=== PATIENT | male | born 1965 | race Caucasian/White ===

== ENCOUNTER → 2018-04-24 08:52 | Outpatient (CLI) | payer MEDICARE, MEDICAID, SELFPAY ==
[2018-04-24 09:02] LABS: Basophils % 0.5 % (0.1-2.0); Eosinophils # 0.1 K/mm3 (0.0-0.4); Eosinophils % 2.3 % (0.1-12.0); Hematocrit 51.1 % (42.0-52.0); Hemoglobin 16.5 g/dL (14.1-18.0); Lymphocytes # 1.2 K/mm3 (0.7-4.5); Lymphocytes % 23.4 K/mm3 (10-50); Mean Corpuscular HGB Conc 32.2 g/dL (31.8-35.4); Mean Corpuscular Hemoglobin 28.8 pg (27.0-31.2); Mean Corpuscular Volume 89.5 fl (80-94); Mean Platelet Volume 7.8 fl (7.4-10.4); Monocytes # 0.4 K/mm3 (0.1-1.0); Monocytes % 7.2 % (1.7-9.3); Neutrophils # 3.3 K/mm3 (1.8-7.8); Neutrophils % 66.6 % (37.0-80.0); Platelet Count 194 K/mm3 (142-424); Red Blood Count 5.72 M/mm3 (4.60-6.20)
--- NOTE | 2018-04-24 09:02 | CT_ITS ---
CT cervical spine wo con HISTORY: ITS.REASON: CERVICALGIA ORDERING PHYSICIAN: Wanda Alcantara PATIENT AGE: 53 years COMPARISON: None TECHNIQUE: Axial images obtained without contrast. Sagittal and coronal reformatted images also generated and reviewed. All CT scans at the facility use one or more dose reduction, viz: automated exposure control; ma/kV adjustment per patient size (including targeted exams where dose is matched to indication; i.e. head); or iterative reconstruction technique. FINDINGS: There is normal alignment. There is reversal of the cervical lordosis. The bodies of C5 and C6 are fused. C2-C3: Moderate uncovertebral hypertrophy with bilateral lateral recess and foraminal narrowing slightly greater on the right. C3-C4: Moderate uncovertebral hypertrophy with moderate bilateral lateral recess and foraminal narrowing. C4-C5: Mild uncovertebral hypertrophy with mild bilateral lateral recess and foraminal narrowing slightly greater on the right. C5-C6: Fusion of the vertebral bodies. C6-C7: Degenerative disc disease. Mild bilateral foraminal narrowing C7-T1: Mild degenerative disc disease. There is an intrathecal catheter along the dorsal aspect of the thecal sac superior tip at the C7 area. Scattered small nodes are present within the neck. Lung apices are clear IMPRESSION: 1. Generalized cervical spondylosis with degenerative disc disease and uncovertebral hypertrophy with bilateral areas of foraminal and lateral recess narrowing as detailed above. See above for detailed descriptions at each level. 2. No acute fracture or dislocation. 3. No lytic or blastic change
[2018-04-24 10:07] LABS: Alanine Aminotransferase 28 U/L (12-78); Albumin Level 3.8 gm/dL (3.4-5.0); Alkaline Phosphatase 104 U/L (46-116); Anion Gap 10.7 mEq/L (5-15); Aspartate Amino Transferase 16 U/L (15-37); Bilirubin,Total 0.3 mg/dL (0.2-1.0); Blood Urea Nitrogen 17 mg/dL (7-18); Calcium 9.9 mg/dL (8.5-10.1); Carbon Dioxide 31 mmol/L (21.0-32.0); Chloride 104 mmol/L (98-107); Chol/HDL Ratio 4.7 (1-3.5); Cholesterol 165 mg/dL (140-200); Creatinine,Serum 1.23 mg/dL (0.70-1.30); Estimated Glomerular Filt Rate 61 ml/min (>60); GFR (African American) 74 ML/MIN (>60); Glucose 91 mg/dL (74-106); HDL Cholesterol 35 mg/dL (27-67); LDL Cholesterol 117 mg/dL (0-130); Potassium 4.7 mmoL/L (3.5-5.1); Sodium 141 mmol/L (136-145); Thyroid Stimulating Hormone 2.54 uIU/ml (0.358-3.740); Total Protein,Serum 7.8 gm/dL (6.4-8.2); Triglycerides 67 mg/dL (30-200); VLDL Cholesterol 13 mg/dL (0-40)
[2018-04-24 11:07] LABS: Erythrocyte Sedimentation Rate 6 mm/hr (0-20)
[2018-04-25 18:34] LABS: Vitamin B12 377 pg/mL (232-1245); Vitamin D 25 Hydroxy 32.6 ng/mL (30.0-100.0)
== END ==
PROVIDERS: PCP Internal Medicine Adolescent Medicine; Visit Provider Nurse Practitioner Family
DX: M54.2 Cervicalgia (principal); Z79.899 Other long term (current) drug therapy
CPT/HCPCS: 36415; 72125; 80053; 80061; 82607; 82652; 83735; 84443; 85025; 85651

== ENCOUNTER → 2018-06-25 09:31 | Outpatient (REF) | payer MEDICARE, MEDICAID, SELFPAY ==
[2018-06-28 20:32] LABS: H. pylori Stool Ag, EIA Negative (Negative)
== END ==
LOC: LAB 09:31
PROVIDERS: Visit Provider Nurse Practitioner Family
DX: R11.0 Nausea (principal)
CPT/HCPCS: 87338

== ENCOUNTER → 2019-01-14 08:38 | Outpatient (CLI) | payer MEDICARE, MEDICAID, SELFPAY ==
--- NOTE | 2019-01-14 08:44 | XR_ITS ---
XR foot wt bearing LT 3V HISTORY: ITS.REASON: pain ORDERING PHYSICIAN: Saritha Villela MD PATIENT AGE: 53 years COMPARISON: None FINDINGS: Weightbearing views are performed No fracture or dislocation. No lytic or blastic change. There is normal mineralization.. The joint spaces are well-preserved. No significant degenerative/arthritic changes. No erosive changes evident. IMPRESSION: Negative, no acute finding
--- NOTE | 2019-01-14 08:44 | XR_ITS ---
XR foot wt bearing RT 3V HISTORY: ITS.REASON: pain ORDERING PHYSICIAN: Saritha Villela MD PATIENT AGE: 53 years COMPARISON: None FINDINGS: Weightbearing views are performed No fracture or dislocation. No lytic or blastic change. There is normal mineralization.. The joint spaces are well-preserved. No significant degenerative/arthritic changes. No erosive changes evident. There is slight decreased density involving the distal and medial aspect of the first metatarsal and may be related to developing subarticular cystic change IMPRESSION: 1. No acute finding. 2. Small cystic area in the distal and medial aspect of the first metatarsal
== END ==
PROVIDERS: PCP Internal Medicine Adolescent Medicine; Visit Provider Orthopaedic Surgery
DX: M79.672 Pain in left foot (principal); M79.671 Pain in right foot
CPT/HCPCS: 73630

== ENCOUNTER → 2019-01-18 10:29 | Outpatient (CLI) | payer MEDICARE, MEDICAID, SELFPAY ==
--- NOTE | 2019-01-18 10:39 | XR_ITS ---
XR shoulder RT min 2V HISTORY: ITS.REASON: RT SHOULDER PAIN ORDERING PHYSICIAN: Juarez Polanco MD PATIENT AGE: 53 years Comparison: None FINDINGS: No fracture or dislocation. No lytic or blastic change. There is normal mineralization. The joint spaces are well-preserved. Minimal subcortical lucency is noted at the base of the greater tuberosity and may be seen with rotator cuff disease. IMPRESSION: 1. Faint subcortical lucency at the base of the greater tuberosity which may be seen with rotator cuff disease. 2. Otherwise negative right shoulder
== END ==
PROVIDERS: PCP Internal Medicine Adolescent Medicine; Visit Provider Internal Medicine Adolescent Medicine
DX: M25.511 Pain in right shoulder (principal)
CPT/HCPCS: 73030

== ENCOUNTER → 2019-02-08 09:05 | Outpatient (CLI) | payer MEDICARE, MEDICAID, SELFPAY ==
--- NOTE | 2019-02-08 09:10 | XR_ITS ---
XR shoulder RT min 2V Ordering Physician: Saritha Villela MD Patient Age: 54 years: Male HISTORY: ITS.REASON: Right shoulder pain grashy, axillary and scapular y views TECHNIQUE: 3 view right shoulder Y view, axillary view, AP Grashey view. COMPARISON :January 18, 2019 FINDINGS No acute fracture nor dislocation. The humeral head and neck are intact. The glenohumeral joint is intact. The previous study showed minimal osseous irregularity at the superior base of the greater tuberosity, which may reflect impingement changes & early degenerative change.- However this specific feature is less evident on today views. The subacromial space appears adequate. The humeral head & neck appear satisfactory otherwise the glenohumeral joint appears satisfactory. AC joint satisfactory.] Visualized right lung appears satisfactory, unremarkable. The Y view shows normal glenohumeral relationship. IMPRESSION: Normal glenohumeral joint. Right shoulder intact -note comments in text
--- NOTE | 2019-02-08 09:10 | XR_ITS ---
XR knee RT 4V Comparison: June 2007 History: Chronic Right knee pain. .. stiff person syndrome Technique: Weightbearing AP, lateral and Serrano views were performed as well as oblique. Findings: . slight narrowing at the medial compartment evident on today's weightbearing views. Minor sclerosis about this slightly narrowed medial compartment also observed. Findings suggest some early degenerative changes Mild sharpening along the margins of the joint. Particular note some early sharpening margins of patella particularly lateral and superior margin. Upper normal joint fluid suprapatella bursa. . Impression: Suggestion of minor early degenerative changes right knee.. Subtle narrowing & sclerosis about the medial compartment.
== END ==
PROVIDERS: PCP Internal Medicine Adolescent Medicine; Visit Provider Orthopaedic Surgery
DX: M25.511 Pain in right shoulder (principal); M25.561 Pain in right knee
CPT/HCPCS: 73030; 73564

== ENCOUNTER 2019-02-10 09:00 | Outpatient (RCR) | payer MEDICARE, MEDICAID, SELFPAY ==
--- NOTE | 2019-02-03 09:56 | HMH.PTOPEV ---
PT Outpatient Evaluation Rehab PT Outpatient Evaluation Start: 02/03/19 09:42 Freq: Status: Active Protocol: Document 02/03/19 09:44 MAE (Rec: 02/03/19 09:56 BOYSHANNAN [id number]) Electronically Signed By Luis Romero PT 02/03/19 09:44 Outpatient Therapy Subjective History Subjective History THis is the initial Physical Therapy evaluation for Jimmy Rothman. Pt is a 54 y/o male referred to PT for c/o L foot /arch pain. Pt rpeorts he has had pain in foot for ~ 4 months. Pt reports cotizone injxn in foot ~ 2 months ago w /out relief. Pt reprots he saw DPM ~ 1 month ago and was given HEP w/out relief. 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 Pt reports he has internal baclofen pump Chief Complaint Pain Spasms Symptom Type Burning Numbness Tingling Symptoms Relieved By Nothing Symptoms Aggravated By Standing Physical Activity Walking Prior Functional Limitations Housework Standing Recreation Activity Walking Balance Current Functional Limitations Housework Standing Recreation Activity Walking Balance Symptom Description Constant but Variable Level of pain today (0-10) 4 Pain scale - at its best (0-10) 4 Pain scale - at its worst (0-10) 8 Ankle/Foot Eval Gait Observation General Gait Pattern Observation Antalgic Gait Ataxic Gait Assistive Device Ambulation Assistive Device None Palpation Tenderness left Ankle/Foot Palpation Findings Tenderness Ankle/Foot Palpation Overall Comment TTP 3/4 at plantar fascia origin on anterior calcaneus ATF TTP negative PTF TTP negative CF TTP negative Deltoid ligament TTP negative ROM Ankle/Foot Dorsiflexion w/Knee Extended 0 Ac
== END 2019-02-10 09:05 | disposition home or self-care (01) ==
LOC: PT 09:00
PROVIDERS: Visit Provider Podiatrist
DX: M72.2 Plantar fascial fibromatosis (principal); M79.672 Pain in left foot
CPT/HCPCS: 97110; 97163

== ENCOUNTER 2019-02-10 10:02 | Outpatient (RCR) | payer MEDICARE, MEDICAID, SELFPAY ==
--- NOTE | 2019-02-10 11:55 | HMH.OTOPEV ---
OT Inpatient Evaluation Rehab OT Outpatient Eval Start: 02/10/19 10:53 Freq: Status: Active Protocol: Document 02/10/19 10:54 RMARSHALL (Rec: 02/10/19 11:54 [id number] Electronically Signed By Gale Gray OT 02/10/19 10:54 Outpatient Therapy Subjective History Subjective History Pt is a 54 year old male who reports to therapy for initial evaluation to right shoulder. 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 However, pt reports he had symptoms of this disease 19 years prior to his diagnosis. Pt has a Baclofen pump due to severe muscle spasms. Pt reports his pain in his shoulder began in November of 2018. Pt demonstrates with slight decreased AROM and strength at right shoulder. Pt has pain down into the bicep and tricep areas as well as the anterior aspect of right shoulder. Could be indicitive of LHTB problem. Pt will continue to be seen twice a week in order to address these deficits. Chief Complaint Pain Spasms Stiff Weakness Symptom Type Ache Throb Sharp Dull Stabbing Burning Tingling Shooting Symptoms Relieved By Nothing Symptoms Aggravated By Physical Activity Twisting Lifting Prior Functional Limitations None Current Functional Limitations Reaching Lifting Housework Dressing Desk Work/Reading Driving Sleeping Recreation Activity Symptom Description Constant but Variable Level of pain today (0-10) 4 Pain scale - at its best (0-10) 2
== END 2019-02-10 10:05 | disposition home or self-care (01) ==
LOC: OT 10:02
PROVIDERS: Visit Provider Orthopaedic Surgery
DX: M25.511 Pain in right shoulder (principal)
CPT/HCPCS: 97166

== ENCOUNTER → 2019-08-02 09:19 | Outpatient (CLI) | payer MEDICARE, MEDICAID, SELFPAY ==
--- NOTE | 2019-08-02 09:23 | XR_ITS ---
PROCEDURE: XR CERVICAL SPINE 5V CLINICAL INDICATION: neck pain Neck pain radiating toward the left of the head and neck COMPARISON: SPCERVWO CT cervical spine wo con from 04/24/2018 FINDINGS: There is normal alignment. There is degenerative disc disease at C2-C3 C4-C5, prior fusion at C5-C6 and degenerative disc disease at C6-C7 and C7-T1. No fracture or dislocation. No lytic or blastic change. There is straightening of the cervical lordosis. Foraminal narrowing is present on the right at C3-C4 and C4-C5 and on the left from C3-C6. There are facet arthritic changes at C4-C5 C6 and C7. An epidural catheter is noted with the superior aspect of the catheter at the C7-T1 level. There is slight reversal of the cervical lordosis which could be due to patient positioning or muscle spasm. IMPRESSION: Cervical spondylosis as detailed above with prior fusion of C5-C6 vertebral bodies with multilevel degenerative disc disease and facet arthritic change Dictated by: Fuentes Dove MD 08/02/2019 10:32 Electronically signed by Fuentes Dove MD in [place] 08/02/2019 10:32
--- NOTE | 2019-08-02 09:23 | MR_ITS ---
PROCEDURE: MR SHOULDER RT WO CON CLINICAL INDICATION: evaluate for rotator cuff tear Right shoulder pain, right arm numbness and coldness, limited range of motion COMPARISON: SHOULDCMRT XR shoulder RT min 2V from 02/08/2019 TECHNIQUE: Routine multiplanar multi echo sequences are performed without gadolinium enhancement. FINDINGS: There is mild acromioclavicular arthropathy with edematous changes at the AC joint with a cystic area involving the distal clavicle measuring approximately 1 cm. There is mild subacromial stenosis. There is a full-thickness tear involving the anterior aspect of the supraspinatus tendon with some mild retraction of the musculotendinous fibers. There is diffuse increased T2 signal involving the posterior aspect of the supraspinatus tendon consistent with tendinopathy/tendinosis. A complete tear is not felt to be present. The infraspinatus tendon appears intact. The subscapularis and teres minor tendons also appear intact. There does appear to be a slap tear of the superior glenoid labrum. There is also irregularity of the posterior glenoid labrum inferiorly with increased T2 signal consistent with posterior labral tear. There are osteoarthritic changes of the glenohumeral joint. Edema is noted in the humeral head. The bicipital tendon is in place. There is a small amount of fluid in the subdeltoid region. Fluid is also present inferior to the clavicle and in the subcoracoid area. There is some cortical regularity of the greater tuberosity with edema in the subdeltoid region. IMPRESSION: 1. Full-thickness tear involves the anterior aspect of the supraspinatus tendon with mild retraction of the musculotendinous fibers. There is tendinopathy/tendinosis of the posterior aspect of the supraspinatus tendon but there does appear to be a few fibers intact 2. Slap tear of the glenoid labrum 3. 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 MR arthrography may confirm the labral abnormalities. 4. Mild bone marrow edema of the humeral head with generalized edema of the soft tissues of the shoulder Dictated by: Fuentes Dove MD 08/05/2019 06:38 Electronically signed by Fuentes Dove MD in [place] 08/05/2019 06:38
== END ==
PROVIDERS: PCP Internal Medicine Adolescent Medicine; Visit Provider Orthopaedic Surgery
DX: M54.2 Cervicalgia (principal); M67.919 Unspecified disorder of synovium and tendon, unspecified shoulder
CPT/HCPCS: 72050; 73221

== ENCOUNTER → 2019-08-23 10:55 | Outpatient (POV) | payer MEDICARE, MEDICAID, SELFPAY | PROVIDERS: Visit Provider Specialist | DX: M54.2 Cervicalgia (principal) | CPT/HCPCS: 95886; 95908 ==

== ENCOUNTER → 2019-09-23 08:05 | Outpatient (CLI) | payer MEDICARE, MEDICAID, SELFPAY ==
[2019-09-23 08:40] LABS: Ammonia 13 umol/L (19-54); Basophils % 0.8 % (0.1-2.0); Eosinophils # 0.1 K/mm3 (0.0-0.4); Eosinophils % 1.3 % (0.1-12.0); Hematocrit 50.6 % (42.0-52.0); Hemoglobin 16.6 g/dL (14.1-18.0); Lymphocytes # 1.1 K/mm3 (0.7-4.5); Lymphocytes % 26.4 % (10-50); Mean Corpuscular HGB Conc 32.8 g/dL (31.8-35.4); Mean Corpuscular Hemoglobin 29.8 pg (27.0-31.2); Mean Corpuscular Volume 90.8 fl (80-94); Mean Platelet Volume 8.3 fl (7.4-10.4); Monocytes # 0.4 K/mm3 (0.1-1.0); Monocytes % 8.5 % (1.7-9.3); Neutrophils # 2.6 K/mm3 (1.8-7.8); Platelet Count 199 K/mm3 (142-424); Red Blood Count 5.58 M/mm3 (4.60-6.20); Red Cell Distribution Width 13.7 % (11.5-17.5); White Blood Count 4.2 K/mm3 (4.8-10.8)
[2019-09-23 11:45] LABS: Alanine Aminotransferase 24 U/L (12-78); Albumin Level 3.4 gm/dL (3.4-5.0); Alkaline Phosphatase 82 U/L (46-116); Anion Gap 8.3 mEq/L (5-15); Aspartate Amino Transferase 13 U/L (15-37); Bilirubin,Total 0.3 mg/dL (0.2-1.0); Blood Urea Nitrogen 13 mg/dL (7-18); Calcium 9.4 mg/dL (8.5-10.1); Carbon Dioxide 29 mmol/L (21.0-32.0); Chloride 106 mmol/L (98-107); Creatinine,Serum 1.12 mg/dL (0.70-1.30); Estimated Glomerular Filt Rate 68 ml/min (>60); Free Thyroxine Index 2.7 ug/dL (5.93-13.13); GFR (African American) 82 ML/MIN (>60); Globulin 3.5 gm/dl (1.3-3.2); Glucose 100 mg/dL (74-106); Magnesium 1.9 mg/dL (1.4-2.2); Potassium 4.3 mmoL/L (3.5-5.1); Sodium 139 mmol/L (136-145); T4 (Thyroxine) 8.3 ug/dl (4.7-13.3); Thyroid Stimulating Hormone 2.64 uIU/ml (0.358-3.740); Total Protein,Serum 6.9 gm/dL (6.4-8.2); Triiodothryronine (T3) Uptake 32 % (31-39)
[2019-09-24 08:19] LABS: Vitamin B12 458 pg/mL (232-1245); Vitamin D 25 Hydroxy 27.4 ng/mL (30.0-100.0)
[2019-09-25 18:48] LABS: Lamotrigine (Lamictal) None Detected ug/mL (2.0-20.0)
== END ==
PROVIDERS: Visit Provider Internal Medicine Adolescent Medicine
DX: R51 Headache (principal); R53.83 Other fatigue; G40.909 Epilepsy, unspecified, not intractable, without status epilepticus; E55.9 Vitamin D deficiency, unspecified
CPT/HCPCS: 36415; 80053; 80168; 82140; 82607; 82652; 83735; 84436; 84443; 84479; 85025

== ENCOUNTER → 2019-09-24 09:17 | Outpatient (CLI) | payer MEDICARE, MEDICAID, SELFPAY ==
--- NOTE | 2019-09-24 09:20 | MR_ITS ---
PROCEDURE: MR HEAD/BRAIN WO CON CLINICAL INDICATION: CHRONIC INTRACTABLE HEADACHE, MIGRAINE AURA, SEIZURE DISORDE Headaches for 2 years which are worsening. Pain mostly on left side with facial drooping slurred speech and imbalance with left arm tingling and numbness COMPARISON: HEADWO CT head/brain wo con from 04/28/2019 TECHNIQUE: Routine multiplanar multi echo sequences are performed without gadolinium enhancement. FINDINGS: No midline shift, mass effect, intracranial hemorrhage, or hydrocephalus. No evidence of acute infarction The cerebellopontine angles, cerebellum, and brainstem are unremarkable. There is normal kitchen-white matter differentiation with no abnormal white matter signal intensity evident. The pituitary, optic chiasm, corpus callosum, and craniocervical junction have an unremarkable appearance. No mastoid effusion or sinus air-fluid level. IMPRESSION: NEGATIVE MRI OF THE BRAIN WITHOUT CONTRAST. Dictated by: Fuentes Dove MD 09/25/2019 11:35 Electronically signed by Fuentes Dove MD in [place] 09/25/2019 11:35
--- NOTE | 2019-09-24 09:21 | MR_ITS ---
PROCEDURE: MR ANGIO HEAD WO CON CLINICAL INDICATION: CHRONIC INTRACTABLE HEADACHE, MIGRAINE AURA, SEIZURE DISORDE COMPARISON: HEADWO CT head/brain wo con from 04/28/2019 MR HEAD/BRAIN WO CON from 09/24/2019 TECHNIQUE: 3D [id number] images obtained without contrast FINDINGS: No aneurysm, arteriovenous malformation, or major intracranial occlusive process is evident. There is persistent origin of the right posterior cerebral artery is a normal variant. Single-shot MRV is unremarkable. IMPRESSION: Negative MRA of the brain Dictated by: Fuentes Dove MD 09/25/2019 11:44 Electronically signed by Fuentes Dove MD in [place] 09/25/2019 11:44
== END ==
PROVIDERS: PCP Internal Medicine Adolescent Medicine; Visit Provider Internal Medicine Adolescent Medicine
DX: G43.519 Persistent migraine aura without cerebral infarction, intractable, without status migrainosus; G40.909 Epilepsy, unspecified, not intractable, without status epilepticus
CPT/HCPCS: 70544; 70551

== ENCOUNTER → 2019-12-24 09:46 | Outpatient (CLI) | payer MEDICARE, MEDICAID, SELFPAY ==
--- NOTE | 2019-12-24 09:49 | US_ITS ---
PROCEDURE: US ABDOMEN COMPLETE CLINICAL INDICATION: PERIPHERAL EDEMA, ABD SWELLING COMPARISON: SPLE US SPLEEN (ABD LTD) from 07/19/2016 FINDINGS: PANCREAS: Unremarkable. No obvious mass or abnormal fluid collection. No ductal dilatation LIVER: No focal liver lesions demonstrated. Homogeneous echogenicity. No intrahepatic biliary ductal dilatation evident. There is appropriate direction of blood flow within a non dilated portal vein RIGHT KIDNEY: Unremarkable. Normal size and echogenicity. No hydronephrosis LEFT KIDNEY: Unremarkable. Normal size and echogenicity. No hydronephrosis GALLBLADDER: Prior cholecystectomy. Common bile duct is normal at 2 mm AORTA: No evidence of aneurysmal dilatation. SPLEEN: Unremarkable. Normal size and echogenicity ASCITES: None demonstrated. IMPRESSION: No acute findings Dictated by: Fuentes Dove MD 12/24/2019 12:05 Electronically signed by Fuentes Dove MD in [place] 12/24/2019 12:05
== END ==
PROVIDERS: PCP Internal Medicine Adolescent Medicine; Visit Provider Internal Medicine Adolescent Medicine
DX: R19.00 Intra-abdominal and pelvic swelling, mass and lump, unspecified site (principal); R60.9 Edema, unspecified
CPT/HCPCS: 76700

== ENCOUNTER → 2020-10-09 14:24 | Outpatient (CLI) | payer MEDICARE, MEDICAID, SELFPAY ==
--- NOTE | 2020-10-09 14:38 | XR_ITS ---
PROCEDURE: XR KNEE RT 3V CLINICAL INDICATION: SWELLING ON RT KNEE JOINT COMPARISON: CR [id number] XR knee RT 4V from 02/08/2019 FINDINGS: No fracture or dislocation. No lytic or blastic change. There is normal mineralization. There are moderate osteoarthritic changes of the medial compartment and patellofemoral joint with suprapatellar effusion noted. Small osteophytes are present at the interspinous region of the proximal tibia and inter condylar region of the distal femur. Other findings:None. IMPRESSION: Osteoarthritis with knee joint effusion Dictated by: Fuentes Dove MD 10/09/2020 15:36 Fuentes Dove MD in [place] 10/09/2020 15:36
[2020-10-09 15:22] LABS: Basophils % 0.4 % (0.1-2.0); Eosinophils # 0.1 K/mm3 (0.0-0.4); Hematocrit 51.2 % (42.0-52.0); Hemoglobin 16.9 g/dL (14.1-18.0); Lymphocytes # 1.4 K/mm3 (0.7-4.5); Lymphocytes % 21.1 % (10-50); Mean Corpuscular HGB Conc 32.9 g/dL (31.8-35.4); Mean Corpuscular Hemoglobin 30.4 pg (27.0-31.2); Mean Corpuscular Volume 92.4 fl (80-94); Mean Platelet Volume 8.4 fl (7.4-10.4); Monocytes # 0.5 K/mm3 (0.1-1.0); Monocytes % 7.1 % (1.7-9.3); Neutrophils # 4.5 K/mm3 (1.8-7.8); Neutrophils % 70.4 % (37.0-80.0); Platelet Count 212 K/mm3 (142-424); Red Blood Count 5.54 M/mm3 (4.60-6.20); Red Cell Distribution Width 13.8 % (11.5-17.5); White Blood Count 6.4 K/mm3 (4.8-10.8)
[2020-10-09 15:55] LABS: Alanine Aminotransferase 27 U/L (12-78); Albumin Level 4.2 g/dl (3.5-5.0); Albumin/Globulin Ratio 1.4 (1.1-1.8); Alkaline Phosphatase 93 U/L (38-126); Anion Gap 9.9 mEq/L (5-15); Aspartate Amino Transferase 30 U/L (17-59); Bilirubin,Total 0.3 mg/dl (0.2-1.3); Blood Urea Nitrogen 16 mg/dl (9-20); Calcium 10.5 mg/dl (8.4-10.2); Carbon Dioxide 32 mmol/L (22.0-30.0); Chloride 103 mmol/L (98-107); Estimated Glomerular Filt Rate 52 ml/min (>60); GFR (African American) 63 ML/MIN (>60); Globulin 3.1 g/dL (1.3-3.2); Glucose 80 mg/dl (74-100); Potassium 4.9 mmoL/L (3.5-5.1); Sodium 140 mmol/L (136-145); Total Protein,Serum 7.3 g/dl (6.3-8.2); Uric Acid 6.9 mg/dl (3.5-8.5)
[2020-10-09 16:32] LABS: Erythrocyte Sedimentation Rate 4 mm/hr (0-20)
== END ==
PROVIDERS: Visit Provider Internal Medicine Adolescent Medicine
DX: M25.461 Effusion, right knee (principal)
CPT/HCPCS: 36415; 73562; 80053; 84550; 85025; 85651

== ENCOUNTER → 2020-10-13 09:25 | Outpatient (CLI) | payer MEDICARE, MEDICAID, SELFPAY ==
--- NOTE | 2020-10-13 09:29 | XR_ITS ---
PROCEDURE: XR KNEE RT 4V CLINICAL INDICATION: RT knee swelling COMPARISON: CR [id number] XR knee RT 4V from 02/08/2019 CR XR KNEE RT 3V from 10/09/2020 FINDINGS: Moderate osteoarthritic changes are present involving medial compartment and patellofemoral joint with mild osteoarthritis of the lateral compartment. There is mild genu varum. Suprapatellar effusion is present. No fracture or dislocation. No lytic or blastic change. Other findings:None. IMPRESSION: Moderate osteoarthritic changes with mild genu varum and suprapatellar effusion Dictated by: Fuentes Dove MD 10/13/2020 10:05 Fuentes Dove MD in [place] 10/13/2020 10:05
== END ==
PROVIDERS: PCP Internal Medicine Adolescent Medicine; Visit Provider Orthopaedic Surgery
DX: M25.561 Pain in right knee (principal)
CPT/HCPCS: 73564

== ENCOUNTER 2020-11-02 11:02 | Outpatient (CLI) | payer MEDICARE, MEDICAID, SELFPAY ==
[2020-11-02 11:17] VITALS: BMI 33.7
[2020-11-02 11:45] VITALS: BP 120/73; PULSE 58; RESP 20; TEMP 36.2; O2SAT 97
[2020-11-02 11:50] LABS: Chloride 105 mmol/L (98-107); Potassium 4.3 mmoL/L (3.5-5.1); Sodium 140 mmol/L (136-145)
[2020-11-02 11:53] LABS: Anion Gap 11.3 mEq/L (5-15); Blood Urea Nitrogen 15 mg/dl (9-20); Calcium 10.2 mg/dl (8.4-10.2); Carbon Dioxide 28 mmol/L (22.0-30.0); Creatinine Clearance Estimated 118 mL/min (50-200); Estimated Glomerular Filt Rate 69 ml/min (>60); GFR (African American) 83 ML/MIN (>60); Glucose 120 mg/dl (74-100)
[2020-11-02 12:15] VITALS: BP 112/67; PULSE 52; RESP 20
[2020-11-02 12:45] VITALS: BP 117/63; PULSE 52; RESP 20
[2020-11-02 13:15] VITALS: BP 115/71; PULSE 51; RESP 18
[2020-11-02 13:45] VITALS: BP 103/66; PULSE 47; RESP 16
[2020-11-02 14:15] VITALS: BP 99/57; PULSE 43; RESP 16
== END 2020-11-02 14:30 | disposition home or self-care (01) ==
LOC: INF 11:04
PROVIDERS: PCP Internal Medicine Adolescent Medicine; Visit Provider Internal Medicine Adolescent Medicine
DX: G43.909 Migraine, unspecified, not intractable, without status migrainosus (principal); N17.9 Acute kidney failure, unspecified
CPT/HCPCS: 80048; 96365; 96375

== ENCOUNTER → 2021-04-18 16:47 | Outpatient (CLI) | payer MEDICARE, MEDICAID, SELFPAY ==
--- NOTE | 2021-04-18 | XR_ITS ---
PROCEDURE: XR CHEST 2V CLINICAL HISTORY: Pneumonia, shortness of breath COMPARISON: CT CHWO CT CHEST W/O CONTRAST from 11/18/2016 CR Chest from 04/28/2019 FINDINGS: The cardiomediastinal silhouette and pulmonary vascularity are within normal limits. No lobar consolidation or collapse. There is a 6 mm nodular opacity in the right upper lobe overlying the 3rd rib anteriorly. This could be due to an area of scarring. Developing neoplastic nodule is not excluded. Chest CT with contrast may provide further evaluation. No acute bony abnormalities. IMPRESSION: No acute infiltrate. Developing nodular opacity right upper lobe which may be better evaluated with chest CT Dictated by: Fuentes Dove MD 04/18/2021 17:16 Fuentes Dove MD in [place] 04/18/2021 17:16
== END ==
PROVIDERS: PCP Internal Medicine Adolescent Medicine; Visit Provider Internal Medicine Adolescent Medicine
DX: J18.0 Bronchopneumonia, unspecified organism (principal)
CPT/HCPCS: 71046

== ENCOUNTER → 2021-08-29 12:10 | Outpatient (CLI) | payer MEDICARE, MEDICAID, SELFPAY ==
[2021-08-29 12:33] LABS: Basophils # 0.1 K/mm3 (0-0.2); Basophils % 1.3 % (0.1-2.0); Eosinophils # 0.1 K/mm3 (0.0-0.4); Eosinophils % 1.9 % (0.1-12.0); Hematocrit 52.4 % (42.0-52.0); Hemoglobin 17.3 g/dL (14.1-18.0); Lymphocytes # 1.3 K/mm3 (0.7-4.5); Lymphocytes % 24.5 % (10-50); Mean Corpuscular Hemoglobin 30.2 pg (27.0-31.2); Mean Corpuscular Volume 91.3 fl (80-94); Mean Platelet Volume 8.9 fl (7.4-10.4); Monocytes # 0.4 K/mm3 (0.1-1.0); Monocytes % 8.2 % (1.7-9.3); Neutrophils # 3.5 K/mm3 (1.8-7.8); Neutrophils % 64.1 % (37.0-80.0); Platelet Count 223 K/mm3 (142-424); Red Blood Count 5.74 M/mm3 (4.60-6.20); Red Cell Distribution Width 13.6 % (11.5-17.5); White Blood Count 5.4 K/mm3 (4.8-10.8)
[2021-08-29 13:36] LABS: Alanine Aminotransferase 47 U/L (12-78); Albumin/Globulin Ratio 1.3 (1.1-1.8); Alkaline Phosphatase 79 U/L (38-126); Anion Gap 9.1 mEq/L (5-15); Aspartate Amino Transferase 39 U/L (17-59); Bilirubin,Total 0.3 mg/dl (0.2-1.3); Blood Urea Nitrogen 12 mg/dl (9-20); Calcium 9.9 mg/dl (8.4-10.2); Carbon Dioxide 35 mmol/L (22.0-30.0); Chloride 102 mmol/L (98-107); Estimated Glomerular Filt Rate 62 ml/min (>60); GFR (African American) 75 ML/MIN (>60); Globulin 3.1 g/dL (1.3-3.2); Glucose 91 mg/dl (74-100); Magnesium 2.1 mg/dl (1.6-2.3); Potassium 5.1 mmoL/L (3.5-5.1); Sodium 141 mmol/L (136-145); Total Protein,Serum 7.1 g/dl (6.3-8.2)
[2021-08-29 13:46] LABS: NT Pro Brain Natriuretic Pep. 11.7 pg/mL (0-125)
[2021-08-29 13:47] LABS: Troponin I < 0.01 ng/ml (0.00-0.034)
== END ==
PROVIDERS: Visit Provider Internal Medicine Adolescent Medicine
DX: R07.9 Chest pain, unspecified (principal); R06.09 Other forms of dyspnea
CPT/HCPCS: 36415; 80053; 83735; 83880; 84484; 85025

== ENCOUNTER → 2021-09-05 10:34 | Outpatient (CLI) | payer MEDICARE, MEDICAID, SELFPAY | PROVIDERS: PCP Internal Medicine Adolescent Medicine; Visit Provider Internal Medicine Adolescent Medicine | DX: R07.9 Chest pain, unspecified (principal) ==

== ENCOUNTER → 2022-02-28 09:59 | Outpatient (CLI) | payer MEDICARE, MEDICAID, SELFPAY ==
[2022-02-28 11:20] LABS: Basophils % 0.6 % (0.1-2.0); Eosinophils # 0.1 K/mm3 (0.0-0.4); Eosinophils % 1.5 % (0.1-12.0); Hematocrit 47.5 % (42.0-52.0); Hemoglobin 15.8 g/dL (14.1-18.0); Lymphocytes # 1.1 K/mm3 (0.7-4.5); Lymphocytes % 22.5 % (10-50); Mean Corpuscular HGB Conc 33.2 g/dL (31.8-35.4); Mean Corpuscular Hemoglobin 30.3 pg (27.0-31.2); Mean Corpuscular Volume 91.1 fl (80-94); Mean Platelet Volume 7.9 fl (7.4-10.4); Monocytes # 0.5 K/mm3 (0.1-1.0); Monocytes % 9.3 % (1.7-9.3); Neutrophils # 3.3 K/mm3 (1.8-7.8); Platelet Count 195 K/mm3 (142-424); Red Blood Count 5.21 M/mm3 (4.60-6.20); White Blood Count 4.9 K/mm3 (4.8-10.8)
[2022-02-28 12:48] LABS: Alanine Aminotransferase 28 U/L (12-78); Albumin Level 3.8 g/dl (3.5-5.0); Albumin/Globulin Ratio 1.4 (1.1-1.8); Alkaline Phosphatase 93 U/L (38-126); Anion Gap 9.7 mEq/L (5-15); Aspartate Amino Transferase 24 U/L (17-59); Bilirubin,Total 0.5 mg/dl (0.2-1.3); Blood Urea Nitrogen 10 mg/dl (9-20); Calcium 9.1 mg/dl (8.4-10.2); Carbon Dioxide 33 mmol/L (22.0-30.0); Chloride 103 mmol/L (98-107); Chol/HDL Ratio 3.4 (1-3.5); Cholesterol 98 mg/dl (140-200); Estimated Glomerular Filt Rate 57 ml/min (>60); GFR (African American) 68 ML/MIN (>60); Globulin 2.7 g/dL (1.3-3.2); Glucose 95 mg/dl (74-100); HDL Cholesterol 29 mg/dl (40-60); Potassium 4.7 mmoL/L (3.5-5.1); Sodium 141 mmol/L (136-145); Total Protein,Serum 6.5 g/dl (6.3-8.2); Triglycerides 104 mg/dl (30-150); VLDL Cholesterol 21 mg/dL (0-40)
[2022-02-28 12:59] LABS: Direct LDL Cholesterol 44.77 mg/dL (100-129)
[2022-02-28 13:19] LABS: Thyroid Stimulating Hormone 1.21 uIU/mL (0.465-4.68)
[2022-02-28 13:38] LABS: Vitamin B12 635 pg/mL (239-931)
== END ==
PROVIDERS: Visit Provider Internal Medicine Adolescent Medicine
DX: G43.519 Persistent migraine aura without cerebral infarction, intractable, without status migrainosus (principal); M54.2 Cervicalgia; I10 Essential (primary) hypertension; Z86.39 Personal history of other endocrine, nutritional and metabolic disease
CPT/HCPCS: 36415; 80053; 80061; 82607; 84443; 85025

== ENCOUNTER 2023-06-16 09:38 | Outpatient (CLI) | payer MEDICARE, MEDICAID, SELFPAY ==
--- NOTE | 2023-06-16 09:45 | FL_ITS ---
FINAL REPORT CLINICAL HISTORY: lumbar puncture fluro time 0:47sec Saad ZAYAS FINDINGS: LUMBAR PUNCTURE AND FLUOROSCOPY HISTORY: Headaches . ATTENDING PHYSICIAN: Dr. Mele Whitmore PHYSICIAN [employer] WORKER: Desirae Kim PA-C PROCEDURE: After informed consent was obtained and time out procedure performed, the patient was placed in the prone position in the fluoroscopic suite. The L4-L5 level of the lumbar spine was localized under fluoroscopic guidance and marked on the skin appropriately. The patient was then prepped and draped in the usual sterile fashion and the skin was anesthetized with 1% Lidocaine without epinephrine. A lumbar puncture was then performed under direct fluoroscopic guidance at the L4-L5 level using a 20-gauge 3 1/2'' needle. The patient was subsequently rolled into the left lateral decubitus position and opening pressure was measured at 15 cm of water. Approximately 17 ml of clear cerebrospinal fluid was removed and sent to the laboratory for studies. The patient tolerated the procedure well and there were no immediate complications. A single image was saved. FLUOROSCOPY TIME: 47 seconds IMPRESSION: Lumbar puncture under direct fluoroscopic guidance at the L4-L5 level. Opening pressure was measured at 15 cm of water and 17 ml of clear CSF was sent to the lab for studies. Reviewed, Interpreted and Dictated by Eliana Whitmore MD Transcribed by Desirae Kim PA-C Authenticated and [facility]
[2023-06-16 09:54] VITALS: BMI 31.7
[2023-06-16 10:10] VITALS: BP 138/69; PULSE 70; RESP 18; TEMP 36.1; O2SAT 97
--- NOTE | 2023-06-16 11:14 | CT_ITS ---
FINAL REPORT TECHNIQUE: Axial images through the brain was performed by computed tomography. Sagittal and coronal reformatted images were obtained and reviewed. This study was performed with techniques to keep radiation doses as low as reasonably achievable (ALARA). Individualized dose reduction techniques using automated exposure control or adjustment of mA and/or kV according to the patient's size were employed. CLINICAL HISTORY: NEED FOR LUMBAR PUNCTURE/HEADACHES COMPARISON: 04/28/2019 FINDINGS: No abnormal density is seen. Ventricles are normal. There is no hemorrhage. No mass effect is seen. Bone windows show no evidence of fracture. There is chronic right maxillary sinusitis, worse than prior. There is minimal left maxillary sinusitis. IMPRESSION: No acute findings. Reviewed, Interpreted and Dictated by Eliana Whitmore MD Transcribed by Jacquie Sue Authenticated and [facility]
[2023-06-16 12:09] VITALS: BP 125/72; PULSE 63; RESP 17; TEMP 36.3; O2SAT 96
--- NOTE | 2023-06-16 12:14 | PC.NURSE ---
pt in post op area at 1209. pt stable, at bedside. pt drinking a dr. pepper, and watching tv with no other needs at this time.
[2023-06-16 12:39] VITALS: BP 126/78; PULSE 64; RESP 16; O2SAT 96
[2023-06-16 13:09] VITALS: BP 116/71; PULSE 69; RESP 17; O2SAT 96
[2023-06-16 13:39] VITALS: BP 110/73; PULSE 63; RESP 17; O2SAT 97
--- NOTE | 2023-06-16 14:24 | PC.NURSE ---
called and educated patient regarding stopping his blood thinner until friday, pt remembered his md telling him this.
[2023-06-16 14:32] LABS: Appearance,CSF Clear (Clear); Volume,CSF 15 mL
[2023-06-16 14:49] LABS: White Blood Cell,CSF 10 cells/uL (0-5)
[2023-06-16 14:50] LABS: Red Blood Cell,CSF 24 cells/uL (0)
[2023-06-16 15:17] LABS: Mononuclear WBCs,CSF 0 %; Polynuclear WBCs,CSF 0 %
[2023-06-20 11:46] LABS: CAP Mandated Reflex to Culture Not Indicated (.); Cryptococcus Antigen, CSF Negative (Negative)
== END 2023-06-16 14:10 | disposition home or self-care (01) ==
PROVIDERS: PCP Internal Medicine Adolescent Medicine; Visit Provider Internal Medicine Adolescent Medicine
DX: R51.9 Headache, unspecified (principal); G40.909 Epilepsy, unspecified, not intractable, without status epilepticus; G89.29 Other chronic pain
CPT/HCPCS: 62270; 62328; 70450; 87070; 87205; 87899; 89051

== ENCOUNTER → 2023-11-21 07:22 | Outpatient (CLI) | payer MEDICARE, MEDICAID, SELFPAY ==
--- NOTE | 2023-11-21 07:31 | CT_ITS ---
FINAL REPORT TECHNIQUE: Axial CT images were performed through the head. Coronal reformatted images were submitted. This study was performed with techniques to keep radiation doses as low as reasonably achievable (ALARA). Individualized dose reduction techniques using automated exposure control or adjustment of mA and/or kV according to the patient's size were employed. CLINICAL HISTORY: POST TRAUMATIC HEADACHE FALL 7 WEEKS AGO COMPARISON: 06/16/2023 FINDINGS: The ventricles are normal in size. There is no evidence of hemorrhage. There is no mass or edema identified. There is no abnormal extra-axial fluid seen. There is extensive mucoperiosteal thickening in the right maxillary sinus and minimal mucoperiosteal thickening in the left maxillary sinus. IMPRESSION: No acute intracranial process. Chronic sinusitis Reviewed, Interpreted and Dictated by Michael Nguyen MD Transcribed by Hillary Carnes Authenticated and . [facility]
== END ==
LOC: RAD 07:23
PROVIDERS: PCP Internal Medicine Adolescent Medicine; Visit Provider Nurse Practitioner Family
DX: G44.301 Post-traumatic headache, unspecified, intractable (principal)
CPT/HCPCS: 70450

== ENCOUNTER 2024-02-02 09:02 | Outpatient (CLI) | payer MEDICARE, MEDICAID, SELFPAY ==
--- NOTE | 2024-02-02 09:16 | XR_ITS ---
FINAL REPORT CLINICAL HISTORY: foot pain COMPARISON: None FINDINGS: LEFT FOOT: Three views of the left foot were obtained. There is no acute fracture or dislocation. The joint spaces are intact. There is no soft tissue abnormality. A pes planus deformity is present. There is a small plantar calcaneal spur. IMPRESSION: No acute bony abnormality. Pes planus, small plantar calcaneal spur. Reviewed, Interpreted and Dictated by Ankit Varghese III, MD Transcribed by Cherri Yip Authenticated and [facility]
--- NOTE | 2024-02-02 09:16 | XR_ITS ---
FINAL REPORT CLINICAL HISTORY: foot pain COMPARISON: None FINDINGS: RIGHT FOOT: Three views of the right foot were obtained. There is no acute fracture or dislocation. The joint spaces are intact. There is no soft tissue abnormality. A small plantar calcaneal spur is present. IMPRESSION: No acute bony abnormality. Reviewed, Interpreted and Dictated by Ankit Varghese III, MD Transcribed by Cherri Yip Authenticated and [facility]
== END 2024-02-02 23:59 ==
PROVIDERS: PCP Internal Medicine Adolescent Medicine; Visit Provider Podiatrist
DX: M79.671 Pain in right foot (principal); M79.672 Pain in left foot
CPT/HCPCS: 73630

== ENCOUNTER 2025-04-08 11:10 | Outpatient (CLI) | payer MEDICARE, MEDICAID, SELFPAY ==
--- OUTSIDE RECORDS SUMMARY | 2025-04-08 11:12 | XMS_ITS | Continuity of Care Document ---
Author Organization formerly [facility]. If a dditional information is needed, contact Health Information Management at [phone] [address] [place] [address] Phone Care Team Providers Care Stock Supervisor Name Role Phone Unavailable Unavailable Unavailable
--- OUTSIDE RECORDS SUMMARY | 2025-04-08 11:12 | XMS_ITS | Continuity of Care Document ---
Author Organization [facility] TOMMY Alarcon ZOE Address [address] [place] [address] Care Team Providers Care Healthcare Liaison Name Role Phone SHONNA QUINTEROS Referring Provider Assessment Encounter Date Assessment Date Assessment LastModified by Organization Details LastModified Time 04/06/2025 04/06/2025 will call with pathology [email or web address] Not available 04/06/2025 15:12:37 Plan of Treatment Reminders Order Date Submit Date Provider Last Modified By Organization Details Last Modified Time Details Appointments None recorded. Lab surgical pathology study - shave biopsy 2024 025 [email or web address] [facility], [address] [place] [address], [phone], 16:43:55 Referral None recorded. Procedures None recorded. Surgeries None recorded. Imaging None recorded. Medication Orders None recorded. Patient TargetsNo targets recorded. Patient Instructions Encounter Date Encounter Id Patient Instructions Last Modified By Organization Details Last Modified Time 04/06/2025 [id number] General Skin Protection: - SPF 30 or higher broad-spectrum sunscreen recommended with re-application every 2 hours - Sun protection measures: including wide-brimmed hat, sun-protective clothing, and avoidance of sun during peak hours of 10am-4pm - Avoid tanning beds as these can increase the chances of all 3 types of skin cancer -Please call us for appointment with any changing or worrisome lesions or skin conditions. [email or web address] Not available 04/06/2025 15:10:37 Reason for Referral None Reported. 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 017 [place] [address] [place] [address], [phone], [facility] 7 14:46:34 History of deep vein thrombosis 740180265 Active 017 ANA ALMEIDA MD [address] [place] [address], [phone], [facility] 7 14:48:10 Headache 85535534 Active 017 ANA ALMEIDA MD [address] [place] [address], [phone], [facility] 7 14:48:12 Nasal polyp Active 017 ANA ALMEIDA MD [address] [place] [address], [phone], [facility] 7 14:48:14 Chronic sinusitis 59378023 Active 017 ANA ALMEIDA MD [address] [place] [address], [phone], [facility] 7 14:48:15 Problem Notes None recorded. Procedures Surgical History Date Name Laterality Status Provider Name and Address Organization Details Recorded Time 025 DAK - Biopsy, Tangential completed Kiki Moreau [facility] 04/06/2025 15:02:19 017 Review of Med Recs/Compl forms completed Wanda Bashir [facility] 10/02/2017 10:53:41 017 Endoscopy Nasal; Diagnostic completed Wanda Bashir [facility] 10/02/2017 11:02:12 Cholecystectomy completed iVncemerlene Castillo [facility] 10/02/2017 09:51:49 Carpal tunnel surgery completed Harriet Rahman [facility] 10/02/2017 09:51:55 Unlisted px neck/thorax completed Harriet BURRIS [facility] 10/02/2017 09:52:00 Knee arthroscopy/surger y completed Harriet Rahman [facility] 10/02/2017 09:52:05 Nasal sinus therapy completed Harriet Rahman [facility] 10/02/2017 09:52:21 Nsl/sins ndsc frnt tiss rmvl completed Wanda Bashir [facility] 10/02/2017 10:52:25 Imaging Results None recorded. Procedure Notes None recorded. Medical Equipment None Reported. Allergies Allergen ID Allergen Name Allergen Category Reaction Reaction Severity Criticality Documentation Date Start Date Code Code System Note Provider Name and Address Organization Details Recorded Time 679692 Topamax medicatio n Not available Not available Not available 10/02/2017 39587 3 RxNorm Harriet malcolm [facility] 7 09:47:24 Medications Name Sig Start Date Stop Date Status Note LastModified by Organization Details LastModified Time metolazone 2.5 mg tablet TAKE 1 TABLET BY MOUTH ONCE DAILY active Not Available Not Available No t Available promethazin e-DM 6.25 mg-15 mg/5 mL oral syrup TAKE 5 ML BY MOUTH EVERY 6 HOURS FOR 10 DAYS active Not Available Not Available No t Available atorvastati n 80 mg tablet TAKE 1 TABLET BY MOUTH ONCE DAILY active Not Available Not Available No t Available doxycycline hyclate 100 mg capsule TAKE 1 CAPSULE BY MOUTH TWICE DAILY FOR 10 DAYS active Not Available Not Available No t Available azithromyci n 250 mg tablet TAKE 1 TABLET BY MOUTH ONCE DAILY FOR 14 DAYS active Not Available Not Available No t Available benzonatate 200 mg capsule TAKE 1 CAPSULE BY MOUTH THREE TIMES DAILY FOR 5 DAYS active Not Available Not Available No t Available prednisone 20 mg tablet TAKE 3 TABLETS BY MOUTH ONCE DAILY FOR 2 DAYS THEN 2 ONCE DAILY FOR 2 DAYS THEN 1 ONCE DAILY FOR 2 DAYS active Not Available Not Available No t Available midodrine 5 mg tablet TAKE 1 TABLET BY MOUTH TWICE DAILY active Not Available Not Available No t Available acetaminoph en 300 mg-codeine 30 mg tablet 02/25 completed Not Available Not Available Not Available doxycycline monohydrate 100 mg tablet 10/02 completed Not Available Not Available Not Available tramadol 50 mg tablet 1 or 2 tabs each 6 hours prn headache do not exceed 8 per day 2017 active Not Available Not Available Not Avai lable butalbital- acetaminoph en-caffeine 50 mg-325 mg-40 mg tablet 10/02 completed Not Available Not Available Not Available lamotrigine 25 mg tablet TAKE 4 TABLETS BY MOUTH AT BEDTIME 2018 active Not Available Not Available Not Avai lable baclofen 20 mg tablet TAKE 1 TABLET BY MOUTH THREE TIMES DAILY active Not Available Not Available No t Available nadolol 20 mg tablet 02/25 completed Not Available Not Available Not Available tamsulosin 0.4 mg capsule TAKE 2 CAPSULES BY MOUTH AT BEDTIME active Not Available Not Available No t Available diazepam 2 mg tablet Take 1 tablet as needed by oral route. active Not Available Not Available No t Available erythromyci n 5 mg/gram (0.5 %) eye ointment INSTILL OINTMENT TO LID MARGINS INTO EACH EYE AT BEDTIME active Not Available Not Available No t Available cyanocobala min (vit B-12) 1,000 mcg/mL injection solution INJECT 1ML INTRAMUSC ULARLY EVERY OTHER WEEK active Not Available Not Available No t Available divalproex ER 500 mg tablet,exte nded release 24 hr 10/02 completed Not Available Not Available Not Available metoprolol tartrate 50 mg tablet active Not Available Not Available No t Available nitroglycer in 0.[address] 1 tablet by sublingua l route. active Not Available Not Available No t Available gabapentin 300 mg capsule TAKE 1 CAPSULE BY MOUTH THREE TIMES DAILY active Not Available Not Available No t Available folic acid 1 mg tablet TAKE 1 TABLET BY MOUTH ONCE DAILY active Not Available Not Available No t Available montelukast 10 mg tablet 10/02 completed Not Available Not Available Not Available furosemide 20 mg tablet TAKE 1 TABLET BY MOUTH ONCE DAILY active Not Available Not Available No t Available gabapentin 100 mg capsule 10/02 completed Not Available Not Available Not Available azelastine 137 mcg (0.1 %) nasal spray 02/25 completed Not Available Not Available Not Available levofloxaci n 750 mg tablet 10/02 completed Not Available Not Available Not Available methylpredn isolone 4 mg tablets in a dose pack TAKE BY MOUTH DIRECTED ON INSIDE OF PACKAGE active Not Available Not Available No t Available fluticasone propionate 50 mcg/actuati on nasal spray,suspe nsion USE 2 SPRAY(S) IN EACH NOSTRIL ONCE DAILY active Not Available Not Available No t Available diazepam 5 mg tablet TAKE 1 TABLET BY MOUTH EVERY 8 HOURS active Not Available Not Available No t Available amoxicillin 875 mg-potassiu m clavulanate 125 mg tablet 10/02 completed Not Available Not Available Not Available enoxaparin 100 mg/mL subcutaneou s syringe 10/02 completed Not Available Not Available Not Available zonisamide 25 mg capsule 10/02 completed Not Available Not Available Not Available metoprolol tartrate 25 mg tablet 02/25 completed Not Available Not Available Not Available lactulose 10 gram/15 mL oral solution 10/02 completed Not Available Not Available Not Available pregabalin 50 mg capsule TAKE 1 CAPSULE BY MOUTH THREE TIMES DAILY active Not Available Not Available No t Available Flomax 02/25 completed Not Available Not Available Not Available olopatadine 0.2 % eye drops active Not Available Not Available Not Available levocetiriz ine 5 mg tablet TAKE 1 TABLET BY MOUTH ONCE DAILY IN THE EVENING active Not Available Not Available No t Available Xarelto 20 mg tablet TAKE 1 TABLET BY MOUTH ONCE DAILY active Not Available Not Available No t Available Vitals None Recorded Social History Question Answer Notes LastModified by Organizat ion Details LastModified Time What Is Your Level Of Caffeine Consumption? Moderate [email or web address] Information not available 02/02/2018 How Much Tobacco Do You Chew? 5+/day [email or web address] Information not available 02/02/2018 What Was The Date Of Your Most Recent Tobacco Screening? 04/15/2018 Information n ot available 01/11/2020 Has Tobacco Cessation Counseling Been Provided? Yes Information not available 02/02/2018 On What Date Was Tobacco Cessation Counseling Provided? 04/15/2018 [email or web address] Information not available 04/15/2018 Sex: Unknown Functional Status Question Answer Note LastModified by Organization D etails LastModified Time What is your level of alcohol consumption? None Information not available 02/02/2018 Mental Status None recorded. Family History Relationship Description Onset Age of this Age Resolved Age Notes LastModified by Organization Details LastModified Time Father Family history of malignant neoplasm [email or web address] Not available 2016 09:51:10 Mother History of hypertension [email or web address] Not available 07/2017 09:51:19 Brother History of hypertension [email or web address] Not available 10/2018 14:00:31 Medical History Condition Response Anesthesia Complications N Anxiety Disorder Y Diabetes N Bleeding Disorder Y Arthritis Y Cancer N Reflux/GERD Y Hypertension Y Immunizations Vaccine Type Date Status Note Provider Nam e and Address Organization Details Recorded Time Influenza, split virus, quadrivalent, preservative 7 completed Ashley Coombs [facility] 02/25/2018 14:17:09 Past Encounters Encounter ID Performer Location Encounter Start Date Encounter Closed Date Diagnosis/Indication Diagnosis SNOMED-CT Code Diagnosis ICD10 Code Diagnosis Note [id number] ANDREI EDGE MD [place] [address] [place] [address] 04/06/2025 14:29:08 04/06/2025 15:10:58 Neoplasm of uncertain behavior of skin 55698255 D48.5 Lesion of uncertain significan ce:right cheek r/o KA versus otherThe risks, benefits and alternativ es of skin biopsy were reviewed with parent(s) including but not limited to unavoidabl e scar, bleeding, infection, non-diagno stic result, recurrence , need for additional procedure pending results. A biopsy was performed in the office today, See procedure section for details. Wound care discussed with patient. Leave the bandage on for 24 hrs. Clean the area daily with warm soapy water, and apply vaseline or polysporin ointment and a bandaid once daily until healed. Call the office if any increase in redness, drainage, or pain. Health Concerns Section Related Observation LastModified by Organization Detai ls LastModified Time None Recorded Concern Status LastModified by Organization Details LastModified Time None Recorded Payers Encounter Date Sequence Insurance Name Policy Number Policy Elam Covered Member ID Elam Member ID Guarantor Name 04/06/2025 2 [place] [employer] - FFS/TRADITIO NAL Deo Rothman [id number] Jimmy Rothman 04/06/2025 1 [employer] (MEDICARE REPLACEMENT/ ADVANTAGE - PPO) Jimmy Rothman [id number] Jimmy Rothman Notes Date Note Type Note Provider Name and Address Organization Details Recorded Time 04/06/2025 text/html Specific spot to check Location: R cheek General duration: ~{{days weeks mo nths years 1 months#}} Predominant symptom:{{asympt omatic itching c atching on things sensitive painful other g rowing#}} Prior treatment(s):{{n one* cryo biopsy excision other} } History of evolution:{{stab le changing*}} Patient primarily desires lesion to be:{{evaluated only* removed if possible}}.no hx skin cancer new pt ANDREI EDGE MD [address] [place] [address], [phone], [facility] 04/06/2025 22:15:06
--- OUTSIDE RECORDS SUMMARY | 2025-04-08 11:13 | XMS_ITS | Data Portability ---
Author Organization [facility] Address [address] [place] [address] Care Team Providers Care Accountant Tax Name Role Phone SHONNA QUINTEROS Referring Provider Assessment Encounter Date Assessment Date Assessment LastModified by Organization Details LastModified Time 02/02/2018 02/02/2018 1. Headache daily x 2 years 2. 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 Blood test today: CBC, CMP, ESR 2. I have asked him at our next office meeting to bring a copy of meds from his pharmacy 3. Schedule CT head Follow up in one month Blood pressure will be rechecked at next office meeting [email or web address] Not available 02/06/2018 14:47:26 02/25/2018 02/25/2018 1. Chronic daily headache, 2 year occurrence 2. Failed multiple medications for headache control Butalbital Divalproex zonisamide Baclofen 3. headache unimproved/non -responsive to Botulinum toxin injections 4. Stiff Person Syndrome 5. Hypersensitive /paresthesia skin, due to above; improved on gabapentin 6. GFR 48, this is an at risk low GFR indicates chronic kidney disease if > 3 month duration Note: Headache is relieved by hot water from shower on top of head Plan 1. Start lamotrigine 25 mg slow titration each 2 week increase dose titrate to goal 100 mg hs by 7th week 2. follow up with me in early summer to discuss lamotrigine use Note: I discussed the 2 % incidence of rash on lamotrigine I discussed he must stop lamotrigine if rash Follow up in early summer [email or web address] Not available 02/28/2018 21:56:23 04/15/2018 04/15/2018 1. Chronic daily headache, 2 year occurrence 2. Failed multiple medications for headache control has failed this moths trial of lamotrigine Butalbital Divalproex zonisamide Baclofen lamotrigine 3. headache unimproved/non -responsive to Botulinum toxin injections 4. Stiff Person Syndrome 5. Hypersensitive /paresthesia skin, due to above; improved on gabapentin Plan: I do not have an anser for this problem I advised he needs t enroll in a chronic pain program patient will make the contact with pain program I have not scheduled a follow up visit [email or web address] Not available 04/22/2018 21:04:05 04/06/2025 04/06/2025 will call with pathology [email or web address] Not available 04/06/2025 15:12:37 Plan of Treatment Reminders Order Date Submit Date Provider Last Modified By Organization Details Last Modified Time Details Appointments None recorded. Lab surgical pathology study - shave biopsy 2024 025 [email or web address] [facility], [address] [place] [address], [id number], 16:43:55 ESR (erythrocy te sedimentat ion rate), blood 2017 018 [email or web address] [facility], [address] [place] [address], [id number], 8 18:00:33 CBC w/ auto diff 2017 018 [email or web address] [facility], [address] [place] [address], [id number], 8 18:00:33 CMP, serum or plasma 2017 018 [email or web address] [facility], [address] [place] [address], [id number], 8 18:00:33 multiple inhalant allergen IgE Ab, quant, serum 2016 017 [email or web address] [facility], [address] [place] [address], [id number], 7 15:21:13 Referral neurologis t referral 2016 017 [email or web address] Not available 7 08:05:43 Procedures None recorded. Surgeries None recorded. Imaging CT, head, w/wo contrast 2017 018 ANNE-MARIE [facility], [address] [place] [address], [id number], 8 12:39:51 Medication Orders tramadol 50 mg tablet 2017 018 [email or web address] [facility], [address], [address], 8 14:12:50 lamotrigin e 25 mg tablet 2017 018 INTERFACE [facility], [address], [address], 8 14:50:58 Patient TargetsNo targets recorded. Patient Instructions Encounter Date Encounter Id Patient Instructions Last Modified By Organization Details Last Modified Time 10/02/2017 [id number] It is apparent that Mr. Rucker primary complaint is severe unremitting headaches. Though the hands and nasal polyposis and sinusitis or impressive, it is also possible that these have no correlation with the headaches. He had severe complications following his last general anesthetic for the polyps with rigidity in the PACU requiring hospitalization. 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 I would be reluctant to surgically intervene and is complaints are not nasal airway obstruction nor frequent infections. Headache control is important for him. His other neurologists have a focus on his neuromuscular issues would like to have a neurologist focus on his headaches. He may have allergies but certainly his beta taj could be contributing to his nasal congestion. 1. Nasal endoscopy performed today - clinical photographs obtained. 2. Advised the patient that beta taj could be contributing to nasal congestion. 3. Referral to Neurology for headache consult for second opinion - Dr. Decker. 4. Allergy testing ordered - IVAT inhalants. We will call patient with results. 5. Follow up visit PRN or sooner if concerns arise. page Not available 10/02/2017 14:51:09 02/02/2018 [id number] headache: care instructions [email or web address] Not available 02/03/2018 18:00:33 eating healthy foods: care instructions [email or web address] Not available 02/03/2018 18:00:33 elevated blood pressure: care instructions Not available 02/03/2018 18:00:33 Spent {{40# }} total minutes with the patient today in counseling regarding information documented in my assessment and plan above. The time represents more than 50% of the encounter. Not available 02/06/2018 14:47:41 04/06/2025 [id number] General Skin Protection: - SPF 30 or [...] Not available 04/06/2025 15:10:37 Reason for Referral Neurologist Referral for Naida aden Referring Physician: Rebel Almeida, Otolaryngology, Encounter Date: 10/02/2017 Results Created Date Observation Date Name Description Value Unit Range Abnormal Flag Note LastModifiedBy Organization Detail LastModifiedTime 10/02/20 17 10/17/2017 multi ple inhal ant aller gen IgE Ab, quant , serum interpretati on See Below normal Speci fic Level of Aller gen IGE Class kU/L Speci fic IGE Antib imtiaz ----- ----- ---- ----- ----- ----- ---- 0 <0.10 Absen t/Und etect able 0/1 0.10- 0.34 Very Low Level 1 0.35- 0.69 Low Level 2 0.70- 3.49 Moder ate Level 3 3.50- 17.4 High Level 4 17.5- 49.9 Very High Level 5 50-10 0 Very High Level 6 >100 Very High Level The clini alfonso relev ance of aller gen resul ts of 0.10- 0.34 kU/L are undet ermin ed and inten ded for speci alist use. Aller gens denot ed with a inclu de resul ts using one or more chelsea te speci fic reage nts. In those cases , the test was devel oped and its chelsea tical perfo rmanc e chago cteri stics have been deter mined by [employer] ostic s. It has not been clear ed or appro amrik by the U.S. Food and Drug Admin istra tion. This assay has been valid ated pursu ant to the CLIA regul ation s and is used for clini alfonso purpo ses. TEST PERFO RMED AT: [facility] [place] [address] [facility] [place] [address] TORO Almaraz MD Not Available [facility] [address] [place] [address], [id number], 10/17/2017 16:05:10 10/02/20 17 10/17/2017 multi ple inhal ant aller gen IgE Ab, quant , serum cottonwood tree 0.16 kU/L high Not Available [facility] [address] [place] [address], [phone], 10/17/2017 16:05:10 10/02/20 17 10/17/2017 multi ple inhal ant aller gen IgE Ab, quant , serum class 0/1 normal Not Available [facility] [address] [place] [address], [address], 10/17/2017 16:05:10 10/02/20 17 10/17/2017 multi ple inhal ant aller gen IgE Ab, quant , serum white bria <0.10 kU/L normal Not Available [facility] [address] [place] [address], [address], 10/17/2017 16:05:10 10/02/20 17 10/17/2017 multi ple inhal ant aller gen IgE Ab, quant , serum class 0 normal Not Available [facility] [address] [place] [address], [address], 10/17/2017 16:05:10 10/02/20 17 10/17/2017 multi ple inhal ant aller gen IgE Ab, quant , serum white pine <0.10 kU/L normal Not Available [facility] [address] [place] [address], [address], 10/17/2017 16:05:10 10/02/20 17 10/17/2017 multi ple inhal ant aller gen IgE Ab, quant , serum class 0 normal Not Available [facility] [address] [place] [address], [address], 10/17/2017 16:05:10 10/02/20 17 10/17/2017 multi ple inhal ant aller gen IgE Ab, quant , serum CAT dander <0.10 kU/L normal Not Available [facility] [address] [place] [address], [address], 10/17/2017 16:05:10 10/02/20 17 10/17/2017 multi ple inhal ant aller gen IgE Ab, quant , serum class 0 normal Not Available [facility] [address] [place] [address], [address], 10/17/2017 16:05:10 10/02/20 17 10/17/2017 multi ple inhal ant aller gen IgE Ab, quant , serum horse dander <0.10 kU/L normal Not Available [facility] [address] [place] [address], [address], 10/17/2017 16:05:10 10/02/20 17 10/17/2017 multi ple inhal ant aller gen IgE Ab, quant , serum class 0 normal Not Available [facility] [address] [place] [address], [address], 10/17/2017 16:05:10 10/02/20 17 10/17/2017 multi ple inhal ant aller gen IgE Ab, quant , serum cow dander <0.10 kU/L normal Not Available [facility] [address] [place] [address], [address], 10/17/2017 16:05:10 10/02/20 17 10/17/2017 multi ple inhal ant aller gen IgE Ab, quant , serum class 0 normal Not Available [facility] [address] [place] [address], [address], 10/17/2017 16:05:10 10/02/20 17 10/17/2017 multi ple inhal ant aller gen IgE Ab, quant , serum dog dander <0.10 kU/L normal Not Available [facility] [address] [place] [address], [address], 10/17/2017 16:05:10 10/02/20 17 10/17/2017 multi ple inhal ant aller gen IgE Ab, quant , serum class 0 normal Not Available [facility] [address] [place] [address], [address], 10/17/2017 16:05:10 10/02/20 17 10/17/2017 multi ple inhal ant aller gen IgE Ab, quant , serum goose feathers <0.10 kU/L normal Not Available [facility] [address] [place] [address], [address], 10/17/2017 16:05:10 10/02/20 17 10/17/2017 multi ple inhal ant aller gen IgE Ab, quant , serum class 0 normal Not Available [facility] [address] [place] [address], [address], 10/17/2017 16:05:10 10/02/20 17 10/17/2017 multi ple inhal ant aller gen IgE Ab, quant , serum penicillium notatum <0.10 kU/L normal Not Available [facility] [address] [place] [address], [address], 10/17/2017 16:05:10 10/02/20 17 10/17/2017 multi ple inhal ant aller gen IgE Ab, quant , serum class 0 normal Not Available [facility] [address] [place] [address], [address], 10/17/2017 16:05:10 10/02/20 17 10/17/2017 multi ple inhal ant aller gen IgE Ab, quant , serum cladosporium herbarum <0.10 kU/L normal Not Available [facility] [address] [place] [address], [address], 10/17/2017 16:05:10 10/02/20 17 10/17/2017 multi ple inhal ant aller gen IgE Ab, quant , serum class 0 normal Not Available [facility] [address] [place] [address], [address], 10/17/2017 16:05:10 10/02/20 17 10/17/2017 multi ple inhal ant aller gen IgE Ab, quant , serum aspergillus fumigatus <0.10 kU/L normal Not Available [facility] [address] [place] [address], [address], 10/17/2017 16:05:10 10/02/20 17 10/17/2017 multi ple inhal ant aller gen IgE Ab, quant , serum class 0 normal Not Available [facility] [address] [place] [address], [address], 10/17/2017 16:05:10 10/02/20 17 10/17/2017 multi ple inhal ant aller gen IgE Ab, quant , serum mucor racemosus <0.10 kU/L normal Not Available [facility] [address] [place] [address], [address], 10/17/2017 16:05:10 10/02/20 17 10/17/2017 multi ple inhal ant aller gen IgE Ab, quant , serum class 0 normal Not Available [facility] [address] [place] [address], [address], 10/17/2017 16:05:10 10/02/20 17 10/17/2017 multi ple inhal ant aller gen IgE Ab, quant , serum dustin albicans <0.10 kU/L normal Not Available [facility] [address] [place] [address], [address], 10/17/2017 16:05:10 10/02/20 17 10/17/2017 multi ple inhal ant aller gen IgE Ab, quant , serum class 0 normal Not Available [facility] [address] [place] [address], [address], 10/17/2017 16:05:10 10/02/20 17 10/17/2017 multi ple inhal ant aller gen IgE Ab, quant , serum alternaria alternata <0.10 kU/L normal Not Available [facility] [address] [place] [address], [address], 10/17/2017 16:05:10 10/02/20 17 10/17/2017 multi ple inhal ant aller gen IgE Ab, quant , serum class 0 normal Not Available [facility] [address] [place] [address], [address], 10/17/2017 16:05:10 10/02/20 17 10/17/2017 multi ple inhal ant aller gen IgE Ab, quant , serum D. farinae <0.10 kU/L normal Not Available [facility] [address] [place] [address], [address], 10/17/2017 16:05:10 10/02/20 17 10/17/2017 multi ple inhal ant aller gen IgE Ab, quant , serum class 0 normal Not Available [facility] [address] [place] [address], [address], 10/17/2017 16:05:10 10/02/20 17 10/17/2017 multi ple inhal ant aller gen IgE Ab, quant , serum D. pteronyssinu s <0.10 kU/L normal Not Available [facility] [address] [place] [address], [address], 10/17/2017 16:05:10 10/02/20 17 10/17/2017 multi ple inhal ant aller gen IgE Ab, quant , serum class 0 normal Not Available [facility] [address] [place] [address], [address], 10/17/2017 16:05:10 10/02/20 17 10/17/2017 multi ple inhal ant aller gen IgE Ab, quant , serum cockroach 0.21 kU/L high Not Available [facility] [address] [place] [address], [address], 10/17/2017 16:05:10 10/02/20 17 10/17/2017 multi ple inhal ant aller gen IgE Ab, quant , serum class 0/1 normal Not Available [facility] [address] [place] [address], [address], 10/17/2017 16:05:10 10/02/20 17 10/17/2017 multi ple inhal ant aller gen IgE Ab, quant , serum epicoccum purpurasce <0.10 kU/L normal Not Available [facility] [address] [place] [address], [address], 10/17/2017 16:05:10 10/02/20 17 10/17/2017 multi ple inhal ant aller gen IgE Ab, quant , serum class 0 normal Not Available [facility] [address] [place] [address], [address], 10/17/2017 16:05:10 10/02/20 17 10/17/2017 multi ple inhal ant aller gen IgE Ab, quant , serum fusarium moniliforme <0.10 kU/L normal Not Available [facility] [address] [place] [address], [address], 10/17/2017 16:05:10 10/02/20 17 10/17/2017 multi ple inhal ant aller gen IgE Ab, quant , serum class 0 normal Not Available [facility] [address] [place] [address], [address], 10/17/2017 16:05:10 10/02/20 17 10/17/2017 multi ple inhal ant aller gen IgE Ab, quant , serum phoma betae <0.10 kU/L normal Not Available [facility] [address] [place] [address], [address], 10/17/2017 16:05:10 10/02/20 17 10/17/2017 multi ple inhal ant aller gen IgE Ab, quant , serum class 0 normal Not Available [facility] [address] [place] [address], [address], 10/17/2017 16:05:10 10/02/20 17 10/17/2017 multi ple inhal ant aller gen IgE Ab, quant , serum rhizopus nigricans <0.10 kU/L normal Not Available [facility] [address] [place] [address], [address], 10/17/2017 16:05:10 10/02/20 17 10/17/2017 multi ple inhal ant aller gen IgE Ab, quant , serum class 0 normal Not Available [facility] [address] [place] [address], [address], 10/17/2017 16:05:10 10/02/20 17 10/17/2017 multi ple inhal ant aller gen IgE Ab, quant , serum stemph. botryosum <0.10 kU/L normal Not Available [facility] [address] [place] [address], [address], 10/17/2017 16:05:10 10/02/20 17 10/17/2017 multi ple inhal ant aller gen IgE Ab, quant , serum class 0 normal TEST PERFO RMED AT: [facility] [place] [address] [facility] [place] [address] TORO Almaraz MD Not Available [facility] [address] [place] [address], [address], 10/17/2017 16:05:10 10/02/20 17 10/17/2017 multi ple inhal ant aller gen IgE Ab, quant , serum IgE, total 126 kU/L <or=11 4 high Not Available [facility] [address] [place] [address], [address], 10/17/2017 16:05:12 10/02/20 17 10/17/2017 multi ple inhal ant aller gen IgE Ab, quant , serum bermuda grass 0.11 kU/L high Not Available [facility] [address] [place] [address], [address], 10/17/2017 16:05:12 10/02/20 17 10/17/2017 multi ple inhal ant aller gen IgE Ab, quant , serum class 0/1 normal Not Available [facility] [address] [place] [address], [address], 10/17/2017 16:05:12 10/02/20 17 10/17/2017 multi ple inhal ant aller gen IgE Ab, quant , serum anne marie grass <0.10 kU/L normal Not Available [facility] [address] [place] [address], [address], 10/17/2017 16:05:12 10/02/20 17 10/17/2017 multi ple inhal ant aller gen IgE Ab, quant , serum class 0 normal Not Available [facility] [address] [place] [address], [address], 10/17/2017 16:05:12 10/02/20 17 10/17/2017 multi ple inhal ant aller gen IgE Ab, quant , serum bluegrass, ky junegrass <0.10 kU/L normal Not Available [facility] [address] [place] [address], [address], 10/17/2017 16:05:12 10/02/20 17 10/17/2017 multi ple inhal ant aller gen IgE Ab, quant , serum class 0 normal Not Available [facility] [address] [place] [address], [address], 10/17/2017 16:05:12 10/02/20 17 10/17/2017 multi ple inhal ant aller gen IgE Ab, quant , serum grace grass <0.10 kU/L normal Not Available [facility] [address] [place] [address], [address], 10/17/2017 16:05:12 10/02/20 17 10/17/2017 multi ple inhal ant aller gen IgE Ab, quant , serum class 0 normal Not Available [facility] [address] [place] [address], [address], 10/17/2017 16:05:12 10/02/20 17 10/17/2017 multi ple inhal ant aller gen IgE Ab, quant , serum common ragweed <0.10 kU/L normal Not Available [facility] [address] [place] [address], [address], 10/17/2017 16:05:12 10/02/20 17 10/17/2017 multi ple inhal ant aller gen IgE Ab, quant , serum class 0 normal Not Available [facility] [address] [place] [address], [address], 10/17/2017 16:05:12 10/02/20 17 10/17/2017 multi ple inhal ant aller gen IgE Ab, quant , serum interpretati on See Below normal Speci fic Level of Aller gen IGE Class kU/L Speci fic IGE Antib imtiaz ----- ----- ---- ----- ----- ----- ---- 0 <0.10 Absen t/Und etect able 0/1 0.10- 0.34 Very Low Level 1 0.35- 0.69 Low Level 2 0.70- 3.49 Moder ate Level 3 3.50- 17.4 High Level 4 17.5- 49.9 Very High Level 5 50-10 0 Very High Level 6 >100 Very High Level The clini alfonso relev ance of aller gen resul ts of 0.10- 0.34 kU/L are undet ermin ed and inten ded for speci alist use. Aller gens denot ed with a inclu de resul ts using one or more chelsea te speci fic reage nts. In those cases , the test was devel oped and its chelsea tical perfo rmanc e chago cteri stics have been deter mined by [employer] ostic [employer]. It has not been clear ed or appro amrik by the U.S. Food and Drug Admin istra tion. This assay has been valid ated pursu ant to the CLIA regul ation s and is used for clini alfonso purpo ses. TEST PERFO RMED AT: [facility] [place] [address] [facility] [place] [address] TORO Almaraz MD Not Available [facility] [address] [place] [address], [address], 10/17/2017 16:05:12 10/02/20 17 10/17/2017 multi ple inhal ant aller gen IgE Ab, quant , serum wormwood <0.10 kU/L normal Not Available [facility] [address] [place] [address], [address], 10/17/2017 16:05:12 10/02/20 17 10/17/2017 multi ple inhal ant aller gen IgE Ab, quant , serum class 0 normal Not Available [facility] [address] [place] [address], [address], 10/17/2017 16:05:12 10/02/20 17 10/17/2017 multi ple inhal ant aller gen IgE Ab, quant , serum welsh plantain <0.10 kU/L normal Not Available [facility] [address] [place] [address], [address], 10/17/2017 16:05:12 10/02/20 17 10/17/2017 multi ple inhal ant aller gen IgE Ab, quant , serum class 0 normal Not Available [facility] [address] [place] [address], [address], 10/17/2017 16:05:12 10/02/20 17 10/17/2017 multi ple inhal ant aller gen IgE Ab, quant , serum lambs quarters <0.10 kU/L normal Not Available [facility] [address] [place] [address], [address], 10/17/2017 16:05:12 10/02/20 17 10/17/2017 multi ple inhal ant aller gen IgE Ab, quant , serum class 0 normal Not Available [facility] [address] [place] [address], [address], 10/17/2017 16:05:12 10/02/20 17 10/17/2017 multi ple inhal ant aller gen IgE Ab, quant , serum slovenian thistle <0.10 kU/L normal Not Available [facility] [address] [place] [address], [address], 10/17/2017 16:05:12 10/02/20 17 10/17/2017 multi ple inhal ant aller gen IgE Ab, quant , serum class 0 normal Not Available [facility] [address] [place] [address], [address], 10/17/2017 16:05:12 10/02/20 17 10/17/2017 multi ple inhal ant aller gen IgE Ab, quant , serum goldenrod <0.10 kU/L normal Not Available [facility] [address] [place] [address], [address], 10/17/2017 16:05:12 10/02/20 17 10/17/2017 multi ple inhal ant aller gen IgE Ab, quant , serum class 0 normal Not Available [facility] [address] [place] [address], [address], 10/17/2017 16:05:12 10/02/20 17 10/17/2017 multi ple inhal ant aller gen IgE Ab, quant , serum cocklebur <0.10 kU/L normal Not Available [facility] [address] [place] [address], [address], 10/17/2017 16:05:12 10/02/20 17 10/17/2017 multi ple inhal ant aller gen IgE Ab, quant , serum class 0 normal Not Available [facility] [address] [place] [address], [address], 10/17/2017 16:05:12 10/02/20 17 10/17/2017 multi ple inhal ant aller gen IgE Ab, quant , serum rough pigweed <0.10 kU/L normal Not Available [facility] [facility] [address] [place] [address], [address], 10/17/2017 16:05:12 10/02/20 17 10/17/2017 multi ple inhal ant aller gen IgE Ab, quant , serum class 0 normal Not Available [facility] [address] [place] [address], [address], 10/17/2017 16:05:12 10/02/20 17 10/17/2017 multi ple inhal ant aller gen IgE Ab, quant , serum sheep luiz <0.10 kU/L normal Not Available [facility] [address] [place] [address], [address], 10/17/2017 16:05:12 10/02/20 17 10/17/2017 multi ple inhal ant aller gen IgE Ab, quant , serum class 0 normal Not Available [facility] [address] [place] [address], [address], 10/17/2017 16:05:12 10/02/20 17 10/17/2017 multi ple inhal ant aller gen IgE Ab, quant , serum nettle <0.10 kU/L normal Not Available [facility] [address] [place] [address], [address], 10/17/2017 16:05:12 10/02/20 17 10/17/2017 multi ple inhal ant aller gen IgE Ab, quant , serum class 0 normal Not Available [facility] [address] [place] [address], [address], 10/17/2017 16:05:12 10/02/20 17 10/17/2017 multi ple inhal ant aller gen IgE Ab, quant , serum maple (box elder) <0.10 kU/L normal Not Available [facility] [address] [place] [address], [address], 10/17/2017 16:05:12 10/02/20 17 10/17/2017 multi ple inhal ant aller gen IgE Ab, quant , serum class 0 normal Not Available [facility] [address] [place] [address], [address], 10/17/2017 16:05:12 10/02/20 17 10/17/2017 multi ple inhal ant aller gen IgE Ab, quant , serum birch <0.10 kU/L normal Not Available [facility] [address] [place] [address], [address], 10/17/2017 16:05:12 10/02/20 17 10/17/2017 multi ple inhal ant aller gen IgE Ab, quant , serum class 0 normal Not Available [facility] [address] [place] [address], [address], 10/17/2017 16:05:12 10/02/20 17 10/17/2017 multi ple inhal ant aller gen IgE Ab, quant , serum mountain cedar <0.10 kU/L normal Not Available [facility] [address] [place] [address], [address], 10/17/2017 16:05:12 10/02/20 17 10/17/2017 multi ple inhal ant aller gen IgE Ab, quant , serum class 0 normal Not Available [facility] [address] [place] [address], [address], 10/17/2017 16:05:12 10/02/20 17 10/17/2017 multi ple inhal ant aller gen IgE Ab, quant , serum oak <0.10 kU/L normal Not Available [facility] [address] [place] [address], [address], 10/17/2017 16:05:12 10/02/20 17 10/17/2017 multi ple inhal ant aller gen IgE Ab, quant , serum class 0 normal Not Available [facility] [address] [place] [address], [address], 10/17/2017 16:05:12 10/02/20 17 10/17/2017 multi ple inhal ant aller gen IgE Ab, quant , serum elm <0.10 kU/L normal Not Available [facility] [address] [place] [address], [address], 10/17/2017 16:05:12 10/02/20 17 10/17/2017 multi ple inhal ant aller gen IgE Ab, quant , serum class 0 normal Not Available [facility] [address] [place] [address], [address], 10/17/2017 16:05:12 10/02/20 17 10/17/2017 multi ple inhal ant aller gen IgE Ab, quant , serum sycamore <0.10 kU/L normal Not Available [facility] [address] [place] [address], [address], 10/17/2017 16:05:12 10/02/20 17 10/17/2017 multi ple inhal ant aller gen IgE Ab, quant , serum class 0 normal Not Available [facility] [address] [place] [address], [address], 10/17/2017 16:05:12 10/02/20 17 10/17/2017 multi ple inhal ant aller gen IgE Ab, quant , serum curvularia lunata <0.10 kU/L normal Not Available [facility] [address] [place] [address], [address], 10/17/2017 16:05:12 10/02/20 17 10/17/2017 multi ple inhal ant aller gen IgE Ab, quant , serum class 0 normal TEST PERFO RMED AT: [facility] [address] [place] [address] OTRO Almaraz MD Not Available [facility] [address] [place] [address], [address], 10/17/2017 16:05:12 10/02/20 17 10/17/2017 multi ple inhal ant aller gen IgE Ab, quant , serum cottonwood tree 0.16 kU/L high Not Available [facility] [address] [place] [address], [address], 10/17/2017 16:05:12 10/02/20 17 10/17/2017 multi ple inhal ant aller gen IgE Ab, quant , serum class 0/1 normal Not Available [facility] [address] [place] [address], [address], 10/17/2017 16:05:12 10/02/20 17 10/17/2017 multi ple inhal ant aller gen IgE Ab, quant , serum white bria <0.10 kU/L normal Not Available [facility] [address] [place] [address], [address], 10/17/2017 16:05:12 10/02/20 17 10/17/2017 multi ple inhal ant aller gen IgE Ab, quant , serum class 0 normal Not Available [facility] [address] [place] [address], [address], 10/17/2017 16:05:12 10/02/20 17 10/17/2017 multi ple inhal ant aller gen IgE Ab, quant , serum white pine <0.10 kU/L normal Not Available [facility] [address] [place] [address], [address], 10/17/2017 16:05:12 10/02/20 17 10/17/2017 multi ple inhal ant aller gen IgE Ab, quant , serum class 0 normal Not Available [facility] [address] [place] [address], [address], 10/17/2017 16:05:12 10/02/20 17 10/17/2017 multi ple inhal ant aller gen IgE Ab, quant , serum CAT dander <0.10 kU/L normal Not Available [facility] [address] [place] [address], [address], 10/17/2017 16:05:12 10/02/20 17 10/17/2017 multi ple inhal ant aller gen IgE Ab, quant , serum class 0 normal Not Available [facility] [address] [place] [address], [address], 10/17/2017 16:05:12 10/02/20 17 10/17/2017 multi ple inhal ant aller gen IgE Ab, quant , serum horse dander <0.10 kU/L normal Not Available [facility] [address] [place] [address], [address], 10/17/2017 16:05:12 10/02/20 17 10/17/2017 multi ple inhal ant aller gen IgE Ab, quant , serum class 0 normal Not Available [facility] [address] [place] [address], [address], 10/17/2017 16:05:12 10/02/20 17 10/17/2017 multi ple inhal ant aller gen IgE Ab, quant , serum cow dander <0.10 kU/L normal Not Available [facility] [address] [place] [address], [address], 10/17/2017 16:05:12 10/02/20 17 10/17/2017 multi ple inhal ant aller gen IgE Ab, quant , serum class 0 normal Not Available [facility] [address] [place] [address], [address], 10/17/2017 16:05:12 10/02/20 17 10/17/2017 multi ple inhal ant aller gen IgE Ab, quant , serum dog dander <0.10 kU/L normal Not Available [facility] [address] [place] [address], [address], 10/17/2017 16:05:12 10/02/20 17 10/17/2017 multi ple inhal ant aller gen IgE Ab, quant , serum class 0 normal Not Available [facility] [address] [place] [address], [address], 10/17/2017 16:05:12 10/02/20 17 10/17/2017 multi ple inhal ant aller gen IgE Ab, quant , serum goose feathers <0.10 kU/L normal Not Available [facility] [address] [place] [address], [address], 10/17/2017 16:05:12 10/02/20 17 10/17/2017 multi ple inhal ant aller gen IgE Ab, quant , serum class 0 normal Not Available [facility] [address] [place] [address], [address], 10/17/2017 16:05:12 10/02/20 17 10/17/2017 multi ple inhal ant aller gen IgE Ab, quant , serum penicillium notatum <0.10 kU/L normal Not Available [facility] [address] [place] [address], [address], 10/17/2017 16:05:12 10/02/20 17 10/17/2017 multi ple inhal ant aller gen IgE Ab, quant , serum class 0 normal Not Available [facility] [address] [place] [address], [address], 10/17/2017 16:05:12 10/02/20 17 10/17/2017 multi ple inhal ant aller gen IgE Ab, quant , serum cladosporium herbarum <0.10 kU/L normal Not Available [facility] [address] [place] [address], [address], 10/17/2017 16:05:12 10/02/20 17 10/17/2017 multi ple inhal ant aller gen IgE Ab, quant , serum class 0 normal Not Available [facility] [address] [place] [address], [address], 10/17/2017 16:05:12 10/02/20 17 10/17/2017 multi ple inhal ant aller gen IgE Ab, quant , serum aspergillus fumigatus <0.10 kU/L normal Not Available [facility] [address] [place] [address], [address], 10/17/2017 16:05:12 10/02/20 17 10/17/2017 multi ple inhal ant aller gen IgE Ab, quant , serum class 0 normal Not Available [facility] [address] [place] [address], [address], 10/17/2017 16:05:12 10/02/20 17 10/17/2017 multi ple inhal ant aller gen IgE Ab, quant , serum mucor racemosus <0.10 kU/L normal Not Available [facility] [address] [place] [address], [address], 10/17/2017 16:05:12 10/02/20 17 10/17/2017 multi ple inhal ant aller gen IgE Ab, quant , serum class 0 normal Not Available [facility] [address] [place] [address], [address], 10/17/2017 16:05:12 10/02/20 17 10/17/2017 multi ple inhal ant aller gen IgE Ab, quant , serum dustin albicans <0.10 kU/L normal Not Available [facility] [address] [place] [address], [address], 10/17/2017 16:05:12 10/02/20 17 10/17/2017 multi ple inhal ant aller gen IgE Ab, quant , serum class 0 normal Not Available [facility] [address] [place] [address], [address], 10/17/2017 16:05:12 10/02/20 17 10/17/2017 multi ple inhal ant aller gen IgE Ab, quant , serum alternaria alternata <0.10 kU/L normal Not Available [facility] [address] [place] [address], [address], 10/17/2017 16:05:12 10/02/20 17 10/17/2017 multi ple inhal ant aller gen IgE Ab, quant , serum class 0 normal Not Available [facility] [address] [place] [address], [address], 10/17/2017 16:05:12 10/02/20 17 10/17/2017 multi ple inhal ant aller gen IgE Ab, quant , serum D. farinae <0.10 kU/L normal Not Available [facility] [address] [place] [address], [address], 10/17/2017 16:05:12 10/02/20 17 10/17/2017 multi ple inhal ant aller gen IgE Ab, quant , serum class 0 normal Not Available [facility] [address] [place] [address], [address], 10/17/2017 16:05:12 10/02/20 17 10/17/2017 multi ple inhal ant aller gen IgE Ab, quant , serum D. pteronyssinu s <0.10 kU/L normal Not Available [facility] [address] [place] [address], [address], 10/17/2017 16:05:12 10/02/20 17 10/17/2017 multi ple inhal ant aller gen IgE Ab, quant , serum class 0 normal Not Available [facility] [address] [place] [address], [address], 10/17/2017 16:05:12 10/02/20 17 10/17/2017 multi ple inhal ant aller gen IgE Ab, quant , serum cockroach 0.21 kU/L high Not Available [facility] [address] [place] [address], [address], 10/17/2017 16:05:12 10/02/20 17 10/17/2017 multi ple inhal ant aller gen IgE Ab, quant , serum class 0/1 normal Not Available [facility] [address] [place] [address], [address], 10/17/2017 16:05:12 10/02/20 17 10/17/2017 multi ple inhal ant aller gen IgE Ab, quant , serum epicoccum purpurasce <0.10 kU/L normal Not Available [facility] [address] [place] [address], [address], 10/17/2017 16:05:12 10/02/20 17 10/17/2017 multi ple inhal ant aller gen IgE Ab, quant , serum class 0 normal Not Available [facility] [address] [place] [address], [address], 10/17/2017 16:05:12 10/02/20 17 10/17/2017 multi ple inhal ant aller gen IgE Ab, quant , serum fusarium moniliforme <0.10 kU/L normal Not Available [facility] [address] [place] [address], [address], 10/17/2017 16:05:12 10/02/20 17 10/17/2017 multi ple inhal ant aller gen IgE Ab, quant , serum class 0 normal Not Available [facility] [address] [place] [address], [address], 10/17/2017 16:05:12 10/02/20 17 10/17/2017 multi ple inhal ant aller gen IgE Ab, quant , serum phoma betae <0.10 kU/L normal Not Available [facility] [address] [place] [address], [address], 10/17/2017 16:05:12 10/02/20 17 10/17/2017 multi ple inhal ant aller gen IgE Ab, quant , serum class 0 normal Not Available [facility] [address] [place] [address], [address], 10/17/2017 16:05:12 10/02/20 17 10/17/2017 multi ple inhal ant aller gen IgE Ab, quant , serum rhizopus nigricans <0.10 kU/L normal Not Available [facility] [address] [place] [address], [address], 10/17/2017 16:05:12 10/02/20 17 10/17/2017 multi ple inhal ant aller gen IgE Ab, quant , serum class 0 normal Not Available [facility] [address] [place] [address], [address], 10/17/2017 16:05:12 10/02/20 17 10/17/2017 multi ple inhal ant aller gen IgE Ab, quant , serum stemph. botryosum <0.10 kU/L normal Not Available [facility] [address] [place] [address], [address], 10/17/2017 16:05:12 10/02/20 17 10/17/2017 multi ple inhal ant aller gen IgE Ab, quant , serum class 0 normal TEST PERFO RMED AT: [facility] [address] [facility] [place] [place] [address] TORO Almaraz MD Not Available [facility] [address] [place] [address], [address], 10/17/2017 16:05:12 02/03/20 18 02/02/2018 CBC w/ auto diff white blood cells 5.0 K/uL 3.8-10 .8 normal Not Available [facility] [address] [place] [address], [address], 02/02/2018 17:44:43 02/03/20 18 02/02/2018 CBC w/ auto diff red blood cells 5.37 M/uL 4.20-5 .80 normal Not Available [facility] [address] [place] [address], [address], 02/02/2018 17:44:43 02/03/20 18 02/02/2018 CBC w/ auto diff hemoglobin 15.9 g/dL 14.0-1 8.0 normal Not Available [facility] [address] [place] [address], [address], 02/02/2018 17:44:43 02/03/20 18 02/02/2018 CBC w/ auto diff hematocrit 46.6 % 40.0-5 2.0 normal Not Available [facility] [address] [place] [address], [address], 02/02/2018 17:44:43 02/03/20 18 02/02/2018 CBC w/ auto diff MCV 87 fL 80-100 normal Not Available [facility] [address] [place] [address], [address], 02/02/2018 17:44:43 02/03/20 18 02/02/2018 CBC w/ auto diff MCH 30 pg 26-35 normal Not Available [facility] [address] [place] [address], [address], 02/02/2018 17:44:43 02/03/20 18 02/02/2018 CBC w/ auto diff MCHC 34 g/dL 32-36 normal Not Available [facility] [address] [place] [address], [address], 02/02/2018 17:44:43 02/03/20 18 02/02/2018 CBC w/ auto diff RDW 13.2 % 11.0-1 5.0 normal Not Available [facility] [address] [place] [address], [address], 02/02/2018 17:44:43 02/03/20 18 02/02/2018 CBC w/ auto diff MPV 8.4 fL 6.2-10 .5 normal Not Available [facility] [address] [place] [address], [address], 02/02/2018 17:44:43 02/03/20 18 02/02/2018 CBC w/ auto diff platelet count 173 K/uL 130-40 0 normal Not Available [facility] [address] [place] [address], [address], 02/02/2018 17:44:43 02/03/20 18 02/02/2018 CBC w/ auto diff neutrophil,a bsolute 3.0 K/uL 1.6-8. 4 normal Not Available [facility] [address] [place], [address], 02/02/2018 17:44:43 02/03/20 18 02/02/2018 CBC w/ auto diff lymphocyte,a bsolute 1.4 K/uL 0.4-5. 1 normal Not Available [facility] [address] [place] [address], [address], 02/02/2018 17:44:43 02/03/20 18 02/02/2018 CBC w/ auto diff monocyte,abs olute 0.5 K/uL 0.0-1. 2 normal Not Available [facility] [address] [place] [address], [address], 02/02/2018 17:44:43 02/03/20 18 02/02/2018 CBC w/ auto diff eosinophil,a bsolute 0.1 K/uL 0.0-0. 8 normal Not Available [facility] [address] [place] [address], [address], 02/02/2018 17:44:43 02/03/20 18 02/02/2018 CBC w/ auto diff basophil,abs olute 0.0 K/uL 0.0-0. 3 normal Not Available [facility] [address] [place] [address], [address], 02/02/2018 17:44:43 02/03/20 18 02/02/2018 CBC w/ auto diff % neutrophils 59.8 % 42.0-7 8.0 normal Not Available [facility] [address] [place] [address], [address], 02/02/2018 17:44:43 02/03/20 18 02/02/2018 CBC w/ auto diff % lymphocytes 27.5 % 11.0-4 7.0 normal Not Available [facility] [address] [place] [address], [address], 02/02/2018 17:44:43 02/03/20 18 02/02/2018 CBC w/ auto diff % monocytes 10.6 % 0.0-11 .0 normal Not Available [facility] [address] [place] [address], [address], 02/02/2018 17:44:43 02/03/20 18 02/02/2018 CBC w/ auto diff % eosinophils 1.2 % 0.0-7. 0 normal Not Available [facility] [address] [place] [address], [address], 02/02/2018 17:44:43 02/03/20 18 02/02/2018 CBC w/ auto diff % basophils 0.9 % 0.0-3. 0 normal Not Available [facility] [address] [place] [address], [address], 02/02/2018 17:44:43 02/03/20 18 02/02/2018 CBC w/ auto diff nucleated red cells 0.3 % 0.0-0. 9 normal Not Available [facility] [address] [place] [address], [address], 02/02/2018 17:44:43 02/03/20 18 02/02/2018 CBC w/ auto diff nucleated RBCs, absolute 0.01 K/uL not estab. normal Not Available [facility] [address] [place] [address], [address], 02/02/2018 17:44:43 02/03/20 18 02/02/2018 CMP, serum or plasm a glucose 83 mg/dL 74-100 normal Not Available [facility] [address] [place] [address], [address], 02/02/2018 19:17:17 02/03/20 18 02/02/2018 CMP, serum or plasm a blood urea nitrogen 13 mg/dL 6-20 normal Not Available [facility] [address] [place] [address], [address], 02/02/2018 19:17:17 02/03/20 18 02/02/2018 CMP, serum or plasm a creatinine 1.60 mg/dL 0.70-1 .25 high Not Available [facility] [address] [place] [address], [address], 02/02/2018 19:17:17 02/03/20 18 02/02/2018 CMP, serum or plasm a BUN/creatini ne ratio 8 (calc ) 10-20 low Not Available [facility] [address] [place] [address], [address], 02/02/2018 19:17:17 02/03/20 18 02/02/2018 CMP, serum or plasm a GFR 55 >= 60 abnormal Not Available [facility] [address] [place], [address], 02/02/2018 19:17:17 02/03/20 18 02/02/2018 CMP, serum or plasm a GFR non- 48 >= 60 abnormal NOT E NEW calcu latio n for GFR is based on the Natio nal Kidne y Found ation CKD-E PI equat ion and allow s for repor ting GFR value s great er than 60 mL/mi n/1.7 3 m2. This calcu latio n has not been valid ated for patie nts less than 18 yrs., pregn ant women and Hispa nics. Chron ic kidne y disea se is defin ed as kidne y damag e or GFR less than 60 mL/mi n/1.7 3 m2 for 3 month s or longe r. . Not Available [facility] [address] [place], [address], 02/02/2018 19:17:17 02/03/20 18 02/02/2018 CMP, serum or plasm a sodium 142 mmol/ L 136-14 5 normal Not Available [facility] [address] [place], [address], 02/02/2018 19:17:17 02/03/20 18 02/02/2018 CMP, serum or plasm a potassium 4.5 mmol/ L 3.4-5. 0 normal Not Available [facility] [address] [place], [address], 02/02/2018 19:17:17 02/03/20 18 02/02/2018 CMP, serum or plasm a chloride 100 mmol/ L 98-107 normal Not Available [facility] [address] [place] [address], [address], 02/02/2018 19:17:17 02/03/20 18 02/02/2018 CMP, serum or plasm a carbon dioxide 29 mmol/ L 20-32 normal Not Available [facility] [address] [place] [address], [address], 02/02/2018 19:17:17 02/03/20 18 02/02/2018 CMP, serum or plasm a anion gap 13 (calc ) 7-25 normal Not Available [facility] [address] [place] [address], [address], 02/02/2018 19:17:17 02/03/20 18 02/02/2018 CMP, serum or plasm a calcium 10.1 mg/dL 8.6-10 .2 normal Not Available [facility] [address] [place] [address], [address], 02/02/2018 19:17:17 02/03/20 18 02/02/2018 CMP, serum or plasm a total protein 7.5 g/dL 6.4-8. 3 normal Not Available [facility] [address] [place] [address], [address], 02/02/2018 19:17:17 02/03/20 18 02/02/2018 CMP, serum or plasm a albumin 3.9 g/dL 3.5-5. 2 normal Not Available [facility] [address] [place] [address], [address], 02/02/2018 19:17:17 02/03/20 18 02/02/2018 CMP, serum or plasm a globulin 3.6 g/dL_ (calc ) 1.5-4. 5 normal Not Available [facility] [address] [place] [address], [address], 02/02/2018 19:17:17 02/03/20 18 02/02/2018 CMP, serum or plasm a albumin/glob ulin ratio 1.1 (calc ) 1.1-2. 5 normal Not Available [facility] [address] [place] [address], [address], 02/02/2018 19:17:17 02/03/20 18 02/02/2018 CMP, serum or plasm a bilirubin, total 0.3 mg/dL 0.1-1. 2 normal Not Available [facility] [address] [place] [address], [address], 02/02/2018 19:17:17 02/03/20 18 02/02/2018 CMP, serum or plasm a alkaline phosphatase 80 U/L 40-130 normal Not Available [facility] [address] [place] [address], [address], 02/02/2018 19:17:17 02/03/20 18 02/02/2018 CMP, serum or plasm a AST 17 U/L 0-40 normal Not Available [facility] [address] [place] [address], [address], 02/02/2018 19:17:17 02/03/20 18 02/02/2018 CMP, serum or plasm a ALT 21 U/L 0-41 normal Not Available [facility] [address] [place] [address], [address], 02/02/2018 19:17:17 02/03/20 18 02/02/2018 ESR (eryt hrocy te sedim entat ion rate) , blood ESR, automated 11 mm/HR 0-19 normal Not Available [facility] [address] [place] [address], [address], 02/02/2018 19:56:16 10/03/20 17 09/12/2017 CT, sinus es, w/o contr ast No observ ation record ed. BARCODE Not Available 2016 10:59:14 02/26/20 18 02/25/2018 CT, head, w/wo contr ast [address] [place] [address] Kristina fuller Name: TIFFANY fuller : [phone] Kristina fuller Orderi ng Provid er: SUDHA GIBBS EXAM DATE: 2017 EXAM: CT HEAD W/WO CONTRA ST HISTOR Y: 53-yea r-old male with headac he COMPAR DALY: None. FINDIN GS: The ventri cles are symmet jony, and normal in size. There is no mass, mass effect , or midlin e shift. There are no perive ntricu lar white matter change s. There is no abnorm al extra- axial fluid, acute intrac ranial hemorr kimberley, or CT eviden ce of infarc tion. After intrav enous admini strati on of 100 cc Isovue -300 ([facility] [phone] ), there is no abnorm al enhanc ement in the brain. The calvar ium and visual ized facial bones are normal in appear ance. There is no fractu re. The visual ized mastoi d air cells are normal . Soft tissue essent ially comple tely fills the fronta l, maxill chio, and anteri or aspect of the ethmoi d sinuse s. There is mild mucosa l thicke christian in the right spheno id sinus. IMPRES RAYMUNDO: 1. The brain is normal in appear ance. 2. There is severe parana maria ines sinus diseas e. Interp reted By: Sukh traylor MD Electr onical ly Signed By: Sukh traylor MD on 02/26/20 18 12:34 PM [email or web address] [facility] Radiology [facility] [address] [place], [address], 02/25/2018 13:24:19 Result Notes None recorded. 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 017 REBEL ALMEIDA MD [address] [place] [address], [phone], [facility] 7 14:46:34 History of deep vein thrombosis 261182727 Active 017 REBEL ALMEIDA MD [address] [place] [address], [address], [facility] 7 14:48:10 Headache 16344427 Active 017 REBEL ALMEIDA MD [address] [place] [address], [phone] 1, [facility] 7 14:48:12 Nasal polyp Active 017 REBEL ALMEIDA MD [address] [place] [address], [address] 1, [facility] 7 14:48:14 Chronic sinusitis 37848794 Active 017 REBEL ALMEIDA MD [address] [place] [address], [phone], [facility] 7 14:48:15 Problem Notes None recorded. Procedures Surgical History Date Name Laterality Status Provider Name and Address Organization Details Recorded Time 025 DAK - Biopsy, Tangential completed Kiki Moreau [facility] 04/06/2025 15:02:19 017 Review of Med Recs/Compl forms completed Wanda Bashir [facility] 10/02/2017 10:53:41 017 Endoscopy Nasal; Diagnostic completed Wanda Bashir [facility] 10/02/2017 11:02:12 Cholecystectomy completed Harriet Castillo [facility] 10/02/2017 09:51:49 Carpal tunnel surgery completed Harriet BURRIS [facility] 10/02/2017 09:51:55 Unlisted px neck/thorax completed Harriet BURRIS [facility] 10/02/2017 09:52:00 Knee arthroscopy/surger y completed Harriet Rahman [facility] 10/02/2017 09:52:05 Nasal sinus therapy completed Harriet Rahman [facility] 10/02/2017 09:52:21 Nsl/sins ndsc frnt tiss rmvl completed Wanda Chaidezson [facility] 10/02/2017 10:52:25 Imaging Results Imaging Date Name Status LastModified by Organiz ation Details LastModified Time 09/12/2017 CT, sinuses, w/o contrast completed BAR[facility] Information not available 10/03/2017 10:59:14 02/25/2018 CT, head, w/wo contrast completed [email or web address] [facility] Radiology [facility] [address] [place], [address], 02/25/2018 13:24:19 Procedure Notes None recorded. Medical Equipment None Reported. Allergies Allergen ID Allergen Name Allergen Category Reaction Reaction Severity Criticality Documentation Date Start Date Code Code System Note Provider Name and Address Organization Details Recorded Time 063530 Topamax medicatio n Not available Not available Not available 10/02/2017 18108 3 RxNorm [facility] 09:47:24 Medications Name Sig Start Date [...] Available Not Available No t Available Vitals Date Recorded Body weight Body mass index (BMI) Body height Body temperature Heart rate Systolic blood pressure Diastolic blood pressure Provider Name and Address Organization Details Last Updated DateTime 7 11686.7 g 29.5 kg/m2 182.88 cm 97.9 [degF] 60 /min 114 mm[Hg] 76 mm[Hg] Harriet Rahman [facility] 7 09:57:37 Date Recorded Body height Body mass index (BMI) Body weight Systolic blood pressure Diastolic blood pressure Provider Name and Address Organization Details Last Updated DateTime 02/02/2018 182.88 cm 31.5 kg/m2 330236.4 3 g 112 mm[Hg] 86 mm[Hg] Saritha Betancourt [facility] 8 14:59:23 Date Recorded Body height Body mass index (BMI) Body weight Systolic blood pressure Diastolic blood pressure Provider Name and Address Organization Details Last Updated DateTime 02/25/2018 182.88 cm 31.3 kg/m2 692929.8 4 g 118 mm[Hg] 74 mm[Hg] Jennie Rodriguez [facility] 8 14:02:44 Date Recorded Body height Body mass index (BMI) Body weight Systolic blood pressure Diastolic blood pressure Provider Name and Address Organization Details Last Updated DateTime 04/15/2018 182.88 cm 30.1 kg/m2 838436.5 1 g 112 mm[Hg] 76 mm[Hg] Layla (Gauri) Regina [facility] 8 16:43:22 Social History Question Answer Notes LastModified by Organizat ion Details LastModified Time What Is Your Level Of Caffeine Consumption? Moderate Information not available 02/02/2018 How Much Tobacco Do You Chew? 5+/day [email or web address] Information not available 02/02/2018 What Was The Date Of Your Most Recent Tobacco Screening? 04/15/2018 Information n ot available 01/11/2020 Has Tobacco Cessation Counseling Been Provided? Yes [email or web address] Information not available 02/02/2018 On What Date Was Tobacco Cessation Counseling Provided? 04/15/2018 [email or web address] Information not available 04/15/2018 Sex: Unknown Functional Status Question Answer Note LastModified by Organization D etails LastModified Time What is your level of alcohol consumption? None [email or web address] Information not available 02/02/2018 Mental Status None recorded. Family History Relationship Description Onset Age of this Age Resolved Age Notes LastModified by Organization Details LastModified Time Father Family history of malignant neoplasm [email or web address] Not available 2016 09:51:10 Mother History of hypertension [email or web address] Not available 07/2017 09:51:19 Brother History of hypertension [email or web address] Not available 10/2018 14:00:31 Medical History Condition Response Anxiety Disorder Y Diabetes N Bleeding Disorder Y Arthritis Y Reflux/GERD Y Anesthesia Complications N Cancer N Hypertension Y Immunizations Vaccine Type Date Status Note Provider Nam e and Address Organization Details Recorded Time Influenza, split virus, quadrivalent, preservative 7 completed Ashley malcolm [facility] 02/25/2018 14:17:09 Past Encounters Encounter ID Performer Location Encounter Start Date Encounter Closed Date Diagnosis/Indication Diagnosis SNOMED-CT Code Diagnosis ICD10 Code Diagnosis Note [id number] REBEL ALMEIDA MD [facility] [address] [place] [address] 10/02/2017 09:23:35 10/02/2017 12:06:06 Chronic sinusitis 02092058 J32.9 status post ESS 11/2016 Dr. Márquez Headache 89115942 R51 intractabl e Allergic rhinitis 144434 04 J30.9 Nasal polyp 58400090 J33 .9 recurrence , status post ESS 11/2016 Dr. 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 G25.82 History of deep vein thrombosis 861823939 Z86.104 [id number] SUDHA GIBBS MD [facility]UROLOGY [facility] [address] [place] [id number] 02/02/2018 13:45:18 02/02/2018 16:41:55 Headache 29593773 R51 [id number] SUDHA GIBBS MD NEUROLOGY [facility] [address] [place] [id number] 02/25/2018 13:49:10 02/25/2018 14:55:01 Stiff-person syndrome 0675057 G25.82 Daily headache 091203638 1 03 R51 Paresthesia 54620736 R20 .2 [id number] SUDHA GIBBS MD NEUROLOGY [facility] [address] [place] [id number] 04/15/2018 15:33:55 04/15/2018 16:57:11 Chronic tension-type headache 592583104 G44.229 Stiff-person syndrome 52 24642 G25.82 Paresthesia 36807145 R20 .2 [id number] ANDREI EDGE MD [place] [address] [place] [address] 04/06/2025 14:29:08 04/06/2025 15:10:58 Neoplasm of uncertain behavior of skin 61042589 D48.5 Lesion of uncertain significan ce:right cheek [...] by Organization Details LastModified Time None Recorded Advance Directives Directive None Recorded Payers Insurance Date Sequence Insurance Name Policy Number Policy Elam Covered Member ID Elam Member ID Guarantor Name 04/03/2018 2 [place] [employer] - FFS/TRADITIO NAL Jimmy Cuevas Stephan 04/05/2025 1 [employer] (MEDICARE REPLACEMENT/ ADVANTAGE - PPO) Jimmy Rothman Jr [id number] Jimmy Rothman 04/05/2025 2 [place] [employer] - FFS/TRADITIO [facility] Deo Cuevas Stephan [id number] Jimmy Rothman 04/06/2025 3 [place] Jimmy Rothman Jr [id number] Jimmy Mason Stephan Notes Date Note Type Note Provider Name and Address Organization Details Recorded Time 10/02/2017 text/html Jimmy Rothman is a 52-year-old male here today for severe persistent frontal headaches. He reports a history of sinus infections and nasal polyps. He reports that he had sinus surgery in November with Dr. Márquez. He reports that his first sinus CT was in September and he had one last month that showed pansinusitis. Jimmy reports no improvement since the surgery. He complains of daily sinus pressure and headaches. He has not seen a Neurologist for his headaches. He has a Neurologist, Neurosurgeon, and Neuromuscular Neurologist. He says that his headaches are what bother him the most. He does not complain of nasal congestion. He feels that he has allergies. He reports that he has been given allergy medication with little relief. He has not had allergy testing. Jimmy is on Xarelto and a beta taj. 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 He has had blood clots in his lungs in the past. 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 Seen at request of Dr. James Quinteros He has stiff person syndrome, diagnosis in 2009, disabled since 2009. has baclofen pump, managed by Dr. Julisa Sprague at [facility] CC: headaches, daily Today he reports that he is having headaches. He has headaches for approx 2 years. Recently the pain has worsen. He had a brain MRI approx one year ago-per patient report did not reveal cause of every day headache. The headache is behind both ears. stiff person BP no diabetes He states for the last several months he feels like his limbs are numb. SUDHA GIBBS MD [address] [place] [address], [phone], [facility] 02/06/2018 14:49:21 02/25/2018 text/html This if follow u p after CT head. CT head w/wo contrast revealed: The brain is normal in appearance. There is severe paranasal sinus disease. Today he brings in a list of medications he has tried for headaches. He has tried fioricet, divalproex, zonisamide. He has tried botox without success. Currently taking gabapentin. Gabapentin does not help with his headaches but helps with his hypersensitivity. The only thing he can find that helps his headaches is if he lets hot water on his forehead. Lab test in January normal ESR, CBC, note CMP shows mild renal insufficiency cr.1.6, GFR 48. SUDHA GIBBS MD [address] [place] [address] [place], [address], [facility] 02/28/2018 21:57:01 04/15/2018 text/html currenltclaudia takes lamotrigine 100 mg (4 25 mg tablets) QHS states he has had headache for the last 2.5 years at times has blurred vision hard time thinking trouble walking, facial drawing SUDHA GIBBS MD [address] [place], [address], [facility] 04/22/2018 21:05:04 04/06/2025 text/html Specific spot t o check Location: R cheek General duration: ~{{days weeks month s years 1 months#}} Predominant symptom:{{asymptoma tic itching catchin g on things sensitive pa inful other growing #}} Prior treatment(s):{{none * cryo biopsy excis ion other}} History of evolution:{{stable changing*}} Patient primarily desires lesion to be:{{evaluated only* removed if possible}}.no hx skin cancer new pt ANDREI EDGE MD [address] [place], [address], [facility] 04/06/2025 22:15:06
--- NOTE | 2025-04-08 11:15 | XR_ITS ---
FINAL REPORT CLINICAL HISTORY: DEFORMITY RIGHT FOOT COMPARISON: 02/02/2024 FINDINGS: AP, oblique and lateral views of the right foot were obtained. There is no acute fracture or dislocation. The joint spaces are preserved. Soft tissues are unremarkable. IMPRESSION: No acute osseous abnormality of the right foot. Reviewed, Interpreted and Dictated by Chio Hendrickson MD Transcribed by Joanna Garnett Authenticated and . [facility]
== END 2025-04-08 23:59 | disposition home or self-care (01) ==
LOC: RAD 11:11
PROVIDERS: PCP Internal Medicine Adolescent Medicine; Visit Provider Internal Medicine Adolescent Medicine
DX: M21.961 Unspecified acquired deformity of right lower leg (principal)
CPT/HCPCS: 73630

== ENCOUNTER 2025-04-29 07:03 | Outpatient (CLI) | payer MEDICARE, MEDICAID, SELFPAY ==
--- OUTSIDE RECORDS SUMMARY | 2025-04-29 07:05 | XMS_ITS | Continuity of Care Document ---
Author Organization [facility]. If a dditional information is needed, contact Health Information Management at [phone] Address [address] [place] [address] Phone Care Team Providers Care Marble Mason Name Role Phone Unavailable Unavailable Unavailable
--- NOTE | 2025-04-29 07:06 | CT_ITS ---
FINAL REPORT TECHNIQUE: Thin section axial images were obtained through the right lower extremity without contrast. Reconstruction images were obtained from the axial data. Exam was performed using dose reduction technique. CLINICAL HISTORY: DEFORMITY OF RT FOOT FINDINGS: There is no acute fracture or dislocation. No acute osseous abnormality is identified. There is a small calcification adjacent to the navicular, likely very small accessory navicular. Multijoint degenerative disease is identified. There is mild soft tissue edema along the medial forefoot at the level of the first metatarsal phalangeal joint, nonspecific. IMPRESSION: Multijoint degenerative disease. Nonspecific soft tissue edema in the medial forefoot. Reviewed, Interpreted and Dictated by Chio Hendrickson MD Transcribed by Jacquie Sue Authenticated and [facility]
--- OUTSIDE RECORDS SUMMARY | 2025-04-29 07:06 | XMS_ITS | Data Portability ---
Author Organization [facility] [employer] [facility] CLOS[employer] Address [address] [facility] [address] [place] [address] Care Team Providers Care Waste Baler Name Role Phone SHONNA QUINTEROS Referring Provider Assessment Encounter Date Assessment Date Assessment LastModified by Organization Details LastModified Time 02/02/2018 02/02/2018 1. Headache daily x 2 years 2. He says wide variety of meds tried, none with success; he cannot remember names of any Rx I advised that he hand picker a printout of past 2 years meds [...] will be rechecked at next office meeting Not available 02/06/2018 14:47:26 02/25/2018 02/25/2018 1. [...] if rash Follow up in early summer Not available 02/28/2018 21:56:23 04/15/2018 04/15/2018 1. [...] have not scheduled a follow up visit [email or web address] Not available 04/22/2018 21:04:05 04/06/2025 04/06/2025 will call with pathology Not available 04/06/2025 15:12:37 Plan of Treatment Reminders Order Date Submit Date Provider Last Modified By Organization Details Last Modified Time Details Appointments [facility] 2024 08:00A Jenn CONROY MD Not available Not available Not available Lab surgical pathology study - shave biopsy 2024 025 [facility], [address] [place] [address], [phone], 04/08/2025 11:31:23 ESR (erythroc yte sedimenta tion rate), blood 2017 018 [email or web address] [facility], [address] [place] [address], [id number], 02/03/2018 18:00:33 CBC w/ auto diff 2017 018 [email or web address] [facility], [address] [place] [address], [phone], 02/03/2018 18:00:33 CMP, serum or plasma 2017 018 [email or web address] [facility], [address] [place] [address], [phone], 02/03/2018 18:00:33 multiple inhalant allergen IgE Ab, quant, serum 2016 017 [email or web address] [facility], [address] [place] [address], [id number], 10/13/2017 15:21:[address] referral 2016 017 [email or web address] Not available 10/30/2017 08:05:43 Procedures None recorded. Surgeries None recorded. Imaging CT, head, w/wo contrast 2017 018 [facility], [address] [place] [address], [address], 02/25/2018 12:39:51 Medication Orders tramadol 50 mg tablet 2017 018 [email or web address] [facility], [address], [id number], 04/18/2018 14:12:50 lamotrigi ne 25 mg tablet 2017 018 INTERFACE [facility], [address], [address], 02/25/2018 14:50:58 Patient TargetsNo targets recorded. Patient Instructions Encounter Date Encounter Id Patient Instructions Last Modified By Organization Details Last Modified Time 10/02/2017 [id number] It is apparent that Mr. Rucker primary [...] arise. page Not available 10/02/2017 14:51:09 02/02/2018 [id number] headache: care instructions Not available 02/03/2018 18:00:33 eating healthy foods: care instructions [email or web address] Not available 02/03/2018 18:00:33 elevated blood pressure: care instructions [email or web address] Not available 02/03/2018 18:00:33 Spent 40# total minutes with the patient today in counseling regarding information documented in my assessment and plan above. The time represents more than 50% of the encounter. [email or web address] Not available 02/06/2018 14:47:41 04/06/2025 [id number] General Skin Protection: - SPF 30 or [...] changing or worrisome lesions or skin conditions. Not available 04/06/2025 15:10:37 Reason for Referral [...] cteri stics have been deter mined by [employer]. It has not been clear ed or appro amrik by the U.S. Food and Drug Admin istra tion. This assay has been valid ated pursu ant to the CLIA regul ation s and is used for clini alfonso purpo ses. TEST PERFO RMED AT: [employer] [facility] [place] [address] [place] [address] TORO Almaraz MD Not Available [facility] [address] [place] [address], [address], 10/17/2017 16:05:10 10/02/20 17 10/17/2017 multi ple inhal ant aller gen IgE Ab, quant , serum cottonwood tree 0.16 kU/L high Not Available [facility] [address] [place] [address], [phone], 10/17/2017 16:05:10 10/02/20 17 10/17/2017 multi ple inhal ant aller gen IgE Ab, quant , serum class 0/1 normal Not Available [facility] [address] [place] [address], [address], 10/17/2017 16:05:10 10/02/20 17 10/17/2017 multi ple inhal ant aller gen IgE Ab, quant , serum white bria <0.10 kU/L normal Not Available [facility] [address] [place] [address], [address], 10/17/2017 16:05:10 10/02/20 17 10/17/2017 multi ple inhal ant aller gen IgE Ab, quant , serum class 0 normal Not Available [facility] [address] [place] [address], [address], 10/17/2017 16:05:10 10/02/20 17 10/17/2017 multi ple inhal ant aller gen IgE Ab, quant , serum white pine <0.10 kU/L normal Not Available [facility] [address] [place] [address], [address], 10/17/2017 16:05:10 10/02/20 17 10/17/2017 multi ple inhal ant aller gen IgE Ab, quant , serum class 0 normal Not Available [facility] [address] [place] [address], [address], 10/17/2017 16:05:10 10/02/20 17 10/17/2017 multi ple inhal ant aller gen IgE Ab, quant , serum CAT dander <0.10 kU/L normal Not Available [facility] [address] [place] [address], [address], 10/17/2017 16:05:10 10/02/20 17 10/17/2017 multi ple inhal ant aller gen IgE Ab, quant , serum class 0 normal Not Available [facility] [address] [place] [address], [address], 10/17/2017 16:05:10 10/02/20 17 10/17/2017 multi ple inhal ant aller gen IgE Ab, quant , serum horse dander <0.10 kU/L normal Not Available [facility] [address] [place] [address], [address], 10/17/2017 16:05:10 10/02/20 17 10/17/2017 multi ple inhal ant aller gen IgE Ab, quant , serum class 0 normal Not Available [facility] [address] [place] [address], [address], 10/17/2017 16:05:10 10/02/20 17 10/17/2017 multi ple inhal ant aller gen IgE Ab, quant , serum cow dander <0.10 kU/L normal Not Available [facility] [address] [place] [address], [address], 10/17/2017 16:05:10 10/02/20 17 10/17/2017 multi ple inhal ant aller gen IgE Ab, quant , serum class 0 normal Not Available [facility] [address] [place] [address], [address], 10/17/2017 16:05:10 10/02/20 17 10/17/2017 multi ple inhal ant aller gen IgE Ab, quant , serum dog dander <0.10 kU/L normal Not Available [facility] [address] [place] [address], [address], 10/17/2017 16:05:10 10/02/20 17 10/17/2017 multi ple inhal ant aller gen IgE Ab, quant , serum class 0 normal Not Available [facility] [address] [place] [address], [address], 10/17/2017 16:05:10 10/02/20 17 10/17/2017 multi ple inhal ant aller gen IgE Ab, quant , serum goose feathers <0.10 kU/L normal Not Available [facility] [address] [place] [address], [address], 10/17/2017 16:05:10 10/02/20 17 10/17/2017 multi ple inhal ant aller gen IgE Ab, quant , serum class 0 normal Not Available [facility] [address] [place] [address], [address], 10/17/2017 16:05:10 10/02/20 17 10/17/2017 multi ple inhal ant aller gen IgE Ab, quant , serum penicillium notatum <0.10 kU/L normal Not Available [facility] [address] [place] [address], [address], 10/17/2017 16:05:10 10/02/20 17 10/17/2017 multi ple inhal ant aller gen IgE Ab, quant , serum class 0 normal Not Available [facility] [address] [place] [address], [address], 10/17/2017 16:05:10 10/02/20 17 10/17/2017 multi ple inhal ant aller gen IgE Ab, quant , serum cladosporium herbarum <0.10 kU/L normal Not Available [facility] [address] [place] [address], [address], 10/17/2017 16:05:10 10/02/20 17 10/17/2017 multi ple inhal ant aller gen IgE Ab, quant , serum class 0 normal Not Available [facility] [address] [place] [address], [address], 10/17/2017 16:05:10 10/02/20 17 10/17/2017 multi ple inhal ant aller gen IgE Ab, quant , serum aspergillus fumigatus <0.10 kU/L normal Not Available [facility] [address] [place] [address], [address], 10/17/2017 16:05:10 10/02/20 17 10/17/2017 multi ple inhal ant aller gen IgE Ab, quant , serum class 0 normal Not Available [facility] [address] [place] [address], [address], 10/17/2017 16:05:10 10/02/20 17 10/17/2017 multi ple inhal ant aller gen IgE Ab, quant , serum mucor racemosus <0.10 kU/L normal Not Available [facility] [address] [place] [address], [address], 10/17/2017 16:05:10 10/02/20 17 10/17/2017 multi ple inhal ant aller gen IgE Ab, quant , serum class 0 normal Not Available [facility] [address] [place] [address], [address], 10/17/2017 16:05:10 10/02/20 17 10/17/2017 multi ple inhal ant aller gen IgE Ab, quant , serum dustin albicans <0.10 kU/L normal Not Available [facility] [address] [place] [address], [address], 10/17/2017 16:05:10 10/02/20 17 10/17/2017 multi ple inhal ant aller gen IgE Ab, quant , serum class 0 normal Not Available [facility] [address] [place] [address], [address], 10/17/2017 16:05:10 10/02/20 17 10/17/2017 multi ple inhal ant aller gen IgE Ab, quant , serum alternaria alternata <0.10 kU/L normal Not Available [facility] [address] [place] [address], [address], 10/17/2017 16:05:10 10/02/20 17 10/17/2017 multi ple inhal ant aller gen IgE Ab, quant , serum class 0 normal Not Available [facility] [address] [place] [address], [address], 10/17/2017 16:05:10 10/02/20 17 10/17/2017 multi ple inhal ant aller gen IgE Ab, quant , serum D. farinae <0.10 kU/L normal Not Available [facility] [address] [place] [address], [address], 10/17/2017 16:05:10 10/02/20 17 10/17/2017 multi ple inhal ant aller gen IgE Ab, quant , serum class 0 normal Not Available [facility] [address] [place] [address], [address], 10/17/2017 16:05:10 10/02/20 17 10/17/2017 multi ple inhal ant aller gen IgE Ab, quant , serum D. pteronyssinu s <0.10 kU/L normal Not Available [facility] [address] [place] [address], [address], 10/17/2017 16:05:10 10/02/20 17 10/17/2017 multi ple inhal ant aller gen IgE Ab, quant , serum class 0 normal Not Available [facility] [address] [place] [address], [address], 10/17/2017 16:05:10 10/02/20 17 10/17/2017 multi ple inhal ant aller gen IgE Ab, quant , serum cockroach 0.21 kU/L high Not Available [facility] [address] [place] [address], [address], 10/17/2017 16:05:10 10/02/20 17 10/17/2017 multi ple inhal ant aller gen IgE Ab, quant , serum class 0/1 normal Not Available [facility] [address] [place] [address], [address], 10/17/2017 16:05:10 10/02/20 17 10/17/2017 multi ple inhal ant aller gen IgE Ab, quant , serum epicoccum purpurasce <0.10 kU/L normal Not Available [facility] [address] [place] [address], [address], 10/17/2017 16:05:10 10/02/20 17 10/17/2017 multi ple inhal ant aller gen IgE Ab, quant , serum class 0 normal Not Available [facility] [address] [place] [address], [address], 10/17/2017 16:05:10 10/02/20 17 10/17/2017 multi ple inhal ant aller gen IgE Ab, quant , serum fusarium moniliforme <0.10 kU/L normal Not Available [facility] [address] [place] [address], [address], 10/17/2017 16:05:10 10/02/20 17 10/17/2017 multi ple inhal ant aller gen IgE Ab, quant , serum class 0 normal Not Available [facility] [address] [place] [address], [address], 10/17/2017 16:05:10 10/02/20 17 10/17/2017 multi ple inhal ant aller gen IgE Ab, quant , serum phoma betae <0.10 kU/L normal Not Available [facility] [address] [place] [address], [address], 10/17/2017 16:05:10 10/02/20 17 10/17/2017 multi ple inhal ant aller gen IgE Ab, quant , serum class 0 normal Not Available [facility] [address] [place] [address], [address], 10/17/2017 16:05:10 10/02/20 17 10/17/2017 multi ple inhal ant aller gen IgE Ab, quant , serum rhizopus nigricans <0.10 kU/L normal Not Available [facility] [address] [place] [address], [address], 10/17/2017 16:05:10 10/02/20 17 10/17/2017 multi ple inhal ant aller gen IgE Ab, quant , serum class 0 normal Not Available [facility] [address] [place] [address], [address], 10/17/2017 16:05:10 10/02/20 17 10/17/2017 multi ple inhal ant aller gen IgE Ab, quant , serum stemph. botryosum <0.10 kU/L normal Not Available [facility] [address] [place] [address], [address], 10/17/2017 16:05:10 10/02/20 17 10/17/2017 multi ple inhal ant aller gen IgE Ab, quant , serum class 0 normal TEST PERFO RMED AT: [facility] [place] [address] [place] [address] TORO Almaraz MD Not Available [facility] [address] [place] [address], [address], 10/17/2017 16:05:10 10/02/20 17 10/17/2017 multi ple inhal ant aller gen IgE Ab, quant , serum IgE, total 126 kU/L <or=11 4 high Not Available [facility] [address] [place] [address], [address], 10/17/2017 16:05:12 10/02/20 17 10/17/2017 multi ple inhal ant aller gen IgE Ab, quant , serum bermuda grass 0.11 kU/L high Not Available [facility] [address] [place] [address], [address], 10/17/2017 16:05:12 10/02/20 17 10/17/2017 multi ple inhal ant aller gen IgE Ab, quant , serum class 0/1 normal Not Available [facility] [address] [place] [address], [address], 10/17/2017 16:05:12 10/02/20 17 10/17/2017 multi ple inhal ant aller gen IgE Ab, quant , serum anne marie grass <0.10 kU/L normal Not Available [facility] [address] [place] [address], [address], 10/17/2017 16:05:12 10/02/20 17 10/17/2017 multi ple inhal ant aller gen IgE Ab, quant , serum class 0 normal Not Available [facility] [address] [place] [address], [address], 10/17/2017 16:05:12 10/02/20 17 10/17/2017 multi ple inhal ant aller gen IgE Ab, quant , serum bluegrass, ky junegrass <0.10 kU/L normal Not Available [facility] [address] [place] [address], [address], 10/17/2017 16:05:12 10/02/20 17 10/17/2017 multi ple inhal ant aller gen IgE Ab, quant , serum class 0 normal Not Available [facility] [address] [place] [address], [address], 10/17/2017 16:05:12 10/02/20 17 10/17/2017 multi ple inhal ant aller gen IgE Ab, quant , serum grace grass <0.10 kU/L normal Not Available [facility] [address] [place] [address], [address], 10/17/2017 16:05:12 10/02/20 17 10/17/2017 multi ple inhal ant aller gen IgE Ab, quant , serum class 0 normal Not Available [facility] [address] [place] [address], [address], 10/17/2017 16:05:12 10/02/20 17 10/17/2017 multi ple inhal ant aller gen IgE Ab, quant , serum common ragweed <0.10 kU/L normal Not Available [facility] [address] [place] [address], [address], 10/17/2017 16:05:12 10/02/20 17 10/17/2017 multi ple inhal ant aller gen IgE Ab, quant , serum class 0 normal Not Available [facility] [address] [place] [address], [address], 10/17/2017 16:05:12 10/02/20 17 10/17/2017 multi ple [...] cteri stics have been deter mined by [employer]. It has not been clear ed or appro amrik by the U.S. Food and Drug Admin istra tion. This assay has been valid ated pursu ant to the CLIA regul ation s and is used for clini alfonso purpo ses. TEST PERFO RMED AT: [facility] [employer] [facility] [place] [address] [facility] [address] TORO Almaraz MD Not Available [facility] [address] [place] [address], [address], 10/17/2017 16:05:12 10/02/20 17 10/17/2017 multi ple inhal ant aller gen IgE Ab, quant , serum wormwood <0.10 kU/L normal Not Available [facility] [address] [place] [address], [address], 10/17/2017 16:05:12 10/02/20 17 10/17/2017 multi ple inhal ant aller gen IgE Ab, quant , serum class 0 normal Not Available [facility] [address] [place] [address], [address], 10/17/2017 16:05:12 10/02/20 17 10/17/2017 multi ple inhal ant aller gen IgE Ab, quant , serum greenlandic plantain <0.10 kU/L normal Not Available [facility] [address] [place] [address], [address], 10/17/2017 16:05:12 10/02/20 17 10/17/2017 multi ple inhal ant aller gen IgE Ab, quant , serum class 0 normal Not Available [facility] [address] [place] [address], [address], 10/17/2017 16:05:12 10/02/20 17 10/17/2017 multi ple inhal ant aller gen IgE Ab, quant , serum lambs quarters <0.10 kU/L normal Not Available [facility] [address] [place] [address], [address], 10/17/2017 16:05:12 10/02/20 17 10/17/2017 multi ple inhal ant aller gen IgE Ab, quant , serum class 0 normal Not Available [facility] [address] [place] [address], [address], 10/17/2017 16:05:12 10/02/20 17 10/17/2017 multi ple inhal ant aller gen IgE Ab, quant , serum lebanese thistle <0.10 kU/L normal Not Available [facility] [address] [place] [address], [address], 10/17/2017 16:05:12 10/02/20 17 10/17/2017 multi ple inhal ant aller gen IgE Ab, quant , serum class 0 normal Not Available [facility] [address] [place] [address], [address], 10/17/2017 16:05:12 10/02/20 17 10/17/2017 multi ple inhal ant aller gen IgE Ab, quant , serum goldenrod <0.10 kU/L normal Not Available [facility] [address] [place] [address], [address], 10/17/2017 16:05:12 10/02/20 17 10/17/2017 multi ple inhal ant aller gen IgE Ab, quant , serum class 0 normal Not Available [facility] [address] [place] [address], [address], 10/17/2017 16:05:12 10/02/20 17 10/17/2017 multi ple inhal ant aller gen IgE Ab, quant , serum cocklebur <0.10 kU/L normal Not Available [facility] [address] [place] [address], [address], 10/17/2017 16:05:12 10/02/20 17 10/17/2017 multi ple inhal ant aller gen IgE Ab, quant , serum class 0 normal Not Available [facility] [address] [place] [address], [address], 10/17/2017 16:05:12 10/02/20 17 10/17/2017 multi ple inhal ant aller gen IgE Ab, quant , serum rough pigweed <0.10 kU/L normal Not Available [facility] [address] [place] [address], [address], 10/17/2017 16:05:12 10/02/20 17 10/17/2017 multi ple inhal ant aller gen IgE Ab, quant , serum class 0 normal Not Available [facility] [address] [place] [address], [address], 10/17/2017 16:05:12 10/02/20 17 10/17/2017 multi ple inhal ant aller gen IgE Ab, quant , serum sheep luiz <0.10 kU/L normal Not Available [facility] [address] [place] [address], [address], 10/17/2017 16:05:12 10/02/20 17 10/17/2017 multi ple inhal ant aller gen IgE Ab, quant , serum class 0 normal Not Available [facility] [address] [place] [address], [address], 10/17/2017 16:05:12 10/02/20 17 10/17/2017 multi ple inhal ant aller gen IgE Ab, quant , serum nettle <0.10 kU/L normal Not Available [facility] [address] [place] [address], [address], 10/17/2017 16:05:12 10/02/20 17 10/17/2017 multi ple inhal ant aller gen IgE Ab, quant , serum class 0 normal Not Available [facility] [address] [place] [address], [address], 10/17/2017 16:05:12 10/02/20 17 10/17/2017 multi ple inhal ant aller gen IgE Ab, quant , serum maple (box elder) <0.10 kU/L normal Not Available [facility] [address] [place] [address], [address], 10/17/2017 16:05:12 10/02/20 17 10/17/2017 multi ple inhal ant aller gen IgE Ab, quant , serum class 0 normal Not Available [facility] [address] [place] [address], [address], 10/17/2017 16:05:12 10/02/20 17 10/17/2017 multi ple inhal ant aller gen IgE Ab, quant , serum birch <0.10 kU/L normal Not Available [facility] [address] [place] [address], [address], 10/17/2017 16:05:12 10/02/20 17 10/17/2017 multi ple inhal ant aller gen IgE Ab, quant , serum class 0 normal Not Available [facility] [address] [place] [address], [address], 10/17/2017 16:05:12 10/02/20 17 10/17/2017 multi ple inhal ant aller gen IgE Ab, quant , serum mountain cedar <0.10 kU/L normal Not Available [facility] [address] [place] [address], [address], 10/17/2017 16:05:12 10/02/20 17 10/17/2017 multi ple inhal ant aller gen IgE Ab, quant , serum class 0 normal Not Available [facility] [address] [place] [address], [address], 10/17/2017 16:05:12 10/02/20 17 10/17/2017 multi ple inhal ant aller gen IgE Ab, quant , serum oak <0.10 kU/L normal Not Available [facility] [address] [place] [address], [address], 10/17/2017 16:05:12 10/02/20 17 10/17/2017 multi ple inhal ant aller gen IgE Ab, quant , serum class 0 normal Not Available [facility] [address] [place] [address], [address], 10/17/2017 16:05:12 10/02/20 17 10/17/2017 multi ple inhal ant aller gen IgE Ab, quant , serum elm <0.10 kU/L normal Not Available [facility] [address] [place] [address], [address], 10/17/2017 16:05:12 10/02/20 17 10/17/2017 multi ple inhal ant aller gen IgE Ab, quant , serum class 0 normal Not Available [facility] [address] [place] [address], [address], 10/17/2017 16:05:12 10/02/20 17 10/17/2017 multi ple inhal ant aller gen IgE Ab, quant , serum sycamore <0.10 kU/L normal Not Available [facility] [address] [place] [address], [address], 10/17/2017 16:05:12 10/02/20 17 10/17/2017 multi ple inhal ant aller gen IgE Ab, quant , serum class 0 normal Not Available [facility] [address] [place] [address], [address], 10/17/2017 16:05:12 10/02/20 17 10/17/2017 multi ple inhal ant aller gen IgE Ab, quant , serum curvularia lunata <0.10 kU/L normal Not Available [facility] [address] [place] [address], [address], 10/17/2017 16:05:12 10/02/20 17 10/17/2017 multi ple inhal ant aller gen IgE Ab, quant , serum class 0 normal TEST PERFO RMED AT: [facility] [place] [address] [place] [address] TORO Almaraz MD Not Available [facility] [address] [place] [address], [address], 10/17/2017 16:05:12 10/02/20 17 10/17/2017 multi ple inhal ant aller gen IgE Ab, quant , serum cottonwood tree 0.16 kU/L high Not Available [facility] [address] [place] [address], [address], 10/17/2017 16:05:12 10/02/20 17 10/17/2017 multi ple inhal ant aller gen IgE Ab, quant , serum class 0/1 normal Not Available [facility] [address] [place] [address], [address], 10/17/2017 16:05:12 10/02/20 17 10/17/2017 multi ple inhal ant aller gen IgE Ab, quant , serum white bria <0.10 kU/L normal Not Available [facility] [address] [place] [address], [phone], 10/17/2017 16:05:12 10/02/20 17 10/17/2017 multi ple inhal ant aller gen IgE Ab, quant , serum class 0 normal Not Available [facility] [address] [place] [address], [address], 10/17/2017 16:05:12 10/02/20 17 10/17/2017 multi ple inhal ant aller gen IgE Ab, quant , serum white pine <0.10 kU/L normal Not Available [facility] [address] [place] [address], [address], 10/17/2017 16:05:12 10/02/20 17 10/17/2017 multi ple inhal ant aller gen IgE Ab, quant , serum class 0 normal Not Available [facility] [address] [place] [address], [address], 10/17/2017 16:05:12 10/02/20 17 10/17/2017 multi ple inhal ant aller gen IgE Ab, quant , serum CAT dander <0.10 kU/L normal Not Available [facility] [address] [place] [address], [address], 10/17/2017 16:05:12 10/02/20 17 10/17/2017 multi ple inhal ant aller gen IgE Ab, quant , serum class 0 normal Not Available [facility] [address] [place] [address], [address], 10/17/2017 16:05:12 10/02/20 17 10/17/2017 multi ple inhal ant aller gen IgE Ab, quant , serum horse dander <0.10 kU/L normal Not Available [facility] [address] [place] [address], [address], 10/17/2017 16:05:12 10/02/20 17 10/17/2017 multi ple inhal ant aller gen IgE Ab, quant , serum class 0 normal Not Available [facility] [address] [place] [address], [address], 10/17/2017 16:05:12 10/02/20 17 10/17/2017 multi ple inhal ant aller gen IgE Ab, quant , serum cow dander <0.10 kU/L normal Not Available [facility] [address] [place] [address], [address], 10/17/2017 16:05:12 10/02/20 17 10/17/2017 multi ple inhal ant aller gen IgE Ab, quant , serum class 0 normal Not Available [facility] [address] [place] [address], [address], 10/17/2017 16:05:12 10/02/20 17 10/17/2017 multi ple inhal ant aller gen IgE Ab, quant , serum dog dander <0.10 kU/L normal Not Available [facility] [address] [place] [address], [address], 10/17/2017 16:05:12 10/02/20 17 10/17/2017 multi ple inhal ant aller gen IgE Ab, quant , serum class 0 normal Not Available [facility] [address] [place] [address], [address], 10/17/2017 16:05:12 10/02/20 17 10/17/2017 multi ple inhal ant aller gen IgE Ab, quant , serum goose feathers <0.10 kU/L normal Not Available [facility] [address] [place] [address], [address], 10/17/2017 16:05:12 10/02/20 17 10/17/2017 multi ple inhal ant aller gen IgE Ab, quant , serum class 0 normal Not Available [facility] [address] [place] [address], [address], 10/17/2017 16:05:12 10/02/20 17 10/17/2017 multi ple inhal ant aller gen IgE Ab, quant , serum penicillium notatum <0.10 kU/L normal Not Available [facility] [address] [place] [address], [address], 10/17/2017 16:05:12 10/02/20 17 10/17/2017 multi ple inhal ant aller gen IgE Ab, quant , serum class 0 normal Not Available [facility] [address] [place] [address], [address], 10/17/2017 16:05:12 10/02/20 17 10/17/2017 multi ple inhal ant aller gen IgE Ab, quant , serum cladosporium herbarum <0.10 kU/L normal Not Available [facility] [address] [place] [address], [address], 10/17/2017 16:05:12 10/02/20 17 10/17/2017 multi ple inhal ant aller gen IgE Ab, quant , serum class 0 normal Not Available [facility] [address] [place] [address], [phone], 10/17/2017 16:05:12 10/02/20 17 10/17/2017 multi ple inhal ant aller gen IgE Ab, quant , serum aspergillus fumigatus <0.10 kU/L normal Not Available [facility] [address] [place] [address], [address], 10/17/2017 16:05:12 10/02/20 17 10/17/2017 multi ple inhal ant aller gen IgE Ab, quant , serum class 0 normal Not Available [facility] [address] [place] [address], [address], 10/17/2017 16:05:12 10/02/20 17 10/17/2017 multi ple inhal ant aller gen IgE Ab, quant , serum mucor racemosus <0.10 kU/L normal Not Available [facility] [address] [place] [address], [address], 10/17/2017 16:05:12 10/02/20 17 10/17/2017 multi ple inhal ant aller gen IgE Ab, quant , serum class 0 normal Not Available [facility] [address] [place] [address], [address], 10/17/2017 16:05:12 10/02/20 17 10/17/2017 multi ple inhal ant aller gen IgE Ab, quant , serum dustin albicans <0.10 kU/L normal Not Available [facility] [address] [place] [address], [address], 10/17/2017 16:05:12 10/02/20 17 10/17/2017 multi ple inhal ant aller gen IgE Ab, quant , serum class 0 normal Not Available [facility] [address] [place] [address], [address], 10/17/2017 16:05:12 10/02/20 17 10/17/2017 multi ple inhal ant aller gen IgE Ab, quant , serum alternaria alternata <0.10 kU/L normal Not Available [facility] [address] [place] [address], [address], 10/17/2017 16:05:12 10/02/20 17 10/17/2017 multi ple inhal ant aller gen IgE Ab, quant , serum class 0 normal Not Available [facility] [address] [place] [address], [address], 10/17/2017 16:05:12 10/02/20 17 10/17/2017 multi ple inhal ant aller gen IgE Ab, quant , serum D. farinae <0.10 kU/L normal Not Available [facility] [address] [place] [address], [address], 10/17/2017 16:05:12 10/02/20 17 10/17/2017 multi ple inhal ant aller gen IgE Ab, quant , serum class 0 normal Not Available [facility] [address] [place] [address], [address], 10/17/2017 16:05:12 10/02/20 17 10/17/2017 multi ple inhal ant aller gen IgE Ab, quant , serum D. pteronyssinu s <0.10 kU/L normal Not Available [facility] [address] [place] [address], [address], 10/17/2017 16:05:12 10/02/20 17 10/17/2017 multi ple inhal ant aller gen IgE Ab, quant , serum class 0 normal Not Available [facility] [address] [place] [address], [address], 10/17/2017 16:05:12 10/02/20 17 10/17/2017 multi ple inhal ant aller gen IgE Ab, quant , serum cockroach 0.21 kU/L high Not Available [facility] [address] [place] [address], [address], 10/17/2017 16:05:12 10/02/20 17 10/17/2017 multi ple inhal ant aller gen IgE Ab, quant , serum class 0/1 normal Not Available [facility] [address] [place] [address], [address], 10/17/2017 16:05:12 10/02/20 17 10/17/2017 multi ple inhal ant aller gen IgE Ab, quant , serum epicoccum purpurasce <0.10 kU/L normal Not Available [facility] [address] [place] [address], [address], 10/17/2017 16:05:12 10/02/20 17 10/17/2017 multi ple inhal ant aller gen IgE Ab, quant , serum class 0 normal Not Available [facility] [address] [place] [address], [address], 10/17/2017 16:05:12 10/02/20 17 10/17/2017 multi ple inhal ant aller gen IgE Ab, quant , serum fusarium moniliforme <0.10 kU/L normal Not Available [facility] [address] [place] [address], [address], 10/17/2017 16:05:12 10/02/20 17 10/17/2017 multi ple inhal ant aller gen IgE Ab, quant , serum class 0 normal Not Available [facility] [address] [place] [address], [address], 10/17/2017 16:05:12 10/02/20 17 10/17/2017 multi ple inhal ant aller gen IgE Ab, quant , serum phoma betae <0.10 kU/L normal Not Available [facility] [address] [place] [address], [address], 10/17/2017 16:05:12 10/02/20 17 10/17/2017 multi ple inhal ant aller gen IgE Ab, quant , serum class 0 normal Not Available [facility] [address] [place] [address], [address], 10/17/2017 16:05:12 10/02/20 17 10/17/2017 multi ple inhal ant aller gen IgE Ab, quant , serum rhizopus nigricans <0.10 kU/L normal Not Available [facility] [address] [place] [address], [address], 10/17/2017 16:05:12 10/02/20 17 10/17/2017 multi ple inhal ant aller gen IgE Ab, quant , serum class 0 normal Not Available [facility] [address] [place] [address], [address], 10/17/2017 16:05:12 10/02/20 17 10/17/2017 multi ple inhal ant aller gen IgE Ab, quant , serum stemph. botryosum <0.10 kU/L normal Not Available [facility] [address] [place] [address], [address], 10/17/2017 16:05:12 10/02/20 17 10/17/2017 multi ple inhal ant aller gen IgE Ab, quant , serum class 0 normal TEST PERFO RMED AT: [facility] [address] [place], [place] [id number] TORO Almaraz MD Not Available [facility] [address] [place] [address], [address], 10/17/2017 16:05:12 02/03/20 18 02/02/2018 CBC w/ auto diff white blood cells 5.0 K/uL 3.8-10 .8 normal Not Available [facility] [address] [place] [address], [address], 02/02/2018 17:44:43 02/03/20 18 02/02/2018 CBC w/ auto diff red blood cells 5.37 M/uL 4.20-5 .80 normal Not Available [facility] [address] [place] [address], [address], 02/02/2018 17:44:43 02/03/20 18 02/02/2018 CBC w/ auto diff hemoglobin 15.9 g/dL 14.0-1 8.0 normal Not Available [facility] [address] [place] [address], [address], 02/02/2018 17:44:43 02/03/20 18 02/02/2018 CBC w/ auto diff hematocrit 46.6 % 40.0-5 2.0 normal Not Available [facility] [address] [place] [address], [address], 02/02/2018 17:44:43 02/03/20 18 02/02/2018 CBC w/ auto diff MCV 87 fL 80-100 normal Not Available [facility] [address] [place] [address], [address], 02/02/2018 17:44:43 02/03/20 18 02/02/2018 CBC w/ auto diff MCH 30 pg 26-35 normal Not Available [facility] [address] [place] [address], [address], 02/02/2018 17:44:43 02/03/20 18 02/02/2018 CBC w/ auto diff MCHC 34 g/dL 32-36 normal Not Available [facility] [address] [place] [address], [address], 02/02/2018 17:44:43 02/03/20 18 02/02/2018 CBC w/ auto diff RDW 13.2 % 11.0-1 5.0 normal Not Available [facility] [address] [place] [address], [address], 02/02/2018 17:44:43 02/03/20 18 02/02/2018 CBC w/ auto diff MPV 8.4 fL 6.2-10 .5 normal Not Available [facility] [address] [place] [address], [address], 02/02/2018 17:44:43 02/03/20 18 02/02/2018 CBC w/ auto diff platelet count 173 K/uL 130-40 0 normal Not Available [facility] [address] [place] [address], [address], 02/02/2018 17:44:43 02/03/20 18 02/02/2018 CBC w/ auto diff neutrophil,a bsolute 3.0 K/uL 1.6-8. 4 normal Not Available [facility] [address] [place] [address], [address], 02/02/2018 17:44:43 02/03/20 18 02/02/2018 CBC w/ auto diff lymphocyte,a bsolute 1.4 K/uL 0.4-5. 1 normal Not Available [facility] [address] [place] [address], [address], 02/02/2018 17:44:43 02/03/20 18 02/02/2018 CBC w/ auto diff monocyte,abs olute 0.5 K/uL 0.0-1. 2 normal Not Available [facility] [address] [place] [address], [address], 02/02/2018 17:44:43 02/03/20 18 02/02/2018 CBC w/ auto diff eosinophil,a bsolute 0.1 K/uL 0.0-0. 8 normal Not Available [facility] [address] [place] [address], [address], 02/02/2018 17:44:43 02/03/20 18 02/02/2018 CBC w/ auto diff basophil,abs olute 0.0 K/uL 0.0-0. 3 normal Not Available [facility] [address] [place] [address], [address], 02/02/2018 17:44:43 02/03/20 18 02/02/2018 CBC w/ auto diff % neutrophils 59.8 % 42.0-7 8.0 normal Not Available [facility] [address] [place] [address], [address], 02/02/2018 17:44:43 02/03/20 18 02/02/2018 CBC w/ auto diff % lymphocytes 27.5 % 11.0-4 7.0 normal Not Available [facility] [address] [place] [address], [address], 02/02/2018 17:44:43 02/03/20 18 02/02/2018 CBC w/ auto diff % monocytes 10.6 % 0.0-11 .0 normal Not Available [facility] [address] [place] [address], [address], 02/02/2018 17:44:43 02/03/20 18 02/02/2018 CBC w/ auto diff % eosinophils 1.2 % 0.0-7. 0 normal Not Available [facility] [address] [place] [address], [address], 02/02/2018 17:44:43 02/03/20 18 02/02/2018 CBC w/ auto diff % basophils 0.9 % 0.0-3. 0 normal Not Available [facility] [address] [place] [address], [address], 02/02/2018 17:44:43 02/03/20 18 02/02/2018 CBC w/ auto diff nucleated red cells 0.3 % 0.0-0. 9 normal Not Available [facility] [address] [place] [address], [address], 02/02/2018 17:44:43 02/03/20 18 02/02/2018 CBC w/ auto diff nucleated RBCs, absolute 0.01 K/uL not estab. normal Not Available [facility] [address] [place] [address], [address], 02/02/2018 17:44:43 02/03/20 18 02/02/2018 CMP, serum or plasm a glucose 83 mg/dL 74-100 normal Not Available [facility] [address] [place] [address], [address], 02/02/2018 19:17:17 02/03/20 18 02/02/2018 CMP, serum or plasm a blood urea nitrogen 13 mg/dL 6-20 normal Not Available [facility] [address] [place] [address], [address], 02/02/2018 19:17:17 02/03/20 18 02/02/2018 CMP, serum or plasm a creatinine 1.60 mg/dL 0.70-1 .25 high Not Available [facility] [address] [place], [address], 02/02/2018 19:17:17 02/03/20 18 02/02/2018 CMP, serum or plasm a BUN/creatini ne ratio 8 (calc ) 10-20 low Not Available [facility] [address] [place] [address], [address], 02/02/2018 19:17:17 02/03/20 18 02/02/2018 CMP, serum or plasm a GFR 55 >= 60 abnormal Not Available [facility] [address] [place], [address], 02/02/2018 19:17:17 02/03/20 18 02/02/2018 CMP, serum [...] s or longe r. . Not Available [facility] [address] [place], [address], 02/02/2018 19:17:17 02/03/20 18 02/02/2018 CMP, serum or plasm a sodium 142 mmol/ L 136-14 5 normal Not Available [facility] [address] [place], [address], 02/02/2018 19:17:17 02/03/20 18 02/02/2018 CMP, serum or plasm a potassium 4.5 mmol/ L 3.4-5. 0 normal Not Available [facility] [address] [place] [address], [address], 02/02/2018 19:17:17 02/03/20 18 02/02/2018 CMP, serum or plasm a chloride 100 mmol/ L 98-107 normal Not Available [facility] [address] [place] [address], [address], 02/02/2018 19:17:17 02/03/20 18 02/02/2018 CMP, serum or plasm a carbon dioxide 29 mmol/ L 20-32 normal Not Available [facility] [address] [place] [address], [address], 02/02/2018 19:17:17 02/03/20 18 02/02/2018 CMP, serum or plasm a anion gap 13 (calc ) 7-25 normal Not Available [facility] [address] [place] [address], [address], 02/02/2018 19:17:17 02/03/20 18 02/02/2018 CMP, serum or plasm a calcium 10.1 mg/dL 8.6-10 .2 normal Not Available [facility] [address] [place] [address], [address], 02/02/2018 19:17:17 02/03/20 18 02/02/2018 CMP, serum or plasm a total protein 7.5 g/dL 6.4-8. 3 normal Not Available [facility] [address] [place] [address], [address], 02/02/2018 19:17:17 02/03/20 18 02/02/2018 CMP, serum or plasm a albumin 3.9 g/dL 3.5-5. 2 normal Not Available [facility] [address] [place] [address], [address], 02/02/2018 19:17:17 02/03/20 18 02/02/2018 CMP, serum or plasm a globulin 3.6 g/dL_ (calc ) 1.5-4. 5 normal Not Available [facility] [address] [place] [address], [address], 02/02/2018 19:17:17 02/03/20 18 02/02/2018 CMP, serum or plasm a albumin/glob ulin ratio 1.1 (calc ) 1.1-2. 5 normal Not Available [facility] [address] [place] [address], [address], 02/02/2018 19:17:17 02/03/20 18 02/02/2018 CMP, serum or plasm a bilirubin, total 0.3 mg/dL 0.1-1. 2 normal Not Available [facility] [address] [place] [address], [address], 02/02/2018 19:17:17 02/03/20 18 02/02/2018 CMP, serum or plasm a alkaline phosphatase 80 U/L 40-130 normal Not Available [facility] [address] [place] [address], [address], 02/02/2018 19:17:17 02/03/20 18 02/02/2018 CMP, serum or plasm a AST 17 U/L 0-40 normal Not Available [facility] [address] [place] [address], [address], 02/02/2018 19:17:17 02/03/20 18 02/02/2018 CMP, serum or plasm a ALT 21 U/L 0-41 normal Not Available [facility] [address] [place] [address], [address], 02/02/2018 19:17:17 02/03/20 18 02/02/2018 ESR (eryt hrocy te sedim entat ion rate) , blood ESR, automated 11 mm/HR 0-19 normal Not Available [facility] [address] [place] [address], [address], 02/02/2018 19:56:16 04/06/20 25 04/06/2025 SURGI ALFONSO surgical SEE BELOW abnormal [place] topat holog y Repor t NAME: MIKE MCCARTHY RT PATH: [id number] PROCE DURE DATE: 04/06 SIGNO UT DATE: 04/08 Copy to: Diagn osis: 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 Gross Descr iptio n: The speci men consi sted of multi ple (x3) signh fragm ents which measu red 21 x 10 x 1 mm in aggre gate. Trise cted the large r piece . Bisec radha two piece s. All tissu e submi tted in three casse ttes. Micro scopi c Descr iptio n: The epide rmis is invag inate d and the kerat inocy jerome displ ay moder ate atypi a. The archi tectu re would suppo rt a kerat oacan roland and yet the tumor invol ves the infer ior olvin n and an invas vincent squam ous cell carci noma canno t be defin itive ly ruled out. GINGER BAIN MD Kae d Out Date: 04/08 11:31 1 Not Available [facility] [address] [place] [address], [place], [address], 04/08/2025 11:31:23 10/03/20 17 09/12/2017 CT, sinus es, w/o contr ast No observ ation record ed. BARCODE Not Available 2016 10:59:14 02/26/20 18 02/25/2018 CT, head, w/wo contr ast [facility] [address] [place] [address] [place] [address] [place] Name: TIFFANY fuller : [phone] [place] Orderi ng Provid er: SUDHA GIBBS EXAM [...] strati on of 100 cc Isovue -300 ([facility] [id number] 315-35 ), there is no [...] traylor MD on 02/26/20 18 12:34 PM [email or web address] [facility] [address] [place], [address], 02/25/2018 13:24:19 Result Notes None recorded. 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 017 REBEL ALMEIDA MD [address] [place] [address], [address], [facility] 7 14:46:34 History of deep vein thrombosis 175475674 Active 017 REBEL ALMEIDA MD [facility] [place], [address] , [facility] 7 14:48:10 Headache 35108778 Active 017 REBEL ALMEIDA MD [address] [place] [address], [address], [facility] 7 14:48:12 Nasal polyp Active 017 [place] [address] [place] [address], [address], [facility] 7 14:48:14 Chronic sinusitis 80754157 Active 017 REBEL ALMEIDA MD [address] [place] [address], [address], [facility] 7 14:48:15 Problem Notes None recorded. Procedures Surgical History Date Name Laterality Status Provider Name and Address Organization Details Recorded Time 025 DAK - Biopsy, Tangential completed Kiki Lizzeth [facility] 04/06/2025 15:02:19 017 Review of Med Recs/Compl forms completed Wanda Bashir [facility] 10/02/2017 10:53:41 017 [facility]al; [facility] 10/02/2017 11:02:12 Cholecystectomy completed [facility] 10/02/2017 09:51:49 Carpal tunnel surgery completed [facility] 10/02/2017 09:51:55 Unlisted px neck/thorax completed [facility] Josiah DAYTON [facility] 10/02/2017 09:52:00 Knee arthroscopy/surger y completed [facility] Josiah [facility] 10/02/2017 09:52:05 Nasal sinus therapy completed [facility] Josiah DAYTON [facility] 10/02/2017 09:52:21 Nsl/sins ndsc frnt tiss rmvl completed [facility] 10/02/2017 10:52:25 Imaging Results None recorded. Procedure Notes None recorded. Medical Equipment None Reported. Allergies Allergen ID Allergen Name Allergen Category Reaction Reaction Severity Criticality Documentation Date Start Date Code Code System Note Provider Name and Address Organization Details Recorded Time 460342 [facility] medicatio n Not available Not available Not available 10/02/2017 64177 3 [facility] 7 09:47:24 Medications Name Sig Start Date [...] No t Available Vitals Date Recorded Body height Body mass index (BMI) Body weight Systolic blood pressure Diastolic blood pressure Provider Name and Address Organization Details Last Updated DateTime 02/02/2018 182.88 cm 31.5 kg/m2 199295.4 3 g 112 mm[Hg] 86 mm[Hg] Sarithaevelyn Betancourt [facility] 8 14:59:23 Date Recorded Body height Body mass index (BMI) Body weight Systolic blood pressure Diastolic blood pressure Provider Name and Address Organization Details Last Updated DateTime 02/25/2018 182.88 cm 31.3 kg/m2 214825.8 4 g 118 mm[Hg] 74 mm[Hg] Jennie Rodriguez [facility] 8 14:02:44 Date Recorded Body height Body mass index (BMI) Body weight Systolic blood pressure Diastolic blood pressure Provider Name and Address Organization Details Last Updated DateTime 04/15/2018 182.88 cm 30.1 kg/m2 190029.5 1 g 112 mm[Hg] 76 mm[Hg] Layla (Gauri) Efrainterrance [facility] 8 16:43:22 Date Recorded Body weight Body mass index (BMI) Body height Body temperature Heart rate Systolic blood pressure Diastolic blood pressure Provider Name and Address Organization Details Last Updated DateTime 7 56330.7 g 29.5 kg/m2 182.88 cm 97.9 [degF] 60 /min 114 mm[Hg] 76 mm[Hg] Harriet Rahman [facility] 7 09:57:37 Social History Question Answer Notes LastModified by Organizat ion Details LastModified Time What Is Your Level Of Caffeine Consumption? Moderate [id number] Information not available 02/02/2018 How Much Tobacco Do You Chew? 5+/day [email or web address] Information not available 02/02/2018 What Was The Date Of Your Most Recent Tobacco Screening? 04/15/2018 Information n ot available 01/11/2020 Has Tobacco Cessation Counseling Been Provided? Yes [email or web address] Information not available 02/02/2018 On What Date Was Tobacco Cessation Counseling Provided? 04/15/2018 [email or web address] Information not available 04/15/2018 Sex: Unknown Functional Status Question Answer Note LastModified by Organization D etails LastModified Time What is your level of alcohol consumption? None [email or web address] Information not available 02/02/2018 Mental Status None recorded. Family History Relationship Description Onset Age of this Age Resolved Age Notes LastModified by Organization Details LastModified Time Father Family history of malignant neoplasm [email or web address] Not available 2016 09:51:10 Mother History of hypertension [email or web address] Not available 07/2017 09:51:19 Brother History of hypertension [email or web address] Not available 10/2018 14:00:31 Medical History Condition Response Diabetes N Anxiety Disorder Y Bleeding Disorder Y Arthritis Y Reflux/GERD Y Anesthesia Complications N Cancer N Hypertension Y Immunizations Vaccine Type Date Status Note Provider Nam e and Address Organization Details Recorded Time Influenza, split virus, quadrivalent, preservative 7 completed Ashley [facility] 02/25/2018 14:17:09 Past Encounters Encounter ID Performer Location Encounter Start Date Encounter Closed Date Diagnosis/Indication Diagnosis SNOMED-CT Code Diagnosis ICD10 Code Diagnosis Note [id number] REBEL ALMEIDA MD [facility] [address] [place] [address] 10/02/2017 09:23:35 10/02/2017 12:06:06 Chronic sinusitis 35592264 J32.9 status post ESS 11/2016 Dr. Márquez Headache 11903564 R51 intractabl e Allergic rhinitis 987053 04 J30.9 Nasal polyp 59368694 J33 .9 recurrence , status post ESS 11/2016 Dr. 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 History of deep vein thrombosis 423641610 Z86.097 [id number] SUDHA GIBBS MD NEUROLOGY [facility] [address] [place] [address] 02/02/2018 13:45:18 02/02/2018 16:41:55 Headache 14383497 R51 [id number] SUDHA GIBBS MD NEUROLOGY [facility] [address] [place] [address] 02/25/2018 13:49:10 02/25/2018 14:55:01 Stiff-person syndrome 2645390 G25.82 Daily headache 493305167 1 03 R51 Paresthesia 71487897 R20 .2 [id number] SUDHA GIBBS MD NEUROLOGY [facility] [address] [place] [address] 04/15/2018 15:33:55 04/15/2018 16:57:11 Chronic tension-type headache 438649142 G44.229 Stiff-person syndrome 52 41194 G25.82 Paresthesia 20301948 R20 .2 [id number] ANDREI EDGE MD [place] [address] [place] [address] 04/06/2025 14:29:08 04/06/2025 15:10:58 Neoplasm of uncertain behavior of skin 97711793 D48.5 Lesion of uncertain significan ce:right cheek [...] Elam Member ID Guarantor Name 04/03/2018 2 MEDICAID-[facility] CHOICES - FFS/TRADITIO NAL Jimmy Rothman 04/12/2025 1 [employer] (MEDICARE REPLACEMENT/ ADVANTAGE - PPO) Jimmy Rothman Jr [id number] Jimmy Rothman 04/11/2025 2 [facility] - FFS/TRADITIO NAL Deo Rothman [id number] Jimmy Rothman 04/06/2025 3 [place] Jimmy Rothman Jr [id number] Jimmy Rothman Notes Date Note Type Note [...] lungs in the past. 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 Seen at request of Dr. James Quinteros He has stiff person syndrome, diagnosis in 2009, disabled since 2009. has baclofen pump, managed by Dr. Julisa Sprague at [facility] CC: headaches, daily Today he reports [...] his limbs are numb. SUDHA GIBBS MD [address] [place], [address], [facility] 02/06/2018 14:49:21 02/25/2018 text/html This if follow [...] insufficiency cr.1.6, GFR 48. SUDHA GIBBS MD [address] [place] [address], [address], [facility] 02/28/2018 21:57:01 04/15/2018 text/html bev takes lamotrigine 100 mg (4 25 mg tablets) QHS states he has had headache for the last 2.5 years at times has blurred vision hard time thinking trouble walking, facial drawing SUDHA GIBBS MD [address] [place] [address], [address], [facility] 04/22/2018 21:05:04 04/06/2025 text/html Specific spot t o check Location: R cheek General duration: ~days weeks months years 1 months Predominant symptom:asymptomati c itching catching on things sensitive pa inful other growing Prior treatment(s):none History of evolution:changing Patient primarily desires lesion to be:evaluated only.no hx skin cancer new pt ANDREI EDGE MD [address] [place] [address], [address], [facility] 04/06/2025 22:15:06
--- OUTSIDE RECORDS SUMMARY | 2025-04-29 07:06 | XMS_ITS | Continuity of Care Document ---
Author Organization [facility] TOMMY Alarcon BERRY Address [address] [place] [address] Care Team Providers Care Occ Therapy Asst Name Role Phone SHONNA QUINTEROS Referring Provider Assessment Encounter Date Assessment Date Assessment LastModified by Organization Details LastModified Time 04/06/2025 04/06/2025 will call with pathology [email or web address] Not available 04/06/2025 15:12:37 Plan of Treatment Reminders Order Date Submit Date Provider Last Modified By Organization Details Last Modified Time Details Appointments [facility] 2024 08:00A M AN CONROY MD Not available Not available Not available Lab surgical pathology study - shave biopsy 2024 025 [facility], [address] [place] [address], [phone], 04/08/2025 11:31:23 Referral None recorded. Procedures None recorded. Surgeries None recorded. Imaging None recorded. Medication Orders None recorded. Patient TargetsNo targets recorded. Patient Instructions Encounter Date Encounter Id Patient Instructions Last Modified By Organization Details Last Modified Time 04/06/2025 [id number] General Skin Protection: - SPF 30 or [...] changing or worrisome lesions or skin conditions. [email or web address] Not available 04/06/2025 15:10:37 Reason for Referral None Reported. 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 017 ANA ALMEIDA MD [address] [place] [address], [address], [facility] 7 14:46:34 History of deep vein thrombosis 145383659 Active 017 ANA ALMEIDA MD [address] [place] [address], [address], [facility] 7 14:48:10 Headache 56504045 Active 017 ANA ALMEIDA MD [address] [place] [address], [phone] , [facility] 7 14:48:12 Nasal polyp Active 017 ANA ALMEIDA MD [address] [place] [address], [address], [facility] 7 14:48:14 Chronic sinusitis 61663153 Active 017 ANA ALMEIDA MD [address] [place] [address], [phone] , [facility] 7 14:48:15 Problem Notes None recorded. Procedures Surgical History Date Name Laterality Status Provider Name and Address Organization Details Recorded Time 025 DAK - Biopsy, Tangential completed Kiki Moreau [facility] 04/06/2025 15:02:19 017 Review of Med Recs/Compl forms completed Wanda Bashir [facility] 10/02/2017 10:53:41 017 Endoscopy Nasal; Diagnostic completed Wanda Bashir [facility] 10/02/2017 11:02:12 Cholecystectomy completed [facility] Josiah Castillo [facility] 10/02/2017 09:51:49 Carpal tunnel surgery completed Harriet Rahman [facility] 10/02/2017 09:51:55 Unlisted px neck/thorax completed Harriet Rahman [facility] 10/02/2017 09:52:00 Knee arthroscopy/surger y completed Harriet Rahman [facility] 10/02/2017 09:52:05 Nasal sinus therapy completed Harriet Rahman [facility] 10/02/2017 09:52:21 Nsl/sins ndsc frnt tiss rmvl completed Wanda Bashir [facility] 10/02/2017 10:52:25 Imaging Results None recorded. Procedure Notes None recorded. Medical Equipment None Reported. Allergies Allergen ID Allergen Name Allergen Category Reaction Reaction Severity Criticality Documentation Date Start Date Code Code System Note Provider Name and Address Organization Details Recorded Time 574552 Topamax medicatio n Not available Not available Not available 10/02/2017 22053 3 RxNorm Harriet malcolm [facility] 7 09:47:24 Medications Name Sig Start [...] Not Available No t Available amoxicillin 875 mg-cherelle m clavulanate 125 mg tablet 10/02 completed [...] Is Your Level Of Caffeine Consumption? Moderate [email or web address] Information not available 02/02/2018 How Much Tobacco Do You Chew? 5+/day [email or web address] Information not available 02/02/2018 What Was The Date Of Your Most Recent Tobacco Screening? 04/15/2018 Information n ot available 01/11/2020 Has Tobacco Cessation Counseling Been Provided? Yes [email or web address] Information not available 02/02/2018 On What Date Was Tobacco Cessation Counseling Provided? 04/15/2018 [email or web address] Information not available 04/15/2018 Sex: Unknown Functional Status Question Answer Note LastModified by Organization D etails LastModified Time What is your level of alcohol consumption? None [email or web address] Information not available 02/02/2018 Mental Status None recorded. Family History Relationship Description Onset Age of this Age Resolved Age Notes LastModified by Organization Details LastModified Time Father Family history of malignant neoplasm [email or web address] Not available 2016 09:51:10 Mother History of hypertension [email or web address] Not available 07/2017 09:51:19 Brother History of hypertension [email or web address] Not available 10/2018 14:00:31 Medical History Condition Response Anxiety Disorder Y Diabetes N Bleeding Disorder Y Arthritis Y Cancer N Reflux/GERD Y Anesthesia Complications N Hypertension Y Immunizations Vaccine Type Date Status Note Provider Nam e and Address Organization Details Recorded Time Influenza, split virus, quadrivalent, preservative 7 completed Patriciajennifer Coombs [facility] 02/25/2018 14:17:09 Past Encounters Encounter ID Performer Location Encounter Start Date Encounter Closed Date Diagnosis/Indication Diagnosis SNOMED-CT Code Diagnosis ICD10 Code Diagnosis Note [id number] ANDREI EDGE MD [place] [address] [place] [address] 04/06/2025 14:29:08 04/06/2025 15:10:58 Neoplasm of uncertain behavior of skin 47455195 D48.5 Lesion of uncertain significan ce:right cheek [...] HEALTH CHOICES - FFS/TRADITIO NAL Deo Rothman [id number] Jimmy Rothamn 04/06/2025 1 [employer] (MEDICARE REPLACEMENT/ ADVANTAGE - PPO) Jimmy Rothman [id number] Jimmy Rothman Notes Date Note Type Note Provider Name and Address Organization Details Recorded Time 04/06/2025 text/html Specific spot to check Location: R cheek General duration: ~days weeks loretta hs years 1 months Predominant symptom:asymptom atic itching cat chana on things sensitive painful other g rowing Prior treatment(s):non e History of evolution:melissa villafana Patient primarily desires lesion to be:evaluated only.no hx skin cancer new pt ANDREI EDGE MD [address] [place] [address], [phone], [facility] 04/06/2025 22:15:06
== END 2025-04-29 23:59 | disposition home or self-care (01) ==
LOC: RAD 07:04
PROVIDERS: PCP Internal Medicine Adolescent Medicine; Visit Provider Internal Medicine Adolescent Medicine
DX: M15.9 Polyosteoarthritis, unspecified (principal); M79.89 Other specified soft tissue disorders; M21.961 Unspecified acquired deformity of right lower leg
CPT/HCPCS: 73700

== ENCOUNTER 2025-06-23 15:57 | Outpatient (CLI) | payer MEDICARE, MEDICAID, SELFPAY ==
--- OUTSIDE RECORDS SUMMARY | 2025-05-19 10:00 | XMS_ITS | Encounter Summary ---
Author Organization [facility] Address [address] [place] [address] Care Team Providers Care Manager Managing Name Role Phone Juarez Polanco MD Primary Care Provider [phone] Juliet Carlin Unavailable Keon Ramirez MD Unavailable Aby Gallegos Unavailable [phone] Reason for Referral * Clinic-Administered Medication (Routine) - Closed Specialty Diagnoses / [facility] To Contact Diagnoses Dystonia Procedures MD INJECTION,ONABOTULINUMTOXINA Orlando Agrawal MD [address] [address] Phone: tel: fax: Referral ID Status Reason Start Date Expiration Date Visits Re quested Visits Authorized [id number] Closed 05/19/2025 11/18/2026 1 1 Reason for Visit * Reason Comments Injections TPI with botox * Other Medical (Routine) - Closed Specialty Diagnoses / Procedures Referred By Contac t Referred To Contact Pain Medicine Diagnoses Dystonia Procedures Injection - Chemodenervation, MSK Orlando Agrawal MD [address] [facility] [address] [address] Phone: tel: fax: [facility] [address] [place] [address] Phone: tel: fax: Referral ID Status Reason Start Date Expiration Date Visits Re quested Visits Authorized [id number] Closed 05/03/2025 11/02/2026 1 1 Encounter Details Date Type Department Care Team (Late st Contact Info) Description 05/19/2025 10:00 AM EDT Procedure Visit [facility] [address] [place] [address] Orlando Agrawal MD [address] [place] [address] [address] [place] [address] Dystonia Social History Tobacco Use Types Packs/Day Years Used Date Smoking Tobacco: Never Passive Smoke Exposure: Never Smokeless Tobacco: Current Snuff Last attempted to quit: 10/02/2023 Tobacco Cessation:Ready to Q uit: No; Counseling Given: Yes Comments:snuff Alcohol Use Standard Drinks/Week Comments Not Currently 0 (1 standard drink = 0.6 oz pur e alcohol) Humiliation, Afraid, Rape, and Kick questionnair e Answer Date Recorded Within the last year, have y ou been afraid of your partner or ex-partner? No 04/26/2024 Within the last year, have y ou been humiliated or emotionally abused in other ways by your partner or ex-partner? No Within the last year, have y ou been kicked, hit, slapped, or otherwise physically hurt by your partner or ex-partner? No 04/26/2024 Within the last year, have y ou been raped or forced to have any kind of sexual activity by your partner or ex-partner? No 04/26/2024 Social Connection and Isolation Panel Answer Date Recorded In a typical week, how many times do you talk on the phone with family, friends, or neighbors? More than three times a week 05/17/2024 How often do you get togethe r with friends or relatives? Once a week 05/17/2024 How often do you attend chur ch or sabianism services? Never 05/17/2024 Do you belong to any clubs o r organizations such as baptism groups, unions, fraternal or athletic groups, or school groups? No 05/17/2024 How often do you attend meet ings of the clubs or organizations you belong to? Never 05/17/2024 Are you , , di vorced, , never , or living with a partner? 05/17/2024 PHQ-2 Answer Date Recorded Patient Health Questionnaire-2 Score 0 04/21/2025 [facility] - Occupational Stress Questionnaire Answer Date Recorded Do you feel stress - tense, restless, nervous, or anxious, or unable to sleep at night because your mind is troubled all the time - these days? Only a little 05/17/2024 Exercise Vital Sign Answer Date Recorde d On average, how many days pe r week do you engage in moderate to strenuous exercise (like a brisk walk)? 0 days 05/17/2024 On average, how many minutes do you engage in exercise at this level? 0 min 05/17/2024 Hunger Vital Sign Answer Date Recorded Within the past 12 months, y ou worried that your food would run out before you got the money to buy more. Never true 04/26/20 24 Within the past 12 months, t he food you bought just didn't last and you didn't have money to get more. Never true 04/26/2024 PRAPARE - Transportation Answer Date Re corded In the past 12 months, has l ack of transportation kept you from medical appointments or from getting medications? No 01/2024 In the past 12 months, has l ack of transportation kept you from meetings, work, or from getting things needed for daily living? No 04/26/2024 Housing Stability Vital Sign Answer Keshawn e Recorded In the last 12 months, was t here a time when you were not able to pay the mortgage or rent on time? No 04/26/2024 In the last 12 months, how many places have you lived? 1 04/26/2024 In the last 12 months, was t here a time when you did not have a steady place to sleep or slept in a snf (including now)? No 04/26/2024 PHQ-9 Answer Date Recorded Patient Health Questionnaire-9 Score 0 11/01/2024 CAGE ASSESSMENT Answer Date Recorded Cage unable to access Not on file 01/21/2025 Cage max number of drinks Not on file 2024 Cage Beverages a week Not on file 01/21/2025 Have you ever felt you should CUT down on your d rinking? 0 01/21/2025 Have you been ANNOYED by people criticizing your drinking? 0 01/21/2025 Have you felt GUILTY about your drinking? 0 01/21/2025 Have you had a drink first t basilio in the morning (EYE-[employer] TRIMMER) to steady your nerves or to get rid of a hangover? 0 01/21/2025 CAGE Questionnaire Score 0 025 Utilities Answer Date Recorded In the past 12 months has th [employer] electric, gas, oil, or water company threatened to shut off services in your home? No 04/26/2024 PHQ-2A Answer Date Recorded Patient Health Questionnaire-2 Score 0 10/09/2023 Sex and Gender Information Value Date Recorded Sex Assigned at Male 11/05/2023 7:21 AM EST Legal Sex Male 7:39 PM EDT Gender Identity Male 11/05/2023 7:21 AM EST Sexual Orientation Not on file documented as of this encounter Last Filed Vital Signs Vital Sign Reading Time Taken Comments Blood Pressure 122/78 05/19/2025 10:01 AM EDT Pulse 78 05/19/2025 10:01 AM EDT Temperature 36 C (96.8 F) 05/19/2025 10:01 AM EDT Respiratory Rate 16 05/19/2025 10:01 AM EDT Oxygen Saturation - - Inhaled Oxygen Concentration - - Weight 108 kg (237 lb) 05/19/2025 10:01 AM EDT Height 177.8 cm (5' 10 ) 05/19/2025 10:01 AM EDT Body Mass Index 34.01 05/19/2025 10:01 AM EDT documented in this encounter Miscellaneous Notes * Progress Notes - Suman Marks DO - 05/19/2025 10:00 AM EDT Patient ID: Jimmy Rothman Jr. is a 60 y.o. male. Encounter Diagnosis Name Primary? Dystonia Procedures Patient seen and evaluated prior to their procedure.There is nothing in the patient's overall condition that would affect the planned course of the patient's treatment today that requires additional interventions to reduce risk to the patient. Procedure(s): Left lumbar paraspinal chemodenervation injections for paralysis of the muscles with ultrasound guidance Anesthesia Type: Local only Complications: none Follow-up Plan: Clinic follow up as scheduled Procedure: This patient was seen earlier for a comprehensive evaluation of their painful condition.After discussing treatment options, the patient elected to proceed with chemodenervation injection(s) with Botox. Written, informed consent was obtained before the start of the procedure. The patient's history of present illness, past medical history (including current medications and allergies), and physical examination were reviewed with the patient immediately before the procedure, and it was confirmed directly with the patient that they desired to proceed. The patient ambulated to the procedure room and was placed in the most comfortable position with pressure points padded. A time out was performed, confirming the patient's identification, allergy status, the side(s) of the procedure, and the procedure(s) to be performed. All operators were wearing h ats, masks and sterile gloves. The noted areas were cleaned with chloraprep and a 27 gauge needle was inserted into the spastic muscles with continuous ultrasound guidance. A solution containing 1mL of Normal Saline mixed with a total of 100 units of onabotulinumtoxina was utilized. This allowed for 10 units per 0.1mL. Sites of injection: Left lumbar paraspinals: 50 units Unavailable waste: 50 units Botox Lot Number: [id number] Botox Expiration Date: Sterile bandage was applied over the puncture site if required. Following completion of the procedure, the patient was monitored, then was later discharged in stable condition. Cosigned by Orlando Agrawal MD at 05/19/2025 12:06 PM EDT Associated attestation - Orlando Agrawal MD - 05/19/2025 12:06 PM EDT I was present for the entirety of the procedure(s). documented in this encounter Plan of Treatment Upcoming Encounters Date Type Department Care Team (Late st Contact Info) Description 08/15/2025 11:20 AM EDT Office Visit [facility] [address] [place] [address] Julisa Campo DO [address] [place] [address] 09/28/2025 10:00 AM EST Office Visit [facility] [address] [place] [address] Colleen Espino PA [address] [place] [address] 10/11/2025 12:40 PM EST Office Visit [facility] Urology [address] [place] [address] Aby Gallegos PA [address] [place] [address] documented as of this encounter Goals Goal Patient Goal Type Associated Problems Recent Progress Patient-Stated? Author Autogenera radha Goal Care Plan Autogenerated Problem No Annalee Arenas documented as of this encounter Visit Diagnoses Diagnosis Dystonia Abnormal involuntary movements documented in this encounter Administered Medications Active Administered Medications - up to 3 most recent administrations Medication Order MAR Action Action Date Dose Rate Site sodium chloride (PF) 0.9 % injection 20 mL 20 mL, Intravenous, As needed, Starting on Nickie 05/19/25 at 1111, Until Discontinued, Routine, line careIndications:Dystonia Given by Other 05/19/2025 11:12 AM EDT 20 mL Inactive Administered Medications - up to 3 most recent administrations Medication Order MAR Action Action Date Dose Rate Site onabotulinumtoxinA (Botox) injection 100 Units 100 Units, Intramuscular, Once, 1 dose, On Nickie 05/19/25 at 1200, RoutineIndications:Dystonia Given by Other 05/19/2025 11:12 AM EDT 100 Units Other documented in this encounter Additional Health Concerns Active Problems Noted Date Diagnosed Date Autogenerated Problem 02/15/2025 Assessment Noted Time PHQ-9 Depression Total Score: 0 11/01/20 11:00 AM EST A fall risk assessment has been complete d for the patient 05/19/2025 10:08 AM EDT A Body Mass Index follow-up plan has been documented for the patient 05/19/2025 12:07 PM EDT documented as of this encounter Care Teams Manager Managing Relationship Specialty Start Date End Date Juarez Polanco MD [address] [place], [place] [id number] PCP - General 04/06/21 Juliet Carlin PA [address] [place] [address] Physician Fishing Guide Neurology 07/17/22 Keon Ramirez MD [address] [place] [address] Consulting Physician Neurology 07/02/23 Aby Gallegos PA [address] [place] [address] Physician Fishing Guide Urology 10/05/24 documented as of this encounter
--- OUTSIDE RECORDS SUMMARY | 2025-05-20 12:39 | XMS_ITS | Encounter Summary ---
Author Organization [facility] Address [address] [place] [address] Care Team Providers Care Electro Mechanical Assembler Name Role Phone Juarez Polanco MD Primary Care Provider [phone] Juliet Carlin Unavailable Keon Ramirez MD Unavailable Aby Gallegos Unavailable [phone] Reason for Referral * Imaging (Routine) - Closed Specialty Diagnoses / Procedures Referred By Campbell fuller Referred To Contact Radiology Diagnoses Cerebrovascular accident (CVA) due to other mechanism (CMS/HCC) Chronic intractable headache, unspecified headache type Transient weakness of left leg Procedures MR Head w and wo IV Contrast Colleen Espino PA [address] [facility] [address] [place] [address] Phone: tel: fax: Referral ID Status Reason Start Date Expiration Date Visits Re quested Visits Authorized [id number] Closed 03/24/2025 09/23/2026 1 1 Reason for Visit * Imaging (Routine) - Closed Specialty Diagnoses / Procedures Referred By Contac t Referred To Contact Radiology Diagnoses Cerebrovascular accident (CVA) due to other mechanism (CMS/HCC) Chronic intractable headache, unspecified headache type Transient weakness of left leg Procedures MR Head w and wo IV Contrast Colleen Espino, PA [address] [place] [address] Phone: tel: fax: Referral ID Status Reason Start Date Expiration Date Visits Re quested Visits Authorized [id number] Closed 03/24/2025 09/23/2026 1 1 Encounter Details Date Type Department Care Team (Latest Contact Info) Description 05/20/2025 12:39 PM EDT - 05/20/2025 11:59 PM EDT Hospital Encounter [facility] [address] [place] [phone] Cerebrovascular accident (CVA) due to other mechanism (CMS/HCC); Chronic intractable headache, unspecified headache type; Transient weakness of left leg Discharge Disposition: Home or Self Care Social History Tobacco Use Types Packs/Day Years Used Date Smoking Tobacco: Never Passive Smoke Exposure: Never Smokeless Tobacco: Current Snuff Last attempted to quit: 10/02/2023 Comments:snuff Alcohol Use Standard Drinks/Week Comments Not [...] week 05/17/2024 [facility] often do you attend [facility] or y[facility]id[facility] services? Never 05/17/2024 Do you belong to any clubs o r organizations such as sikh groups, unions, fraternal or athletic groups, or school groups? No 05/17/2024 How often do you attend meet ings of the clubs or organizations you belong to? Never 05/17/2024 Are you , , di vorced, , never , or living with a partner? 05/17/2024 PHQ-2 Answer Date Recorded Patient Health Questionnaire-2 Score 0 04/21/2025 [facility] - Occupational Stress Questionnaire Answer Date Recorded [...] place to sleep or slept in a mcfp (including now)? No 04/26/2024 PHQ-9 Answer Date [...] drink first t basilio in the morning (EYE-PODIATRIC TECHNICIAN) to steady your nerves or to get rid of a hangover? 0 01/21/2025 CAGE Questionnaire Score 0 025 Utilities Answer Date Recorded In the past 12 months has th e [employer], gas, oil, or water company threatened to shut off services in your home? No 04/26/2024 PHQ-2A Answer Date Recorded Patient Health Questionnaire-2 Score 0 10/09/2023 Sex and Gender Information Value Date Recorded Sex Assigned at Male 11/05/2023 7:21 AM EST Legal Sex Male 7:39 PM EDT Gender Identity Male 11/05/2023 7:21 AM EST Sexual Orientation Not on file documented as of this encounter Medications at Time of Discharge acetaminophen (Tylenol Extra Strength) 500 MG tablet Take 2 tablets (1,000 mg) by mouth every 8 (eight) hours. 100 tablet 05/05/2024 atorvastatin (Lipitor) 80 MG tablet Take 1 tablet (80 mg) by mouth every night. 30 tablet 3 05/12/2024 baclofen (Lioresal) 20 MG tabletIndication s:Stiff person syndrome Take 1 tablet by mouth 3 times a day. 90 tablet 2 04/21/2025 calcium carbonate (Tums) 500 MG chewable tablet Chew 1 tablet (500 mg) 4 (four) times a day if needed for indigestion or heartburn. 05/05/2024 cyanocobalamin (Vitamin B-12) 1000 MCG/ML injection Inject 1 mcg into the muscle every 14 (fourteen) days. diazePAM (Valium) 5 MG tablet Take 1 tablet by mouth nightly. docusate sodium (Colace) 100 MG capsule Take 1 capsule by mouth in the morning and 1 capsule before bedtime. fluticasone (Flonase) 50 MCG/ACT nasal spray Administer 2 sprays into each nostril. 07/19/2024 folic acid (Folvite) 1 MG tablet Take 1 tablet by mouth in the morning. 07/12/2023 furosemide (Lasix) 20 MG tablet Take 1 tablet by mouth in the morning. 05/17/2024 gabapentin (Neurontin) 300 MG capsule Take 1 capsule by mouth 3 times a day. 90 capsule 3 04/21/2025 metOLazone (Zaroxolyn) 2.5 MG tablet Take 1 tablet by mouth in the morning. 05/17/2024 midodrine (Proamatine) 5 MG tablet 05/31/2024 rivaroxaban (Xarelto) 20 MG tablet Take 1 tablet by mouth in the morning. Take with food. tamsulosin (Flomax) 0.4 MG 24 hr capsuleIndicatio ns:Stiff person syndrome 2 tab at bedtime 180 capsule 3 03/16/2024 documented as of this encounter Plan of Treatment Upcoming Encounters Date Type Department Care Team (Late st Contact Info) Description 08/15/2025 11:20 AM EDT Office Visit Physical Medicine [facility] Rehabilitation Clinic at [facility] [address] [place] [address] Julisa Campo DO [address] [place] [address] 09/28/2025 10:00 AM EST Office Visit [facility] [address] 1st [place] [address] Colleen Espino PA [address] [place] [address] 10/11/2025 12:40 PM EST Office Visit [facility] Urology [address], [address] [place] [address] Aby Gallegos PA [address] [place] [address] documented as of this encounter Goals Goal Patient Goal Type Associated Problems Recent Progress Patient-Stated? Author Autogenera radha Goal Care Plan Autogenerated Problem No Annalee Arenas documented as of this encounter Procedures Procedure Name Priority Date/Time Associated Diagnosis Comments MR HEAD W AND WO IV CONTRAST Routine 05/20/2025 2:07 PM EDT Cerebrovascular accident (CVA) due to other mechanism (CMS/HCC) Chronic intractable headache, unspecified headache type Transient weakness of left leg documented in this encounter Results * MR Head w and wo IV Contrast (05/20/2025 2:07 PM EDT) Anatomical Region Laterality Modality Head Magnetic Resonan ce Impressions 05/22/2025 7:48 AM EDT No acute intracranial process. No abnormal intracranial postcontrast enhancement. Moderate opacification of right maxillary sinus with some frothy secretions may reflect acute on chronic sinusitis. Douglas Caceres M.D. This report has been electronically signed and verified by the Radiologist whose name is printed above. This report contains privileged and confidential information and is intended solely for the use of the individual or entity to which it is addressed. If you are not the intended recipient of this report, you are hereby notified that any copying, distribution, dissemination or action taken in relation to the contents of this report is strictly prohibited and may be unlawful. If you have received this report in error, please notify the sender immediately at [phone] and permanently delete the original report and destroy any copies or printouts. Narrative 05/22/2025 7:48 AM EDT [facility] - Phone Outpatient NAME: Stephan [place] DATE OF EXAM: 05/20/2025 Patient No: [id number] Physician: Kenzie^Colleen^Lien Date of : 1965 Past Medical/Surgical History (entered by technologist): Symptoms/Reason For Exam (entered by technologist): Stroke, follow up; Neuro deficit, acute, stroke suspected Tech Notes (entered by technologist): gadobutrol (Gadavist) injection 10.8 mL given IV; Dx: Cerebrovascular accident (CVA) due to other mechanism; Chronic intractable headache, unspecified headache type; Transient weakness of left leg. 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 CT imaging revealed a likely chronic subinsular infarct but no other acute abnormalities and... Indication: Stroke follow-up. Technique: Eval multisequence MRI of the brain with and without administration of intravenous contrast. Comparison: None. Findings: No evidence of restricted diffusion to suggest acute territory infarct. No evidence of mass effect, midline shift compression, hydrocephalus. No acute appearing intracranial mass. No evidence of extra-axial fluid collections. Few scattered periventricular and subcortical T2/FLAIR hyperintense foci within the supratentorial brain may be related to small vessel ischemic changes. Age-appropriate ventricular size and configuration. No abnormal intracranial postcontrast enhancement. Basal cisterns are patent. Major cranial flow-voids are preserved. Moderate opacification right maxillary sinus with some frothy secretions may reflect acute on chronic sinusitis. No mastoid effusion. Normal orbits. No evidence of Chiari malformation. Calvarium and overlying soft tissues appear remarkable. Procedure Note Douglas Caceres MD - 05/22/2025 [facility] - Phone Outpatient NAME: Setphan Jimmy [place] DATE OF EXAM: 05/20/2025 Patient No: [id number] Physician: Kenzie^Colleen^Lien Date of : 1965 Past Medical/Surgical History (entered by technologist): Symptoms/Reason For Exam (entered by technologist): Stroke, follow up;Neuro deficit, acute, stroke suspected Tech Notes (entered by technologist): gadobutrol (Gadavist) injection 10.8mL given IV; Dx: Cerebrovascular accident (CVA) due to other mechanism;Chronic intractable headache, unspecified headache type; Transientweakness of left leg. 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 CT imaging revealed a likely chronicsubinsular infarct but no other acute abnormalities and... Indication: Stroke follow-up. Technique: Eval multisequence MRI of the brain with and withoutadministration of intravenous contrast. Comparison: None. Findings: No evidence of restricted diffusion to suggest acute territory infarct.No evidence of mass effect, midline shift compression, hydrocephalus. No acute appearing intracranial mass. No evidence of extra-axial fluidcollections. Few scattered periventricular and subcortical T2/FLAIR hyperintense fociwithin the supratentorial brain may be related to small vessel ischemicchanges. Age- appropriate ventricular size and configuration. No abnormal intracranial postcontrast enhancement. Basal cisterns arepatent. Major cranial flow-voids are preserved. Moderate opacification right maxillary sinus with some frothy secretionsmay reflect acute on chronic sinusitis. No mastoid effusion. Normalorbits. No evidence of Chiari malformation. Calvarium and overlying soft tissues appear remarkable. IMPRESSION: No acute intracranial process. No abnormal intracranial postcontrastenhancement. Moderate opacification of right maxillary sinus with some frothysecretions may reflect acute on chronic sinusitis. Douglas Caceres M.D. This report has been electronically signed and verified by the Radiologistwhose name is printed above. This report contains privileged and confidential information and isintended solely for the use of the individual or entity to which it isaddressed. If you are not the intended recipient of this report, you arehereby notified that any copying, distribution, dissemination or actiontaken in relation to the contents of this report is strictly prohibitedand may be unlawful. If you have received this report in error, pleasenotify the sender immediately at [phone] and permanently delete theoriginal report and destroy any copies or printouts. Colleen MG MRI PROCEDURES Final Resul t documented in this encounter Visit Diagnoses Diagnosis Cerebrovascular accident (CVA) due to other mechanism (CMS/HCC) Chronic intractable headache, unspecified headache type Transient weakness of left leg documented in this encounter Administered Medications Inactive Administered Medications - up to 3 most recent administrations Medication Order MAR Action Action Date Dose Rate Site gadobutrol (Gadavist) injection 10.8 mL 10.8 mL (0.1 mL/kg 108 kg), Intravenous, Once in imaging, 1 dose, Starting on Fri05/20/25 at 1337, Until Fri05/20/25 at 1354, Routine, Imaging Protocol Orders Given 05/20/2025 1:54 PM EDT 10.8 mL documented in this encounter Additional Health Concerns [...] documented as of this encounter Care Teams Electro Mechanical Assembler Relationship Specialty Start Date End Date Juarez Polanco MD [address] [place] [address] PCP - General 04/06/21 Juliet Carlin PA [address] [place] [id number] Physician Director Of Clinical Applications Neurology 07/17/22 Keon Ramirez MD [address] [place] [address] Consulting Physician Neurology 07/02/23 Aby Gallegos PA [address] [place] [address] Physician Director Of Clinical Applications Urology 10/05/24 documented as of this encounter
--- OUTSIDE RECORDS SUMMARY | 2025-06-16 10:50 | XMS_ITS | Encounter Summary ---
Author Organization [facility] Address [address] [place] [address] Care Team Providers Care Hydraulic Press In Operator Name Role Phone Juarez Polanco MD Primary Care Provider [phone] Juliet Carlin Unavailable Keon Ramirez MD Unavailable Aby Gallegos Unavailable [phone] Reason for Referral * Other Medical (Routine) - Pending Review Specialty Diagnoses / Procedures Referred By Contac t Referred To Contact Diagnoses Spasticity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 Procedures Intrathecal Pump - Refill Julisa Campo DO [address] [address] Phone: tel: fax: Referral ID Status Reason Start Date Expiration Date V isits Requested Visits Authorized [id number] Pending Review 06/16/2025 12/16/2026 1 1 Reason for Visit * Reason Comments Procedure Baclofen Pump Refill * Other Medical (Routine) - Closed Specialty Diagnoses / Procedures Referred By Contact Referred To Contact Physical Medicine and Rehabilitation Diagnoses Spasticity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 Procedures Intrathecal Pump - Refill Julisa Campo DO [address] [place] [id number] Phone: tel: fax: Referral ID Status Reason Start Date Expiration Date Visits Re quested Visits Authorized [id number] Closed 04/21/2025 10/21/2026 1 1 Encounter Details Date Type Department Care Team (Late st Contact Info) Description 06/16/2025 10:50 AM EDT Office Visit Physical Medicine & Rehabilitation Clinic at [facility] [address] [place] [id number] Julisa Campo, DO [address] [place] [address] Spasticity;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 Tobacco Use Types Packs/Day Years [...] week 05/17/2024 How often do you attend [facility] or taoist services? Never 05/17/2024 Do you belong to any clubs o r organizations such as alevism groups, unions, fraternal or athletic groups, or school groups? No 05/17/2024 How often do you attend meet ings of the clubs or organizations you belong to? Never 05/17/2024 Are you , , di vorced, , never , or living with a partner? 05/17/2024 PHQ-2 Answer Date Recorded Patient Health Questionnaire-2 Score 0 06/16/2025 [facility] - Occupational Stress Questionnaire Answer Date [...] place to sleep or slept in a assisted (including now)? No 04/26/2024 PHQ-9 Answer Date [...] drink first t basilio in the morning (EYE-OVERSEAMER) to steady your nerves or to get rid of a hangover? 0 01/21/2025 CAGE Questionnaire Score 0 025 Utilities Answer Date Recorded In the past 12 months has th [employer], gas, oil, or water company threatened to [...] Sign Reading Time Taken Comments Blood Pressure 126/78 06/16/2025 10:46 AM EDT Pulse 70 06/16/2025 10:46 AM EDT Temperature - - Respiratory Rate - - Oxygen Saturation 97% 06/16/2025 10:46 AM EDT Inhaled Oxygen Concentration - - Weight 108 kg (237 lb) 06/16/2025 10:46 AM EDT Height 177.8 cm (5' 10 ) 06/16/2025 10:46 AM EDT Body Mass Index 34.01 06/16/2025 10:46 AM EDT documented in this encounter Functional Status * Over the past 2 weeks, how often have you been bothered by any of the following problems? Question Answer Date of Assessment Author Little interest or pleasure in doing things Not at all 06/16/2025 10:48 AM EDT Sandi Dean Feeling down, depressed, or hopeless Not at all 05/25 10:48 AM EDT Sandi Dean Patient Health Questionnaire-2 Score 0 05/25 10:48 AM EDT Sandi Dean * Calculated C-SSRS Risk Score (Lifetime/Recent) Answer Date of Assessment Author No Risk Indicated 06/16/2025 10:47 AM EDT Jenn Dean * If you checked off any problems on this questionnaire so far, Question Answer Date of Assessment Author How difficult have these problems made it for you to do your work, take care of things at home, or get along with other people? Not difficult at all 06/16/2025 10:48 AM EDSandi Rucker * Question Answer Date of Assessment Author 1. Wish to be (Past 1 Month) No 025 10:47 AM EDSandi Rucker 2. Non-Specific Active Suici vidal Thoughts (Past 1 Month) No 06/16/2025 10:47 AM EDSandi Rucker 6. Suicidal Behavior (Lifetime) No 10:47 AM EDSandi Rucker documented as of this encounter Miscellaneous Notes * Progress Notes - Bay Arthur, - 06/16/2025 10:50 AM EDT Images from the original note were not included. PHYSICAL MEDICINE AND REHABILITATION OUTPATIENT CLINIC NOTE Chief Complaint: ITB pump refill Background History: Jimmy Rothman Jr. is a 60 y.o. 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 Pt with TKA then complicated by recent stroke and functional decline. Also found recently to have peripheral polyneuropathy of unclear etiology. Pt last seen on 12/30/24 for pump refill and presents today for repeat pump refill. Interval History: Patient presents to clinic today for ITB pump refill. Patient last seen on 04/21/25 for ITB refill. He reports he has been busy with building a back porch. He denies any significant medical changes orconcerns since he was last seen. He obtained a RLE SMO for his lateral ankle stability he is wearing in clinic today. He feels this has helped with his gait. He also underwent botox injections to hislumbar paraspinals with IVP around 1 month ago, he is still getting relief in some of his low back pain. After discussion of risks and benefits he is ready to proceed with ITB pump refill today with no changes in medications. Bowel: Denies concerns Bladder: Denies concerns Skin: No issues Equipment needs: none Spasticity: Denies new concerns. Mood/behavior: Appropriate Med refill needs: None Current Therapy: None Falls: None Other needs: R ankle instability and pain along medial aspect Details of past medical history, surgical history, family history, and social history reviewed in the medical record. Allergies: Allergies Allergen Reactions Topiramate Other - please document in the comment field agitation Feels like he is going crazy Weird feelings Medications: Current Outpatient Medications: acetaminophen (Tylenol Extra Strength) 500 MG tablet, Take 2 tablets (1,000 mg) by mouth every 8 (eight) hours., Disp: 100 tablet, Rfl: 0 atorvastatin (Lipitor) 80 MG tablet, Take 1 tablet (80 mg) by mouth every night., Disp: 30 tablet, Rfl: 3 baclofen (Lioresal) 20 MG tablet, Take 1 tablet by mouth 3 times a day., Disp: 90 tablet, Rfl: 2 calcium carbonate (Tums) 500 MG chewable tablet, Chew 1 tablet (500 mg) 4 (four) times a day if needed for indigestion or heartburn., Disp: , Rfl: cyanocobalamin (Vitamin B-12) 1000 MCG/ML injection, Inject 1 mcg into the muscle every 14 (fourteen) days., Disp: , Rfl: diazePAM (Valium) 5 MG tablet, Take 1 tablet by mouth nightly., Disp: , Rfl: docusate sodium (Colace) 100 MG capsule, Take 1 capsule by mouth in the morning and 1 capsule before bedtime., Disp: , Rfl: fluticasone (Flonase) 50 MCG/ACT nasal spray, Administer 2 sprays into each nostril., Disp: , Rfl: folic acid (Folvite) 1 MG tablet, Take 1 tablet by mouth in the morning., Disp: , Rfl: furosemide (Lasix) 20 MG tablet, Take 1 tablet by mouth in the morning., Disp: , Rfl: gabapentin (Neurontin) 300 MG capsule, Take 1 capsule by mouth 3 times a day., Disp: 90 capsule, Rfl: 3 metOLazone (Zaroxolyn) 2.5 MG tablet, Take 1 tablet by mouth in the morning., Disp: , Rfl: midodrine (Proamatine) 5 MG tablet, , Disp: , Rfl: rivaroxaban (Xarelto) 20 MG tablet, Take 1 tablet by mouth in the morning. Take with food., Disp: ,Rfl: tamsulosin (Flomax) 0.4 MG 24 hr capsule, 2 tab at bedtime, Disp: 180 capsule, Rfl: 3 Current Facility-Administered Medications: sodium chloride (PF) 0.9 % injection 20 mL, 20 mL, Intravenous, PRN, Orlando Agrawal MD, 20 mL at 05/19/25 1112 ROS: 14 point ROS negative except for above. Physical Examination: 03/18/2025 11:13 AM 03/24/2025 10:36 AM 03/31/2025 1:00 PM 03/31/2025 1:58 PM 04/21/2025 10:36 AM 05/19/2025 10:01 AM 06/16/2025 10:46 AM Vitals Systolic 120 140 129 112 113 122 126 Diastolic 85 82 83 71 71 78 78 Heart Rate 93 71 82 86 78 70 Temp 36.4 C 36.3 C 36.0 C Resp 14 16 Height (cm) 177.8 cm 182.9 cm 182.9 cm 182.9 cm 177.8 cm 177.8 cm 177.8 cm Weight (kg) 110 kg 119.2 kg 112 kg 108.863 kg 107.502 kg 107.502 kg 107.502 kg BMI 34.8 kg/m2 35.64 kg/m2 33.48 kg/m2 32.55 kg/m2 34.01 kg/m2 34.01 kg/m2 34.01 kg/m2 BSA (m2) 2.33 m2 2.46 m2 2.39 m2 2.35 m2 2.31 m2 2.31 m2 2.31 m2 Visit Report Report Report Report Report Report Report Report Report General Apperance: Awake, well groomed, in no acute distress Ear, Nose, Mouth and Throat: Atraumatic, normocephalic, moist oral mucosa, no pallor Eyes: Normal conjunctivae, no icterus. Respiratory: No use of accessory muscles during breathing. Symmetric chest wall rise Cardiovascular: No edema bilaterally Gastrointestinal: Soft, non-tender, non-distended Skin: No evidence of rash on areas of exposed skin Heme/lymph/immune: no bruising, no lymphadenopathy Musculoskeletal: TTP over medial aspect of right ankle and objective weakness with callus on medialaspect of the foot without skin breakdown. 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 A time out was performed to identify the patient's identity, site, and procedure to be performed. The patient's pump was interrogated and found to be a 40 mL pump with the following medication(s): Concentrations: Baclofen 2000 mcg/mL; - Current Daily Pump Dosing: - Baclofen: 1,176.2 mcg/day - Flex dosing as below: Base rate 1081.3mcg Step 1: 0600 for 5min - 35.0mcg Step 2: 1200 for 5min - 25.0mcg Step 3: 1800 for 5min - 35.0mcg Procedure: The skin was cleansed with betadine and alcohol and the site was prepped and draped in asterile fashion. The intrathecal pump was accessed using a 25 gauge needle without difficulty. It was then emptied for 10 mL (7.1ml expected) of fluid which was discarded safely. Medications refilled into the pump include: Concentrations: Baclofen 2000 mcg/mL Pump adjustment with post procedure medication dosing: Drug dosage was kept the same Total refill volume: 40 mL - Current Daily Pump Dosing (after refill/reprogramming): - Baclofen: 1,176.2mcg/day Flex dosing as below: Base rate 1081.3mcg Step 1: 0600 for 5min - 35.0mcg Step 2: 1200 for 5min - 25.0mcg Step 3: 1800 for 5min - 35.0mcg Bridge Bolus: N/A JULIOCESAR: Jan 20[birth year] Alarm date: 08/19/25 Outcomes: This procedure was performed without difficulty and the patient tolerated the procedure well without any immediate complications. Full report uploaded into media. Assessment: Jimmy Rothman Jr. is a 60 y.o. 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 Plan: Diagnoses and all orders for this visit: Spasticity - Intrathecal Pump - Refill - Intrathecal Pump - Refill; Future - baclofen (Gablofen) 55578 MCG/20ML intrathecal injection 80,000 mcg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 - Intrathecal Pump - Refill - Intrathecal Pump - Refill; Future - baclofen (Gablofen) 94100 MCG/20ML intrathecal injection 80,000 mcg Patient tolerated above mentioned procedure without any immediate complications. Details of procedure listed as above. Patient does not need any refills at this time Continue following with Ashu Slaughter for orthotic needs Continue to follow up with IVP for ongoing low back pain. Recently underwent Botox injections underUSG to lumbar paraspinals MRI head grossly unremarkable without acute abnormalities Pt will continue to follow with Neurology for polyneuropathy Pt will continue to follow with urology for neurogenic bladder. RTC 08/15/25 for pump refill Bay Arthur DO Physical Medicine and Rehabilitation [facility] PGY-3 Cosigned by Julisa Campo DO at 06/17/2025 10:57 AM EDT Associated attestation - Julisa Campo DO - 06/17/2025 10:57 AM EDT I saw and evaluated the patient with the resident/fellow. I discussed the case with the resident/fellow and agree with the findings and plan as documented. and I was present for the entirety of the procedure(s). documented in this encounter Plan of Treatment Upcoming Encounters Date Type Department Care Team (Late st Contact Info) Description 08/15/2025 11:20 AM EDT Office Visit Physical Medicine & Rehabilitation Clinic at [facility] [address] [place] [place] [address] Julisa Campo DO [address] [place] [address] 09/28/2025 10:00 AM EST Office Visit [facility] [address] [place] [address] Colleen Espino PA [address] [place] [address] 10/11/2025 12:40 PM EST Office Visit [facility] Urology [address] [place] [address] Aby Gallegos PA [address] [place] [address] Scheduled Orders Name Type Priority Associated Diagnoses Orde r Schedule Intrathecal Pump - Refill Procedures Routine Spasticity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 Expected: 08/18/2025, Expires: 12/18/2026 documented as of this encounter Goals Goal Patient Goal Type Associated Problems Recent Progress Patient-Stated? 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 documented in this encounter Administered Medications Inactive Administered Medications - up to 3 most recent administrations Medication Order MAR Action Action Date Dose Rate Site baclofen (Gablofen) 58804 MCG/20ML intrathecal injection 80,000 mcg 40 mL, Implant, Once, 1 dose, On Nickie 06/16/25 at 1245, RoutineIndications:Spasticity ,Stiff person syndrome Bolus 06/16/2025 12:11 PM EDT 80,000 mcg Other documented in this encounter Additional Health Concerns Active Problems Noted Date Diagnosed Date Autogenerated Problem 02/15/2025 Assessment Noted Time PHQ-9 Depression Total Score: 0 11/01/20 11:00 AM EST A fall risk assessment has been complete d for the patient 06/16/2025 10:47 AM EDT A Body Mass Index follow-up plan has been documented for the patient 06/17/2025 10:49 AM EDT documented as of this encounter Care Teams Hydraulic Press In Operator Relationship Specialty Start Date End Date Juarez Polanco MD [address] [place], [place] [id number] PCP - General 04/06/21 Juliet Carlin PA [address] [place] [address] Physician [facility] Neurology 07/17/22 Keon Ramirez MD [address] [place] [address] Consulting Physician Neurology 07/02/23 Aby Gallegos PA [address] [place] [address] Physician [facility] Urology 10/05/24 documented as of this encounter
--- OUTSIDE RECORDS SUMMARY | 2025-06-23 15:59 | XMS_ITS | Continuity of Care Document ---
Author Organization [facility]. If a dditional information is needed, contact Health Information Management at [phone] Address [address] [place] [address] Phone Care Team Providers Care Remote Control Assembler Name Role Phone Unavailable Unavailable Unavailable
--- OUTSIDE RECORDS SUMMARY | 2025-06-23 16:01 | XMS_ITS | Encounter Summary ---
Author Organization [facility] Address [address] [place] [address] Care Team Providers Care Screen Printing Equipment Setter Name Role Phone Juarez Polanco MD Primary Care Provider [phone] Juliet Carlin Unavailable Keon Ramirez MD Unavailable Aby Gallegos Unavailable [phone] Encounter Details Date Type Department Care Team (Latest Contact Info) Description 06/16/2025 Travel Social History Tobacco Use Types Packs/Day Years [...] often do you attend chur ch or bahai services? Never 05/17/2024 Do you belong to any clubs o r organizations such as pentecostalism groups, unions, fraternal or athletic groups, or school groups? No 05/17/2024 How often do you attend meet ings of the clubs or organizations you belong to? Never 05/17/2024 Are you , , di vorced, , never , or living with a partner? 05/17/2024 PHQ-2 Answer Date Recorded Patient Health Questionnaire-2 Score 0 06/[facility]ational Stress Questionnaire Answer Date [...] place to sleep or slept in a half-way (including now)? No 04/26/2024 PHQ-9 Answer Date [...] drink first t basilio in the morning (EYE-OVERLOCK HEMMER) to steady your nerves or to get rid of a hangover? 0 01/21/2025 CAGE Questionnaire Score 0 025 Utilities Answer Date Recorded In the past 12 months has th e electric, gas, oil, or water company threatened [...] on file documented as of this encounter Functional Status * Over the [...] Not difficult at all 06/16/2025 10:48 AM EDT Sandi Dean * Question Answer Date of Assessment Author 1. Wish to be (Past 1 Month) No 025 10:47 AM EDT Sandi Dean 2. Non-Specific Active Suici vidal Thoughts (Past 1 Month) No 06/16/2025 10:47 AM EDT Sandi Dean 6. Suicidal Behavior (Lifetime) No 10:47 AM EDT Sandi Dean documented as of this encounter Plan of Treatment Upcoming Encounters Date Type Department Care Team (Late st Contact Info) Description 08/15/2025 11:20 AM EDT Office Visit [facility] [address] [place] [address] Julisa Campo DO [address] [place] [address] 09/28/2025 10:00 AM EST Office Visit [facility] [address] [place] [address] Colleen Espino PA [address] [place] [address] 10/11/2025 12:40 PM EST Office Visit [facility] Urology [address], [address] [place] [address] Aby Gallegos PA [address] [place] [address] documented as of this encounter Goals Goal Patient Goal Type Associated Problems Recent Progress Patient-Stated? Author Autogenera radha Goal Care Plan Autogenerated Problem No Annalee Arenas documented as of this encounter Visit Diagnoses Not on filedocumented in this encounter Additional Health Concerns Active [...] documented as of this encounter Care Teams Screen Printing Equipment Setter Relationship Specialty Start Date End Date Juarez Polanco MD [address] [place] [address] PCP - General 04/06/21 Juliet Carlin PA [address] [place] [address] Physician Interactive Media Designer Neurology 07/17/22 Keon Ramirez MD [address] [place] [address] Consulting Physician Neurology 07/02/23 Aby Gallegos PA [address] [place] [address] Physician Interactive Media Designer Urology 10/05/24 documented as of this encounter
--- OUTSIDE RECORDS SUMMARY | 2025-06-23 16:01 | XMS_ITS | Encounter Summary ---
Author Organization [facility] Address [address] [place] [address] Care Team Providers Care Flotation Operator Name Role Phone Juarez Polanco MD Primary Care Provider [phone] Juliet Carlin Unavailable Keon Ramirez MD Unavailable Aby Gallegos Unavailable Encounter Details Date Type Department Care Team (Late st Contact Info) Description 05/24/2025 Telephone [facility] [address] [place] [address] Colleen Espino, CHANA [address] [place] [address] Social History Tobacco Use Types Packs/Day Years [...] often do you attend chur ch or church services? Never 05/17/2024 Do you belong to any clubs o r organizations such as mormonism groups, unions, fraternal or athletic groups, or school groups? No 05/17/2024 How often do you attend meet ings of the clubs or organizations you belong to? Never 05/17/2024 Are you , , di vorced, , never , or living with a partner? 05/17/2024 PHQ-2 Answer Date Recorded Patient Health Questionnaire-2 Score 0 04/21/2025 [facility] - Occupational Stress Questionnaire Answer Date [...] money to buy more. Never true 04/26/20 Within the past 12 months, t he [...] place to sleep or slept in a fci (including now)? No 04/26/2024 PHQ-9 Answer Date [...] drink first t basilio in the morning (EYE-BUSINESS LIBRARIAN) to steady your nerves or to get rid of a hangover? 0 01/21/2025 CAGE Questionnaire Score 0 025 Utilities Answer Date Recorded In the past 12 months has th e [employer], gas, oil, or water company threatened to shut off services in your home? No 04/26/2024 PHQ-2A Answer Date Recorded Patient Health Questionnaire-2 Score 0 10/09/2023 Sex and Gender Information Value Date Recorded Sex Assigned at Male 11/05/2023 7:21 AM EST Legal Sex Male 7:39 PM EDT Gender Identity Male 11/05/2023 7:21 AM EST Sexual Orientation Not on file documented as of this encounter Miscellaneous Notes * Telephone Encounter - Colleen Espion PA - 05/24/2025 4:04 PM EDT Called and gave patient results - no explanation for symptoms on MRI brain * Telephone Encounter - KennymerleneBailee - 05/24/2025 11:07 AM EDT Patient Phone Message Reason for Call: Patient is requesting MRI results Best contact number and optimal time of day to reach caller: [phone] Jimmy Note: Please do not reply to this message. Follow-up communication and further actions as a result of this message need to be communicated with the patient directly, if the patient is not active onMyChart. If the patient is active on MyChart, they will receive notification of the communication/outcome via [employer]. documented in this encounter Plan of Treatment Upcoming Encounters Date Type Department Care Team (Late st Contact Info) Description 08/15/2025 11:20 AM EDT Office Visit Physical Medicine & Rehabilitation Clinic at [facility] [address] [place] [address] Julisa Campo DO [address] [place] [address] 09/28/2025 10:00 AM EST Office Visit [facility] [address] [place] [address] Colleen Espino PA [address] [place] [address] 10/11/2025 12:40 PM EST Office Visit [facility] Urology [address] [place] [address] Aby Gallegos PA [address] [place] [address] documented as of this encounter Goals Goal [...] documented as of this encounter Care Teams Flotation Operator Relationship Specialty Start Date End Date Juarez Polanco MD [address] [place], [place] [phone] PCP - General 04/06/21 Juliet Carlin PA [address] [place] [address] Physician Latcher Neurology 07/17/22 Keon Ramirez MD [address] [place] [address] Consulting Physician Neurology 07/02/23 Aby Gallegos PA [address] [place] [address] Physician Latcher Urology 10/05/24 documented as of this encounter
--- OUTSIDE RECORDS SUMMARY | 2025-06-23 16:01 | XMS_ITS | Clinical Summary ---
Author Organization [facility] Address [address] [place] [address] Care Team Providers Care Weigh Tank Operator Name Role Phone Juarez Polanco MD Primary Care Provider [phone] Juliet Carlin Unavailable Keon Ramirez MD Unavailable Aby Gallegos Unavailable [phone] Allergies Active Allergy Reactions Criticality Noted Date Comments Topiramate Other - please docum ent in the comment field High 03/02/2011 agitation Feels like he is going crazy Weird feelings Medications * This document contains information received from the source organization and may not represent a complete record from that organization. cyanocobalamin (Vitamin B-12) 1000 MCG/ML injection Inject 1 mcg into the muscle every 14 (fourteen) days. Active folic acid (Folvite) 1 MG tablet Take 1 tablet by mouth in the morning. 3 Active tamsulosin (Flomax) 0.4 MG 24 hr capsuleIndicati ons:Stiff person syndrome 2 tab at bedtime 180 capsule 3 4 Active rivaroxaban (Xarelto) 20 MG tablet Take 1 tablet by mouth in the morning. Take with food. Active acetaminophen (Tylenol Extra Strength) 500 MG tablet Take 2 tablets (1,000 mg) by mouth every 8 (eight) hours. 100 tablet 4 Active calcium carbonate (Tums) 500 MG chewable tablet Chew 1 tablet (500 mg) 4 (four) times a day if needed for indigestion or heartburn. 4 Active atorvastatin (Lipitor) 80 MG tablet Take 1 tablet (80 mg) by mouth every night. 30 tablet 3 4 Active metOLazone (Zaroxolyn) 2.5 MG tablet Take 1 tablet by mouth in the morning. 4 Active furosemide (Lasix) 20 MG tablet Take 1 tablet by mouth in the morning. 4 Active diazePAM (Valium) 5 MG tablet Take 1 tablet by mouth nightly. Active midodrine (Proamatine) 5 MG tablet 4 Active fluticasone (Flonase) 50 MCG/ACT nasal spray Administer 2 sprays into each nostril. Active docusate sodium (Colace) 100 MG capsule Take 1 capsule by mouth in the morning and 1 capsule before bedtime. Active baclofen (Lioresal) 20 MG tabletIndicatio ns:Stiff person syndrome Take 1 tablet by mouth 3 times a day. 90 tablet 2 5 Active gabapentin (Neurontin) 300 MG capsule Take 1 capsule by mouth 3 times a day. 90 capsule 3 5 Active Hospital, Clinic, or Other Facility Administered Medication Ordered Dose Route Frequency Start Date End Date Status sodium chloride (PF) 0.9 % injection 20 mLIndications:Dystonia 20 mL IV As needed 05/19/2025 Ac tive baclofen (Gablofen) 04860 MCG/20ML intrathecal injection 80,000 mcgIndications:Spasticity,S tiff person syndrome 57767 mcg IL Once 06/16/2025 06/16/2025 Ende d Active Problems Problem Noted Date Diagnosed Date Acute hypercapnic respiratory failure 01/22/2025 Morbid obesity with BMI of 45.0-49.9, adult 03/0 11/2024 Hypotension 01/22/2025 Nicotine use disorder 01/22/2025 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 Apixaban for DVTs. Can continue for secondary stroke prophylaxis Started atorvastatin for secondary stroke prophylaxis DVT of deep femoral vein, left 04/26/2024 Hyponatremia 04/26/2024 CKD (chronic kidney disease), stage II Obesity (BMI 30-39.9) 04/26/2024 Deep vein thrombosis (DVT) of left iliofemoral v ein 04/26/2024 Osteoarthritis of right knee , unspecified osteoarthritis type 03/03/2024 Arthritis of right knee 10/02/2023 Myofascial pain 07/02/2023 Lumbar radicular pain 05/19/2023 Postoperative visit 05/29/2022 History of anesthesia complications 01/14/2022 Blood dyscrasia syndrome 01/14/2022 HTN (hypertension) 01/14/2022 High cholesterol 01/14/2022 Benign prostatic hyperplasia without lower urinary tract symptoms 01/14/2022 Chronic chest pain 12/13/2021 Spasticity 07/02/2021 Minor neurocognitive disorder 04/13/2021 Muscle spasm 10/23/2020 Falls frequently 03/30/2020 Cervical spondylosis without myelopathy 09/09/20 Migraine headache 01/07/2019 Chronic sinusitis 10/14/2018 Nasal polyps 10/14/2018 Right knee DJD 08/22/2018 Right knee meniscal tear 08/22/2018 Bilateral dry eyes 01/01/2018 Bilateral presbyopia 01/01/2018 Cataract, nuclear sclerotic, both eyes 8 Visual field defect of right eye 01/01/2018 Low back pain 11/14/2017 Somatic dysfunction of left lower extremity 10/25 Status post insertion of intrathecal baclofen pu mp 10/02/2017 History of DVT (deep vein thrombosis) 10/02/2017 Overview (05/12/2024): On home apixaban 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 Bleeding tendency 08/25/2017 Cognitive disorder 06/12/2017 Alteration consciousness 02/07/2017 Cervico-occipital neuralgia 02/07/2017 Chronic daily headache 02/07/2017 Abnormal rapid eye movement sleep 12/05/2016 Dissociation 12/05/2016 JULES (obstructive sleep apnea) 12/05/2016 Hyperglobulinemia 10/04/2016 Headache 09/23/2016 Presence of intrathecal baclofen pump 08/15/2016 Allergic rhinitis 07/24/2016 Dystonia 02/08/2016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 History of migraine headaches 02/16/2015 Resolved Problems Problem Noted Date Diagnosed Date Resolved Date Angina pectoris 01/14/2022 01/24/2022 GERD (gastroesophageal reflux disease) 07/24/2016 01/14/2022 Encounters Date Type Department Care Team Description 06/16/2025 10:50 AM EDT Office Visit [facility] [address] [place] [address] Julisa Campo DO Spasticity;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 Travel 05/24/2025 Results Follow-Up [facility] [address] [place] [address] Colleen Espino PA 05/24/2025 Telephone [facility] [address] [place] [address] Colleen Espino PA 05/20/2025 12:39 PM EDT - 05/20/2025 11:59 PM EDT Hospital Encounter [facility] [address] [place] [address] Cerebrovascular accident (CVA) due to other mechanism (CMS/HCC); Chronic intractable headache, unspecified headache type; Transient weakness of left leg Discharge Disposition: Home or Self Care 05/20/2025 Travel 05/19/2025 10:00 AM EDT Procedure Visit [facility] Medicine [address] [place] [address] Orlando Agrawal MD Dystonia 05/19/2025 Travel 05/03/2025 Orders Only [facility] Medicine [address] [place] [address] Jarred Olguin Dystonia (Primary Dx) 04/21/2025 10:40 AM EDT Office Visit [facility] [address] [place] [address] Julisa Campo DO Stiff person spectrum disorder; Spasticity;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 04/21/2025 Travel 04/04/2025 [facility] [address] [place] [address] Juarez Poalnco MD 03/31/2025 2:30 PM EDT Office Visit [facility] Interventional Pain Medicine [address] [facility] [place] [address] Orlando Agrawal MD Myalgia, other site (Primary Dx); Sacroiliitis, not elsewhere classified (CMS/HCC); Spinal stenosis, lumbar region without neurogenic claudication; Dystonia 03/31/2025 1:00 PM EDT Office Visit [facility] [address], [facility] [address] [place] [address] Alexander Carter, ANEL, LENORE Deep vein thrombosis (DVT) of left iliofemoral vein (CMS/HCC) (Primary Dx); DVT (deep venous thrombosis) (CMS/HCC); IVC thrombosis (CMS/HCC); TIA (transient ischemic attack) 03/31/2025 Travel 03/24/2025 11:51 AM EDT - 03/24/2025 11:59 PM EDT Hospital Encounter [facility] [address] [place] [address] DVT (deep venous thrombosis) (CMS/HCC) Discharge Disposition: Home or Self Care 03/24/2025 10:40 AM EDT Office Visit [facility] [address] [place] [address] Colleen Espino PA Cerebrovascular accident (CVA) due to other mechanism (CMS/HCC) (Primary Dx); Chronic intractable headache, unspecified headache type; Transient weakness of left leg 03/24/2025 Refill [facility] [address] [place] [address] Joey Darcie, Julisa, DO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 03/24/2025 Travel from Last 3 Months Immunizations Immunization Administration Dates Next Due Influenza, injectable, quadrivalent 08/24/2017,0 08/20/2017,08/31/2015 Influenza, injectable, quadr ivalent, preservative free 09/01/2023,08/29/2020,10/14/2019,2017 Influenza, recombinant, quad rivalent, injectable, preservative free 12/04/2022,10/03/2021,08/30/2020 Influenza, seasonal, injecta ble, preservative free 09/08/2012 TD (adult), 2 Lf tetanus tox oid, preservative free, adsorbed 01/26/1997 Family History Medical History Relation Name Comments Cardiac disorder Other 1 Hypertension Other 2 Other cancer Other 3 Anesthesia problems Neg Hx Malig Hyperthermia Neg Hx Relation Name Status Comments Other 1 Other 2 Other 3 Social History Tobacco Use Types Packs/Day Years [...] week 05/17/2024 How often [facility] you attend [facility] services? Never 05/17/2024 Do you belong to any clubs o r organizations such as mandaen groups, unions, fraternal or athletic groups, or school groups? No 05/17/2024 How often do you attend meet ings of the clubs or organizations you belong to? Never 05/17/2024 Are you , , di vorced, , never , or living with a partner? 05/17/2024 PHQ-2 Answer Date Recorded Patient Health Questionnaire-2 Score 0 06/16/2025 [facility] Occupational Stress Questionnaire Answer [...] place to sleep or slept in a long-term (including now)? No 04/26/2024 PHQ-9 Answer Date [...] drink first t basilio in the morning (E[employer]-SAL[employer] MERCHANDISER) to steady your nerves or to get rid of a hangover? 0 01/21/2025 CAGE Questionnaire Score 0 025 Utilities Answer Date Recorded In the past 12 months has th e [employer], gas, oil, or water company threatened to shut off services in your home? No 04/26/2024 PHQ-2A Answer Date Recorded Patient Health Questionnaire-2 Score 0 10/09/2023 Sex and Gender Information Value Date Recorded Sex Assigned at Male 11/05/2023 7:21 AM EST Legal Sex Male 7:39 PM EDT Gender Identity Male 11/05/2023 7:21 AM EST Sexual Orientation Not on file Last Filed Vital Signs Vital Sign Reading Time Taken Comments Blood Pressure 126/78 06/16/2025 10:46 AM EDT Pulse 70 06/16/2025 10:46 AM EDT Temperature 36 C (96.8 F) 05/19/2025 10:01 AM EDT Respiratory Rate 16 05/19/2025 10:01 AM EDT Oxygen Saturation 97% 06/16/2025 10:46 AM EDT Inhaled Oxygen Concentration - - Weight 108 kg (237 lb) 06/16/2025 10:46 AM EDT Height 177.8 cm (5' 10 ) 06/16/2025 10:46 AM EDT Body Mass Index 34.01 06/16/2025 10:46 AM EDT Plan of Treatment Upcoming Encounters Date Type Department Care Team (Late st Contact Info) Description 08/15/2025 11:20 AM EDT Office Visit [facility] [address] [place] [address] Julisa Campo DO [address] [place] [address] 09/28/2025 10:00 AM EST [facility] Visit [facility] [address] [place] [address] Colleen Espino PA [address] [place] [address] 10/11/2025 12:40 PM EST Office Visit [facility] [address] [place] [address] Aby Gallegos PA [address] [place] [address] Health Maintenance Due Date Last Done Comments [facility] Annual Wellness (AWV) 1965 [facility]-Infant/Child/Adol SDOH Screenings 1965 [facility]- SDOH Screenings 1981 [facility]-Adult SDOH Screenings 1981 CT Colonography 02/01/2008 Colonoscopy 02/01/2008 FIT 02/01/2008 FOBT 02/01/2008 Sigmoidoscopy 02/01/2008 [facility]-Zoster Vaccines (1 of 2) 2013 [facility]-RSV Vaccine: 60+ Years or (1 - Risk 60-74 years 1-dose series) 2023 [id number] Vaccine (2023- season) 2024 01/07/2023, 03/07/2021, 02/07/2021 [facility]-Influenza Vaccine (#1) 07/25/202508/25, 09/01/2023, 12/04/2022, Additional history exists [facility]-Depression Screening 06/16/2026 025, 11/01/2024, 09/03/2022 FIT-DNA 12/03/2026 12/03/2023 [facility]-Colorectal Cancer Screening 12/03/2026 [facility]-DTaP,Tdap,and Td Vaccines (2 - Td or Tdap) 03/28/2035 03/28/2025, 01/26/1997 [facility]-HIV Screening Completed 04/26/2024 [facility]-Hepatitis C Screening Completed 04/26/2024 [facility]-Pneumococcal Vaccine: 50+ Years Completed 03/28/2025 [facility]-Obesity Intervention Completed 025, 05/19/2025, 04/21/2025, Additional history exists HPV Vaccines Aged Out No longer eligi ble based on patient's age to complete this topic [facility]-HIB Vaccines Aged Out No longer e ligible based on patient's age to complete this topic [facility]-Hepatitis A Vaccines Aged Out No longer eligible based on patient's age to complete this topic [facility]-IPV Vaccines Aged Out No longer e ligible based on patient's age to complete this topic [facility]-Rotavirus Vaccines Aged Out No lo nger eligible based on patient's age to complete this topic Goals Goal Patient Goal Type Associated Problems Recent Progress Patient-Stated? Author Autogenera radha Goal Care Plan Autogenerated Problem No [employer] Implanted Type Area Aviation Mechanic Device Identifier Shelf Expiration Date Model / Serial / Lot Cement Palacos Mv - [id number] Implanted:Qty : 3 on 03/03/2024 by Juarez Horta MD at [facility] Cement Right: Knee [employer]ae[employer] [id number] 04/23/2028 [id number] / / [id number] Chg Tibial Journeyia Base Assistant Winemaker R - [id number] Implanted:Qty : 1 on 03/03/2024 by Juarez Horta MD at [facility] Implant Right: Knee Gallegos [employer] Nephew Salomon Inc-[id number] 07/14/2033 [id number] / / [id number] Chg Patella Gii Oval Resurfaci - [id number] Implanted:Qty : 1 on 03/03/2024 by Juarez Horta MD at [facility] Implant Right: Knee Gallegos [employer] Nephew [employer] Inc-[id number] 10/20/2033 [id number] / / [id number] Jrny Ii Bcs Xlpe Art Isrt Sz 7 - [id number] Implanted:Qty : 1 on 03/03/2024 by Juarez Horta MD at [facility] Implant Right: Knee Gallegos [employer] Nephew [employer] Inc-[id number] 01/20/2032 [id number] / / [id number] Jrny Ii Bcs Femoral Oxin Rt Sz - [id number] Implanted:Qty : 1 on 03/03/2024 by Juarez Horta MD at [facility] Implant Right: Knee Gallegos [employer] Nephew [employer] Inc-[id number] 11/23/2033 [id number] / / [id number] Medtronic Syncromed 2-09/19/2017 Implanted: (Quantity not on file) Pain Pump Abdomen 8637-40 / [id number] / Abre Stent Common Iliac Vein- Implanted:Qty : 5 on 01/21/2025 by Shazia Javed MD Stent Vena Cava Medtronic Cement Palacos Mv - [id number] Implanted:Qty : 3 on 11/05/2023 by Juarez Horta MD at [facility] Left: Knee Herae[employer] Inc-[id number] 02/22/2028 [id number] / / [id number] Jrny Ii Bcs Femoral Oxin Lt Sz - [id number] Implanted:Qty : 1 on 11/05/2023 by Juarez Horta MD at [facility] Left: Knee Gallegos [employer] Nephew [employer] Inc-[id number] 04/12/2033 [id number] / / [id number] Chg Tibial Journeyia Base Assistant Winemaker L - [id number] Implanted:Qty : 1 on 11/05/2023 by Juarez Horta MD at [facility] Left: Knee Gallegos [employer] Nephew [employer] Inc-[id number] 02/17/2033 [id number] / / [id number] Chg Patella Gii Oval Resurfaci - [id number] Implanted:Qty : 1 on 11/05/2023 by Juarez Horta MD at [facility] Left: Knee Gallegos [employer] Nephew [employer] Inc-[id number] 05/27/2033 [id number] / / [id number] Jrny Ii Bcs Cnstrd Art Isrt 7- - [id number] Implanted:Qty : 1 on 11/05/2023 by Juarez Horta MD at [facility] Left: Knee Gallegos [employer] Nephew [employer] Inc-[id number] 06/17/2032 [id number] / / [id number] Explanted Type Area Aviation Mechanic Device Identifier Shelf Expiration Date Model / Serial / Lot Filter Jug Yeimy Vena Cava - [id number] Implanted:Qty: 1 on 10/22/2023 by Daria Gallegos RN at [facility] Peripherial Vascular-[id number] 09/23/2026 [id number] / / [id number] Procedures Procedure Name Priority Date/Time Associated Diagnosis Comments MR HEAD W AND WO IV CONTRAST Routine 05/20/2025 2:07 PM EDT Cerebrovascular accident (CVA) due to other mechanism (CMS/HCC) Chronic intractable headache, unspecified headache type Transient weakness of left leg CT VENOGRAM ABDOMEN PELVIS Routine 03/24/2025 12:34 PM EDT DVT (deep venous thrombosis) (CMS/HCC) HEPATITIS C ANTIBODY - ED W/REFLEX TO HCV QUANT PCR STAT 04/26/2024 2:40 AM EDT ED HIV 1/2 ANTIBODY/ANTIGEN SCREEN WITH REFLEX TO HIV I/II DIFFERENTIATION STAT 04/26/2024 2:40 AM EDT from Last 3 Months or Most Recently Relevant to Health Maintenance Results * MR Head w and wo [...] error, please notify the sender immediately at [phone] and permanently delete the original report and destroy any copies or printouts. Narrative 05/22/2025 7:48 AM EDT [facility] - Phone Outpatient NAME: Jimmy Rothman DATE OF EXAM: 05/20/2025 Patient No: [id number] Physician: Kenzie^Colleen^Lien Date of : 1965 Past [...] Rothman DATE OF EXAM: 05/20/2025 Patient No: [id number] Physician: Kenzie^Colleen^Lien Date of : 1965 Past [...] DVT on rivaroxaban who washospitalized with the stroke service from 05/11-05/12/2024 for facialdroop and [...] in error, pleasenotify the sender immediately at [phone] and permanently delete theoriginal report and destroy any copies or printouts. us Colleen ZAYAS IMG MRI PROCEDURES Final Resul t * CT Venogram Abdomen Pelvis (03/24/2025 12:34 PM EDT) Anatomical Region Laterality Modality Abdomen, Pelvis Computed Tomogra phy Impressions 03/25/2025 11:22 AM EDT Inferior IVC and bilateral common to external iliac vein grafts are patent. Urinary bladder is moderately distended with diffuse mild wall thickening; consider additional evaluation for retention or cystitis. CRITICAL RESULT: No COMMUNICATION: Per this written report. Drafted by Alexandria Del Valle MD on 03/25/2025 11:00 AM Final report signed by Alexandria Del Valle MD on 03/25/2025 11:22 AM Narrative 03/25/2025 11:22 AM EDT CLINICAL INDICATION: post IVC stenting TECHNIQUE: A CT venogram of the abdomen and pelvis was performed in venous phase. A total of 200 mL of Omnipaque 350 was administered during the examination. Advanced 3D workstation manipulation and review of the data set was performed by the interpreting physician to further define anatomy and possible pathology. Images of areas of interest were created utilizing various techniques. These images were saved and transferred to PACS if significant. TOTAL DLP (Dose-Length Product): 1008.43 mGy.cm Please note: The reported value represents the total of one or more individual components during the CT acquisition on this date and at this time, and as such, the same value may appear in more than one CT report depending on the interpreting/reporting physicians. COMPARISON: February 08, 2025 VASCULAR FINDINGS: Inferior IVC and bilateral common to external iliac vein grafts are patent. Apparent tiny filling defect in the anterior aspect of the right common iliac vein stent graft is consistent with beam hardening artifact from the right anterior pelvic implanted battery pack. Incompletely visualized Coronary Arteries: No calcified plaque. Inferior descending thoracic aorta and abdominal aorta are normal in course and caliber, without large plaque. Abdominal aorta branches are patent. Normal celiac branching pattern. ANCILLARY FINDINGS: Inferior Chest: No pleural or pericardial effusion. No suspicious pulmonary nodules. Abdomen and Pelvis: No suspicious lesions in the liver, pancreas, spleen, adrenal glands small bilateral renal hypodensities are most likely cysts. No hydronephrosis. No suspicious population. Normal appendix courses superiorly with tip near the hepatic hilum. No retroperitoneal, mesenteric or pelvic lymphadenopathy. No pelvic mass. Prostate gland is slightly enlarged. Urinary bladder is moderately distended with diffuse mild wall thickening. Musculoskeletal and Body Wall: No aggressive osseous lesion. Degenerative changes in the spine including multilevel vacuum disc phenomenon. Right anterior lateral pelvic wall battery pack with leads coursing laterally and posteriorly then into the spinal canal at the level of the L2-L3 interspace Procedure Note Alexandria Del Valle MD - 03/25/2025 CLINICAL INDICATION: post IVC stenting TECHNIQUE: A CT venogram of the abdomen and pelvis was performed in venous phase. Atotal of 200 mL of Omnipaque 350 was administered during the examination.Advanced 3D workstation manipulation and review of the data set wasperformed by the interpreting physician to further define anatomy andpossible pathology. Images of areas of interest were created utilizingvarious techniques. These images were saved and transferred to PACS ifsignificant. TOTAL DLP (Dose-Length Product): 1008.43 mGy.cm Please note: Thereported value represents the total of one or more individual componentsduring the CT acquisition on this date and at this time, and as such, thesame value may appear in more than one CT report depending on theinterpreting/reporting physicians. COMPARISON: February 08, 2025 VASCULAR FINDINGS: Inferior IVC and bilateral common to external iliac vein grafts arepatent. Apparent tiny filling defect in the anterior aspect of the rightcommon iliac vein stent graft is consistent with beam hardening artifactfrom the right anterior pelvic implanted battery pack. Incompletely visualized Coronary Arteries: No calcified plaque. Inferior descending thoracic aorta and abdominal aorta are normal incourse and caliber, without large plaque. Abdominal aorta branches arepatent. Normal celiac branching pattern. ANCILLARY FINDINGS: Inferior Chest: No pleural or pericardial effusion. No suspiciouspulmonary nodules. Abdomen and Pelvis: No suspicious lesions in the liver, pancreas, spleen,adrenal glands small bilateral renal hypodensities are most likely cysts.No hydronephrosis. No suspicious population. Normal appendix coursessuperiorly with tip near the hepatic hilum. No retroperitoneal, mesentericor pelvic lymphadenopathy. No pelvic mass. Prostate gland is slightlyenlarged. Urinary bladder is moderately distended with diffuse mild wallthickening. Musculoskeletal and Body Wall: No aggressive osseous lesion. Degenerativechanges in the spine including multilevel vacuum disc phenomenon. Rightanterior lateral pelvic wall battery pack with leads coursing laterallyand posteriorly then into the spinal canal at the level of the [id number] IMPRESSION: Inferior IVC and bilateral common to external iliac vein grafts arepatent. Urinary bladder is moderately distended with diffuse mild wall thickening;consider additional evaluation for retention or cystitis. CRITICAL RESULT: No COMMUNICATION: Per this written report. Drafted by Alexandria Del Valle MD on 03/25/2025 11:00 AM Final report signed by Alexandria Del Valle MD on 03/25/2025 11:22 AM Shazia Javed MD IMG CT PROCEDURES Final Res ult * ED HIV 1/2 Antibody/Antigen Screen w/Reflex to HIV 1/2 Differentiation (04/26/2024 2:40 AM EDT) HIV 1 & 2 Antibody/Antigen Screen Non Reactive Non Reactive 04/26/2024 3:32 AM EDT [facility] Comment:Screening for HIV 1 & 2 antibodies, and P24 antigen is NONREACTIVE. No confirmatory testing is required. Blood Venous blood specimen / Unknown Venipuncture / Unknown 04/26/2024 2:40 AM EDT 04/26/2024 2:46 AM EDT Delmar Red MD LAB BLOOD ORDERABLES Final Re sult [facility] [address] [place] [address] * Hepatitis C Antibody - ED (04/26/2024 2:40 AM EDT) Hepatitis C Antibody Negative Negative 04/26/2024 3:29 AM EDT [facility] Blood Venous blood specimen / Unknown Venipuncture / Unknown 04/26/2024 2:40 AM EDT 04/26/2024 2:46 AM EDT us Delmar Red MD LAB BLOOD ORDERABLES Final Re sult [facility] [address] [place] [address] from Last 3 Months or Most Recently Relevant to Health Maintenance Additional Health Concerns Active Problems Noted Date Diagnosed Date Autogenerated Problem 02/15/2025 Insurance MEDICAID[place] MEDICARE Advance Directives Documents on File Type Date Recorded Patient Optometric Aide Expl anation Advance Directives and Living Will 01/19/2025 * Full Code (Latest Code Status on File) Date Activated Date Inactivated Comments 01/21/2025 4:01 PM 01/23/2025 1:24 PM Question Answer Comments Patient has decision-making capacity? Yes * Full Code Date Activated Date Inactivated Comments 05/11/2024 2:10 PM 05/12/2024 8:17 PM Question Answer Comments Patient has decision-making capacity? Yes * Full Code Date Activated Date Inactivated Comments 04/26/2024 6:27 AM 05/05/2024 10:30 PM Question Answer Comments Patient has decision-making capacity? Yes * Full Code Date Activated Date Inactivated Comments 03/03/2024 8:19 AM 03/03/2024 9:38 PM Question Answer Comments Patient has decision-making capacity? Yes * Full Code Date Activated Date Inactivated Comments 11/05/2023 9:01 AM 11/07/2023 4:20 PM Question Answer Comments Patient has decision-making capacity? Yes Care Teams Weigh Tank Operator Relationship Specialty Start Date End Date Juarez Polanco MD [address] [place] [address] PCP - General 04/06/21 Juliet Carlin PA [address] [place] [address] Physician Freezer Tunnel Operator Neurology 07/17/22 Keon Ramirez MD [address] [place] [address] Consulting Physician Neurology 07/02/23 Aby Gallegos PA [address] [place] [address] Physician Freezer Tunnel Operator Urology 10/05/24
--- OUTSIDE RECORDS SUMMARY | 2025-06-23 16:01 | XMS_ITS | Encounter Summary ---
Author Organization [facility] Address [address] [place] [address] Care Team Providers Care Spanish Moss Picker Name Role Phone Juarez Polanco MD Primary Care Provider [phone] Juliet Carlin Unavailable Keon Ramirez MD Unavailable Aby Gallegos Unavailable Encounter Details Date Type Department Care Team (Late st Contact Info) Description 05/24/2025 [facility] [address], 1[address] [place] [address] Colleen Espino, PA [address] [place] [address] Social History Tobacco Use Types [...] often do you attend chur ch or denominational services? Never 05/17/2024 Do you belong to any clubs o r organizations such as holiness groups, unions, fraternal or athletic groups, or school groups? No 05/17/2024 How often do you attend meet ings of the clubs or organizations you belong to? Never 05/17/2024 Are you , , di vorced, , never , or living with a partner? 05/17/2024 PHQ-2 Answer Date Recorded Patient Health Questionnaire-2 Score 0 04/21/2025 [facility] - Occupational Stress Questionnaire Answer Date [...] place to sleep or slept in a residential (including now)? No 04/26/2024 PHQ-9 Answer Date [...] drink first t basilio in the morning (EYE-FULL TIME) to steady your nerves or to get [...] on file documented as of this encounter Plan of Treatment Upcoming Encounters Date Type Department Care Team (Late st Contact Info) Description 08/15/2025 11:20 AM EDT Office Visit [facility] [address] [place] [address] Julisa Campo DO [address] [place] [address] 09/28/2025 10:00 AM EST Office Visit [facility] [address], 1[address] [place] [address] Colleen Espino PA [address] [place] [address] 10/11/2025 12:40 PM EST Office Visit [facility] [address], 2[address] [place] [address] Aby Gallegos PA [address] [place] [address] documented as of this encounter [...] documented as of this encounter Care Teams Spanish Moss Picker Relationship Specialty Start Date End Date Juarez Polanco MD [address] [place] [address] PCP - General 04/06/21 Juliet Carlin PA [address] [place] [address] Physician It Infrastructure Architect Neurology 07/17/22 Keon Ramirez MD [address] [place] [address] Consulting Physician Neurology 07/02/23 Aby Gallegos PA [address] [place] [address] Physician It Infrastructure Architect Urology 10/05/24 documented as of this encounter
--- OUTSIDE RECORDS SUMMARY | 2025-06-23 16:02 | XMS_ITS | Encounter Summary ---
Author Organization [facility] Address [address] [place] [address] Care Team Providers Care Toolmaker Grade Three Name Role Phone Juarez Polanco MD Primary Care Provider [phone] Juliet Carlin Unavailable Keon Ramirez MD Unavailable Aby Gallegos Unavailable [phone] Encounter Details Date Type Department Care Team (Latest Contact Info) Description 05/20/2025 Travel Social History Tobacco Use Types Packs/Day [...] often do you attend chur ch or nondenominational services? Never 05/17/2024 Do you belong to any clubs o r organizations such as anabaptism groups, unions, fraternal or athletic groups, or school groups? No 05/17/2024 How often do you attend meet ings of the clubs or organizations you belong to? Never 05/17/2024 Are you , , di vorced, , never , or living with a partner? 05/17/2024 PHQ-2 Answer Date Recorded Patient Health Questionnaire-2 Score 0 04/21/2025 [facility] - Occupational Stress Questionnaire Answer [...] place to sleep or slept in a longterm (including now)? No 04/26/2024 PHQ-9 Answer Date [...] drink first t basilio in the morning (EYE-FUELER) to steady your nerves or to get [...] [facility] [address] [place] [address] Julisa Campo DO [address] [place] [address] 09/28/2025 10:00 AM EST Office Visit [facility] [address], 1st [place] [address] Colleen Espino PA [address] [place] [address] 10/11/2025 12:40 PM EST Office Visit [facility] Urology [address], 2[address] [place] [address] Aby Gallegos PA [address] [place] [address] documented as of this encounter [...] documented as of this encounter Care Teams Toolmaker Grade Three Relationship Specialty Start Date End Date Juarez Polanco MD [address] [place] [address] PCP - General 04/06/21 Juliet Carlin PA [address] [place] [address] Physician Unisaw Operator Neurology 07/17/22 Keon Ramirez MD [address] [place] [address] Consulting Physician Neurology 07/02/23 Aby Gallegos PA [id number] [place] [address] Physician Unisaw Operator Urology 10/05/24 documented as of this encounter
--- OUTSIDE RECORDS SUMMARY | 2025-06-23 16:02 | XMS_ITS | Encounter Summary ---
Author Organization [facility] Address [address] [place] [address] Care Team Providers Care Chemical Process Operator Name Role Phone Juarez Polanco MD Primary Care Provider [phone] Juliet Carlin Unavailable Keon Ramirez MD Unavailable Adenike Davies LPN Unavailable Unavailable Aby Gallegos Unavailable [phone] Reason for Visit * Reason Comments Med Refill Encounter Details Date Type Department Care Team (Late st Contact Info) Description 03/17/2023 Refill [facility] [address] [place] [address] Julisa Campo DO [address] [place] [address]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 Tobacco Use Types Packs/Day Years Used Date Smoking Tobacco: Never Smokeless Tobacco: Current Snuff Comments:snuff Alcohol Use Standard Drinks/Week Comments Yes 0 (1 standard drink = 0.6 oz pure alcohol) Alcoholic Drinks/day: Minimum alcohol consumption PHQ-2 Answer Date Recorded Patient Health Questionnaire-2 Score 0 03/19/2023 Sex and Gender Information Value Date Recorded Sex Assigned at Male 11/05/2023 7:21 AM EST Legal Sex Male 7:39 PM EDT Gender Identity Male 11/05/2023 7:21 AM EST Sexual Orientation Not on file COVID-19 Exposure Response Date Recorded In the last 10 days, have yo u been in contact with someone who was confirmed or suspected to have Coronavirus/COVID-19? No / Unsure 03/19/2023 1:08 PM EDT documented as of this encounter Functional Status * Over the past 2 weeks, how often have you been bothered by any of the following problems? Question Answer Date of Assessment Author Little interest or pleasure in doing things Not at all 03/19/2023 1:19 PM EDT Sandi Dean Feeling down, depressed, or hopeless Not at all 02/23 1:19 PM EDT Sandi Dean Patient Health Questionnaire-2 Score 0 02/23 1:19 PM EDT Sandi Dean * Calculated C-SSRS Risk Score (Lifetime/Recent) Answer Date of Assessment Author No Risk Indicated 03/19/2023 1:16 PM EDT Hai Dean * Question Answer Date of Assessment Author 1. Wish to be (Past 1 Month) No 023 1:16 PM EDT Sandi Dean 2. Non-Specific Active Suici vidal Thoughts (Past 1 Month) No 03/19/2023 1:16 PM EDT Sandi Dean 6. Suicidal Behavior (Lifetime) No 1:16 PM EDT Sandi Dean documented as of this encounter Plan of Treatment Upcoming Encounters Date Type Department Care Team (Late st Contact Info) Description 08/15/2025 11:20 AM EDT [facility] Visit [facility] [address] [place] [address] Julisa Campo DO [address] [place] [address] 09/28/2025 10:00 AM EST Office Visit [facility] [address], 1st [place] [address] Colleen Espino PA [address] [place] [address] 10/11/2025 12:40 PM EST [facility] Visit [facility] [address], [address]nd [place] [address] Aby Gallegos PA [address] [place] [address] documented as of this encounter 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 documented in this encounter Additional Health Concerns Infection Onset Date Last Indicated Resolved Time COVID-19 Rule-Out 01/22/2025 01/22/2025 01/23/2025 2:46 AM EST Respiratory Rule-Out 01/22/2025 01/22/2025 025 11:14 PM EST Assessment Noted Time A fall risk assessment has been complete d for the patient 02/14/2023 10:38 AM EDT A Body Mass Index follow-up plan has been documented for the patient 02/14/2023 11:26 AM EDT documented as of this encounter Care Teams Chemical Process Operator Relationship Specialty Start Date End Date Juarez Polanco MD [address] [place] [address] [address] [place], [place] [id number] PCP - General 04/06/21 Juliet Carlin PA [address] [place] [address] Physician Title One Reading Teacher Neurology 07/17/22 Keon Ramirez MD [address] [place] [address] Consulting Physician Neurology 07/02/23 Adenike Davies LPN VALUE-BASED [place] [address] TCM Nurse 05/17/24 06/16/24 Aby Gallegos PA [id number] [place] [address] Physician Title One Reading Teacher Urology 10/05/24 documented as of this encounter
--- OUTSIDE RECORDS SUMMARY | 2025-06-23 16:02 | XMS_ITS | Encounter Summary ---
Author Organization [facility] Address [address] [place] [address] Care Team Providers Care Vp Construction Name Role Phone Juarez Polanco MD Primary Care Provider [phone] Juliet Carlin Unavailable Keon Ramirez MD Unavailable Adenike Davies LPN Unavailable Unavailable Aby Gallegos Unavailable [phone] Reason for Visit * Reason Onset Date Comments HCN - Rx Refill Request 08/04/2023 Encounter Details Date Type Department Care Team (Late st Contact Info) Description 08/04/2023 Refill [facility] [address] [place] [address] Julisa Campo DO [address] [place] [address]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; Spasticity Social History Tobacco Use Types Packs/Day Years Used Date Smoking Tobacco: Never Smokeless Tobacco: Current Snuff Comments:snuff Alcohol Use Standard Drinks/Week Comments Not Currently 0 (1 standard drink = 0.6 oz pur e alcohol) PHQ-2 Answer Date Recorded Patient Health Questionnaire-2 Score 0 07/17/2023 Sex and Gender Information Value Date Recorded Sex Assigned at Male 11/05/2023 7:21 AM EST Legal Sex Male 7:39 PM EDT Gender Identity Male 11/05/2023 7:21 AM EST Sexual Orientation Not on file documented as of this encounter Miscellaneous Notes * Telephone Encounter - GatitoKrystian Everardo - 08/04/2023 8:11 AM EDT Medication Refill Request Medication Name: Gabapentin Dosage: 300 mg three times daily Preferred Pharmacy & Location: Patient Preferred Pharmacy in Chart: [facility] [address] [place] [address] Days of medication remaining (if under 3 days please daniel as urgent): 8 Best contact number: [phone] (home) Optimal time of day to reach caller: ANYTIME Additional comments/information from caller: None Note: Please do not reply to this message. Follow-up communication and further actions as a result of this message need to be communicated with the patient directly, if the patient is not active onMyChart. If the patient is active on MyChart, they will receive notification of the communication/outcome via [employer]. documented in this encounter Plan of Treatment Upcoming Encounters Date Type Department Care Team (Late st Contact Info) Description 08/15/2025 11:20 AM EDT Office Visit [facility] [address] [place] [address] Julisa Campo DO [address] [place] [address] 09/28/2025 10:00 AM EST Office Visit [facility] [address] 1st [place] [address] Colleen Espino, PA [address] [place] [address] 10/11/2025 12:40 PM EST Office Visit [facility] [address], [address] [place] [address] Aby Gallegos PA [address] [place] [address] documented as of this encounter 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 Abnormal involuntary movements documented in this encounter Additional Health Concerns Infection Onset Date Last Indicated Resolved Time COVID-19 Rule-Out 01/22/2025 01/22/2025 01/23/2025 2:46 AM EST Respiratory Rule-Out 01/22/2025 01/22/2025 025 11:14 PM EST Assessment Noted Time A fall risk assessment has been complete d for the patient 07/17/2023 11:07 AM EDT A Body Mass Index follow-up plan has been documented for the patient 07/17/2023 3:58 PM EDT documented as of this encounter Care Teams Vp Construction Relationship Specialty Start Date End Date Juarez Polanco MD [facility] [address] [place] [address] PCP - General 04/06/21 Juliet Carlin PA [address] [place] [address] Physician Airplane Technician Neurology 07/17/22 Keon Ramirez MD [address] [place] [address] Consulting Physician Neurology 07/02/23 Adenike Davies LPN VALUE-BASED [place] [address] TCM Nurse 05/17/24 06/16/24 Aby Gallegos PA [address] [place] [address] Physician Airplane Technician Urology 10/05/24 documented as of this encounter
--- OUTSIDE RECORDS SUMMARY | 2025-06-23 16:02 | XMS_ITS | Encounter Summary ---
Author Organization [facility] Address [address] [place] [address] Care Team Providers Care Multi Slide Machine Tender Name Role Phone Juarez Polanco MD Primary Care Provider [phone] Juliet Carlin Unavailable Keon Ramirez MD Unavailable Adenike Davies LPN Unavailable Unavailable Aby Gallegos Unavailable Reason for Visit * Reason Comments Med Refill Encounter Details Date Type Department Care Team (Late st Contact Info) Description 10/05/2023 Refill [facility] [address] [place] [address] Julisa Campo DO [address] [place] [address]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 Tobacco Use Types Packs/Day Years Used Date Smoking Tobacco: Never Smokeless Tobacco: Current Snuff Comments:snuff Alcohol Use Standard Drinks/Week Comments Not Currently 0 (1 standard drink = 0.6 oz pur e alcohol) PHQ-2 Answer Date Recorded Patient Health Questionnaire-2 Score 0 10/09/2023 PHQ-2A Answer Date Recorded Patient Health Questionnaire-2 [...] Visit [facility] [address] [place] [address] Julisa Campo DO [address] [place] [address] 09/28/2025 10:00 AM EST Office Visit [facility] [address] 1st [place] [address] Colleen Espino PA [address] [place] [address] 10/11/2025 12:40 PM EST Office Visit [facility] Urology [address], 2[address] [place] [address] Aby Gallegos PA [address] [place] [address] documented as of this encounter 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 documented in this encounter Additional Health Concerns Infection Onset Date Last Indicated Resolved Time COVID-19 Rule-Out 01/22/2025 01/22/2025 01/23/2025 2:46 AM EST Respiratory Rule-Out 01/22/2025 01/22/2025 025 11:14 PM EST Assessment Noted Time A fall risk assessment has been complete d for the patient 10/02/2023 12:49 PM EST A Body Mass Index follow-up plan has been documented for the patient 10/03/2023 10:31 AM EST documented as of this encounter Care Teams Multi Slide Machine Tender Relationship Specialty Start Date End Date Juarez Polanco MD [address] [place] [address] PCP - General 04/06/21 Juliet Carlin PA [address] [place] [address] Physician Manager Video Games Neurology 07/17/22 Keon Ramirez MD [address] [place] [address] Consulting Physician Neurology 07/02/23 Adenike Davies LPN VALUE-[place]ED [place] [address] TCM Nurse 05/17/24 06/16/24 Aby Gallegos PA [address] [place] [address] Physician Manager Video Games Urology 10/05/24 documented as of this encounter
--- OUTSIDE RECORDS SUMMARY | 2025-06-23 16:02 | XMS_ITS | Encounter Summary ---
Author Organization [facility] Address [address] [place] [address] Care Team Providers Care Credit Risk Modeler Name Role Phone Juarez Polanco MD Primary Care Provider [phone] Juliet Carlin Unavailable Keon Ramirez MD Unavailable Aby Gallegos Unavailable [phone] Encounter Details Date Type Department Care Team (Late st Contact Info) Description 04/04/2025 [facility] [address] [place] [address] Juarez Polanco MD [address] [facility] [address] [place] [address] Social History Tobacco Use Types Packs/Day Years [...] often do you attend chur ch or oriental orthodox services? Never 05/17/2024 Do you belong to [...] Date Recorded Patient Health Questionnaire-2 Score 0 02/24/2025 [facility] - Occupational Stress Questionnaire Answer Date Recorded [...] place to sleep or slept in a fpc (including now)? No 04/26/2024 PHQ-9 Answer Date [...] drink first t basilio in the morning (EYE-HABILITATIVE INTERVENTIONIST) to steady your nerves or to get [...] [facility] [address] [place] [place] [address] Joey Sprague Julisa, DO [address] [place] [address] 09/28/2025 10:00 AM EST Office Visit [facility] [address] 1st [place] [address] Colleen Espino, PA [address] [place] [address] 10/11/2025 12:40 PM EST Office Visit [facility] Urology [address] [place] [address] Aby Gallegos PA [address] [place] [address] documented as of this encounter [...] has been complete d for the patient 03/31/2025 2:01 PM EDT A Body Mass Index follow-up plan has been documented for the patient 03/31/2025 3:16 PM EDT documented as of this encounter Care Teams Credit Risk Modeler Relationship Specialty Start Date End Date Juarez Polanco MD [address] [place] [address] PCP - General 04/06/21 Juliet Carlin PA [address] [place] [address] Physician Tax Processor Neurology 07/17/22 Keon Ramirez MD [address] [place] [address] Consulting Physician Neurology 07/02/23 Aby Gallegos PA [address] [place] [address] Physician Tax Processor Urology 10/05/24 documented as of this encounter
--- OUTSIDE RECORDS SUMMARY | 2025-06-23 16:02 | XMS_ITS | Encounter Summary ---
Author Organization [facility] Address [address] [place] [address] Care Team Providers Care Corner Bead Operator Name Role Phone Juarez Polanco MD Primary Care Provider [phone] Juliet Carlin Unavailable Keon Ramirez MD Unavailable Aby Gallegos Unavailable [phone] Encounter Details Date Type Department Care Team (Latest Contact Info) Description 05/19/2025 Travel Social History Tobacco Use Types Packs/Day [...] often do you attend chur ch or buddhist services? Never 05/17/2024 Do you belong to any clubs o r organizations such as cheondoism groups, unions, fraternal or athletic groups, or school groups? No 05/17/2024 How often do you attend meet ings of the clubs or organizations you belong to? Never 05/17/2024 Are you , , di vorced, , never , or living with a partner? 05/17/2024 PHQ-2 Answer Date Recorded Patient Health Questionnaire-2 Score 0 04/21/2025 [facility] - Occupational Stress Questionnaire Answer Date [...] place to sleep or slept in a care home (including now)? No 04/26/2024 PHQ-9 Answer [...] drink first t basilio in the morning (EYE-FOLDER STITCHER OPERATOR) to steady your nerves or to get [...] [facility] [address] [place] [address] Julisa Campo DO [address] [place] [address] 09/28/2025 10:00 AM EST Office Visit [facility] [address] 1st [place] [address] Colleen Espino PA [address] [place] [address] 10/11/2025 12:40 PM EST Office Visit [facility] Urology [address], 2[address] [place] [address] Aby Gallegos PA [address] [place] [address] documented as of this encounter [...] documented as of this encounter Care Teams Corner Bead Operator Relationship Specialty Start Date End Date Juarez Polanco MD [address] [place] [address] PCP - General 04/06/21 Juliet Carlin PA [address] [place] [address] Physician Plant Senior Manager Neurology 07/17/22 Keon Ramirez MD [address] [place] [address] Consulting Physician Neurology 07/02/23 Aby Gallegos PA [id number] [place] [address] Physician Plant Senior Manager Urology 10/05/24 documented as of this encounter
--- OUTSIDE RECORDS SUMMARY | 2025-06-23 16:02 | XMS_ITS | Clinical Summary ---
Author Organization [facility] Address [address] [place] [address] Care Team Providers Care Gang Investigator Name Role Phone Juarez Polanco MD Primary Care Provider + [phone] Source Comments This information has been disclosed to you from confidential records protectedfrom disclosure by state law. You shall make no further disclosure of thisinformation without the specific, written, and informed release of theindividual to whom it pertains, or as otherwise permitted by law. A generalauthorization for the release of medical or other information is not sufficientfor the purposes of therelease of HIV test results or diagnoses. [id number] Health Allergies Active Allergy Reactions Criticality Noted Date Comments Topiramate 09/06/2024 Weird feelings Medications gabapentin (NEURONTIN) 300 MG capsule Take 1 capsule (300 mg total) by mouth 3 times a day. Active atorvastatin (LIPITOR) 80 MG tablet Take 1 tablet (80 mg total) by mouth daily. Active acetaminophen (TYLENOL) 500 MG tablet Take 1 tablet (500 mg total) by mouth every 6 hours as needed. Active baclofen (LIORESAL) 20 MG tablet Take 1 tablet (20 mg total) by mouth 3 times a day. Active tamsulosin (FLOMAX) 0.4 mg Cap Take 1 capsule (0.4 mg total) by mouth 2 times a day. Active folic acid (FOLVITE) 1 MG tablet Take 1 tablet (1 mg total) by mouth daily. Active rivaroxaban (XARELTO) 20 mg Tab Take 1 tablet (20 mg total) by mouth daily. Active diazePAM (VALIUM) 5 MG tablet Take 1 tablet (5 mg total) by mouth daily. Active furosemide (LASIX) 20 MG tablet Take 1 tablet (20 mg total) by mouth daily. Active midodrine (PROAMATINE) 5 MG tablet Take 1 tablet (5 mg total) by mouth 2 times a day. Active metOLazone (ZAROXOLYN) 2.5 MG tablet Take 1 tablet (2.5 mg total) by mouth daily. Active baclofen (GABLOFEN) 20,000 mcg/20mL (1,000 mcg/mL) Soln by Intrathecal Pump route Use as directed. Active Active Problems No known active problems Family History Medical History Relation Comments Cancer Father Hypertension Mother Relation Status Comments Father Mother Alive Social History Tobacco Use Types Packs/Day Years Used Date Smoking Tobacco: Never Smokeless Tobacco: Current Snuff Tobacco Cessation:Ready to Q uit: Not Asked; Counseling Given: Not Answered Alcohol Use Standard Drinks/Week Comments Not Currently 0 (1 standard drink = 0.6 oz pur e alcohol) 2011 stopped Sex and Gender Information Value Date Recorded Sex Assigned at Not on file Legal Sex Male 10:23 PM EST Gender Identity Not on file Sexual Orientation Not on file Last Filed Vital Signs Vital Sign Reading Time Taken Comments Blood Pressure 120/82 09/06/2024 11:10 AM EDT Pulse 72 09/06/2024 11:10 AM EDT Temperature - - Respiratory Rate - - Oxygen Saturation 96% 09/06/2024 11:10 AM EDT Inhaled Oxygen Concentration 96% 09/06/2024 1 1:10 AM EDT Weight 109.3 kg (241 lb) 09/06/2024 11:10 AM EDT Height 182.9 cm (6') 09/06/2024 11:10 AM EDT Body Mass Index 32.69 09/06/2024 11:10 AM EDT Plan of Treatment Health Maintenance Due Date Last Done Comments Abnormal Colonoscopy Follow Up 1963 Diabetes Screening 1963 Hepatitis C Screening (MyChart) 1963 Tobacco Cessation Readiness 1963 Depression Screening 1981 HIV Screening 1981 Immunization: DTaP/Tdap/Td ( 1 - Tdap) 01/27/1997 01/26/1997 Cologuard (FIT-DNA) 02/01/2008 Colonoscopy 02/01/2008 Colorectal Cancer Screening (MyChart) 02/01/2008 Stool Testing (gFOBT) 02/01/2008 Immunization: Pneumococcal ( 1 of 1 - PCV) 2013 Immunization: Zoster (1 of 2) 2013 Immunization: COVID-19 ( season) 2024 01/07/2023, 03/07/2021, 02/07/2021 Immunization: Influenza (MyC nelson) (#1) 2025 08/25/2024, 09/01/2023, 12/04/2022, Additional history exists Immunization: RSV (Adult) (1 - 1-dose 75+ series) 2038 Insurance [employer] CHOICE PPO MEDICARE [place] Care Teams Gang Investigator Relationship Specialty Start Date End Date Juarez Polanco MD [address] [place], [place] [id number] PCP - General Internal Medicine 09/06/24
--- OUTSIDE RECORDS SUMMARY | 2025-06-23 16:02 | XMS_ITS | Encounter Summary ---
Author Organization [facility] Address [address] [place] [address] Care Team Providers Care History Tutor Name Role Phone Juarez Polanco MD Primary Care Provider [phone] Juliet Carlin Unavailable eKon Ramirez MD Unavailable Adenike Davies LPN Unavailable Unavailable Aby Gallegos Unavailable Reason for Visit * Reason Comments Med Refill Encounter Details Date Type Department Care Team (Late st Contact Info) Description 06/06/2023 Refill [facility] at [facility] [address] [place] [address] Julisa Campo DO [address] [place] [address]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; Spasticity Social History Tobacco Use Types Packs/Day Years Used Date Smoking Tobacco: Never Smokeless Tobacco: Current Snuff Comments:snuff Alcohol Use Standard Drinks/Week Comments Not Currently 0 (1 standard drink = 0.6 oz pur e alcohol) PHQ-2 Answer Date Recorded Patient Health Questionnaire-2 Score 0 04/14/2023 Sex and Gender Information Value Date Recorded Sex Assigned at Male 11/05/2023 7:21 AM EST Legal Sex Male 7:39 PM EDT Gender Identity Male 11/05/2023 7:21 AM EST Sexual Orientation Not on file documented as of this encounter Miscellaneous Notes * Telephone Encounter - Sandi Dean - 06/16/2023 8:29 AM EDT Rx pended f/u is 07/17 * Telephone Encounter - Pauline Nieves - 06/16/2023 8:24 AM EDT Medication Refill Request Medication Name: Flowmax Dosage: unknown Preferred Pharmacy & Location: [facility] [address] [place] [address] [place] - [address] [phone] Days of medication remaining (if under 3 days please daniel as urgent): 0 Best contact number: [phone] (home) Optimal time of day to reach caller: ANYTIME Additional comments/information from caller: None Note: Please do not reply to this message. Follow-up communication and further actions as a result of this message need to be communicated with the patient directly, if the patient is not active onMyChart. If the patient is active on MyChart, they will receive notification of the communication/outcome via MyChart. * Telephone Encounter - Pauline Nieves - 06/06/2023 10:56 AM EDT Status Update Call #1 1st call regarding the status of the initial request. Best contact number: [phone] (home) Optimal time of day to reach caller: ANYTIME Additional comments/information from caller: None Note: Please do not reply to this message. Follow-up communication and further actions as a result of this message need to be communicated with the patient directly, if the patient is not active onMyChart. If the patient is active on MyChart, they will receive notification of the communication/outcome via MyChart. documented in this encounter Plan of Treatment Upcoming Encounters Date Type Department Care Team (Late st Contact Info) Description 08/15/2025 11:20 AM EDT Office Visit [facility] [address] [place] [address] Julisa Campo DO [address] [place] [address] 09/28/2025 10:00 AM EST Office Visit [facility] [address] [place] [address] Colleen Espino PA [address] [place] [address] 10/11/2025 12:40 PM EST Office Visit [facility] Urology [address] [place] [address] Aby Gallegos PA [address] [place] [address] documented as of this encounter 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 Abnormal involuntary movements documented in this encounter Additional Health Concerns Infection Onset Date Last Indicated Resolved Time COVID-19 Rule-Out 01/22/2025 01/22/2025 01/23/2025 2:46 AM EST Respiratory Rule-Out 01/22/2025 01/22/2025 025 11:14 PM EST Assessment Noted Time A fall risk assessment has been complete d for the patient 05/19/2023 8:52 AM EDT A Body Mass Index follow-up plan has been documented for the patient 05/19/2023 11:24 AM EDT documented as of this encounter Care Teams History Tutor Relationship Specialty Start Date End Date Juarez Polanco MD [address] [place] [address] PCP - General 04/06/21 Juliet Carlin PA [address] [place] [address] Physician Booth Cleaner Neurology 07/17/22 Keon Ramirez MD [address] [place] [address] Consulting Physician Neurology 07/02/23 Adenike Davies LPN VALUE-[place] [place] [address] TCM Nurse 05/17/24 06/16/24 Aby Gallegos PA [address] [place] [address] Physician Booth Cleaner Urology 10/05/24 documented as of this encounter
--- OUTSIDE RECORDS SUMMARY | 2025-06-23 16:02 | XMS_ITS | Encounter Summary ---
Author Organization [facility] Address [address] [place] [address] Care Team Providers Care Textile Artist Name Role Phone Juarez Polanco MD Primary Care Provider [phone] Juliet Carlin Unavailable Keon Ramirez MD Unavailable Adenike Davies LPN Unavailable Unavailable Aby Gallegos Unavailable [phone] Reason for Referral * Consultation (Routine) - Closed Specialty Diagnoses / Procedures Referred By Contact Referred To Contact Physical Medicine and Rehabilitation Diagnoses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 Juarez Polanco MD [address] [place] [address] Phone: tel: fax: Julisa Campo, DO [address] [facility] [address] [place] [address] Phone: tel: fax: Referral ID Status Reason Start Date Expiration Date V isits Requested Visits Authorized [id number] Closed Specialty Services Required 03/02/2024 09/01/2025 1 1 Encounter Details Date Type Department Care Team (Late st Contact Info) Description 03/01/2024 [facility] [address] [place] [address] Juarez Polanco MD [address] [place] [address]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 (Primary Dx) Social History Tobacco Use Types Packs/Day Years Used Date Smoking Tobacco: Never Smokeless Tobacco: Former Snuff Quit: 10/02/2023 Comments:snuff Alcohol Use Standard Drinks/Week Comments Not Currently 0 (1 standard drink = 0.6 oz pur e alcohol) PHQ-2 Answer Date Recorded Patient Health Questionnaire-2 Score 0 01/12/2024 PHQ-2A Answer Date Recorded Patient Health Questionnaire-2 Score 0 10/09/2023 Sex and Gender Information Value Date Recorded Sex Assigned at Male 11/05/2023 7:21 AM EST Legal Sex Male 7:39 PM EDT Gender Identity Male 11/05/2023 7:21 AM EST Sexual Orientation Not on file documented as of this encounter Plan of Treatment Upcoming Encounters Date Type Department Care Team (Late Contact Info) Description 08/15/2025 11:20 AM EDT Office Visit [facility] [address] [place] [address] Julisa Campo DO [address] [place] [address] 09/28/2025 10:00 AM EST Office Visit [facility] [address] [place] [address] Colleen Espino PA [address] [place] [address] 10/11/2025 12:40 PM EST Office Visit [facility] Urology [address] [place] [address] Aby Gallegos PA [address] [place] [address] Scheduled Referrals Name Type Priority Associated Diagnoses Order Schedule Ambulatory referral to Physical Medicine Rehab Outpatient Referral Routine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 Ordered: 03/02/2024 documented as of this encounter Visit Diagnoses Diagnosis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 documented in this encounter Additional Health Concerns Infection Onset Date Last Indicated Resolved Time COVID-19 Rule-Out 01/22/2025 01/22/2025 01/23/2025 2:46 AM EST Respiratory Rule-Out 01/22/2025 01/22/2025 025 11:14 PM EST Assessment Noted Time A fall risk assessment has been complete d for the patient 01/12/2024 10:55 AM EST A Body Mass Index follow-up plan has been documented for the patient 02/19/2024 2:48 AM EDT documented as of this encounter Care Teams Textile Artist Relationship Specialty Start Date End Date Juarez Polanco MD [address] [place] [address] PCP - General 04/06/21 Juliet Carlin PA [address] [place] [address] Physician Observer Electrical Prospecting Neurology 07/17/22 Keon Ramirez MD [address] [place] [address] Consulting Physician Neurology 07/02/23 Adenike Davies LPN VALUE-[place] [address] TCM Nurse 05/17/24 06/16/24 Aby Gallegos PA [address] [place] [address] Physician Observer Electrical Prospecting Urology 10/05/24 documented as of this encounter
--- OUTSIDE RECORDS SUMMARY | 2025-06-23 16:02 | XMS_ITS | Encounter Summary ---
Author Organization [facility] Address [address] [place] [address] Care Team Providers Care Steel Estimator Name Role Phone Juarez Polanco MD Primary Care Provider [phone] Juliet Carlin Unavailable Keon Ramirez MD Unavailable Aby Gallegos Unavailable [phone] Reason for Referral * Other Medical (Routine) - Closed Specialty Diagnoses / Procedures Referred By Contac t Referred To Contact Pain Medicine Diagnoses Dystonia Procedures Injection - Chemodenervation, Orlando Deleon MD [address] [facility] [address] [place] [address] Phone: tel: fax: [facility] Interventional Pain Medicine [address] [place] [address] Phone: tel: fax: Referral ID Status Reason Start Date Expiration Date Visits Re quested Visits Authorized [id number] Closed 05/03/2025 11/02/2026 1 1 Encounter Details Date Type Department Care Team (Late st Contact Info) Description 05/03/2025 Orders Only [facility] Interventional Pain Medicine [address] [place] [address] Jarred Olguin [address] [place], [place] [id number] Dystonia (Primary Dx) Social History Tobacco Use Types [...] 05/17/2024 How often do you attend chur or adventist services? Never 05/17/2024 Do you belong to any clubs o r organizations such as hindu groups, unions, fraternal or athletic groups, or school groups? No 05/17/2024 How often do you attend meet ings of the clubs or organizations you belong to? Never 05/17/2024 Are you , , di vorced, , never , or living with a partner? 05/17/2024 PHQ-2 Answer Date Recorded Patient Health Questionnaire-2 Score 0 04/21/2025 [facility] - Occupational Stress [...] drink first t basilio in the morning (EYE-COMPUTER TYPESETTER) to steady your nerves or to get [...] [facility] [address] [place] [place] [address] Julisa Campo DO [address] [place] [address] 09/28/2025 10:00 AM EST Office Visit [facility] [address] [place] [address] Colleen Espino PA [address] [place] [address] 10/11/2025 12:40 PM EST Office Visit [facility] Urology [address] [place] [address] Aby Gallegos PA [address] [place] [address] Scheduled Orders Name Type Priority Associated Diagnoses Orde r Schedule Injection - Chemodenervation, MSK Procedures Routine Dystonia 1 Occurrences starting 05/03/2025 until 11/04/2026 documented as of this encounter Goals Goal Patient Goal Type Associated Problems Recent Progress Patient-Stated? Author Maurice garcia Goal Care Plan Autogenerated Problem No Annalee Arenas documented as of this encounter Visit Diagnoses Diagnosis Dystonia- Primary Abnormal involuntary movements documented in this encounter Additional Health Concerns Active Problems Noted Date Diagnosed Date Autogenerated Problem 02/15/2025 Assessment Noted Time PHQ-9 Depression Total Score: 0 11/01/20 11:00 AM EST A fall risk assessment has been complete d for the patient 04/21/2025 10:39 AM EDT A Body Mass Index follow-up plan has been documented for the patient 04/21/2025 11:30 AM EDT documented as of this encounter Care Teams Steel Estimator Relationship Specialty Start Date End Date Juarez Polanco MD [address] [place], [place] [id number] PCP - General 04/06/21 Juliet Carlin PA [address] [place] [address] Physician Strategic Debriefing Officer Neurology 07/17/22 Keon Ramirez MD [address] [place] [address] Consulting Physician Neurology 07/02/23 Aby Gallegos PA [address] [place] [address] Physician Strategic Debriefing Officer Urology 10/05/24 documented as of this encounter
--- NOTE | 2025-06-23 16:07 | XR_ITS ---
PROCEDURE INFORMATION: Exam: XR Left Hip Exam date and time: 06/23/2025 4:10 PM Age: 60 years old Clinical indication: Left hip pain TECHNIQUE: Imaging protocol: Radiologic exam of the left hip. Views: 2 or 3 views hip with pelvis when performed. COMPARISON: CT ABDOMEN PELVIS W CON 04/25/2024 10:50 PM FINDINGS: Bones/joints: No acute fractures are seen in the pelvis and bilateral hips. No degenerative changes are identified in the hip joints. Soft tissues: The soft tissues appear normal. Other findings: Large arterial stents are seen in the aorticoiliac vessels bilaterally. IMPRESSION: 1. No acute fractures are seen in the pelvis and bilateral hips. 2. No degenerative changes are identified in the hip joints. 3. The soft tissues appear normal. 4. Large arterial stents are seen in the aorticoiliac vessels bilaterally.
--- NOTE | 2025-06-23 16:08 | XR_ITS ---
PROCEDURE INFORMATION: Exam: XR Lumbosacral Spine Exam date and time: 06/23/2025 4:10 PM Age: 60 years old Clinical indication: Low back pain; Prior surgery; Surgery date: 6+ months; Surgery type: Catheter placement; Lower back pain; Additional info: Left side low back pain TECHNIQUE: Imaging protocol: Radiologic exam of the lumbosacral spine. Views: 2 or 3 views. COMPARISON: MR LUMBAR SPINE WO IV CONTRAST 02/10/2023 10:31 AM FINDINGS: Bones/joints: No acute fractures are seen in the lumbar spine. Chronic degenerative discovertebral disease with endplate osteophytosis and diminished disc height at multiple levels, T12 through L5. Soft tissues: Unremarkable. Vasculature: A metallic stent is present in the distal abdominal aorta and in both common and external iliac arteries bilaterally. IMPRESSION: 1. No acute fractures are seen in the lumbar spine. 2. Chronic degenerative discovertebral disease with endplate osteophytosis and diminished disc height at multiple levels, T12 through L5. 3. A metallic stent is present in the distal abdominal aorta and in both common and external iliac arteries bilaterally.
== END 2025-06-23 23:59 | disposition home or self-care (01) ==
LOC: RAD 15:58
PROVIDERS: PCP Internal Medicine Adolescent Medicine; Visit Provider Internal Medicine Adolescent Medicine
DX: M47.816 Spondylosis without myelopathy or radiculopathy, lumbar region; M47.815 Spondylosis without myelopathy or radiculopathy, thoracolumbar region; Z95.828 Presence of other vascular implants and grafts
CPT/HCPCS: 72110; 73502

== ENCOUNTER 2025-07-15 08:15 | Outpatient (CLI) | payer MEDICARE, MEDICAID, SELFPAY ==
--- OUTSIDE RECORDS SUMMARY | 2025-05-19 10:00 | XMS_ITS | Encounter Summary ---
Author Organization [facility] Address [address] [place] [address] Care Team Providers Care Rn Occupational Name Role Phone Juarez Polanco MD Primary Care Provider [phone] Juliet Carlin Unavailable Keon Ramirez MD Unavailable Aby Gallegos Unavailable Reason for Referral * Clinic-Administered Medication (Routine) - Closed Specialty Diagnoses / Procedures [facility] Referred To Contact Diagnoses Dystonia Procedures PA INJECTION,ONABOTULINUMTOXINA Orlando Agrawal MD [address] [address] Phone: tel: fax: Referral ID Status Reason Start Date Expiration Date Visits Re quested Visits Authorized [id number] Closed 05/19/2025 11/18/2026 1 1 Reason for Visit * Reason Comments Injections TPI with botox * Other Medical (Routine) - Closed Specialty Diagnoses / Procedures Referred By Contac t Referred To Contact Pain Medicine Diagnoses Dystonia Procedures Injection - Chemodenervation, MSK Orlando Agrawal MD [address] [facility] [address] [address] Phone: tel: fax: [facility] Interventional Pain Medicine [address] [place] [address] Phone: tel: fax: Referral ID Status Reason Start Date Expiration Date Visits Re quested Visits Authorized [id number] Closed 05/03/2025 11/02/2026 1 1 Encounter Details Date Type Department Care Team (Late st Contact Info) Description 05/19/2025 10:00 AM EDT Procedure Visit [facility] Interventional Pain Medicine [address] [place] [address] Orlando Agrawal MD [address] [place] [address] [address] [place] [address] Dystonia Social History Tobacco Use [...] often do you attend chur ch or quaker services? Never 05/17/2024 Do you belong to any clubs o r organizations such as advent groups, unions, fraternal or athletic groups, or school groups? No 05/17/2024 How often do you attend meet ings of the clubs or organizations you belong to? Never 05/17/2024 Are you , , di vorced, , never , or living with a partner? 05/17/2024 PHQ-2 Answer Date Recorded Patient Health Questionnaire-2 Score 0 04/21/2025 [facility] - Occupational Stress Questionnaire Answer Date Recorded [...] place to sleep or slept in a detention (including now)? 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 0 01/21/2025 CAGE Questionnaire Score 0 025 Utilities Answer Date Recorded In the past 12 months has th [employer] electric, gas, oil, or water company threatened [...] Unavailable waste: 50 units Botox Lot Number: [id number] Botox Expiration Date: Sterile bandage was applied [...] Care Team (Late st Contact Info) Description 08/12/2025 8:40 AM EDT Office Visit [facility] Interventional Pain Medicine [address] [facility] [place] [address] Orlando Agrawal MD [address] [facility] [address] [place] [address] 08/15/2025 11:20 AM EDT Office Visit [facility] at [facility] [address] [place] [address] Julisa Campo DO [address] [place] [address] 09/28/2025 10:00 AM EST Office Visit [facility] [address] [place] [address] Colleen Espino PA [address] [place] [address] 10/11/2025 12:40 PM EST Office Visit [facility] [address], [address]nd [place] [address] Aby Gallegos PA [address] [place] [address] documented as of this encounter Goals Goal [...] Time PHQ-9 Depression Total Score: 0 11/01/20 24 11:00 AM EST A fall risk assessment has been complete d for the patient 05/19/2025 10:08 AM EDT A Body Mass Index follow-up plan has been documented for the patient 05/19/2025 12:07 PM EDT documented as of this encounter Care Teams Rn Occupational Relationship Specialty Start Date End Date Juarez Polanco MD [address] [place], [place] [id number] PCP - General 04/06/21 Juliet Carlin PA [address] [place] [address] Physician Advertising Campaign Manager Neurology 07/17/22 Keon Ramirez MD [address] [place] [address] Consulting Physician Neurology 07/02/23 Aby Gallegos PA [address] [place] [address] Physician Advertising Campaign Manager Urology 10/05/24 documented as of this encounter
--- OUTSIDE RECORDS SUMMARY | 2025-05-20 12:39 | XMS_ITS | Encounter Summary ---
Author Organization [facility] Address [address] [place] [address] Care Team Providers Care Service Desk Agent Name Role Phone Juarez Polanco MD Primary Care Provider [phone] Juliet Carlin Unavailable Keon Ramirez MD Unavailable Aby Gallegos Unavailable [phone] Reason for Referral * Imaging (Routine) - Closed Specialty Diagnoses / Procedures Referred By Campbell fuller Referred To Contact Radiology Diagnoses Cerebrovascular accident (CVA) due to other mechanism (CMS/HCC) Chronic intractable headache, unspecified headache type Transient weakness of left leg Procedures MR Head w and wo IV Contrast Colleen Espino PA [address] [facility] [address] [place] [address] Phone: tel: fax: Referral ID Status Reason Start Date Expiration Date Visits Re quested Visits Authorized [id number] Closed 03/24/2025 09/23/2026 1 1 Reason for Visit * Imaging (Routine) - Closed Specialty Diagnoses / Procedures Referred By Contac t Referred To Contact Radiology Diagnoses Cerebrovascular accident (CVA) due to other mechanism (CMS/HCC) Chronic intractable headache, unspecified headache type Transient weakness of left leg Procedures MR Head w and wo IV Contrast Colleen Espino, PA [address] [place] [address] Phone: tel: fax: Referral ID Status Reason Start Date Expiration Date Visits Re quested Visits Authorized [id number] Closed 03/24/2025 09/23/2026 1 1 Encounter Details Date Type Department Care Team (Latest Contact Info) Description 05/20/2025 12:39 PM EDT - 05/20/2025 11:59 PM EDT Hospital Encounter [facility] [address] [place] [phone] Cerebrovascular accident (CVA) due to other mechanism [...] week 05/17/2024 How often do you attend [employer] or samaritan services? Never 05/17/2024 Do you belong to [...] Recorded Patient Health Questionnaire-2 Score 0 04/21/2025 [facility] alexander campusal [facility] - Occupational Stress Questionnaire Answer Date [...] place to sleep or slept in a senior living (including now)? No 04/26/2024 PHQ-9 Answer Date [...] drink first t basilio in the morning (EYE-VAMP MAKER) to steady your nerves or to get rid of a hangover? 0 01/21/2025 CAGE Questionnaire Score 0 025 Utilities Answer Date Recorded In the past 12 months has th e [employer], gas, oil, or water company threatened to [...] Description 08/12/2025 8:40 AM EDT Office Visit [facility] Interventional Pain Medicine [address] [place] [address] Orlando Agrawal MD [address] [facility] [address] [place] [address] 08/15/2025 11:20 AM EDT Office Visit [facility] [address] [address] Julisa Campo DO [address] [place] [address] 09/28/2025 10:00 AM EST Office Visit [facility] [address] [place] [address] Colleen Espino, PA [address] [place] [address] 10/11/2025 12:40 PM EST Office Visit [facility] [address] [place] [address] Aby Gallegos, CHANA [address] [place] [address] documented as of this encounter [...] error, please notify the sender immediately at [phone] and permanently delete the original report and destroy any copies or printouts. Narrative 05/22/2025 7:48 AM EDT [facility] - Phone Outpatient NAME: Jimmy Rothman DATE OF EXAM: 05/20/2025 Patient No: [id number] Physician: Kenzie^Colleen^Lien Date of : 1965 Past [...] 05/22/2025 [facility] - Phone Outpatient NAME: Jimmy Rothman DATE OF EXAM: 05/20/2025 Patient No: [id number] Physician: Thierry^Lien Date of : 1965 Past Medical/Surgical History [...] in error, pleasenotify the sender immediately at [phone] and permanently delete theoriginal report and destroy any copies or printouts. Colleen ZAYAS IMTiesha MRI PROCEDURES Final Resul t documented in [...] documented as of this encounter Care Teams Service Desk Agent Relationship Specialty Start Date End Date Juarez Polanco MD [address] [place] [address] PCP - General 04/06/21 Juliet Carlin PA [address] [place] [address] Physician Automobile Radio Repairer Neurology 07/17/22 Keon Ramirez MD [address] [place] [address] Consulting Physician Neurology 07/02/23 Aby Gallegos PA [address] [place] [address] Physician Automobile Radio Repairer Urology 10/05/24 documented as of this encounter
--- OUTSIDE RECORDS SUMMARY | 2025-06-16 10:50 | XMS_ITS | Encounter Summary ---
Author Organization [facility] Address [address] [place] [address] Care Team Providers Care Materials Associate Name Role Phone Juarez Polanco MD Primary Care Provider [phone] Juliet Carlin Unavailable Keon Ramirez MD Unavailable Aby Gallegos Unavailable [phone] Reason for Referral * Other Medical (Routine) - Pending Review Specialty Diagnoses / Procedures Referred By Contac t Referred To Contact Diagnoses Spasticity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 Procedures Intrathecal Pump - Refill Julisa Campo DO [address] [address] Phone: tel: fax: Referral ID Status Reason Start Date Expiration Date V isits Requested Visits Authorized [id number] Pending Review 06/16/2025 12/16/2026 1 1 Reason for Visit * Reason Comments Procedure Baclofen Pump Refill * Other Medical (Routine) - Closed Specialty Diagnoses / Procedures Referred By Contact Referred To Contact Physical Medicine and Rehabilitation Diagnoses Spasticity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 Procedures Intrathecal Pump - Refill Julisa Campo DO [address] [place] [phone] Phone: tel: fax: Referral ID Status Reason Start Date Expiration Date Visits Re quested Visits Authorized [id number] Closed 04/21/2025 10/21/2026 1 1 Encounter Details Date Type Department Care Team (Late st Contact Info) Description 06/16/2025 10:50 AM EDT Office Visit [facility] at [facility] [address] [place] [id number] Julisa Campo, DO [address] [place] [address] Spasticity;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 Social [...] week 05/17/2024 How often do you attend [facility] or yazidism services? Never 05/17/2024 Do you belong to any clubs o r organizations such as spiritism groups, unions, fraternal or athletic groups, or school groups? No 05/17/2024 How often do you attend meet ings of the clubs or organizations you belong to? Never 05/17/2024 Are you , , di vorced, , never , or living with a partner? 05/17/2024 PHQ-2 Answer Date Recorded Patient Health Questionnaire-2 Score 0 06/16/2025 [facility] - Occupational Stress Questionnaire [...] place to sleep or slept in a intermediate (including now)? No 04/26/2024 PHQ-9 Answer Date [...] drink first t basilio in the morning (EYE-SENIOR STAFF SPECIALIZED EMPLOYMENT) to steady your nerves or to get rid of a hangover? 0 01/21/2025 CAGE Questionnaire Score 0 025 Utilities Answer Date Recorded In the past 12 months has th [employer], gas, oil, or water company threatened to [...] Pump - Refill; Future - baclofen (Gablofen) 48815 MCG/20ML intrathecal injection 80,000 mcg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 - Intrathecal Pump - Refill - Intrathecal Pump - Refill; Future - baclofen (Gablofen) 48444 MCG/20ML intrathecal injection 80,000 mcg Patient tolerated [...] Bay Arthur DO Physical Medicine and Rehabilitation [facility] PGY-3 Cosigned by Julisa Campo DO at [...] Description 08/12/2025 8:40 AM EDT Office Visit [facility] Interventional Pain Medicine [address] [place] [address] Orlando Agrawal MD [address] [place] [address] 08/15/2025 11:20 AM EDT Office Visit [facility] [address] [place] [phone] Julisa Campo DO [address] [place] [phone] 09/28/2025 10:00 AM EST Office Visit [facility] [address], [address] [place] [address] Colleen Espino PA [address] [place] [address] 10/11/2025 12:40 PM EST Office Visit [facility] Urology [address], [address] [place] [address] Aby Gallegos PA [address] [place] [address] Scheduled Orders Name Type Priority Associated Diagnoses [...] Action Date Dose Rate Site baclofen (Gablofen) 59664 MCG/20ML intrathecal injection 80,000 mcg 40 mL, [...] documented as of this encounter Care Teams Materials Associate Relationship Specialty Start Date End Date Juarez Polanco MD [address] [place], [place] [id number] PCP - General 04/06/21 Juliet Carlin PA [address] [place] [address] Physician Blood Donor Recruiter Supervisor Neurology 07/17/22 Keon Ramirez MD [address] [place] [address] Consulting Physician Neurology 07/02/23 Aby Gallegos PA [address] [place] [address] Physician Blood Donor Recruiter Supervisor Urology 10/05/24 documented as of this encounter
[2025-07-15] VITALS (7 sets, daily range): BP systolic 95–126; BP diastolic 58–81; PULSE 64–88; RESP 16–18; TEMP 36.2; O2SAT 91–96; BMI 32.0
--- NOTE | 2025-07-15 08:19 | IR_ITS ---
FINAL REPORT CLINICAL HISTORY: SUPERVISION AND INTERPRETATION-HAS BACLOFEN PUMP. 55.27 mGy 1.28 mins FINDINGS: LUMBAR MYELOGRAM. HISTORY: Acute low back pain, acute left leg pain. ATTENDING PHYSICIAN: Dr. Nguyen PHYSICIAN SUMMONS SERVER: Desirae Kim PA-C PROCEDURE: Informed consent was obtained. A time-out was performed, and the patient was prepped and draped in usual sterile fashion over the lumbar spine. Utilizing local anesthesia and direct fluoroscopic guidance, access to the thecal space was obtained at the L5-S1 level. 12 mL of Isovue M 200 was gently injected. Spot and overhead films were obtained. 5 total images were performed. FINDINGS: There are 5 non rib-bearing lumbar vertebral bodies. Contrast is identified in the thecal space. There is a catheter entering the thecal sac at the L3-L4 level. There is significant central canal stenosis at the L4-L5 level. An aortic stent graft is identified. FLUOROSCOPY TIME: 1 minute, 28 seconds Radiation dose in Reference air Kerma: 55.27 mGy IMPRESSION: Degenerative changes as above. Please see CT scan report. Reviewed, Interpreted and Dictated by Michael Nguyen MD Transcribed by Desirae Kim PA-C Authenticated and [facility]
--- OUTSIDE RECORDS SUMMARY | 2025-07-15 08:23 | XMS_ITS | Encounter Summary ---
Author Organization [facility] Address [address] [place] [address] Care Team Providers Care Digital Production Operator Name Role Phone Juarez Polanco MD Primary Care Provider [phone] Juliet Carlin Unavailable Keon Ramirez MD Unavailable Aby Gallegos Unavailable [phone] Encounter Details Date Type Department Care Team [...] often do you attend chur ch or roman catholic services? Never 05/17/2024 Do you belong to any clubs o r organizations such as orthodoxy groups, unions, fraternal or athletic groups, or school groups? No 05/17/2024 How often do you attend meet ings of the clubs or organizations you belong to? Never 05/17/2024 Are you , , di vorced, , never , or living with a partner? 05/17/2024 PHQ-2 Answer Date Recorded Patient Health Questionnaire-2 Score 0 06/16/2025 [facility] - Occupational Stress Questionnaire [...] drink first t basilio in the morning (EYE-DIRECTOR OF EXHIBIT DEVELOPMENT) to steady your nerves or to get [...] Description 08/12/2025 8:40 AM EDT Office Visit [facility] Interventional Pain Medicine [address] [place] [address] Orlando Agrawal MD [address] [facility] [address] [place] [address] 08/15/2025 11:20 AM EDT Office Visit [facility] [address] [place] [address] Julisa Campo DO [address] [place] [address] 09/28/2025 10:00 AM EST Office Visit [facility] [address] [place] [address] Colleen Espino PA [address] [place] [address] 10/11/2025 12:40 PM EST Office Visit [facility] [address] [place] [address] Aby Gallegos PA [address] [place] [address] documented as of this encounter Goals Goal Patient Goal Type Associated Problems Recent Progress Patient-Stated? Author Autogenera radha Goal Care Plan Autogenerated Problem No DagobertoAnnalee rodriguez documented as of this encounter Visit Diagnoses [...] documented as of this encounter Care Teams Digital Production Operator Relationship Specialty Start Date End Date Juarez Polanco MD [address] [place], [place] [id number] PCP - General 04/06/21 Juliet Carlin PA [address] [place] [address] Physician Aircraft Mechanic Electrical And Radio Neurology 07/17/22 Keon Ramirez MD [address] [place] [address] Consulting Physician Neurology 07/02/23 Aby Gallegos PA [address] [place] [address] Physician Aircraft Mechanic Electrical And Radio Urology 10/05/24 documented as of this encounter
--- OUTSIDE RECORDS SUMMARY | 2025-07-15 08:24 | XMS_ITS | Encounter Summary ---
Author Organization [facility] Address [address] [place] [address] Care Team Providers Care Boiling House Hand Name Role Phone Juarez Polanco MD Primary Care Provider [phone] Juliet Carlin Unavailable Keon Ramirez MD Unavailable Aby Gallegos Unavailable [phone] Reason for Visit * Reason Comments Med Refill Encounter Details Date Type Department Care Team (Late st Contact Info) Description 06/26/2025 [facility]ill [facility] [address], 2nd [place] [address] Aby Gallegos PA [address] [place] [address]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 Tobacco Use [...] How often do you attend chur or pentecostal services? Never 05/17/2024 Do you belong to [...] Recorded Patient Health Questionnaire-2 Score 0 06/16/2025 [facility] - Occupational Stress Questionnaire Answer [...] drink first t basilio in the morning (EYE-RETIREMENT VILLAGE MANAGER) to steady your nerves or to get [...] Description 08/12/2025 8:40 AM EDT Office Visit [facility] Interventional Pain Medicine [address] [facility] [place] [address] Orlando Agrawal MD [address] [facility] [address] [place] [address] 08/15/2025 11:20 AM EDT Office Visit [facility] at [facility] [address] [place] [address] Julisa Campo DO [address] [place] [address] 09/28/2025 10:00 AM EST Office [facility] [address] 1st [place] [address] Colleen Espino PA [address] [place] [address] 10/11/2025 12:40 PM EST Office Visit [facility] Urology [address], 2nd [place] [address] Aby Gallegos PA [address] [place] [address] documented as of this encounter [...] documented as of this encounter Care Teams Boiling House Hand Relationship Specialty Start Date End Date Juarez Polanco MD [address] [place] [id number] PCP - General 04/06/21 Juliet Carlin PA [address] [place] [address] Physician Collection Teller Neurology 07/17/22 Keon Ramirez MD [address] [place] [address] Consulting Physician Neurology 07/02/23 Aby Gallegos PA [address] [place] [address] Physician Collection Teller Urology 10/05/24 documented as of this encounter
--- OUTSIDE RECORDS SUMMARY | 2025-07-15 08:24 | XMS_ITS | Encounter Summary ---
Author Organization [facility] Address [address] [place] [address] Care Team Providers Care Principal Archaeologist Name Role Phone Juarez Polanco MD Primary Care Provider [phone] Juliet Carlin Unavailable Keon Ramirez MD Unavailable Aby Gallegos Unavailable Encounter Details Date Type Department Care Team (Late st Contact Info) Description 05/24/2025 Results [facility]Up [place] [facility] [address], 1st [place] [address] Colleen Espino, PA [address] [place] [address] Social History Tobacco Use Types [...] often do you attend chur ch or restoration services? Never 05/17/2024 Do you belong to any clubs o r organizations such as buddhism groups, unions, fraternal or athletic groups, or school groups? No 05/17/2024 How often do you attend meet ings of the clubs or organizations you belong to? Never 05/17/2024 Are you , , di vorced, , never , or living with a partner? 05/17/2024 PHQ-2 Answer Date Recorded Patient Health Questionnaire-2 Score 0 04/21/2025 [facility] - Occupational Stress Questionnaire Answer [...] place to sleep or slept in a chcf (including now)? No 04/26/2024 PHQ-9 Answer Date [...] drink first t basilio in the morning (EYE-TRACK LEADER) to steady your nerves or to get [...] Description 08/12/2025 8:40 AM EDT Office Visit [facility] Interventional Pain Medicine [address] [facility] [place] [place] [address] Orlando Agrawal MD [address] [facility] [address] [place] [address] 08/15/2025 11:20 AM EDT Office Visit [facility] at [facility] [address] [place] [place] [address] Julisa Campo DO [address] [place] [address] 09/28/2025 10:00 AM EST Office Visit [facility] [address], 1[address] [place] [address] Colleen Espino, PA [address] [place] [address] 10/11/2025 12:40 PM EST Office Visit [facility] Urology [address], 2nd [place] [address] Aby Gallegos, PA [address] [place] [address] documented as of this encounter [...] documented as of this encounter Care Teams Principal Archaeologist Relationship Specialty Start Date End Date Juarez Polanco MD [address] [place] [id number] PCP - General 04/06/21 Juliet Carlin PA [address] [place] [address] Physician Fire Regulator Neurology 07/17/22 Keon Ramirez MD [address] [place] [address] Consulting Physician Neurology 07/02/23 Aby Gallegos PA [address] [place] [address] Physician Fire Regulator Urology 10/05/24 documented as of this encounter
--- OUTSIDE RECORDS SUMMARY | 2025-07-15 08:24 | XMS_ITS | Clinical Summary ---
Author Organization [facility] Address [address] [place] [address] Care Team Providers Care Test Director Name Role Phone Juarez Polanco MD Primary Care Provider [phone] Juliet Carlin Unavailable Keon Ramirez MD Unavailable Aby Gallegos Unavailable [phone] Allergies Active Allergy Reactions Criticality Noted Date [...] 1 tablet by mouth in the morning. 07/12/20 23 Active rivaroxaban (Xarelto) 20 MG tablet Take 1 tablet by mouth in the morning. Take with food. Active acetaminophen (Tylenol Extra Strength) 500 MG tablet Take 2 tablets (1,000 mg) by mouth every 8 (eight) hours. 100 tablet 05/05/20 24 Active calcium carbonate (Tums) 500 MG chewable tablet Chew 1 tablet (500 mg) 4 (four) times a day if needed for indigestion or heartburn. 05/05/20 24 Active atorvastatin (Lipitor) 80 MG tablet Take 1 tablet (80 mg) by mouth every night. 30 tablet 3 05/12/20 Active metOLazone (Zaroxolyn) 2.5 MG tablet Take 1 tablet by mouth in the morning. 05/17/20 Active furosemide (Lasix) 20 MG tablet Take 1 tablet by mouth in the morning. 05/17/20 Active diazePAM (Valium) 5 MG tablet Take 1 tablet by mouth nightly. Active midodrine (Proamatine) 5 MG tablet 05/31/20 Active fluticasone (Flonase) 50 MCG/ACT nasal spray Administer 2 sprays into each nostril. 07/19/20 Active docusate sodium (Colace) 100 MG capsule Take 1 capsule by mouth in the morning and 1 capsule before bedtime. Active baclofen (Lioresal) 20 MG tabletIndicati ons:Stiff person syndrome Take 1 tablet by mouth 3 times a day. 90 tablet 2 04/21/20 25 Active gabapentin (Neurontin) 300 MG capsule Take 1 capsule by mouth 3 times a day. 90 capsule 3 04/21/20 25 Active tamsulosin (Flomax) 0.4 MG 24 hr capsuleIndicat ions:Stiff person syndrome TAKE 2 CAPSULES BY MOUTH AT BEDTIME 180 capsule 06/30/20 25 Active tamsulosin (Flomax) 0.4 MG 24 hr capsuleIndicat ions:Stiff person syndrome 2 tab at bedtime 180 capsule 3 03/16/20 24 025 Discontinued Hospital, Clinic, or Other Facility Administered Medication Ordered Dose Route Frequency Start Date End Date Status sodium chloride (PF) 0.9 % injection 20 mLIndications:Dystonia 20 mL IV As needed 05/19/2025 Ac tive baclofen (Gablofen) 73897 MCG/20ML intrathecal injection 80,000 mcgIndications:Spasticity,S tiff person syndrome 94490 mcg [place] Once 06/16/2025 06/16/2025 Ende d [...] Encounters Date Type Department Care Team Description 07/11/2025 Telephone [facility] Interventional Pain Medicine [address] [place] [address] Orlando Agrawal MD HCN - Patient Message 07/07/2025 Telephone [facility] at [facility] [address] [place] [address] Julisa Campo DO HCN - Patient Message 07/04/2025 Telephone [facility] [address] [place] [address] Julisa Campo DO HCN - Patient Message 06/28/2025 Telephone [facility] Interventional Pain Medicine [address] [place] [address] Orlando Agrawal MD HCN - Patient Message 06/26/2025 Refill [facility] Urology [address], 2[address] [place] [address] Aby Gallegos PA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 10:50 AM EDT Office Visit [facility] at [facility] [address] [place] [address] Julisa Campo DO Spasticity;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 Travel 05/24/2025 Results Follow-Up [facility] [address] 1st [place] [address] Colleen Espino PA 05/24/2025 Telephone [facility] [address], 1[address] [place] [address] Colleen Espino PA 05/20/2025 12:39 PM EDT - 05/20/2025 11:59 PM EDT Hospital Encounter [facility] [address] [place] [address] Cerebrovascular accident (CVA) due to other mechanism (CMS/HCC); Chronic intractable headache, unspecified headache type; Transient weakness of left leg Discharge Disposition: Home or Self Care 05/20/2025 Travel 05/19/2025 10:00 AM EDT Procedure Visit [facility] Interventional Pain Medicine [address] [place] [address] Orlando Agrawal MD Dystonia 05/19/2025 Travel 05/03/2025 Orders Only [facility] Interventional Pain Medicine [address] [place] [address] Jarred Olguin Dystonia (Primary Dx) 04/21/2025 10:40 AM EDT Office Visit [facility] [address] [place] [address] Julisa Campo, Stiff person spectrum disorder; Spasticity;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 04/21/2025 Travel from Last 3 Months Immunizations Immunization [...] How often do you attend chur or latter day services? Never 05/17/2024 Do you belong to [...] Recorded Patient Health Questionnaire-2 Score 0 06/16/2025 [facility] - Occupational Stress [...] No 04/26/2024 Housing Stability Vital Sign Answer Kehsawn e Recorded In the last 12 months, [...] place to sleep or slept in a mcc (including now)? No 04/26/2024 PHQ-9 Answer Date [...] drink first t basilio in the morning (EYE-ASBESTOS CLOTH INSPECTOR) to steady your nerves or to get [...] Description 08/12/2025 8:40 AM EDT Office Visit [facility] Interventional Pain Medicine [address] [facility] [place] [address] Orlando Agrawal MD [address] [facility] [address] [place] [address] 08/15/2025 11:20 AM EDT Office Visit [facility] [address] [place] [address] Julisa Campo DO [address] [place] [address] 09/28/2025 10:00 AM EST Office Visit [facility] [address], 1[address] [place] [address] Colleen Espino PA [address] [place] [address] 10/11/2025 12:40 PM EST Office [facility] [address] 2[address] [place] [address] Aby Gallegos PA [address] [place] [address] Health Maintenance Due Date Last Done Comments [facility] Annual Wellness (AWV) 1965 [facility]-Infant/Child/Adol SDOH Screenings 1965 [facility]- SDOH Screenings 1981 [facility]-Adult SDOH Screenings 1981 CT Colonography 02/01/2008 Colonoscopy 02/01/2008 FIT 02/01/2008 FOBT 02/01/2008 Sigmoidoscopy 02/01/2008 [facility]-Zoster Vaccines (1 of 2) 2013 [facility]-RSV Vaccine: 60+ Years or (1 - Risk 60-74 years 1-dose series) 2023 PAT-ONZET-93 Vaccine ( - season) 2024 01/07/2023, 03/07/2021, 02/07/2021 [facility]-Influenza Vaccine [...] [employer] Implanted Type Area Otolaryngology Nurse Device Identifier Shelf Expiration Date Model / Serial / Lot Cement Palacos Mv - [id number] Implanted:Qty : 3 on 03/03/2024 by Juarez Horta MD at [facility] Cement Right: Knee Herae[employer] Inc-[id number] 04/23/2028 [id number] / / [id number] Chg Tibial Journeyia Base Handkerchief Maker R - [id number] Implanted:Qty : 1 on 03/03/2024 by Juarez Horta MD at [facility] Implant Right: Knee Gallegos [employer] Nephew Salomon Inc-[id number] 07/14/2033 [id number] / / [id number] Chg Patella Gii Oval Resurfaci - [id number] Implanted:Qty : 1 on 03/03/2024 by Juarez Horta MD at [facility] Implant Right: Knee Gallegos [employer] Nephew [employer] Inc-[id number] 10/20/2033 [id number] / / [id number] Jrny Ii Bcs Xlpe Art Isrt Sz 7 - [id number] Implanted:Qty : 1 on 03/03/2024 by Juarez Horta MD at [facility] Implant Right: Knee Gallegos [employer] Nephew [employer] Inc-[id number] 01/20/2032 [id number] / / [id number] Jrny Ii Bcs Femoral Oxin Rt Sz - [id number] Implanted:Qty : 1 on 03/03/2024 by Juarez Horta MD at [facility] Implant Right: Knee Gallegos [employer] Nephew [employer] Inc-[id number] 11/23/2033 [id number] / / [id number] Medtronic Syncromed 2-09/19/2017 Implanted: (Quantity not on file) Pain Pump Abdomen 8637-40 / [id number] / Abre Stent Common Iliac Vein- Implanted:Qty : 5 on 01/21/2025 by Shazia Javed MD Stent Vena Cava Medtronic Cement Palacos Mv - [id number] Implanted:Qty : 3 on 11/05/2023 by Juarez Horta MD at [facility] Left: Knee Herae[employer] Inc-[id number] 02/22/2028 [id number] / / [id number] Jrny Ii Bcs Femoral Oxin Lt Sz - [id number] Implanted:Qty : 1 on 11/05/2023 by Juarez Horta MD at [facility] Left: Knee Gallegos [employer] Nephew [employer] Inc-[id number] 04/12/2033 [id number] / / [id number] Chg Tibial Journeyia Base Handkerchief Maker L - [id number] Implanted:Qty : 1 on 11/05/2023 by Juarez Horta MD at [facility] Left: Knee Gallegos [employer] Nephew [employer] Inc-[id number] 02/17/2033 [id number] / / [id number] Chg Patella Gii Oval Resurfaci - [id number] Implanted:Qty : 1 on 11/05/2023 by Juarez Horta MD at [facility] Left: Knee Gallegos [employer] Nephew [employer] Inc-[id number] 05/27/2033 [id number] / / [id number] Jrny Ii Bcs Cnstrd Art Isrt 7- - [id number] Implanted:Qty : 1 on 11/05/2023 by Juarez Horta MD at [facility] Left: Knee Gallegos [employer] Nephew [employer] Inc-[id number] 06/17/2032 [id number] / / [id number] Explanted Type Area Otolaryngology Nurse Device Identifier Shelf Expiration Date Model / Serial / Lot Filter Jug Yeimy Vena Cava - [id number] Implanted:Qty: 1 on 10/22/2023 by Daria Gallegos RN at [facility] Peripherial Vascular-[id number] 09/23/2026 [id number] / / [id number] Procedures Procedure Name Priority Date/Time Associated Diagnosis Comments MR HEAD W AND WO IV CONTRAST Routine 05/20/2025 2:07 PM EDT Cerebrovascular accident (CVA) due to other mechanism (CMS/HCC) Chronic intractable headache, unspecified headache type Transient weakness of left leg HEPATITIS C ANTIBODY - ED W/REFLEX TO [...] error, please notify the sender immediately at [phone] and permanently delete the original report and destroy any copies or printouts. Narrative 05/22/2025 7:48 AM EDT [facility] - Phone Outpatient NAME: Rothman Jimmybrett Mills DATE OF EXAM: 05/20/2025 Patient No: [id number] Physician: Kenzie^Colleen^Lien Date of : 1965 Past [...] on rivaroxaban who was hospitalized with the [facility] from 05/11-05/12/2024 for facial droop [...] Rothman DATE OF EXAM: 05/20/2025 Patient No: [id number] Physician: Thierry^Lien Date of : 1965 Past [...] in error, pleasenotify the sender immediately at [phone] and permanently delete theoriginal report and destroy any copies or printouts. us Colleen ZAYAS IMG MRI PROCEDURES Final Resul t * ED HIV 1/2 Antibody/Antigen Screen w/Reflex to HIV 1/2 Differentiation (04/26/2024 2:40 AM EDT) Pathologist [facility] HIV 1 & 2 Antibody/Antigen Screen Non Reactive Non Reactive 04/26/2024 3:32 AM EDT [facility] Comment:Screening for HIV 1 & 2 antibodies, and P24 antigen is NONREACTIVE. No confirmatory testing is required. Blood Venous blood specimen / Unknown Venipuncture / Unknown 04/26/2024 2:40 AM EDT 04/26/2024 2:46 AM EDT Delmar Red MD LAB BLOOD ORDERABLES Final Re sult Performing Organization Address City/[facility]/ZIP Co de Phone Number [facility] [address] [place] [address] * Hepatitis C Antibody - ED (04/26/2024 2:40 AM EDT) Pathologist [facility] Hepatitis C Antibody Negative Negative 04/26/2024 3:29 AM EDT [facility] Blood Venous blood specimen / Unknown Venipuncture / Unknown 04/26/2024 2:40 AM EDT 04/26/2024 2:46 AM EDT us Delmar Red MD LAB BLOOD ORDERABLES Final Re sult [facility] [address] [place] [address] from Last 3 Months or Most Recently Relevant to Health Maintenance Additional Health Concerns Active Problems Noted Date Diagnosed Date Autogenerated Problem 02/15/2025 Insurance [place]ICA[place] MEDICARE Advance Directives Documents on File Type Date Recorded Patient Manager Home Expl anation Advance Directives and Living Will [...] Patient has decision-making capacity? Yes Care Teams Test Director Relationship Specialty Start Date End Date Juarez Polanco MD [address] [place] [address] PCP - General 04/06/21 Juliet Carlin PA [address] [place] [address] [place] [address] Physician Investment Sales Assistant Neurology 07/17/22 Keon Ramirez MD [address] [place] [address] Consulting Physician Neurology 07/02/23 Aby Gallegos PA [address] [place] [address] Physician Investment Sales Assistant Urology 10/05/24
--- OUTSIDE RECORDS SUMMARY | 2025-07-15 08:24 | XMS_ITS | Encounter Summary ---
Author Organization [facility] Address [address] [place] [address] Care Team Providers Care Full Stack Python Developer Name Role Phone Juarez Polanco MD Primary Care Provider [phone] Juliet Carlin Unavailable Keon Ramirez MD Unavailable Aby Gallegos Unavailable [phone] Encounter Details Date Type Department Care Team (Late st Contact Info) Description 05/24/2025 Telephone [place] [facility] [address], 1st [place] [address] Colleen Espino, CHANA [address] [place] [address] Social History Tobacco Use Types [...] often do you attend chur ch or scientology services? Never 05/17/2024 Do you belong to any clubs o r organizations such as yazidi groups, unions, fraternal or athletic groups, or school groups? No 05/17/2024 How often do you attend meet ings of the clubs or organizations you belong to? Never 05/17/2024 Are you , , di vorced, , never , or living with a partner? 05/17/2024 PHQ-2 Answer Date Recorded Patient Health Questionnaire-2 Score 0 06/16/2025 [facility]ational [facility] Questionnaire Answer Date [...] drink first t basilio in the morning (EYE-PRISON TEACHER) to steady your nerves or to get rid of a hangover? 0 01/21/2025 CAGE Questionnaire Score 0 025 Utilities Answer Date Recorded In the past 12 months has th e Communication Science, gas, oil, or water company threatened to [...] Miscellaneous Notes * Telephone Encounter - Colleen Espino PA - 05/24/2025 4:04 PM EDT Called and gave patient results - no explanation for symptoms on MRI brain * Telephone Encounter - Bailee Lim - 05/24/2025 11:07 AM EDT Patient Phone Message Reason for Call: Patient is requesting MRI results Best contact number and optimal time of day to reach caller: [phone] Jimmy Note: Please do not reply to [...] Description 08/12/2025 8:40 AM EDT Office Visit [facility] Interventional Pain Medicine [address] [place] [address] Orlando Agrawal MD [address] [facility] [address] [place] [address] 08/15/2025 11:20 AM EDT Office Visit [facility] Clinic at [facility] [address] [place] [address] Julisa Campo DO [address] [place] [address] 09/28/2025 10:00 AM EST Office Visit [facility] [address], 1[address] [place] [address] Colleen Espino, PA [address] [place] [address] 10/11/2025 12:40 PM EST Office Visit [facility] Urology [address] [place] [address] Aby Gallegos PA [address] [place] [address] documented as of this encounter [...] documented as of this encounter Care Teams Full Stack Python Developer Relationship Specialty Start Date End Date Juarez Polanco MD [address] [place] [address] PCP - General 04/06/21 Juliet Carlin PA [address] [place] [address] Physician Accident Investigator Neurology 07/17/22 Keon Ramirez MD [address] [place] [address] Consulting Physician Neurology 07/02/23 Aby Gallegos PA [address] [place] [address] Physician Accident Investigator Urology 10/05/24 documented as of this encounter
--- OUTSIDE RECORDS SUMMARY | 2025-07-15 08:25 | XMS_ITS | Encounter Summary ---
Author Organization [facility] Address [address] [place] [address] Care Team Providers Care Mutuel Clerk Name Role Phone Juarez Polanco MD Primary Care Provider [phone] Juliet Carlin Unavailable Keon Ramirez MD Unavailable Aby Gallegos Unavailable [phone] Encounter Details Date Type Department Care Team [...] often do you attend chur ch or jehovah's witness services? Never 05/17/2024 Do you belong to any clubs o r organizations such as samaritan groups, unions, fraternal or athletic groups, or school groups? No 05/17/2024 How often do you attend meet ings of the clubs or organizations you belong to? Never 05/17/2024 Are you , , di vorced, , never , or living with a partner? 05/17/2024 PHQ-2 Answer Date Recorded Patient Health Questionnaire-2 Score 0 04/21/2025 [facility] - Occupational Stress Questionnaire Answer [...] drink first t basilio in the morning (EYE-PROFESSIONAL ATHLETE) to steady your nerves or to get [...] Description 08/12/2025 8:40 AM EDT Office Visit [facility] Interventional Pain Medicine [address] [place] [address] Orlando Agrawal MD [address] [facility] [address] [place] [address] 08/15/2025 11:20 AM EDT Office Visit [facility] [address] [place] [address] Julisa Campo DO [address] [place] [address] 09/28/2025 10:00 AM EST Office Visit [facility] [address], 1[address] [place] [address] Colleen Espino PA [address] [place] [address] 10/11/2025 12:40 PM EST Office Visit [facility] Urology [address] [place] [address] Aby Gallegos PA [address] [place] [address] documented as of this encounter [...] documented as of this encounter Care Teams Mutuel Clerk Relationship Specialty Start Date End Date Juarez Polanco MD [address] [place] [address] PCP - General 04/06/21 Juliet Carlin PA [address] [place] [address] Physician Specialty Sales Representative Neurology 07/17/22 Keon Ramirez MD [address] [place] [address] Consulting Physician Neurology 07/02/23 Aby Gallegos PA [address] [place] [address] Physician Specialty Sales Representative Urology 10/05/24 documented as of this encounter
--- OUTSIDE RECORDS SUMMARY | 2025-07-15 08:25 | XMS_ITS | Encounter Summary ---
Author Organization [facility] Address [address] [place] [address] Care Team Providers Care Financial Services Manager Name Role Phone Juarez Polanco MD Primary Care Provider [phone] Juliet Carlin Unavailable Keon Ramirez MD Unavailable Aby Gallegos Unavailable [phone] Reason for Visit * Reason Onset Date Comments HCN - Patient Message 07/07/2025 Encounter Details Date Type Department Care Team (Late st Contact Info) Description 07/07/2025 Telephone Physical Medicine & Rehabilitation Clinic at [facility] [address] [place] [address] Julisa Campo DO [address] [facility] [address] [place] [address] HCN - Patient Message Social History Tobacco Use Types Packs/Day Years [...] How often do you attend chur or mormonism services? Never 05/17/2024 Do you belong to any clubs o r organizations such as sabianism groups, unions, fraternal or athletic groups, or school groups? No 05/17/2024 How often do you attend meet ings of the clubs or organizations you belong to? Never 05/17/2024 Are you , , di vorced, , never , or living with a partner? 05/17/2024 PHQ-2 Answer Date Recorded Patient Health Questionnaire-2 Score 0 06/16/2025 [facility] - Occupational Stress Questionnaire Answer Date [...] place to sleep or slept in a penitentiary (including now)? No 04/26/2024 PHQ-9 Answer Date [...] drink first t basilio in the morning (EYE-SOLAR SALES ASSOCIATE) to steady your nerves or to get [...] encounter Miscellaneous Notes * Telephone Encounter - Julisa Campo DO - 07/07/2025 2:47 PM EDT Ok thanks * Telephone Encounter - Sandi Dean - 07/07/2025 2:43 PM EDT Spoke with pt and let him know * Telephone Encounter - Julisa Campo DO - 07/07/2025 11:36 AM EDT Up to him if wants to take the tramadol. If he is more weak then needs to be seen in the ER as I have nothing to do for further work up. Sorry. * Telephone Encounter - Sandi Dean - 07/07/2025 11:30 AM EDT I spoke with pt he stated that it started before the Tramadol he does not think it's the tramadol he said that the tramadol actually helps with his headache. Pt stated that it's not actually pain butlegs and arms weakness and spasm ad he has no control over it. * Telephone Encounter - Julisa Campo DO - 07/07/2025 10:23 AM EDT Tell him to stop the tramadol as that might be causing some of his symptoms or making it worse. I am not able to do anything for the pain otherwise at this time. * Telephone Encounter - Marisol Arellano - 07/07/2025 9:58 AM EDT Clinical Concern/Question Reason for Call: Dr Sprague patient is calling. He sates that his body is not functioning well. He is having trouble controlling the functioning and is staggering around. His head and back hurts. He states he is kind of dizzy at times. He just know something is not right. He was given tramadol for back and to help his headaches. He stated it was given to him after the symptoms started. He is requesting a call back. Best contact number: [phone] (mobile) Optimal time of day to reach caller: ANYTIME Additional comments/information from caller: None Note: Please do not reply to this message. Follow-up communication and further actions as a result of this message need to be communicated with the patient directly, if the patient is not active onMyChart. If the patient is active on MyChart, they will receive notification of the communication/outcome via TapZent. documented in this encounter Plan of Treatment Upcoming Encounters Date Type Department Care Team (Late st Contact Info) Description 08/12/2025 8:40 AM EDT Office Visit [facility] Interventional Pain Medicine [address] [facility] [place] [address] Orlando Agrawal MD [address] [facility] [address] [place] [address] 08/15/2025 11:20 AM EDT Office Visit Physical Medicine & Rehabilitation Clinic at [facility] [address] [place] [address] Julisa Campo DO [address] [place] [address] 09/28/2025 10:00 AM EST Office Visit [facility] [address] [place] [address] Colleen Espino PA [address] [place] [address] 10/11/2025 12:40 PM EST Office Visit [facility] [address] [place] [address] Aby Gallegos PA [address] [place] [address] documented as of this encounter [...] documented as of this encounter Care Teams Financial Services Manager Relationship Specialty Start Date End Date Juarez Polanco MD [address] [place] [address] PCP - General 04/06/21 Juliet Carlin PA [address] [place] [address] Physician Washer Operator Neurology 07/17/22 Keon Ramirez MD [address] [place] [address] Consulting Physician Neurology 07/02/23 Aby Gallegos PA [address] [place] [address] Physician Washer Operator Urology 10/05/24 documented as of this encounter
--- OUTSIDE RECORDS SUMMARY | 2025-07-15 08:25 | XMS_ITS | Encounter Summary ---
Author Organization [facility] Address [address] [place] [address] Care Team Providers Care Natural Resources Manager Name Role Phone Juarez Polanco MD Primary Care Provider [phone] Juliet Carlin Unavailable Keon Ramirez MD Unavailable Aby Gallegos Unavailable [phone] Reason for Visit * Reason Onset Date Comments HCN - Patient Message 07/04/2025 Encounter Details Date Type Department Care Team (Late st Contact Info) Description 07/04/2025 Telephone Physical Medicine & Rehabilitation Clinic at [facility] [address] [place] [address] Julisa Campo DO [address] [facility] [address] [place] [address] HCN - Patient Message Social [...] How often do you attend chur or anabaptist services? 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 Thanks. * Telephone Encounter - Sandi Dean - 07/04/2025 9:10 AM EDT Please advise * Telephone Encounter - Orlando Martinez - 07/04/2025 8:56 AM EDT Clinical Concern/Question Reason for Call: Darcie patient is asking if a heating pad on his back would impact his pump or not Best contact number: [phone] (mobile) Optimal time of day to reach caller: ANYTIME Additional comments/information from caller: None Note: Please do not reply to this message. Follow-up communication and further actions as a result of this message need to be communicated with the patient directly, if the patient is not active onMyChart. If the patient is active on MyChart, they will receive notification of the communication/outcome via MyAcademicProgramt. documented in this encounter Plan of Treatment Upcoming Encounters Date Type Department Care Team (Late st Contact Info) Description 08/12/2025 8:40 AM EDT Office Visit [facility] Interventional Pain Medicine [address] [place] [address] Orlando Agrawal MD [address] [facility] [address] [place] [address] 08/15/2025 11:20 AM EDT Office Visit [facility] [address] [place] [address] Julisa Campo DO [address] [place] [address] 09/28/2025 10:00 AM EST Office Visit [facility] [address] 1[address] [place] [address] Colleen Espino PA [address] [place] [address] 10/11/2025 12:40 PM EST Office Visit [facility] Urology [address] 2[address] [place] [address] Aby Gallegos PA [address] [place] [address] documented as of this encounter [...] documented as of this encounter Care Teams Natural Resources Manager Relationship Specialty Start Date End Date Juarez Polanco MD [address] [place] [address] PCP - General 04/06/21 Juliet Carlin PA [address] [place] [id number] Physician Publication Manager Neurology 07/17/22 Keon Ramirez MD [address] [place] [address] Consulting Physician Neurology 07/02/23 Aby Gallegos PA [address] [place] [address] Physician Publication Manager Urology 10/05/24 documented as of this encounter
--- OUTSIDE RECORDS SUMMARY | 2025-07-15 08:25 | XMS_ITS | Encounter Summary ---
Author Organization [facility] Address [address] [place] [address] Care Team Providers Care Coding Quality Analyst Name Role Phone Juarez Polanco MD Primary Care Provider [phone] Juliet Carlin Unavailable Keon Ramirez MD Unavailable Aby Gallegos Unavailable [phone] Encounter Details Date Type Department Care Team [...] often do you attend chur ch or mormonism services? Never 05/17/2024 Do you belong to any clubs o r organizations such as religion groups, unions, fraternal or athletic groups, or school groups? No 05/17/2024 How often do you attend meet ings of the clubs or organizations you belong to? Never 05/17/2024 Are you , , di vorced, , never , or living with a partner? 05/17/2024 PHQ-2 Answer Date Recorded Patient Health Questionnaire-2 Score 0 04/21/2025 [facility] - Occupational Stress Questionnaire Answer [...] drink first t basilio in the morning (EYE-TRAVELING PHLEBOTOMIST) to steady your nerves or to get [...] Description 08/12/2025 8:40 AM EDT Office Visit [facility] Interventional Pain Medicine [address] [place] [address] Orlando Agrawal MD [address] [facility] [address] [place] [address] 08/15/2025 11:20 AM EDT Office Visit [facility] at [facility] [address] [place] [address] Julisa Campo DO [address] [place] [address] 09/28/2025 10:00 AM EST Office Visit [facility] [address] 1[address] [place] [address] Colleen Espino PA [address] [place] [address] 10/11/2025 12:40 PM EST Office Visit [facility] Urology [address] 2[address] [place] [address] Aby Gallegos PA [address] [place] [address] documented as of this encounter [...] documented as of this encounter Care Teams Coding Quality Analyst Relationship Specialty Start Date End Date Juarez Polanco MD [address] [place] [address] PCP - General 04/06/21 Juliet Carlin PA [address] [place] [address] Physician Zinc Miner Blasting Neurology 07/17/22 Keon Ramirez MD [address] [place] [address] Consulting Physician Neurology 07/02/23 Aby Gallegos PA [address] [place] [address] Physician Zinc Miner Blasting Urology 10/05/24 documented as of this encounter
--- OUTSIDE RECORDS SUMMARY | 2025-07-15 08:25 | XMS_ITS | Encounter Summary ---
Author Organization [facility] Address [address] [place] [address] Care Team Providers Care Manager Operational Name Role Phone Juarez Polanco MD Primary Care Provider [phone] Juliet Carlin Unavailable Keon Ramirez MD Unavailable Aby Gallegos Unavailable [phone] Reason for Visit * Reason Onset Date Comments HCN - Patient Message 07/11/2025 Encounter Details Date Type Department Care Team (Late st Contact Info) Description 07/11/2025 Telephone [facility] Interventional Pain Medicine [address] [place] [address] Orlando Agrawal MD [address] [facility] [address] [place] [address] HCN - Patient Message Social History Tobacco [...] often do you attend chur ch or tenriism services? Never 05/17/2024 Do you belong to any clubs o r organizations such as yarsanism groups, unions, fraternal or athletic groups, or school groups? No 05/17/2024 How often do you attend meet ings of the clubs or organizations you belong to? Never 05/17/2024 Are you , , di vorced, , never , or living with a partner? 05/17/2024 PHQ-2 Answer Date Recorded Patient Health Questionnaire-2 Score 0 06/16/2025 [facility]ational Stress Questionnaire Answer Date [...] place to sleep or slept in a jail (including now)? 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 * Telephone Encounter - Sima Urbano - 07/11/2025 1:26 PM EDT LVM with 2 options * Telephone Encounter - Adriana Barragan - 07/11/2025 12:36 PM EDT Clinical Concern/Question Reason for Call: Nghia, Patient is calling stating that he called the week before last and spoke with a nurse. He states that he thought they had made an appt for 07/12/25 and he needed to cancel. I didn't see this but told him about 08/11/25. He stated that it was for June, but he now has a test that has to be done, but would like to see provider sharee after 07/15/25. Please call to discuss. Best contact number: [phone] (mobile) Optimal time of day to reach caller: ANYTIME Additional comments/information from caller: None Note: Please do not reply to this message. Follow-up communication and further actions as a result of this message need to be communicated with the patient directly, if the patient is not active onMyChart. If the patient is active on MyChart, they will receive notification of the communication/outcome via Delta Systemst. documented in this encounter Plan of Treatment Upcoming Encounters Date Type Department Care Team (Late st Contact Info) Description 08/12/2025 8:40 AM EDT Office Visit [facility] Interventional Pain Medicine [address] [place] [address] Orlando Agrawal MD [address] [facility] [address] [place] [address] 08/15/2025 11:20 AM EDT Office Visit [facility] at [facility] [address] [place] [address] Joey Darcie JulisaDO [address] [place] [address] 09/28/2025 10:00 AM EST Office Visit [facility] [address] 1st [place] [address] Colleen Espino, PA [address] [place] [address] 10/11/2025 12:40 PM EST Office Visit [facility] Urology [address] 2nd [place] [address] Aby Gallegos PA [address] [place] [address] documented as of this encounter Goals Goal Patient Goal Type Associated Problems Recent Progress Patient-Stated? Author Autogenera radha Goal Care Plan Autogenerated Problem No DagobertoAnnalee documented as of this encounter Visit Diagnoses [...] as of this encounter Care Teams Manager Operational Relationship Specialty Start Date End Date Juarez Polanco MD [address] [place] [address] PCP - General 04/06/21 Juliet Carlin PA [address] [place], [place] [id number] Physician Ampoule Filler And Sealer Neurology 07/17/22 Keon Ramirez MD [address] [place] [address] Consulting Physician Neurology 07/02/23 Aby Gallegos PA [address] [place] [address] Physician Ampoule Filler And Sealer Urology 10/05/24 documented as of this encounter
--- OUTSIDE RECORDS SUMMARY | 2025-07-15 08:25 | XMS_ITS | Encounter Summary ---
Author Organization [facility] Address [address] [place] [address] Care Team Providers Care Dental Laboratory Technician Apprentice Name Role Phone Juarez Polanco MD Primary Care Provider [phone] Juliet Carlin Unavailable Keon Ramirez MD Unavailable Aby Gallegos Unavailable [phone] Reason for Visit * Reason Onset Date Comments HCN - Patient Message 06/28/2025 Encounter Details Date Type Department Care Team (Late st Contact Info) Description 06/28/2025 Telephone [facility] Interventional Pain Medicine [address] [place] [address] Orlando Agrawal MD [address] [facility] [address] [place] [address] HCN - Patient Message Social [...] often do you attend chur ch or confucianism services? Never 05/17/2024 Do you belong to any clubs o r organizations such as judaism groups, unions, fraternal or athletic groups, or school groups? No 05/17/2024 How often do you attend meet ings of the clubs or organizations you belong to? Never 05/17/2024 Are you , , di vorced, , never , or living with a partner? 05/17/2024 PHQ-2 Answer Date Recorded Patient Health Questionnaire-2 Score 0 06/16/2025 [facility] Occupational Stress Questionnaire Answer Date [...] place to sleep or slept in a [place] health care facility (including now)? 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 Appointment scheduled. * Telephone Encounter - Yadi Laguerre LPN - 06/28/2025 9:44 AM EDT Spoke with patient concerning message. States that he is having back and left leg pain. Advised it is not time to have botox injections. Offered to schedule and appointment for patient so they can discuss treatment options but he is requesting that I speak with provider and ask him myself prior to scheduling. * Telephone Encounter - Pauline Nieves - 06/28/2025 8:14 AM EDT Clinical Concern/Question Reason for Call: Pt is requesting call back regarding back /left leg pain please call Best contact number: [phone] (mobile) Optimal time of day to reach caller: ANYTIME Additional comments/information from caller: None Note: Please do not reply to this message. Follow-up communication and further actions as a result of this message need to be communicated with the patient directly, if the patient is not active onMyChart. If the patient is active on MyChart, they will receive notification of the communication/outcome via DataRPMhart. documented in this encounter Plan of Treatment Upcoming Encounters Date Type Department Care Team (Late st Contact Info) Description 08/12/2025 8:40 AM EDT Office Visit [facility] Interventional Pain Medicine [address] [place] [address] Orlando Agrawal MD [address] [facility] [address] [place] [address] 08/15/2025 11:20 AM EDT Office Visit [facility] at [facility] [address] [place] [address] Julisa Campo DO [address] [place] [address] 09/28/2025 10:00 AM EST Office Visit [facility] [address] 1st [place] [address] Colleen Espino PA [address] [place] [address] 10/11/2025 12:40 PM EST Office Visit [facility] Urology [address] [place] [address] Aby Gallegos PA [address] [place] [address] documented as of this encounter [...] documented as of this encounter Care Teams Dental Laboratory Technician Apprentice Relationship Specialty Start Date End Date Juarez Polanco MD [address] [place] [address] PCP - General 04/06/21 Juliet Carlin PA [address] [place] [address] Physician Occupational Physician Neurology 07/17/22 Keon Ramirez MD [address] [place] [address] Consulting Physician Neurology 07/02/23 Aby Gallegos PA [address] [place] [address] Physician Occupational Physician Urology 10/05/24 documented as of this encounter
--- OUTSIDE RECORDS SUMMARY | 2025-07-15 08:26 | XMS_ITS | Encounter Summary ---
Author Organization [facility] Address [address] [place] [address] Care Team Providers Care Sales And Marketing Representative Name Role Phone Juarez Polanco MD Primary Care Provider [phone] Juliet Carlin Unavailable Keon Ramirez MD Unavailable Adenike Davies LPN Unavailable Unavailable Aby Gallegos Unavailable [phone] Reason for Visit * Reason Onset Date Comments HCN - Rx Refill Request 08/04/2023 Encounter Details Date Type Department Care Team (Late st Contact Info) Description 08/04/2023 Refill Physical Medicine & Rehabilitation Clinic at [facility] [address] [place] [address] Julisa Campo DO [address] [place] [address]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; Spasticity Social [...] & Location: Patient Preferred Pharmacy in Chart: [facility] [address] [place] [id number] Days of medication remaining (if under 3 days please daniel as urgent): 8 Best contact number: [phone] (home) Optimal time of day to reach caller: ANYTIME Additional comments/information from caller: None Note: Please do not reply to this message. Follow-up communication and further actions as a result of this message need to be communicated with the patient directly, if the patient is not active onMyChart. If the patient is active on MyChart, they will receive notification of the communication/outcome via [email or web address]. documented in this encounter Plan of Treatment Upcoming Encounters Date Type Department Care Team (Late st Contact Info) Description 08/12/2025 8:40 AM EDT Office Visit [facility] Interventional Pain Medicine [address] [place] [address] Orlando Agrawal MD [address] [facility] [address] [place] [address] 08/15/2025 11:20 AM EDT Office Visit [facility] at [facility] [address] [place] [address] Julisa Campo DO [address] [place] [address] 09/28/2025 10:00 AM EST Office Visit [facility] [address] 1st [place] [address] Colleen Espino PA [address] [place] [address] 10/11/2025 12:40 PM EST Office Visit [facility] Urology [address] 2[address] [place] [address] Aby Gallegos PA [address] [place] [address] documented as of this encounter [...] documented as of this encounter Care Teams Sales And Marketing Representative Relationship Specialty Start Date End Date Juarez Polanco MD [facility] [place] [address] PCP - General 04/06/21 Juliet Carlin PA [address] [place] [address] Physician Terra Cotta Roofer Helper Neurology 07/17/22 Keon Ramirez MD [address] [place] [address] Consulting Physician Neurology 07/02/23 Adenike Davies LPN VALUE-BASED [place] [address] TCM Nurse 05/17/24 06/16/24 Aby Gallegos PA [address] [place] [address] Physician Terra Cotta Roofer Helper Urology 10/05/24 documented as of this encounter
--- OUTSIDE RECORDS SUMMARY | 2025-07-15 08:26 | XMS_ITS | Encounter Summary ---
Author Organization [facility] Address [address] [place] [address] Care Team Providers Care Broth Setter Name Role Phone Juarez Polanco MD Primary Care Provider [phone] Juliet Carlin Unavailable Keon Ramirez MD Unavailable Aby Gallegos Unavailable Encounter Details Date Type Department Care Team (Late st Contact Info) Description 04/04/2025 [facility] [address] [place] [address] Juarez Polanco MD [address] [facility] [address] [place] [address] Social History Tobacco Use Types [...] often do you attend chur ch or yarsani services? Never 05/17/2024 Do you belong to any clubs o r organizations such as mandaeism groups, unions, fraternal or athletic groups, or school groups? No 05/17/2024 How often do you attend meet ings of the clubs or organizations you belong to? Never 05/17/2024 Are you , , di vorced, , never , or living with a partner? 05/17/2024 PHQ-2 Answer Date Recorded Patient Health Questionnaire-2 Score 0 02/24/2025 [facility] - [...] drink first t basilio in the morning (E[employer]ORE MGR) to steady your nerves or to get [...] 08/12/2025 8:40 AM EDT Office Visit [facility] Interventional Pain Medicine [facility] [place] [address] Orlando Agrawal MD [address] [facility] [address] [place] [address] 08/15/2025 11:20 AM EDT Office Visit [facility] [address] [place] [address] Julisa Campo DO [address] [place] [address] 09/28/2025 10:00 AM EST Office Visit [facility] [address] [place] [address] Colleen Espino PA [address] [place] [address] 10/11/2025 12:40 PM EST Office Visit [facility] Urology [address], 2nd [place] [address] Aby Gallegos PA [address] [place] [address] documented as of this encounter [...] documented as of this encounter Care Teams Broth Setter Relationship Specialty Start Date End Date Juarez Polanco MD [address] [place] [address] PCP - General 04/06/21 Juliet Carlin PA [address] [place] [address] [id number] Physician Reproductive Surgeon Neurology 07/17/22 Keon Raimrez MD [address] [place] [address] Consulting Physician Neurology 07/02/23 Aby Gallegos PA [address] [place] [address] Physician Reproductive Surgeon Urology 10/05/24 documented as of this encounter
--- OUTSIDE RECORDS SUMMARY | 2025-07-15 08:26 | XMS_ITS | Encounter Summary ---
Author Organization [facility] Address [address] [place] [address] Care Team Providers Care Paper Baler Name Role Phone Juarez Polanco MD Primary Care Provider [phone] Juliet Carlin Unavailable Keon Ramirez MD Unavailable Adenike Davies LPN Unavailable Unavailable Aby Gallegos Unavailable Reason for Visit * Reason Comments Med Refill Encounter Details Date Type Department Care Team (Late st Contact Info) Description 03/17/2023 Refill [facility] at [facility] [address] [place] [address] Julisa Campo DO [address] [place] [address]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 [...] Description 08/12/2025 8:40 AM EDT Office Visit [facility] Interventional Pain Medicine [address] [facility] [place] [address] Orlando Agrawal MD [address] [facility] [address] [place] [address] 08/15/2025 11:20 AM EDT Office Visit [facility] [address] [place] [address] Stefany Campoa, [address] [place] [address] 09/28/2025 10:00 AM EST Office Visit [facility] [address], 1[address] [place] [address] Colleen Espino PA [address] [place] [address] 10/11/2025 12:40 PM EST Office Visit [facility] Urology [address], 2[address] [place] [address] Aby Gallegos PA [address] [place] [address] documented as of this encounter [...] documented as of this encounter Care Teams Paper Baler Relationship Specialty Start Date End Date Juarez Polanco MD [address] [place], [place] [id number] PCP - General 04/06/21 Juliet Carlin PA [address] [place] [address] Physician Devil Tender Neurology 07/17/22 Keon Ramirez MD [address] [place] [address] Consulting Physician Neurology 07/02/23 Adenike Davies LPN VALUE-BASED [place] [address] TCM Nurse 05/17/24 06/16/24 Aby Gallegos PA [address] [place] [address] Physician Devil Tender Urology 10/05/24 documented as of this encounter
--- OUTSIDE RECORDS SUMMARY | 2025-07-15 08:26 | XMS_ITS | Encounter Summary ---
Author Organization [facility] Address [address] 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 Juarez Polanco MD [address] [place] [address] Phone: tel: fax: Julisa Campo, DO [address] [facility] [address] [place] [address] Phone: tel: fax: Referral ID Status Reason Start Date Expiration Date V isits Requested Visits Authorized [id number] Closed Specialty Services Required 03/02/2024 09/01/2025 1 1 Encounter Details Date Type Department Care Team (Late st Contact Info) Description 03/01/2024 [facility] [address] [place] [address] Juarez Polanco MD [address] [place] [address]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 (Primary Dx) Social History [...] Description 08/12/2025 8:40 AM EDT Office Visit [facility] Interventional Pain Medicine [address] [facility] [place] [address] Orlando Agrawal MD [address] [facility] [address] [place] [address] 08/15/2025 11:20 AM EDT Office Visit [facility] [address] [address] Julisa Campo DO [address] [place] [address] 09/28/2025 10:00 AM EST Office Visit [facility] [address], 1[address] [place] [address] Colleen Espino, PA [address] [place] [address] 10/11/2025 12:40 PM EST Office Visit [facility] [address], 2[address] [place] [address] Aby Gallegos PA [address] [place] [address] Scheduled Referrals Name Type Priority Associated Diagnoses [...] documented as of this encounter Care Teams Cleaning Technician Relationship Specialty Start Date End Date Juarez Polanco MD [address] [place], [place] [id number] PCP - General 04/06/21 Juliet Carlin PA [address] [place] [address] [id number] Physician Rug Sample Beveler Neurology 07/17/22 Keon Ramirez MD [address] [place] [address] Consulting Physician Neurology 07/02/23 Adenike Davies LPN VALUE-[employer]ED [place] [address] TCM Nurse 05/17/24 06/16/24 Aby Gallegos PA [address] [place] [address] Physician Rug Sample Beveler Urology 10/05/24 documented as of this encounter
--- OUTSIDE RECORDS SUMMARY | 2025-07-15 08:26 | XMS_ITS | Encounter Summary ---
Author Organization [facility] Address [address] [place] [address] Care Team Providers Care Rubber Chemist Name Role Phone Juarez Polanco MD Primary Care Provider [phone] Juliet Carlin Unavailable Keon Ramirez MD Unavailable Adenike Davies LPN Unavailable Unavailable Aby Gallegos Unavailable [phone] Reason for Visit * Reason Comments Med Refill Encounter Details Date Type Department Care Team (Late st Contact Info) Description 10/05/2023 [facility]ill [facility] [address] [place] [address] Julisa Campo DO [address] [place] [address]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 [...] Description 08/12/2025 8:40 AM EDT Office Visit [facility] Interventional Pain Medicine [address] [facility] [address] Orlando Agrawal MD [address] [facility] [address] [place] [address] 08/15/2025 11:20 AM EDT Office Visit [facility] [address] [place] [address] Julisa Campo DO [address] [place] [address] 09/28/2025 10:00 AM EST Office Visit [facility] [address], 1st [place] [address] Colleen Espino PA [address] [place] [address] 10/11/2025 12:40 PM EST Office Visit [facility] Urology [address], 2[address] [place] [address] Aby Gallegos PA [address] [place] [address] documented as of this encounter [...] documented as of this encounter Care Teams Rubber Chemist Relationship Specialty Start Date End Date Juarez Polanco MD [address] [place] [address] PCP - General 04/06/21 Juliet Carlin PA [address] [place] [address] [id number] Physician Public Relations Counselor Neurology 07/17/22 Keon Ramirez MD [address] [place] [address] Consulting Physician Neurology 07/02/23 Adenike Davies LPN VALUE-[place] [address] TCM Nurse 05/17/24 06/16/24 Aby Gallegos PA [address] [place] [address] Physician Public Relations Counselor Urology 10/05/24 documented as of this encounter
--- OUTSIDE RECORDS SUMMARY | 2025-07-15 08:26 | XMS_ITS | Clinical Summary ---
Author Organization [facility] Address [address] [place] [address] Care Team Providers Care Application Programmer Analyst Name Role Phone Juarez Polanco MD Primary Care Provider [phone] Source Comments This information has been disclosed [...] therelease of HIV test results or diagnoses. [id number] Health Allergies Active Allergy Reactions [...] 2038 Insurance [employer] PPO MEDICARE [place]ID [place] Care Teams Application Programmer Analyst Relationship Specialty Start Date End Date Juarez Polanco MD [address] [place], [place] [id number] PCP - General Internal Medicine 09/06/24
--- OUTSIDE RECORDS SUMMARY | 2025-07-15 08:26 | XMS_ITS | Encounter Summary ---
Author Organization [facility] Address [address] [place] [address] Care Team Providers Care Automation Engineering Technician Name Role Phone Juarez Polanco MD Primary Care Provider [phone] Juliet Carlin Unavailable Keon Ramirez MD Unavailable Adenike Davies LPN Unavailable Unavailable Aby Gallegos Unavailable Reason for Visit * Reason Comments Med Refill Encounter Details Date Type Department Care Team (Late st Contact Info) Description 06/06/2023 Refill [facility] at [facility] [address] [place] [address] Julisa Campo DO [address] [place] [address]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; Spasticity Social [...] Flowmax Dosage: unknown Preferred Pharmacy & Location: [facility] [address] [place] [address] [place] - [address] [phone] Days of medication remaining (if under 3 days please daniel as urgent): 0 Best contact number: [phone] (home) Optimal time of day to reach [...] of the initial request. Best contact number: [phone] (home) Optimal time of day to reach [...] 08/12/2025 8:40 AM EDT Office Visit [facility] Interventional Pain Medicine [address] [facility] [place] [address] Orlando Agrawal MD [address] [facility] [address] [place] [address] 08/15/2025 11:20 AM EDT Office Visit [facility] at [facility] [address] [place] [address] Julisa Campo DO [address] [place] [address] 09/28/2025 10:00 AM EST Office Visit [facility] [address] 1[address] [place] [address] Colleen Espino PA [address] [place] [address] 10/11/2025 12:40 PM EST Office Visit [facility] [address], [address] [place] [address] Aby Gallegos PA [address] [place] [address] documented as of this encounter [...] documented as of this encounter Care Teams Automation Engineering Technician Relationship Specialty Start Date End Date Juarez Polnaco MD [address] [place] [address] PCP - General 04/06/21 Juliet Carlin PA [address] [place] [address] Physician Supervisor Fish Bait Processing Neurology 07/17/22 Keon Ramirez MD [address] [place] [address] Consulting Physician Neurology 07/02/23 Adenike Davies LPN VALUE-[place] [address] TCM Nurse 05/17/24 06/16/24 Aby Gallegos PA [address] [place] [address] Physician Supervisor Fish Bait Processing Urology 10/05/24 documented as of this encounter
--- NOTE | 2025-07-15 08:46 | CT_ITS ---
FINAL REPORT TECHNIQUE: Thin section axial images were obtained through the lumbar spine with intrathecal contrast. Sagittal and coronal reconstruction images were obtained from the axial data. Exam was performed using dose reduction techniques. This study was performed with techniques to keep radiation doses as low as reasonably achievable (ALARA). Individualized dose reduction techniques using automated exposure control or adjustment of mA and/or kV according to the patient's size were employed. CLINICAL HISTORY: MYELOGRAM LUMBAR SPINE COMPARISON: None FINDINGS: CT POST MYELOGRAM LUMBAR SPINE: The exam was performed in the prone position post myelogram. There is no acute fracture or acute malalignment of the lumbar spine. Vertebral body height is preserved. No acute paraspinal abnormality is identified. L1-2: An annular bulge is present with degenerative endplate changes. Mild bilateral neural foraminal narrowing is present. There is no central canal stenosis. L2-3: An annular bulge is present with degenerative endplate changes, mild central canal stenosis, and mild to moderate bilateral neural foraminal narrowing. L3-4: An annular bulge is present with degenerative endplate changes and facet hypertrophy. There is moderate central canal stenosis, and severe left greater than right neural foraminal narrowing. L4-5: An annular bulge is present with degenerative endplate changes and facet hypertrophy. There is mild central canal stenosis, severe right and moderate left neural foraminal narrowing. L5-S1: There is partial sacralization of the L5 vertebral body on the right. There is no focal canal stenosis or herniation. The neuroforamen are patent. IMPRESSION: No acute osseous abnormality of the lumbar spine. Multilevel lumbar degenerative change is present, most pronounced at the L3-4 and L4-5 levels as described. Reviewed, Interpreted and Dictated by Chio Hendrickson MD Transcribed by Cherri Yip Authenticated and [facility]
== END 2025-07-15 23:59 | disposition home or self-care (01) ==
PROVIDERS: PCP Internal Medicine Adolescent Medicine; Visit Provider Internal Medicine Adolescent Medicine
DX: M47.26 Other spondylosis with radiculopathy, lumbar region (principal)
CPT/HCPCS: 62304; 72131; 76000

== ENCOUNTER 2025-07-20 12:47 | Outpatient (RCR) | payer MEDICARE, MEDICAID, SELFPAY ==
--- NOTE | 2025-07-21 07:51 | HMH.PTOPEV ---
PT Outpatient Evaluation Rehab PT Outpatient Evaluation Start: 07/20/25 12:52 Freq: Status: Active Protocol: Document 07/20/25 12:59 NOBLE (Rec: 07/20/25 16:06 NOBLE [id number]) E-signed By Viky Hanna, PT Outpatient Therapy Subjective History Subjective History This is an initial PT evaluation for 60 y/o male, Jimmy Rothman, who presents to PT with referral for LB and L hip pain. Pt reports his doctors believe he has sciatic nerve impingement. Pt reports his pain began 8 months ago insidiously when walking. Pt also reports he has had this pain for 3-4 years and is being managed by pain management at with botox injections . Pt reports his pain is constant but variable. Standing long periods, walking, and climbing stairs increases his pain. Pt reports intermittent numbness or tingling in the LLE. Pt is also currently seeing a chiropractor and gets hip adjustments. Pt reports his pain has been about the same in severity since it began . Pt reports he gets full but brief relief from his botox injections. Pt denies saddle anesthesia, B LE weakness, or incontinence. PMH: Drop foot, B TKA, baclophen pump Imaging: Pt had an X-ray in May that demo'd no acute findings. Pt also had a lumbar CT that showed multilevel lumbar degenerative change is present, most pronounced at the L3-4 and L4-5 levels as described. New diagnosis of No cancer in past 12 months? Chief Complaint Pain,Stiff Symptom Type Ache Symptoms Relieved By Nothing Prior Functional None Limitations Current Functional Reaching,Lifting,Driving,Sleeping,Standing,Sitting, Limitations Squatting,Recreation Activity,Walking,Stairs,Balance Symptom Description Constant but Variable Level of pain today 5 (0-10) Pain scale - at its 4 best (0-10) Pain scale - at its 10 worst (0-10) Lumbopelvic Eval Posture Thoracic Spine Flattened Posture Standing Position Lumbar Spine Posture Flattened Standing Position Assistive device Assistive Devices Straight Cane Palapation tenderness left thoracic spinal Yes: 1/4 TTP tenderness lumbar spinal Yes: 3/4 TTP tenderness paraspinal Yes: 3/4 TTP tenderness buttock tenderness Yes: 3/4 TTP Lumbar/Sacral Tenderness Palpation Findings Lumbar/Sacral TTP multiple areas of L lumbar paraspinals Palpation Overall Comment Range of Motion Lumbar Spine Active 75 % Flexion Range of Motion (degrees) Lumbar Spine Active 25%, painful Extension Range of Motion (degrees) Left Lumbar Spine 25%, painful Lateral Flexion Active Range of Motion (degrees) Right Lumbar Spine 25%, painful Lateral Flexion Active Range of Motion (degrees) Lumbar Spine ROM Pain Limitations Manual Muscle Test Left Knee Extension 4- Good- Strength Grade Knee Flexion 4- Good- Strength Grade Hip Flexion Strength 3 Fair Grade Hip Abduction 3 Fair Strength Grade Hip Adduction 3 Fair Strength Grade Hip Extension 3 Fair Strength Grade DTR Lt Patellar 1+ Altered Sensation Left Comment Intact to light touch but c/o intermittent numbness. Special Tests Lumbar Spine Screen Positive Hip Lukas (TESSA) Positive Left Test Hip Piriformis Test Positive Left Sciatic Nerve Positive Left Tension Test Unilateral Straight Positive Left Leg Raise (Lasegue) Test Bilateral Straight Positive Leg Raise Test Crossed Straight Leg Negative Left Raise Test Sacroiliac Joint Positive Left Compression Test Lumbar Long [place]bee Negative Distraction Test/ Manual Traction Oswestry Index Section 1 Pain Intensity The pain comes and goes and is severe Section 2 Personal Care ( increase the pain, but I manage not to change my way of Washing,Dresing) doing it Section 3 Lifting I can only lift very light weights at most Section 4 Walking I cannot walk at all without increasing pain Section 5 Sitting I can sit in my favorite chair for as long as I like Section 6 Standing I cannot stand more than 10 minutes without increasing pain Section 7 Sleeping Because of my pain, my normal night's sleep is less than 6 hours sleep Section 8 Social Life My social life is normal but increases the degree of pain Section 9 Traveling I get extra pain while traveling, but it does not compel me to seek al Section 10 Changing Degreee of My pain is neither getting better or worse Pain Score and Risk Level Oswestry Sc 29 Oswestry Risk Level Severe Disability Lower Extremity Functional Index Activities Today, do you or would you have any difficulty at all with: a.Any of your usual Moderate difficulty work, housework or school activities b. Your usual Moderate difficulty hobbies, recreational or sporting activities c. Getting into or Moderate difficulty out of the bath d. Walking between A little bit of difficulty rooms e. Putting on your A little bit of difficulty shoes or socks f. Squatting Moderate difficulty g. Lifting an object Moderate difficulty , like a bag of groceries from the floor h. Performing light Moderate difficulty activities around your home i. Performing heavy Quite a bit of difficulty activities around your home j. Getting into or Moderate difficulty out of a car k. Walking 2 blocks Extreme difficulty or unable to perform activity l. Walking a mile Extreme difficulty or unable to perform activity m. Going up or down Quite a bit of difficulty 10 stairs (about 1 flight of stairs) n. Standing for 1 Extreme difficulty or unable to perform activity hour o. Sitting for 1 Moderate difficulty hour p. Running on even Extreme difficulty or unable to perform activity ground q. Running on uneven Extreme difficulty or unable to perform activity ground r. Making sharp Quite a bit of difficulty turns while running fast s. Hopping Extreme difficulty or unable to perform activity t. Rolling over in Moderate difficulty bed LEFI Score Lower Extremity 27 Functional Index Score Outpatient Therapy Assessment Impairments Problems/ Impaired Range of Motion,Impaired Strength,Impaired Impairmments Endurance,Impaired Transfers,Impaired Gait Pattern, Impaired Walking,Impaired Standing,Impaired Lifting, Impaired Stair Climbing,Impaired Incline Stepping, Impaired Stepping on Uneven Surface,Impaired Squatting, Impaired Bending,Impaired Running,Impaired Jumping, Impaired Balance,Subjective C/O Pain Prognosis Rehab Potential Good Comment Pt presents with chronic LBP with referred pain and mobility deficits. Pt with limited lumbar AROM, decreased LE strength, and TTP left lumbar paraspinals. PT unable to properly assess special tests d/t pain hypersensitivity. Pt would benefit from skilled OP PT to address deficits and decrease chronic pain. PT provided pt with HEP to target ROM, gentle stretching, and core strengthening. Pt demo'd understanding. Clinical Impression Consistent with Yes Diagnosis PT Patient Goals PT Patient Goals PT Short Term In 4 weeks, pt will: Patient Goals 1) Verbalize compliance with home exercise program to improve self-maintenance of symptoms. 2) Verbalize 48-hour pain average (worst/best/current) of 5/10. 3) Will improve LLE strength by 1/5 MMT grade to improve daily functioning. 4) Tolerate one 10 min moderate intensity endurance task (ex: bike) 5) Improve QUE to at most 25 points to decrease disability from LBP and improve QOL. 6) Verbalize feeling at least 45% improved in symptoms since initial PT evaluation. PT Marketing/Sales Person Patient In 8 weeks, pt will: Goals 1) Verbalize adherence with home exercise program to maximize self-maintenance of symptoms upon d/c from PT POC. 2) Verbalize 48-hour pain average (worst/best/current) of 3/10 3) Improve LLE strength to at least 4/5 MMT grade to improve daily functioning. 4) Improve QUE to at most 20 points to decrease disability from LBP and improve QOL. 5) Improve Lumbar AROM to 75% to improve functional ROM for daily tasks like dressing, reaching, picking up objects, and driving. 6) Verbalize feeling at least 90% improved in symptoms since initial PT evaluation. Outpatient Therapy Plan of Care Treatment Plan May Include Therapeutic Exercise Yes Including Home Exercise Program Manual Therapy Yes Techniques Neuromuscular Re- Yes education Therapeutic Yes Activities to Return to Previous Functional/Work Level Gait Training Yes ADL/Self Care Yes Education Dry Needling Yes Thermal Modalities Yes Electrical Yes Stimulation Ultrasound/ Yes Phonophoresis Iontophoresis Yes Orthotics/Bracing/ Yes Splinting Massage Yes Eval/Re-Eval Yes Frequency Times per week 2x Duration Number of Weeks 6-8 weeks Addendums This patient is a No candidate for social or vocational rehab ? Patient/Guardian Yes verbally acknowledges understanding of treatment program and consents to further treatment? Patient/Guardian Yes verbally acknowledges understanding of diagnosis, prognosis and goals for treatment? Eval Complexity PT Charges 94376 - Moderate Complexity Shoulder/Elbow Eval Shoulder Objective Measurements Elbow Objective Measurements PHYSICIAN CERTIFICATION: I certify the specified therapy services for Jimmy Rothman JR are required, authorized, and reviewed every 30 days.
== END 2025-07-20 23:59 | disposition home or self-care (01) ==
LOC: PT 12:47
PROVIDERS: PCP Internal Medicine Adolescent Medicine; Visit Provider Internal Medicine Adolescent Medicine
DX: M54.50 Low back pain, unspecified (principal); M25.552 Pain in left hip
CPT/HCPCS: 97162

== ENCOUNTER 2025-08-12 10:09 | Outpatient (CLI) | payer MEDICARE, MEDICAID, SELFPAY ==
--- OUTSIDE RECORDS SUMMARY | 2025-06-16 10:50 | XMS_ITS | Encounter Summary ---
Author Organization [facility] Address [address] [place] [address] Care Team Providers Care Minister Name Role Phone Juarez Polanco MD Primary Care Provider [phone] Juliet Carlin Unavailable Keon Ramirez MD Unavailable Aby Gallegos Unavailable [phone] Reason for Referral * Other Medical (Routine) - Authorized Specialty Diagnoses / Procedures Referred By Contact Referred To Contact Physical Medicine and Rehabilitation Diagnoses Spasticity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 Procedures Intrathecal Pump - Refill Julisa Campo DO [address] [address] Phone: tel: fax: Referral ID Status Reason Start Date Expiration Date V isits Requested Visits Authorized [id number] Authorized 06/16/2025 12/16/2026 1 1 Reason for Visit * Reason Comments Procedure Baclofen Pump Refill * Other Medical (Routine) - Closed Specialty Diagnoses / Procedures Referred By Contact Referred To Contact Physical Medicine and Rehabilitation Diagnoses Spasticity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 Procedures Intrathecal Pump - Refill Julisa Campo DO [address] [address] Phone: tel: fax: Referral ID Status Reason Start Date Expiration Date Visits Re quested Visits Authorized [id number] Closed 04/21/2025 10/21/2026 1 1 Encounter Details Date Type Department Care Team (Late st Contact Info) Description 06/16/2025 10:50 AM EDT Office Visit Physical Medicine & Rehabilitation Clinic at [facility] [address] [place] [address] Julisa Campo DO [address] [place] [address] Spasticity;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 Social [...] week 05/17/2024 How often do you attend [facility] or hoahaoism services? Never 05/17/2024 Do you belong to any clubs o r organizations such as episcopalian groups, unions, fraternal or athletic groups, or school groups? No 05/17/2024 How often do you attend meet ings of the clubs or organizations you belong to? Never 05/17/2024 Are you , , di vorced, , never , or living with a partner? 05/17/2024 PHQ-2 Answer Date Recorded Patient Health Questionnaire-2 Score 0 06/16/2025 [facility] Questionnaire Answer Date [...] place to sleep or slept in a nursing home (including now)? No 04/26/2024 PHQ-9 Answer Date [...] drink first t basilio in the morning (EYE-DRUG ABUSE PROGRAM COORDINATOR) to steady your nerves or to get rid of a hangover? 0 01/21/2025 CAGE Questionnaire Score 0 025 Utilities Answer Date Recorded In the past 12 months has th [employer], gas, oil, or water company threatened to [...] Not at all 06/16/2025 10:48 AM EDT aSndi Dean Feeling down, depressed, or hopeless Not at all 05/25 10:48 AM EDT Sandi Dean Patient Health Questionnaire-2 Score 0 05/25 10:48 AM Sandi Wadsworth * Calculated C-SSRS Risk Score (Lifetime/Recent) Answer Date of Assessment Author No Risk Indicated 06/16/2025 10:47 AM Jenn Wadsworth * How difficult have these problems made it for you to do your work, take care of things at home, or get along with other people? Answer Date of Assessment Author Not difficult at all 06/16/2025 10:48 AM Sandi Wadsworth * Question Answer Date of Assessment Author 1. Wish to be (Past 1 Month) No 025 10:47 AM Sandi Wadsworth 2. Non-Specific Active Suici vidal Thoughts (Past 1 Month) No 06/16/2025 10:47 AM Sandi Wadsworth 6. Suicidal Behavior (Lifetime) No 10:47 AM Sandi Wadsworth documented as of this encounter Miscellaneous Notes [...] RUE SAbd EF EE WE FF Fabd 5/5 5/5 5/5 5/5 5/5 5/5 LLE HF KE KF APF ADF EHL 4/5 4/5 4/5 4/5 2/5 2/5 RLE HF KE KF APF ADF EHL 4/5 4/5 4/5 4/5 4/5 4/5 Neurological: - Awake and alert, AOx4, participating [...] Pump - Refill; Future - baclofen (Gablofen) 87699 MCG/20ML intrathecal injection 80,000 mcg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 - Intrathecal Pump - Refill - Intrathecal Pump - Refill; Future - baclofen (Gablofen) 96036 MCG/20ML intrathecal injection 80,000 mcg Patient tolerated [...] Bay Arthur DO Physical Medicine and Rehabilitation [facility] PGY-3 Cosigned by Julisa Campo DO at [...] at [facility] [address] [place] [address] Julisa Campo DO [address] [place] [id number] 09/28/2025 10:00 AM EST Office Visit [facility] [address] [place] [address] Colleen Espino PA [address] [place] [address] 10/11/2025 12:40 PM EST Office Visit [facility] [address] [place] [address] Aby Gallegos, PA [address] [place] [address] Scheduled Orders Name Type Priority [...] Action Date Dose Rate Site baclofen (Gablofen) 82112 MCG/20ML intrathecal injection 80,000 mcg 40 mL, [...] documented as of this encounter Care Teams Minister Relationship Specialty Start Date End Date Juarez Polanco MD [address] [place], [place] [id number] PCP - General 04/06/21 Juliet Carlin PA [address] [place] [address] Physician Pre [facility] Aide Neurology 07/17/22 Keon Ramirez MD [address] [place] [address] Consulting Physician Neurology 07/02/23 Aby Gallegos PA [address] [place] [address] Physician Pre [facility]ole Counseling Aide Urology 10/05/24 documented as of this encounter
--- OUTSIDE RECORDS SUMMARY | 2025-08-01 08:40 | XMS_ITS | Encounter Summary ---
Author Organization [facility] Address [address] [place] [address] Care Team Providers Care Textile Finisher Name Role Phone Juarez Polanco MD Primary Care Provider [phone] Juliet Carlin Unavailable Keon Ramirez MD Unavailable Aby Gallegos Unavailable [phone] Reason for Referral * Other Medical (Routine) - Authorized Specialty Diagnoses / Procedures Referred By Campbell t Referred To Contact Pain Medicine Diagnoses Myalgia, other site Dystonia Procedures Injection - Chemodenervation, MSK Christina Longo APRN [address] [facility] [address] [place] [address] Phone: tel: fax: [facility] Interventional Pain Medicine [address] [place] [address] Phone: tel: fax: Referral ID Status Reason Start Date Expiration Date V isits Requested Visits Authorized [id number] Authorized 08/01/2025 2027 1 1 Encounter Details Date Type Department Care Team (Late st Contact Info) Description 08/01/2025 8:40 AM EDT Office Visit [facility] Interventional Pain Medicine [address] [address] Orlando Agrawal MD [address] [place] [address] Myalgia, other site (Primary Dx); Dystonia Social History Tobacco Use Types Packs/Day [...] any clubs o r organizations such as protestant groups, unions, fraternal or athletic groups, or school groups? No 05/17/2024 How often do you attend meet ings of the clubs or organizations you belong to? Never 05/17/2024 Are you , , di vorced, , never , or living with a partner? 05/17/2024 PHQ-2 Answer Date Recorded Patient Health Questionnaire-2 Score 0 06/16/2025 [facility] - Occupational Stress Questionnaire Answer Date [...] drink first t basilio in the morning (EYE-INFECTION CONTROL MANAGER) to steady your nerves or to [...] Sign Reading Time Taken Comments Blood Pressure 110/75 08/01/2025 8:34 AM EDT Pulse 69 08/01/2025 8:34 AM EDT Temperature 36.6 C (97.8 F) 08/01/2025 8:34 AM EDT Respiratory Rate 18 08/01/2025 8:34 AM EDT Oxygen Saturation 93% 08/01/2025 8:34 AM EDT Inhaled Oxygen Concentration - - Weight 106 kg (234 lb) 08/01/2025 8:34 AM EDT Height 182.9 cm (6') 08/01/2025 8:34 AM EDT Body Mass Index 31.74 08/01/2025 8:34 AM EDT documented in this encounter Miscellaneous Notes * Progress Notes - Christina Longo, ANEL - 08/01/2025 8:40 AM EDT Images from the original note were not included. Interventional Pain Medicine Follow-Up Patient Note Subjective: Interval History: 08/01/2025 Jimmy presents today for follow up and re-evaluation of low back pain status post lumbar TPI withBotox (50 units) on 05/19/2025. Today he reports 75% relief X 4 weeks. Endorsing 6/10 (NRS) low back pain, L >> R with occasional radiation into the lateral LLE to the knee. Pain is exacerbated with standing, walking, lifting, sitting Reduced somewhat with repositioning to right side, pacing activity, rest, chiropractor. Denies b/b incontinence; denies saddle anesthesia. Previous Global Pain Scale: 37 History of Present Illness: Jimmy Rothman Jr. is a 60 y.o. 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 (), PEs and DVTs (Xeralto) Patient has left foot drop; wears AFO Today, he complains of low back extending to the left hip Onset: years; progressively worsened Intensity: 03/03- 08/03 Quality: aching, sharp Aggravating Factors: standing Alleviating Factors: supine Associated Factors: repositioning; no bowel or bladder dysfunction; no paresthesia LLE; no new muscle weakness Current QUE: 23 Past QUE: 21 Current medication Gabapentin IT baclofen- managed by PMR Previous Pain Medications: Tylenol Ibuprofen Pregabalin s/e Previous Non-Interventional Treatment: Physical Therapy Unable to do HEP Previous Interventions/Consults: PM&R Previous Interventional Injections: 05/19/2025: Left lumbar paraspinal chemodenervation injections for paralysis of the muscles with ultrasound guidance (50 units) -- 75% X 4 weeks 04/23/2024: Bilateral L4/L5, L5/S1 lumbar RFA- ongoing pain relief Left L5/S1 interlaminar steroid injection Steroid injections for knee Other Medical History reports that he has never smoked. He has never been exposed to tobacco smoke. His smokeless tobaccouse includes snuff. Diabetes: No A1C: NA Anticoagulation: Xarelto Work Status: Disabled Review of Systems: CONSTITUTIONAL: denies fevers, chills HEENT: denies swallowing difficulties, sore throat CARDIOVASCULAR: denies chest pain, denies palpitations, syncope RESPIRATORY: SOB with activity has improved; has been worked up GI: as per HPI : as per HPI SKIN: denies rash, skin changes MSK: Per HPI NEURO: Per HPI PSYCH: denies any depression or anxiety General Physical Exam: Constitutional NAD; well nourished; conversant; ambulates with cane Head Normocephalic and atraumatic. Neck Neck supple Cardiovascular Well perfused Pulmonary/Chest Effort normal, no shortness of breath noted Neurological Alert and oriented to person, place, and time Skin Skin is warm and dry Psychiatric A & O X 4; mood/affect congruent with situation; denies suicidal ideation; no signsof impairment Neurologic & Musculoskeletal Exam Lumbar Region Exam Left (+/-) Right (+/-) Lumbar Musculature Tender w/ palpation +, taut taut Lumbar Facet Pain w/ extension - - Sacroiliac Joint Fiorella's Finger (PSIS) + - TESSA + - Gaenslen's + - Compression + - HIP FADIR + - Greater Trochanter Tender to Palpation - - Piriformis Tender to Palpation - - Sensation Right Left L2: Proximal Anterior Thigh Normal Normal L3: Mid Anterior Thigh Normal Normal L4: Medial leg/foot, great toe (Saphenous n.) Normal Normal L5: Dorsum of mid foot Normal Normal S1: Lateral leg/foot, little toe, back of leg (Sural n.) Normal Normal Motor Strength Right Left L2: Hip flexion (iliopsoas) 5/5 5/5 L3: Knee extension (quad) 5/5 5/5 L4: Ankle DF (TA) 5/5 L5: Great Toe DF (EHL) 5/5 S1: Ankle PF, Foot Eversion (Peroneal longus/brevis) 5/5 S2: Great toe flexion (FHL), Knee Flexion 5/5 Reflexes Right Left L4: Patellar 2/4 2/4 Left foot drop with brace in place, wearing supportive boots, no amenable to removing Imaging: Images MR L Spine (02/10/23) -spinal canal stenosis at L3/L4, NF narrowing at L3/L4 and L4/L5. L3/4 and L4/5 lumbar spondylosis Assessment & Plan: Jimmy Rothman Jr. is a 60 y.o. male with persistent low back pain. We will continue a multimodal treatment approach and involve injective therapy where indicated. He responded most favorably to chemodenervation with Botox; discussed indication, risks, benefits of repeating and he would like to proceed. Questions answered to his satisfaction, verbalized understanding. #Myofascial Pain Syndrome, Chronic Worsening #Dystonia -recommended to continue with conservative management including PT, home exercise program, heat/ice, topical NSAIDs, etc. -can consider referral to OMT for benefit -s/p lumbar TPIs 02/17/2025 80% relief X 1 week - s/p Left lumbar paraspinal chemodenervation injections for paralysis of the muscles with ultrasound guidance (Botox 50 units) -- 75% X 4 weeks - ordered repeat Left lumbar paraspinal chemodenervation with Botox and US guidance #Left Sacroiliac Joint Pain, Chronic Worsening -Patient has >3 provocative exam maneuvers which include + fiorella's finger, TESSA, compression, Gaenslen's -Had significant short term relief >75% on two occasions but no sustained relief consider SI joint ablation. -SIJ ablation denied by insurance -Could consider SIJ fusion with improvement in medial conditions #Lumbar Spondylosis Chronic stable -s/p L4/5 and L5/S1 RFA -ongoing pain relief #Lumbar stenosis, chronic stable - s/p L5-S1 Left Lumbar Interlaminar Epidural Steroid injection with no improvement with pain -consider surgical referral; patient is not interested #Stiff Person Syndrome chronic stable - Has IT Baclofen Pump which is managed by PMR #Tobacco Use -Recommend Cessation and counseled on today. Pain may decrease just by tobacco cessation alone. -Tobacco use is a risk factor for increased infections if any implantable devices are considered Cosigned by Orlando Agrawal MD at 08/02/2025 8:39 AM EDT Associated attestation - Orlando Agrawal MD - 08/02/2025 8:39 AM EDT I attest to being involved in providing substantive part of the medical decision making in patient care. Results of history and physical exam findings discussed with TEJ, I directed the plan of care. documented in this encounter Plan of Treatment Upcoming Encounters Date Type Department Care Team (Late st Contact Info) Description 08/15/2025 11:20 AM EDT Office Visit Physical Medicine [facility] Rehabilitation Clinic at [facility] [address] [place] [address] Julisa Campo DO [address] [facility] [address] [place] [id number] 09/28/2025 10:00 AM EST Office Visit [place] [facility] [address] [place] [address] Colleen Espino PA [address] [place] [address] 10/11/2025 12:40 PM EST Office Visit [facility] Urology [address] [place] [address] Aby Gallegos PA [address] [place] [address] Scheduled Orders Name Type Priority Associated Diagnoses Orde r Schedule Injection - Chemodenervation, MSK Procedures Routine Myalgia, other site Dystonia Expected: 08/01/2025 (Approximate), Expires: 02/02/2027 documented as of this encounter Goals Goal Patient Goal Type Associated Problems Recent Progress Patient-Stated? Author Autogenera radha Goal Care Plan Autogenerated Problem No Annalee Arenas documented as of this encounter Visit Diagnoses Diagnosis Myalgia, other site- Primary Dystonia Abnormal involuntary movements documented in this encounter Additional Health Concerns Active Problems Noted Date Diagnosed Date Autogenerated Problem 02/15/2025 Assessment Noted Time PHQ-9 Depression Total Score: 0 11/01/20 24 11:00 AM EST A fall risk assessment has been complete d for the patient 08/01/2025 8:34 AM EDT A Body Mass Index follow-up plan has been documented for the patient 08/02/2025 8:39 AM EDT documented as of this encounter Care Teams Textile Finisher Relationship Specialty Start Date End Date Juarez Polanco MD [address] [place] [address] PCP - General 04/06/21 Juliet Carlin PA [address] [place] [address] Physician Straw Baler Neurology 07/17/22 Keon Ramirez MD [address] [place] [address] Consulting Physician Neurology 07/02/23 Aby Gallegos PA [address] [place] [address] Physician Straw Baler Urology 10/05/24 documented as of this encounter
--- OUTSIDE RECORDS SUMMARY | 2025-08-12 10:11 | XMS_ITS | Encounter Summary ---
Author Organization [facility] Address [address] [place] [address] Care Team Providers Care Zoology Teacher Name Role Phone Juarez Polanco MD Primary Care Provider [phone] Juliet Carlin Unavailable Keon Ramirez MD Unavailable Aby Gallegos Unavailable [phone] Encounter Details Date Type Department Care Team [...] often do you attend chur ch or scientologist services? Never 05/17/2024 Do you belong to any clubs o r organizations such as faith groups, unions, fraternal or athletic groups, or school groups? No 05/17/2024 How often do you attend meet ings of the clubs or organizations you belong to? Never 05/17/2024 Are you , , di vorced, , never , or living with a partner? 05/17/2024 PHQ-2 Answer Date Recorded Patient Health Questionnaire-2 Score 0 06/16/2025 [facility] - Occupational Stress Questionnaire [...] drink first t basilio in the morning (EYE-TOOL AND DIE ASSEMBLER) to steady your nerves or to get [...] 06/16/2025 10:47 AM EDT Jenn Dean * How difficult have these problems made [...] Visit Physical Medicine & Rehabilitation Clinic at [facility] [address] [place] [phone] Julisa Campo DO [address] [place] [address] 09/28/2025 10:00 AM EST Office Visit [facility] [address] [place] [address] Colleen Espino PA [address] [place] [address] 10/11/2025 12:40 PM EST Office Visit [facility] Urology [address] [place] [address] Aby Gallegos PA [address] [place] [address] documented as of this encounter [...] documented as of this encounter Care Teams Zoology Teacher Relationship Specialty Start Date End Date Juarez Polanco MD [address] [place], [place] [id number] PCP - General 04/06/21 Juliet Carlin PA [address] [place] [address] Physician Complex Director Neurology 07/17/22 Keon Ramirez MD [address] [place] [address] Consulting Physician Neurology 07/02/23 Aby Gallegos PA [address] [place] [address] Physician Complex Director Urology 10/05/24 documented as of this encounter
--- OUTSIDE RECORDS SUMMARY | 2025-08-12 10:12 | XMS_ITS | Encounter Summary ---
Author Organization [facility] Address [address] [place] [address] Care Team Providers Care Sock Folder Name Role Phone Juarez Polanco MD Primary Care Provider [phone] Juliet Carlin Unavailable Keon Ramirez MD Unavailable Adenike Davies LPN Unavailable Unavailable Aby Gallegos Unavailable [phone] Reason for Referral * Consultation (Routine) - Closed Specialty Diagnoses / Procedures Referred By Contact Referred To Contact Physical Medicine and Rehabilitation Diagnoses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 Juarez Polanco MD [address] [place] [address] Phone: tel: fax: Julisa Campo, DO [address] [facility] [address] [place] [address] Phone: tel: fax: Referral ID Status Reason Start Date Expiration Date V isits Requested Visits Authorized [id number] Closed Specialty Services Required 03/02/2024 09/01/2025 1 1 Encounter Details Date Type Department Care Team (Late st Contact Info) Description 03/01/2024 [facility] [address] [place] [address] Juarez Polanco MD [address] [place] [address]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 (Primary Dx) Social History [...] Rehabilitation [facility] at [facility] [address] [place] [address] Julisa Campo DO [address] [place] [address] 09/28/2025 10:00 AM EST Office Visit [place] [facility] [address], 1st [place] [address] Colleen Espino PA [address] [place] [address] 10/11/2025 12:40 PM EST Office Visit [facility] Urology [address], 2nd [place] [address] Aby Gallegos PA [address] [place] [address] Scheduled Referrals Name Type Priority Associated Diagnoses [...] documented as of this encounter Care Teams Sock Folder Relationship Specialty Start Date End Date Juarez Polanco MD [address] [place] [address] PCP - General 04/06/21 Juliet Carlin PA [address] [place] [address] Physician Head Of Sales And Marketing Neurology 07/17/22 Keon Ramirez MD [address] [place] [address] Consulting Physician Neurology 07/02/23 Adenike Davies LPN VALUE-BASED [place] [address] TCM Nurse 05/17/24 06/16/24 Aby Gallegos PA [address] [place] [address] Physician Head Of Sales And Marketing Urology 10/05/24 documented as of this encounter
--- OUTSIDE RECORDS SUMMARY | 2025-08-12 10:12 | XMS_ITS | Encounter Summary ---
Author Organization [facility] Address [address] [place] [address] Care Team Providers Care Circulation Librarian Name Role Phone Juarez Polanco MD Primary Care Provider [phone] Juliet Carlin Unavailable Keon Ramirez MD Unavailable Adenike Davies LPN Unavailable Unavailable Aby Gallegos Unavailable Reason for Visit * Reason Comments Med Refill Encounter Details Date Type Department Care Team (Late st Contact Info) Description 06/06/2023 Refill Physical Medicine & Rehabilitation [facility] at [facility] [address] [place] [address] Julisa Campo DO [address] [place] [address]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; Spasticity Social [...] Flowmax Dosage: unknown Preferred Pharmacy & Location: [facility] [address] [place] [address] [place] - [address] [phone] Days of medication remaining (if under 3 days please daniel as urgent): 0 Best contact number: [phone] (home) Optimal time of day to reach [...] of the initial request. Best contact number: [phone] (home) Optimal time of day to reach [...] [facility] [address] [place] [address] Julisa Campo DO [address] [place] [address] 09/28/2025 10:00 AM EST Office Visit [place] [facility] [address] 1st [place] [address] Colleen Espino PA [address] [place] [address] 10/11/2025 12:40 PM EST Office Visit [facility] Urology [address], 2nd [place] [address] Aby Gallegos PA [address] [place] [address] documented as of this encounter [...] documented as of this encounter Care Teams Circulation Librarian Relationship Specialty Start Date End Date Juarez Polanco MD [address] [place] [address] PCP - General 04/06/21 Juliet Carlin PA [address] [place] [address] Physician Service Car Operator Neurology 07/17/22 Keon Ramirez MD [address] [place] [address] Consulting Physician Neurology 07/02/23 Adenike Davies LPN VALUE-[place] [address] TCM Nurse 05/17/24 06/16/24 Aby Gallegos PA [address] [place] [address] Physician Service Car Operator Urology 10/05/24 documented as of this encounter
--- OUTSIDE RECORDS SUMMARY | 2025-08-12 10:12 | XMS_ITS | Encounter Summary ---
Author Organization [facility] Address [address] [place] [address] Care Team Providers Care Hat Conditioner Name Role Phone Juarez Polanco MD Primary Care Provider [phone] Juliet Carlin Unavailable Keon Ramirez MD Unavailable Aby Gallegos Unavailable [phone] Reason for Visit * Reason Onset Date Comments HCN - Patient Message 07/07/2025 Encounter Details Date Type Department Care Team (Late st Contact Info) Description 07/07/2025 Telephone Physical Medicine & Rehabilitation Clinic at [facility] [address] [place] [address] Julisa Campo DO [address] [facility] [address] [place] [address] HCN - Patient Message Social [...] How often do you attend chur or samaritan services? Never 05/17/2024 Do you [...] Recorded Patient Health Questionnaire-2 Score 0 06/16/[address] [facility] - Occupational Stress Questionnaire Answer Date [...] drink first t basilio in the morning (EYE-ASSOCIATE COUNSEL) to steady your nerves or to get [...] requesting a call back. Best contact number: [phone] (mobile) Optimal time of day to reach caller: ANYTIME Additional comments/information from caller: None Note: Please do not reply to this message. Follow-up communication and further actions as a result of this message need to be communicated with the patient directly, if the patient is not active onMyChart. If the patient is active on MyChart, they will receive notification of the communication/outcome via [employer]. documented in this encounter Plan of Treatment Upcoming Encounters Date Type Department Care Team (Late st Contact Info) Description 08/15/2025 11:20 AM EDT Office Visit [facility] at [facility] [address] [place] [address] Julisa Campo DO [address] [place] [address] 09/28/2025 10:00 AM EST Office Visit [facility] [address] 1st [place] [address] Colleen Espino PA [address] [place] [address] 10/11/2025 12:40 PM EST Office Visit [facility] Urology [address] 2[address] [place] [address] Aby Gallegos PA [address] [place] [address] documented as of this encounter Goals Goal [...] documented as of this encounter Care Teams Hat Conditioner Relationship Specialty Start Date End Date Juarez Polanco MD [address] [place], [place] [id number] PCP - General 04/06/21 Juliet Carlin PA [address] [place] [id number] Physician Shipsmith Neurology 07/17/22 Keon Ramirez MD [address] [place] [address] Consulting Physician Neurology 07/02/23 Aby Gallegos PA [address] [place] [address] Physician Shipsmith Urology 10/05/24 documented as of this encounter
--- OUTSIDE RECORDS SUMMARY | 2025-08-12 10:12 | XMS_ITS | Clinical Summary ---
Author Organization [facility] Address [address] [place] [address] Care Team Providers Care Web Press Jogger Name Role Phone Juarez Polanco MD Primary Care Provider [phone] Source Comments This information has been disclosed [...] therelease of HIV test results or diagnoses. [id number] Health Allergies Active Allergy Reactions Criticality Noted [...] of 2) 2013 Immunization: COVID-19 ( season) 2025 01/07/2023, 03/07/2021, 02/07/2021 Immunization: Influenza (MyC nelson) (#1) 2025 08/25/2024, 09/01/2023, 12/04/2022, Additional history exists Immunization: RSV (Adult) (1 - 1-dose 75+ series) 2038 Insurance [employer] CHOICE PPO MEDICARE MEDICAID [place] Care Teams Web Press Jogger Relationship Specialty Start Date End Date Juarez Polanco MD [address] [place], [place] [id number] PCP - General Internal Medicine 09/06/24
--- OUTSIDE RECORDS SUMMARY | 2025-08-12 10:12 | XMS_ITS | Encounter Summary ---
Author Organization [facility] Address [address] [place] [address] Care Team Providers Care Investment Trader Name Role Phone Juarez Polanco MD Primary Care Provider [phone] Juliet Carlin Unavailable Keon Ramirez MD Unavailable Aby Gallegos Unavailable [phone] Reason for Visit * Reason Onset Date Comments HCN - Patient Message 07/04/2025 Encounter Details Date Type Department Care Team (Late st Contact Info) Description 07/04/2025 Telephone Physical Medicine & Rehabilitation Clinic at [facility] [address] [place] [address] Julisa Campo DO [address] [facility] [address] [place] [address] HCN - Patient Message Social [...] How often do you attend chur or yarsanism services? Never 05/17/2024 Do you belong to any clubs o r organizations such as hoahaoism groups, unions, fraternal or athletic groups, or school groups? No 05/17/2024 How often do you attend meet ings of the clubs or organizations you belong to? Never 05/17/2024 Are you , , di vorced, , never , or living with a partner? 05/17/2024 PHQ-2 Answer Date Recorded Patient Health Questionnaire-2 Score 0 06/16/2025 [facility] - Occupational Stress Questionnaire Answer Date [...] drink first t basilio in the morning (EYE-INGOT PASSER) to steady your nerves or to get [...] Telephone Encounter - Julisa Campo DO - 07/04/2025 10:12 AM EDT Ok [...] his pump or not Best contact number: [phone] (mobile) Optimal time of day to reach caller: ANYTIME Additional comments/information from caller: None Note: Please do not reply to this message. Follow-up communication and further actions as a result of this message need to be communicated with the patient directly, if the patient is not active onMyChart. If the patient is active on MyChart, they will receive notification of the communication/outcome via [employer]. documented in this encounter Plan of Treatment Upcoming Encounters Date Type Department Care Team (Late st Contact Info) Description 08/15/2025 11:20 AM EDT Office Visit [facility] [address] [place] [address] Julisa Campo DO [address] [place] [address] 09/28/2025 10:00 AM EST Office Visit [place] [facility] [address] 1st [place] [address] Colleen Esipno PA [address] [place] [address] 10/11/2025 12:40 PM EST Office Visit [facility]rology [address], 2nd [place] [address] Aby Gallegos PA [address] [place] [address] documented as of this encounter [...] documented as of this encounter Care Teams Investment Trader Relationship Specialty Start Date End Date Juarez Polanco MD [facility] [place] [address] PCP - General 04/06/21 Juliet Carlin PA [address] [place] [address] Physician Adult Ministries Director Neurology 07/17/22 Keon Ramirez MD [address] [place] [address] Consulting Physician Neurology 07/02/23 Aby Gallegos PA [address] [place] [address] Physician Adult Ministries Director Urology 10/05/24 documented as of this encounter
--- OUTSIDE RECORDS SUMMARY | 2025-08-12 10:12 | XMS_ITS | Encounter Summary ---
Author Organization [facility] Address [address] [place] [address] Care Team Providers Care Pst Specialist Name Role Phone Juarez Polanco MD Primary Care Provider [phone] Juliet Carlin Unavailable Keon Ramirez MD Unavailable Aby Gallegos Unavailable [phone] Encounter Details Date Type Department Care Team (Late st Contact Info) Description 05/24/2025 Results Follow-Up [place] [facility] [address] 1st [place] [address] Colleen Espino, PA [address] [place] [address] Social History Tobacco Use Types [...] often do you attend chur ch or jew services? Never 05/17/2024 Do you belong to any clubs o r organizations such as confucianist groups, unions, fraternal or athletic groups, or school groups? No 05/17/2024 How often do you attend meet ings of the clubs or organizations you belong to? Never 05/17/2024 Are you , , di vorced, , never , or living with a partner? 05/17/2024 PHQ-2 Answer Date Recorded Patient Health Questionnaire-2 Score 0 06/16/2025 [facility] - Occupational Stress Questionnaire Answer [...] drink first t basilio in the morning (EYE-PURCHASING INTERNSHIP) to steady your nerves or to get rid of a hangover? 0 01/21/2025 CAGE Questionnaire Score 0 025 Utilities Answer Date Recorded In the past 12 months has th e [employer], gas, oil, or water company threatened to [...] [facility] at [facility] [address] [place] [address] Julisa Campo DO [address] [facility] [address] [place] [address] 09/28/2025 10:00 AM EST Office Visit [place] [facility] [address] 1st [place] [address] Colleen Espino, PA [address] [place] [address] 10/11/2025 12:40 PM EST Office Visit [facility] [address], 2[address] [place] [address] Aby Gallegos PA [address] [place] [address] documented as of this encounter [...] documented as of this encounter Care Teams Pst Specialist Relationship Specialty Start Date End Date Juarez Polanco MD [address] [place], [place] [id number] PCP - General 04/06/21 Juliet Carlin PA [address] [place] [address] Physician Supervisor Fur Floor Worker Neurology 07/17/22 Keon Ramirez MD [address] [place] [address] Consulting Physician Neurology 07/02/23 Aby Gallegos PA [address] [place] [address] Physician Supervisor Fur Floor Worker Urology 10/05/24 documented as of this encounter
--- OUTSIDE RECORDS SUMMARY | 2025-08-12 10:12 | XMS_ITS | Encounter Summary ---
Author Organization [facility] Address [address] [place] [address] Care Team Providers Care Chief Architect Name Role Phone Juarez Polanco MD Primary Care Provider [phone] Juliet Carlin Unavailable Keon Ramirez MD Unavailable Adenike Davies LPN Unavailable Unavailable Aby Gallegos Unavailable Reason for Visit * Reason Onset Date Comments HCN - Rx Refill Request 08/04/2023 Encounter Details Date Type Department Care Team (Late st Contact Info) Description 08/04/2023 Refill Physical Medicine & Rehabilitation Clinic at [facility] [address] [place] [address] Julisa Campo DO [address] [place] [address]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; Spasticity Social [...] & Location: Patient Preferred Pharmacy in Chart: [facility] [address] [place] [address] Days of medication remaining (if under 3 days please daniel as urgent): 8 Best contact number: [phone] (home) Optimal time of day to reach caller: ANYTIME Additional comments/information from caller: None Note: Please do not reply to this message. Follow-up communication and further actions as a result of this message need to be communicated with the patient directly, if the patient is not active onMyChart. If the patient is active on MyChart, they will receive notification of the communication/outcome via [employer]. documented in this encounter Plan of Treatment Upcoming Encounters Date Type Department Care Team (Late st Contact Info) Description 08/15/2025 11:20 AM EDT Office Visit [facility] [address] [place] [address] Julisa Campo DO [address] [place] [address] 09/28/2025 10:00 AM EST Office Visit [facility] [address] 1st [place] [address] Colleen Espino, PA [address] [place] [address] 10/11/2025 12:40 PM EST Office Visit [facility] [address], 2nd [place] [address] Aby Gallegos PA [address] [place] [address] documented as of this encounter [...] documented as of this encounter Care Teams Chief Architect Relationship Specialty Start Date End Date Juarez Polanco MD [facility] [address] [place] [address] PCP - General 04/06/21 Juliet Carlin PA [address] [place] [address] Physician Forestry Extension Specialist Neurology 07/17/22 Keon Ramirez MD [address] [place] [address] Consulting Physician Neurology 07/02/23 Adenike Davies LPN VALUE-BASED [place] [address] TCM Nurse 05/17/24 06/16/24 Aby Gallegos PA [address] [place] [address] Physician Forestry Extension Specialist Urology 10/05/24 documented as of this encounter
--- OUTSIDE RECORDS SUMMARY | 2025-08-12 10:12 | XMS_ITS | Encounter Summary ---
Author Organization [facility] Address [address] [place] [address] Care Team Providers Care Supplier Manager Name Role Phone Juarez Polanco MD Primary Care Provider [phone] Juliet Carlin Unavailable Keon Ramirez MD Unavailable Aby Gallegos Unavailable Encounter Details Date Type Department Care Team (Late st Contact Info) Description 05/24/2025 Telephone [facility] [address] 1st [place] [address] Colleen Espino, CHANA [address] [place] [address] Social History Tobacco Use Types [...] often do you attend chur ch or cheondoism services? Never 05/17/2024 Do you belong to [...] Recorded Patient Health Questionnaire-2 Score 0 06/16/2025 [facility] - Occupational Stress Questionnaire Answer Date [...] drink first t basilio in the morning (EYE-CLERK GUIDE) to steady your nerves or to get rid of a hangover? 0 01/21/2025 CAGE Questionnaire Score 0 025 Utilities Answer Date Recorded In the past 12 months has th e [employer], gas, oil, or water company threatened to [...] difficult at all 06/16/2025 10:48 AM EDT Sanid Dean * Question Answer Date of Assessment [...] optimal time of day to reach caller: [phone] Jimmy Note: Please do not reply to this message. Follow-up communication and further actions as a result of this message need to be communicated with the patient directly, if the patient is not active onMyChart. If the patient is active on MyChart, they will receive notification of the communication/outcome via [employer]. documented in this encounter Plan of Treatment Upcoming Encounters Date Type Department Care Team (Late st Contact Info) Description 08/15/2025 11:20 AM EDT Office Visit [facility] [address] [place] [address] Joey Sprague JulisaDO [address] [place] [address] 09/28/2025 10:00 AM EST Office Visit [facility] [address] 1st [place] [address] Colleen Espino, PA [address] [place] [address] 10/11/2025 12:40 PM EST Office Visit [facility] Urology [address], 2nd [place] [address] Aby Gallegos PA [address] [place] [address] documented as of this encounter [...] documented as of this encounter Care Teams Supplier Manager Relationship Specialty Start Date End Date Juarez Polanco MD [address] [place] [address] PCP - General 04/06/21 Juliet Carlin PA [address] [place] [address] Physician Cruise Director Neurology 07/17/22 Keon Ramirez MD [address] [place] [address] Consulting Physician Neurology 07/02/23 Aby Gallegos PA [address] [place] [address] Physician Cruise Director Urology 10/05/24 documented as of this encounter
--- OUTSIDE RECORDS SUMMARY | 2025-08-12 10:12 | XMS_ITS | Encounter Summary ---
Author Organization [facility] Address [address] [place] [address] Care Team Providers Care Silk Screen Printing Racker Name Role Phone Juarez Polanco MD Primary Care Provider [phone] Juliet Carlin Unavailable Keon Ramirez MD Unavailable Aby Gallegos Unavailable Encounter Details Date Type Department Care Team (Late st Contact Info) Description 04/04/2025 [facility] [address] [place] [address] Juarez Polanco MD [address] [facility] [address] [place] [address] Social History Tobacco Use Types [...] any clubs o r organizations such as latter day groups, unions, fraternal or athletic groups, or school groups? No 05/17/2024 How often do you attend meet ings of the clubs or organizations you belong to? Never 05/17/2024 Are you , , di vorced, , never , or living with a partner? 05/17/2024 PHQ-2 Answer Date Recorded Patient Health Questionnaire-2 Score 0 02/24/2025 [facility] - Occupational [...] drink first t basilio in the morning (EYE-SHOT BAGGER) to steady your nerves or to get [...] [facility] [address] [place] [address] Joey Sprague Julisa, DO [address] [place] [address] 09/28/2025 10:00 AM EST Office [facility] [address] 1st [place] [address] Colleen Espino, PA [address] [place] [address] 10/11/2025 12:40 PM EST Office Visit [facility] Urology [address] 2[address] [place] [address] Aby Gallegos PA [address] [place] [address] documented as of this encounter [...] documented as of this encounter Care Teams Silk Screen Printing Racker Relationship Specialty Start Date End Date Juarez Polanco MD [address] [place] [address] PCP - General 04/06/21 Juliet Carlin PA [address] [place] [address] Physician Head Animal Keeper Neurology 07/17/22 Keon Ramirez MD [address] [place] [address] Consulting Physician Neurology 07/02/23 Aby Gallegos PA [address] [place] [address] Physician Head Animal Keeper Urology 10/05/24 documented as of this encounter
--- OUTSIDE RECORDS SUMMARY | 2025-08-12 10:12 | XMS_ITS | Encounter Summary ---
Author Organization [facility] Address [address] [place] [address] Care Team Providers Care Jack Machine Operator Name Role Phone Juarez Polanco MD Primary Care Provider [phone] Juliet Calrin Unavailable Keon Ramirez MD Unavailable Aby Gallegos Unavailable [phone] Reason for Visit * Reason Comments Med Refill Encounter Details Date Type Department Care Team (Late st Contact Info) Description 07/17/2025 [facility]ill [facility] [address] [place] [id number] Justo Vasquez, DO [address] [place], [place] [id number]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 Tobacco Use [...] often do you attend chur ch or taoist services? Never 05/17/2024 Do you [...] Recorded Patient Health Questionnaire-2 Score 0 06/16/2025 [facility] - Occupational Stress Questionnaire Answer Date [...] place to sleep or slept in a alf (including now)? No 04/26/2024 PHQ-9 Answer Date [...] drink first t basilio in the morning (EYE-TOBACCO ROLLER) to steady your nerves or to get [...] [facility] [address] [place] [address] Julisa Campo DO [address] [place] [address] 09/28/2025 10:00 AM EST Office Visit [facility] [address], [address] [place] [address] Colleen Espino PA [address] [place] [address] 10/11/2025 12:40 PM EST Office Visit [facility] Urology [address], 2nd [place] [address] Aby Gallegos PA [address] [place] [address] documented as of this encounter [...] documented as of this encounter Care Teams Jack Machine Operator Relationship Specialty Start Date End Date Juarez Polanco MD [address] [place] [address] PCP - General 04/06/21 Juliet Carlin PA [address] [place] [address] Physician Foundry Manager Neurology 07/17/22 Keon Ramirez MD [address] [place] [address] Consulting Physician Neurology 07/02/23 Aby Gallegos PA [address] [place] [address] Physician Foundry Manager Urology 10/05/24 documented as of this encounter
--- OUTSIDE RECORDS SUMMARY | 2025-08-12 10:12 | XMS_ITS | Encounter Summary ---
Author Organization [facility] Address [address] [place] [address] Care Team Providers Care Chief Of Planning Name Role Phone Juarez Polanco MD Primary Care Provider [phone] Juliet Carlin Unavailable Keon Ramirez MD Unavailable Adenike Davies LPN Unavailable Unavailable Aby Gallegos Unavailable [phone] Reason for Visit * Reason Comments Med Refill Encounter Details Date Type Department Care Team (Late st Contact Info) Description 10/05/2023 Refill [facility] [address] [place] [address] Julisa Campo DO [address] [place] [address]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 [...] Clinic at [facility] [address] [place] [address] Julisa Campo DO [address] [place] [address] 09/28/2025 10:00 AM EST Office Visit [facility] [address], 1st [place] [address] Colleen Espino PA [address] [place] [address] 10/11/2025 12:40 PM EST Office Visit [facility] Urology [address], 2[address] [place] [address] Aby Gallegos PA [address] [place] [address] documented as of this encounter [...] as of this encounter Care Teams Chief Of Planning Relationship Specialty Start Date End Date Juarez Polanco MD [address] [place] [address] PCP - General 04/06/21 Juliet Carlin PA [address] [place] [address] Physician Golf Club Maker Neurology 07/17/22 Keon Ramirez MD [address] [place] [address] Consulting Physician Neurology 07/02/23 Adenike Davies LPN VALUE-[place] [address] TCM Nurse 05/17/24 06/16/24 Aby Gallegos PA [address] [place] [address] Physician Golf Club Maker Urology 10/05/24 documented as of this encounter
--- OUTSIDE RECORDS SUMMARY | 2025-08-12 10:12 | XMS_ITS | Encounter Summary ---
Author Organization [facility] Address [address] [place] [address] Care Team Providers Care Chip Bin Operator Name Role Phone Juarez Polanco MD Primary Care Provider [phone] Juliet Carlin Unavailable Keon Ramirez MD Unavailable Adenike Davies LPN Unavailable Unavailable Aby Gallegos Unavailable Reason for Visit * Reason Comments Med Refill Encounter Details Date Type Department Care Team (Late st Contact Info) Description 03/17/2023 Refill [facility] at [facility] [address] [place] [place] [address] Julisa Campo DO [address] [place] [address]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 [...] [facility] at [facility] [address] [place] [address] Julisa Campo DO [address] [place] [address] 09/28/2025 10:00 AM EST Office Visit [facility] [address], 1st [place] [address] Colleen Espino PA [address] [place] [address] 10/11/2025 12:40 PM EST Office Visit [facility] U[facility] [address], 2[address] [place] [address] Aby Gallegos PA [address] [place] [address] documented as of this encounter [...] documented as of this encounter Care Teams Chip Bin Operator Relationship Specialty Start Date End Date Juarez Polanco MD [address] [place] [address] [address] [place], [place] [id number] PCP - General 04/06/21 Juliet Carlin PA [address] [place] [address] Physician Press Machine Feeder Neurology 07/17/22 Keon Ramirez MD [address] [place] [address] Consulting Physician Neurology 07/02/23 Adenike Davies LPN VALUE-BASED [place] [address] TCM Nurse 05/17/24 06/16/24 Aby Gallegos PA [id number] [place] [address] Physician Press Machine Feeder Urology 10/05/24 documented as of this encounter
--- OUTSIDE RECORDS SUMMARY | 2025-08-12 10:12 | XMS_ITS | Encounter Summary ---
Author Organization [facility] Address [address] [place] [address] Care Team Providers Care Research Professor Of Biostatistics Name Role Phone Juarez Polanco MD Primary Care Provider [phone] Juliet Carlin Unavailable Keon Ramirez MD Unavailable Aby Gallegos Unavailable [phone] Reason for Visit * Reason Onset Date Comments HCN - Patient Message 07/11/2025 Encounter Details Date Type Department Care Team (Late st Contact Info) Description 07/11/2025 Telephone [facility] Interventional Pain Medicine [address] [place] [address] Orlando Agrawal MD [address] [facility] [address] [place] [address] HCN - Patient Message Social [...] often do you attend chur ch or baptist services? Never 05/17/2024 Do you belong to any clubs o r organizations such as jain groups, unions, fraternal or athletic groups, or school groups? No 05/17/2024 How often do you attend meet ings of the clubs or organizations you belong to? Never 05/17/2024 Are you , , di vorced, , never , or living with a partner? 05/17/2024 PHQ-2 Answer Date Recorded Patient Health Questionnaire-2 Score 0 06/16/2025 [facility] - Occupational Stress Questionnaire Answer [...] drink first t basilio in the morning (EYE-FOOD MIXER REPAIRER) to steady your nerves or to get [...] Please call to discuss. Best contact number: [phone] (mobile) Optimal time of day to reach caller: ANYTIME Additional comments/information from caller: None Note: Please do not reply to this message. Follow-up communication and further actions as a result of this message need to be communicated with the patient directly, if the patient is not active onMyChart. If the patient is active on MyChart, they will receive notification of the communication/outcome via [employer]. documented in this encounter Plan of Treatment Upcoming Encounters Date Type Department Care Team (Late st Contact Info) Description 08/15/2025 11:20 AM EDT Office Visit [facility] [address] [place] [address] Julisa Campo DO [address] [place] [address] 09/28/2025 10:00 AM EST Office Visit [facility] [address] 1st [place] [address] Colleen Espino PA [address] [place] [address] 10/11/2025 12:40 PM EST Office Visit [facility] Urology [address], 2[address] [place] [address] Aby Gallegos PA [address] [place] [address] documented as of this encounter [...] documented as of this encounter Care Teams Research Professor Of Biostatistics Relationship Specialty Start Date End Date Juarez Polanco MD [facility] [place] [address] PCP - General 04/06/21 Juliet Carlin PA [address] [place] [address] Physician Router Tender Neurology 07/17/22 Keon Ramirez MD [address] [place] [address] Consulting Physician Neurology 07/02/23 Aby Gallegos PA [address] [place] [address] Physician Router Tender Urology 10/05/24 documented as of this encounter
--- OUTSIDE RECORDS SUMMARY | 2025-08-12 10:12 | XMS_ITS | Encounter Summary ---
Author Organization [facility] Address [address] [place] [address] Care Team Providers Care Electrical Engineering Intern Name Role Phone Juarez Polanco MD Primary Care Provider [phone] Juliet Carlin Unavailable Keon Ramirez MD Unavailable Aby Gallegos Unavailable [phone] Reason for Visit * Reason Onset Date Comments HCN - Patient Message 06/28/2025 Encounter Details Date Type Department Care Team (Late st Contact Info) Description 06/28/2025 Telephone [facility] Interventional Pain Medicine [address] [facility] [place] [address] Orlando Agrawal MD [address] [facility] [address] [place] [address] HCN - Patient Message Social [...] Recorded Patient Health Questionnaire-2 Score 0 06/16/2025 [facility] - Occupational Stress Questionnaire Answer Date [...] place to sleep or slept in a prison (including now)? No 04/26/2024 PHQ-9 Answer Date [...] drink first t basilio in the morning (EYE-RUSTIC TERRAZZO SETTER) to steady your nerves or to [...] leg pain please call Best contact number: [phone] (mobile) Optimal time of day to reach caller: ANYTIME Additional comments/information from caller: None Note: Please do not reply to this message. Follow-up communication and further actions as a result of this message need to be communicated with the patient directly, if the patient is not active onMyChart. If the patient is active on MyChart, they will receive notification of the communication/outcome via [employer]. documented in this encounter Plan of Treatment Upcoming Encounters Date Type Department Care Team (Late st Contact Info) Description 08/15/2025 11:20 AM EDT Office Visit [facility] at [facility] [address] [place] [address] Julisa Campo DO [address] [place] [address] 09/28/2025 10:00 AM EST Office Visit [facility] [address], 1st [place] [address] Colleen Espino PA [address] [place] [address] 10/11/2025 12:40 PM EST Office Visit [facility] Urology [address], 2nd [place] [address] Aby Gallegos PA [address] [place] [address] documented as of this encounter Goals Goal Patient Goal Type Associated Problems Recent Progress Patient-Stated? Author Autogenera radha Goal Care Plan Autogenerated Problem No Dagoberto Annalee K documented as of this encounter Visit Diagnoses [...] documented as of this encounter Care Teams Electrical Engineering Intern Relationship Specialty Start Date End Date Juarez Polanco MD [address] [place] [address] PCP - General 04/06/21 Juliet Carlin PA [address] [place] [address] Physician Weaver Dobby Loom Neurology 07/17/22 Keon Ramirez MD [address] [place] [address] Consulting Physician Neurology 07/02/23 Aby Gallegos PA [address] [id number] Physician Weaver Dobby Loom Urology 10/05/24 documented as of this encounter
--- OUTSIDE RECORDS SUMMARY | 2025-08-12 10:12 | XMS_ITS | Encounter Summary ---
Author Organization [facility] Address [address] [place] [address] Care Team Providers Care Bomb Squad Commander Name Role Phone Juarez Polanco MD Primary Care Provider [phone] Juliet Carlin Unavailable Keon Ramirez MD Unavailable Aby Gallegos Unavailable [phone] Reason for Visit * Reason Comments Med Refill Encounter Details Date Type Department Care Team (Late st Contact Info) Description 06/26/2025 Refill [facility] [address] 2nd [place] [address] Aby Gallegos PA [address] [place] [address]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 [...] How often do you attend chur or orthodox services? Never 05/17/2024 Do you belong to any clubs o r organizations such as denominational groups, unions, fraternal or athletic groups, or school groups? No 05/17/2024 How often do you attend meet ings of the clubs or organizations you belong to? Never 05/17/2024 Are you , , di vorced, , never , or living with a partner? 05/17/2024 PHQ-2 Answer Date Recorded Patient Health Questionnaire-2 Score 0 06/16/[address] [facility] - Occupational Stress Questionnaire Answer [...] place to sleep or slept in a skilled nursing (including now)? No 04/26/2024 PHQ-9 Answer Date [...] drink first t basilio in the morning (EYE-AUTOMATIC BOW MAKER MACHINE TENDER) to steady your nerves or to get [...] [facility] [address] [place] [address] Julisa Campo DO [address] [place] [address] 09/28/2025 10:00 AM EST Office Visit [facility] [address] 1st [place] [address] Colleen Espino PA [address] [place] [address] 10/11/2025 12:40 PM EST Office Visit [facility] Urology [address] 2nd [place] [address] Aby aGllegos PA [address] [place] [address] documented as of this encounter [...] documented as of this encounter Care Teams Bomb Squad Commander Relationship Specialty Start Date End Date Juarez Polanco MD [address] [place] [address] PCP - General 04/06/21 Juliet Carlin PA [address] [place] [id number] Physician Leak Detection Engineer Neurology 07/17/22 Keon Ramirez MD [address] [place] [address] Consulting Physician Neurology 07/02/23 Aby Gallegos PA [address] [place] [address] Physician Leak Detection Engineer Urology 10/05/24 documented as of this encounter
--- OUTSIDE RECORDS SUMMARY | 2025-08-12 10:12 | XMS_ITS | Encounter Summary ---
Author Organization [facility] Address [address] [place] [address] Care Team Providers Care Electronic Console Display Operator Name Role Phone Juarez Polanco MD Primary Care Provider [phone] Juliet Carlin Unavailable Keon Ramirez MD Unavailable Aby Gallegos Unavailable [phone] Reason for Visit * Reason Onset Date Comments HCN - Patient Message 08/09/2025 Encounter Details Date Type Department Care Team (Late st Contact Info) Description 08/09/2025 Telephone [facility] Interventional Pain Medicine [address] [place] [address] Orlando Agrawal MD [address] [facility] [address] [place] [address] HCN - Patient Message Social [...] any clubs o r organizations such as moravian groups, unions, fraternal or athletic groups, or school groups? No 05/17/2024 How often do you attend meet ings of the clubs or organizations you belong to? Never 05/17/2024 Are you , , di vorced, , never , or living with a partner? 05/17/2024 PHQ-2 Answer Date Recorded Patient Health Questionnaire-2 Score 0 06/16/2025 [facility] - Occupational Stress Questionnaire Answer [...] place to sleep or slept in a retirement (including now)? 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 Follow-up communication and further actions as a result of this message need to be communicated with the patient directly, if the patient is not active onMyChart. If the patient is active on MyChart, they will receive notification of the communication/outcome via [employer]. documented in this encounter Plan of Treatment Upcoming Encounters Date Type Department Care Team (Late st Contact Info) Description 08/15/2025 11:20 AM EDT Office Visit [facility] at [facility] [address] [place] [address] Julisa Campo DO [address] [place] [address] 09/28/2025 10:00 AM EST Office Visit [facility] [address] 1st [place] [address] Colleen Espino PA [address] [place] [address] 10/11/2025 12:40 PM EST Office Visit [facility] Urology [address], 2nd [place] [address] Aby Gallegos PA [address] [place] [address] documented as of this encounter Goals Goal [...] documented as of this encounter Care Teams Electronic Console Display Operator Relationship Specialty Start Date End Date Juarez Polanco MD [address] [place], [place] [id number] PCP - General 04/06/21 Juliet Carlin PA [address] [place] [address] Physician Associate Professor Physician Neurology 07/17/22 Keon Ramirez MD [address] [place] [address] Consulting Physician Neurology 07/02/23 Aby Gallegos PA [address] [place] [address] Physician Associate Professor Physician Urology 10/05/24 documented as of this encounter
--- OUTSIDE RECORDS SUMMARY | 2025-08-12 10:12 | XMS_ITS | Clinical Summary ---
Author Organization [facility] Address [address] [place] [address] Care Team Providers Care Pool Attendant Name Role Phone Juarez Polanco MD Primary Care Provider [phone] Juliet Carlin Unavailable Keon Ramirez MD Unavailable Aby Gallegos Unavailable Allergies Active Allergy Reactions Criticality Noted Date [...] Administer 2 sprays into each nostril. 07/19/20 24 Active docusate sodium (Colace) 100 MG capsule Take 1 capsule by mouth in the morning and 1 capsule before bedtime. Active gabapentin (Neurontin) 300 MG capsule Take 1 capsule by mouth 3 times a day. 90 capsule 3 04/21/20 25 Active tamsulosin (Flomax) 0.4 MG 24 hr capsuleIndicat ions:Stiff person syndrome TAKE 2 CAPSULES BY MOUTH AT BEDTIME 180 capsule 06/30/20 25 Active baclofen (Lioresal) 20 MG tabletIndicati ons:Stiff person syndrome TAKE 1 TABLET BY MOUTH THREE TIMES DAILY 90 tablet 3 07/18/20 25 Active Azelastine HCl 137 MCG/SPRAY solution USE 2 SPRAYS (1 SPRAY IN EACH NOSTRIL) TWICE DAILY 07/04/20 25 Active erythromycin (Romycin) 5 MG/GM ophthalmic ointment INSTILL A SMALL AMOUNT OF OINTMENT INTO EACH EYE AT BEDTIME 07/12/20 25 Active traMADol (Ultram) 50 MG tablet TAKE 1 TO 2 TABLETS BY MOUTH THREE TIMES DAILY 07/04/20 25 Active baclofen (Lioresal) 20 MG tabletIndicati ons:Stiff person syndrome Take 1 tablet by mouth 3 times a day. 90 tablet 2 04/21/20 25 025 Discontinued Hospital, Clinic, or Other Facility Administered Medication Ordered Dose Route Frequency Start Date End Date Status sodium chloride (PF) 0.9 % injection 20 mLIndications:Dystonia 20 mL IV As needed 05/19/2025 Ac tive Active Problems Problem Noted Date Diagnosed Date [...] Encounters Date Type Department Care Team Description 08/09/2025 Telephone [facility] Interventional Pain Medicine [address] [place] [phone] Orlando Agrawal MD HCN - Patient Message 08/01/2025 8:40 AM EDT Office Visit [facility] Interventional Pain Medicine [address] [place] [phone] Orlando Agrawal MD Myalgia, other site (Primary Dx); Dystonia 08/01/2025 Travel 07/17/2025 Refill [facility] [address] [place] [phone] Justo Vasquez DO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 Telephone [facility] Interventional Pain Medicine [address] [place] [phone] Orlando Agrawal MD HCN - Patient Message 07/07/2025 Telephone [facility] [address] [place] [address] Julisa Campo DO HCN - Patient Message 07/04/2025 Telephone [facility] [address] [place] [phone] Julisa Campo DO HCN - Patient Message 06/28/2025 Telephone [facility] Interventional Pain Medicine [address] [place] [phone] Orlando Agrawal MD HCN - Patient Message 06/26/2025 Refill [facility] Urology [address] [place] [phone] Aby Gallegos PA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 10:50 AM EDT Office Visit [facility] [address] [place] [address] Julisa Campo DO Spasticity;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 Travel 05/24/2025 Results Follow-Up [facility] [address] [place] [phone] Colleen Espino PA 05/24/2025 Telephone [facility] [address] [place] [phone] Colleen Espino PA 05/20/2025 12:39 PM EDT - 05/20/2025 11:59 PM EDT Hospital Encounter [facility] [address] [place] [address] Cerebrovascular accident (CVA) due to other mechanism (CMS/HCC); Chronic intractable headache, unspecified headache type; Transient weakness of left leg Discharge Disposition: Home or Self Care 05/20/2025 Travel 05/19/2025 10:00 AM EDT Procedure Visit [facility] Interventional Pain Medicine [address] [place] [address] Orlando Agrawal MD Dystonia 05/19/2025 Travel from Last 3 Months Immunizations Immunization [...] How often do you attend chur or mandaen services? Never 05/17/2024 Do you belong to [...] Recorded Patient Health Questionnaire-2 Score 0 06/16/2025 [facility] - Occupational [...] place to sleep or slept in a halfway (including now)? No 04/26/2024 PHQ-9 Answer Date [...] drink first t basilio in the morning (EYE-FIRE SERVICES PLUMBER) to steady your nerves or to get rid of a hangover? 0 01/21/2025 CAGE Questionnaire Score 0 025 Utilities Answer Date Recorded In the past 12 months has th e [employer], gas, oil, or water company threatened to [...] Mass Index 31.74 08/01/2025 8:34 AM EDT Plan of Treatment Upcoming Encounters Date Type Department Care Team (Late st Contact Info) Description 08/15/2025 11:20 AM EDT Office Visit [facility] [address] [place] [address] Julisa Campo, [address] [place] [address] 09/28/2025 10:00 AM EST [facility] [address] [place] [address] Colleen Espino PA [address] [place] [address] 10/11/2025 12:40 PM EST Office Visit [facility] [address] [place] [address] Aby Gallegos PA [address] [place] [address] Health Maintenance Due Date Last Done Comments [facility]ic[facility] Annual Wellness (AWV) 1965 [facility]-/Child/Adol SDOH Screenings 1965 [facility]- SDOH Screenings 1981 [facility]-Adult SDOH Screenings 1981 CT Colonography 02/01/2008 Colonoscopy 02/01/2008 FIT 02/01/2008 FOBT 02/01/2008 Sigmoidoscopy 02/01/2008 [facility]-Zoster Vaccines (1 of 2) 2013 [facility]-RSV Vaccine: 60+ Years or (1 - Risk 60-74 years 1-dose series) 2023 [id number] Vaccine ( - season) 2025 01/07/2023, 03/07/2021, 02/07/2021 [facility]-Influenza Vaccine (#1) 07/25/202508/25, 09/01/2023, 12/04/2022, Additional history exists [facility]-Depression Screening 06/16/2026 025, 11/01/2024, 09/03/2022 FIT-DNA 12/03/2026 12/03/2023 [facility]-Colorectal Cancer Screening 12/03/2026 [facility]-DTaP,Tdap,and Td Vaccines (2 - Td or Tdap) 03/28/2035 03/28/2025, 01/26/1997 [facility]-HIV Screening Completed 04/26/2024 [facility]-Hepatitis C Screening Completed 04/26/2024 [facility]-Pneumococcal Vaccine: 50+ Years Completed 03/28/2025 [facility]-Obesity Intervention Completed 025, 06/16/2025, 05/19/2025, Additional history exists HPV Vaccines Aged Out [...] [employer] Implanted Type Area Automated Teller Manager Device Identifier Shelf Expiration Date Model / Serial / Lot Cement Palacos Mv - [id number] Implanted:Qty : 3 on 03/03/2024 by Juarez Horta MD at [facility] Cement Right: Knee [employer]-[id number] 04/23/2028 [id number] / / [id number] Chg Tibial [employer] Fulfillment Representative R - [id number] Implanted:Qty : 1 on 03/03/2024 by Juarez Horta MD at [facility] Implant Right: Knee Gallegos [employer] Nephew [employer] Inc-[id number] 07/14/2033 [id number] / / [id number] Chg Patella Gii Oval Resurfaci - [id number] Implanted:Qty : 1 on 03/03/2024 by Juarez Horta MD at [facility] Implant Right: Knee Gallegos [employer] Nephew [employer] Inc-[id number] 10/20/2033 [id number] / / [id number] Jrny Ii Bcs Xlpe Art Isrt Sz 7 - [id number] Implanted:Qty : 1 on 03/03/2024 by Juarez Horta MD at [facility] Implant Right: Knee Gallegos [employer]hew [employer] Inc-[id number] 01/20/2032 [id number] / / [id number] Jrny Ii Bcs Femoral Oxin Rt Sz - [id number] Implanted:Qty : 1 on 03/03/2024 by Juarez Horta MD at [facility] Implant Right: Knee Gallegos [employer] Nephew [employer] Inc-[id number] 11/23/2033 [id number] / / [id number] Medtronic Syncromed 2-09/19/2017 Implanted: (Quantity not on file) Pain Pump Abdomen 8637-40 / [id number] / Abre Stent Common Iliac Vein- Implanted:Qty : 5 on 01/21/2025 by Shazia Javed MD Stent Vena Cava Medtronic Cement Palacos Mv - [id number] Implanted:Qty : 3 on 11/05/2023 by Juarez Horta MD at [facility] Left: Knee [employer] Inc-[id number] 02/22/2028 [id number] / / [id number] Jrny Ii Bcs Femoral Oxin Lt Sz - [id number] Implanted:Qty : 1 on 11/05/2023 by Juarez Horta MD at [facility] Left: Knee Gallegos [employer] Nephew [employer] Inc-[id number] 04/12/2033 [id number] / / [id number] Chg Tibial [employer] Fulfillment Representative L - [id number] Implanted:Qty : 1 on 11/05/2023 by Juarez Horta MD at [facility] Left: Knee Gallegos [employer] Nephew [employer] Inc-[id number] 02/17/2033 [id number] / / [id number] Chg Patella Gii Oval Resurfaci - [id number] Implanted:Qty : 1 on 11/05/2023 by Juarez Horta MD at [facility] Left: Knee Gallegos [employer] Nephew [employer] Inc-[id number] 05/27/2033 [id number] / / [id number] Jrny Ii Bcs Cnstrd Art Isrt 7- - [id number] Implanted:Qty : 1 on 11/05/2023 by Juarez Horta MD at [facility] Left: Knee Galelgos & Nephew [employer] Inc-[id number] 06/17/2032 [id number] / / [id number] Explanted Type Area Automated Teller Manager Device Identifier Shelf Expiration Date Model / Serial / Lot Filter Jug Yeimy Vena Cava - [id number] Implanted:Qty: 1 on 10/22/2023 by Daria Gallegos RN at [facility] Peripherial Vascular-[id number] 09/23/2026 [id number] / / [id number] Procedures Procedure Name Priority Date/Time Associated Diagnosis [...] error, please notify the sender immediately at [phone] and permanently delete the original report and destroy any copies or printouts. Narrative 05/22/2025 7:48 AM EDT [facility] - Phone Outpatient NAME: Rothman Jimmy Gene DATE OF EXAM: 05/20/2025 Patient No: [id number] Physician: Thierry^Lien Date of : 1965 Past [...] Rothman DATE OF EXAM: 05/20/2025 Patient No: [id number] Physician: Thierry^Lien Date of : 1965 Past [...] in error, pleasenotify the sender immediately at [phone] and permanently delete theoriginal report and destroy any copies or printouts. Colleen ZAYAS IMG MRI PROCEDURES Final Resul t * ED HIV 1/2 Antibody/Antigen Screen w/Reflex to HIV 1/2 Differentiation (04/26/2024 2:40 AM EDT) Pathologist [facility] HIV 1 & 2 Antibody/Antigen Screen Non Reactive Non Reactive 04/26/2024 3:32 AM EDT [facility] Comment:Screening for HIV 1 & 2 antibodies, and P24 antigen is NONREACTIVE. No confirmatory testing is required. Blood Venous blood specimen / Unknown Venipuncture / Unknown 04/26/2024 2:40 AM EDT 04/26/2024 2:46 AM EDT Delmar Red MD LAB BLOOD ORDERABLES Final Re sult Performing Organization Address City/[facility]/ZIP Co de Phone Number [facility]ALTH[facility] [address] [place] [address] * Hepatitis C Antibody - ED (04/26/2024 2:40 AM EDT) [facility] Hepatitis C Antibody Negative Negative 04/26/2024 3:29 AM EDT [facility] Blood Venous blood specimen / Unknown Venipuncture / Unknown 04/26/2024 2:40 AM EDT 04/26/2024 2:46 AM EDT Delmar Red MD LAB BLOOD ORDERABLES Final Re sult [facility] [address] [place] [address] from Last 3 Months or Most Recently Relevant to Health Maintenance Additional Health Concerns Active Problems Noted Date Diagnosed Date Autogenerated Problem 02/15/2025 Insurance [place]ICAID-[place] MEDICARE Advance Directives Documents on File Type Date Recorded Patient Hand Slitter Expl anation Advance Directives and Living Will [...] Patient has decision-making capacity? Yes Care Teams Pool Attendant Relationship Specialty Start Date End Date Juarez Polanco MD [address] [place] [address] PCP - General 04/06/21 Juliet Carlin PA [address] [place] [address] Physician Cooler Tender Neurology 07/17/22 Keon Ramirez MD [address] [place] [address] Consulting Physician Neurology 07/02/23 Aby Gallegos PA [address] [place] [address] Physician Cooler Tender Urology 10/05/24
--- OUTSIDE RECORDS SUMMARY | 2025-08-12 10:12 | XMS_ITS | Encounter Summary ---
Author Organization [facility] Address [address] [place] [address] Care Team Providers Care Beaver Trapper Name Role Phone Juarez Polanco MD Primary Care Provider [phone] Juliet Carlin Unavailable Keon Ramirez MD Unavailable Aby Gallegos Unavailable [phone] Encounter Details Date Type Department Care Team (Latest Contact Info) Description 08/01/2025 Travel Social History Tobacco Use Types Packs/Day [...] Recorded Patient Health Questionnaire-2 Score 0 06/16/2025 [facility] Questionnaire Answer Date [...] drink first t basilio in the morning (EYE-SUPERVISORY HISTORIAN) to steady your nerves or to get [...] [facility] [address] [place] [address] Julisa Campo DO [address] [place] [address] 09/28/2025 10:00 AM EST Office Visit [facility] [address] [place] [address] Colleen Espino PA [address] [place] [address] 10/11/2025 12:40 PM EST Office Visit [facility] Urology [address] [place] [address] Aby Gallegos PA [address] [place] [address] documented as of this encounter [...] documented as of this encounter Care Teams Beaver Trapper Relationship Specialty Start Date End Date Juarez Polanco MD [address] [place] [address] PCP - General 04/06/21 Juliet Carlin PA [address] [place] [address] Physician City Controller Neurology 07/17/22 Keon Ramirez MD [address] [place] [address] Consulting Physician Neurology 07/02/23 Aby Gallegos PA [id number] [place] [phone] Physician City Controller Urology 10/05/24 documented as of this encounter
[2025-08-12 10:37] LABS: Hematocrit 44.0 % (42.0-52.0); Hemoglobin 14.3 g/dL (14.1-18.0); Immature Granulocytes % 0.3 %; Mean Corpuscular HGB Conc 32.5 g/dL (31.8-35.4); Mean Corpuscular Hemoglobin 27.1 pg (27.0-31.2); Mean Corpuscular Volume 83.5 fl (80-94); Nucleated Red Blood Cells % 0 %; Platelet Count 233 K/mm3 (142-424); Red Blood Count 5.27 M/mm3 (4.60-6.20); Red Cell Distribution Width-SD 44.9 fL; White Blood Count 6.3 K/mm3 (4.8-10.8)
[2025-08-12 11:15] LABS: Chloride 87 mmol/L (98-107); Potassium 3.2 mmoL/L (3.5-5.1); Sodium 136 mmol/L (136-145)
[2025-08-12 11:18] LABS: Anion Gap 14.2 mEq/L (5-15); Blood Urea Nitrogen 23 mg/dl (9-20); Carbon Dioxide 38 mmol/L (22.0-30.0); Creatinine,Serum 1.60 mg/dl (0.66-1.25); Estimated Glomerular Filt Rate 44 ml/min (>60); GFR (African American) 53 ML/MIN (>60)
[2025-08-12 11:19] LABS: Calcium 10.6 mg/dl (8.4-10.2); Glucose 150 mg/dl (74-100)
[2025-08-12 12:18] LABS: C-Reactive Protein 3.1 mg/L (0-4)
== END 2025-08-12 23:59 | disposition home or self-care (01) ==
PROVIDERS: PCP Internal Medicine Adolescent Medicine; Visit Provider Internal Medicine Adolescent Medicine
DX: E83.52 Hypercalcemia (principal); M79.0 Rheumatism, unspecified
CPT/HCPCS: 36415; 80048; 83970; 85025; 85651; 86038; 86140